=== PATIENT | female | born 1975 | race Caucasian/White ===

== ENCOUNTER 2017-05-13 13:25 | Emergency (ER) | payer OTHER ==
[2017-05-13 13:43] VITALS: BP 163/82; PULSE 83; RESP 18; TEMP 97.8
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
[2017-05-13] MEDS ORDERED: RX INFO: IV CONTRAST WAS GIVEN 1 EACH MISC MISCELLANE PRN (15:09)
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
--- NOTE | 2017-05-13 15:12 | XR ---
EXAMINATION TYPE: XR soft tissue neck DATE OF EXAM: 05/13/2017 COMPARISON: NONE HISTORY: Pain and choking. TECHNIQUE: 2 views of soft tissue neck are obtained. FINDINGS: There is no suspicious prevertebral soft tissue swelling. Nasopharyngeal and hypopharyngeal airway are patent. No suspicious narrowing of subglottic airway is seen. Overlying soft tissue is un remarkable. IMPRESSION: 2 view soft tissue neck felt within normal limits.
[2017-05-13 15:33] LABS: Basophils # (A) 0.1 k/uL (0-0.2); Basophils % (A) 1 %; CH 35.2; CHCM 32.4; Eosinophils # (A) 0.1 k/uL (0-0.7); Eosinophils % (A) 2 %; HCT 39.2 % (34.0-46.0); HDW 2.04; HGB 12.6 gm/dL (11.4-16.0); Luc # (Auto) 0.27; Luc % (Auto) 4; Lymphocytes # (A) 1.7 k/uL (1.0-4.8); Lymphocytes % (A) 27 %; MCHC 32.1 g/dL (31.0-37.0); MCV 108.9 fL (80.0-100.0); Macrocytosis Moderate; Mean Platelet Volume 7.5; Monocytes # (A) 0.4 k/uL (0-1.0); Monocytes % (A) 6 %; Neutrophils # (A) 3.6 k/uL (1.3-7.7); Neutrophils % (A) 60 %; RBC 3.59 m/uL (3.80-5.40); RDW 12.4 % (11.5-15.5); WBC 6.1 k/uL (3.8-10.6); WBC (Perox) 5.93
[2017-05-13 15:42] LABS: Anion Gap 11 mmol/L; Blood Urea Nitrogen 3 mg/dL (7-17); Calcium 8.3 mg/dL (8.4-10.2); Carbon Dioxide 19 mmol/L (22-30); Chloride 106 mmol/L (98-107); Glucose 64 mg/dL (74-99); Non-African American GFR(MDRD) >60 (>60 ml/min/1.73 sqM); Potassium 5.3 mmol/L (3.5-5.1); Sodium 136 mmol/L (137-145)
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
== END 2017-05-13 17:30 | disposition home or self-care (01) ==
LOC: EC 13:25
DX: T74.11XA Adult physical abuse, confirmed, initial encounter (principal); M54.2 Cervicalgia; R07.9 Chest pain, unspecified; F10.129 Alcohol abuse with intoxication, unspecified; Z79.899 Other long term (current) drug therapy; Z88.8 Allergy status to other drugs, medicaments and biological substances; Y04.0XXA Assault by unarmed brawl or fight, initial encounter; Y92.009 Unspecified place in unspecified non-institutional (private) residence as the place of occurrence of the external cause
CPT/HCPCS: 99285 ×2; 36415; 80048; 85025; 70360; 71020; 70498; Q9967

== ENCOUNTER 2017-11-17 14:38 | Observation (INO) | payer OTHER ==
[2017-11-17] MEDS ORDERED: ASPIRIN 81 MG PO STA (15:06)
[2017-11-17] MEDS ORDERED: NITROGLYCERIN OINT 1 INCH/GM PACKET TOPICAL STA (15:06)
[2017-11-17] MEDS ORDERED: LORazepam 1 MG TAB PO STA (15:06)
--- NOTE | 2017-11-17 15:08 | ED ---
General Adult HPI - General Chief complaint: Chest Pain Stated complaint: CP Time Seen by Provider: 11/17/17 14:46 Source: patient, RN notes reviewed Mode of arrival: wheelchair Limitations: no limitations - History of Present Illness Initial comments: Patient is a pleasant 42-year-old female presenting to the emergency Department with chest discomfort. Onset of symptoms was a couple weeks ago. Patient has been under significant stress at home recently. Discomfort feels like pressure or tightness and has been mostly steady. Patient has some associated dyspnea. No nausea or diaphoresis. No history of similar symptoms previously. - Related Data Home Medications Medication Instructions Recorded Confirmed Loratadine [Claritin] 10 mg PO DAILY 05/13/17 05/13/17 busPIRone HCl [Buspar] 2.5 mg PO QAM 05/13/17 05/13/17 busPIRone HCl [Buspar] 5 mg PO HS 05/13/17 05/13/17 Allergies Allergy/AdvReac Type Severity Reaction Status Date / Time duloxetine [From Cymbalta] Allergy Rash/Hives Verified 11/17/17 14:42 Review of Systems ROS Statement: Those systems with pertinent positive or pertinent negative responses have been documented in the HPI. ROS Other: All systems not noted in ROS Statement are negative. Constitutional: Denies: fever Eyes: Denies: eye pain ENT: Denies: ear pain Respiratory: Reports: dyspnea Cardiovascular: Reports: chest pain Endocrine: Denies: fatigue Gastrointestinal: Denies: abdominal pain Genitourinary: Denies: dysuria Musculoskeletal: Denies: back pain Skin: Denies: rash Neurological: Denies: weakness Psychiatric: Reports: anxiety Past Medical History Past Medical History: Hypertension History of Any Multi-Drug Resistant Organisms: None Reported Past Surgical History: No Surgical Hx Reported Past Psychological History: Anxiety, Depression Smoking Status: Current every day smoker Past Alcohol Use History: Daily Past Drug Use History: None Reported General Exam Limitations: no limitations General appearance: alert, in no apparent distress Head exam: Present: atraumatic Eye exam: Present: normal appearance, PERRL ENT exam: Present: normal oropharynx Neck exam: Present: normal inspection Respiratory exam: Present: normal lung sounds bilaterally, chest wall tenderness Cardiovascular Exam: Present: regular rate, normal rhythm Expanded Peripheral pulses: 2+: Radial (R), Radial (L), Dorsalis Pedis (R), Dorsalis Pedis (L) GI/Abdominal exam: Present: soft. Absent: tenderness Extremities exam: Present: normal inspection. Absent: pedal edema, calf tenderness Neurological exam: Present: alert Psychiatric exam: Present: normal affect, normal mood Skin exam: Present: normal color Course Vital Signs 11/17/17 11/17/17 11/17/17 14:40 15:29 16:02 Temperature 96.8 F L Pulse Rate 97 84 Pulse Rate [ 81 [employer] ] Respiratory 20 18 Rate Blood Pressure 191/108 134/85 O2 Sat by Pulse 97 98 Oximetry EKG Findings - EKG Comments: EKG Findings:: Normal sinus rhythm 88. LA 190. QRS 82. QT 370. QTc 447. Normal axis. Normal QRS. No acute ST change. Medical Decision Making - Medical Decision Making Patient reevaluated and resting comfortably in bed. Patient states symptoms have significantly improved however not completely resolved. Patient believes it was probably a combination of Ativan as well as Nitropaste. Patient states she does have a family history of heart disease. Case was discussed with Dr. Bone, who will admit for Dr. Mccarty. - Lab Data Result diagrams: 11/17/17 15:20 11/17/17 15:20 Lab Results 11/17/17 11/17/17 11/17/17 Range/Units 15:20 15:20 15:20 WBC 5.9 (3.8-10.6) k/uL RBC 3.87 (3.80-5.40) m/uL Hgb 12.6 (11.4-16.0) gm/dL Hct 38.8 (34.0-46.0) % MCV 100.3 H (80.0-100.0) fL MCH 32.6 (25.0-35.0) pg MCHC 32.5 (31.0-37.0) g/dL RDW 15.0 (11.5-15.5) % Plt Count 206 (150-450) k/uL Neutrophils % 62 % Lymphocytes % 29 % Monocytes % 6 % Eosinophils % 2 % Basophils % 1 % Neutrophils # 3.7 (1.3-7.7) k/uL Lymphocytes # 1.7 (1.0-4.8) k/uL Monocytes # 0.3 (0-1.0) k/uL Eosinophils # 0.1 (0-0.7) k/uL Basophils # 0.0 (0-0.2) k/uL Macrocytosis Slight PT (9.0-12.0) sec INR (<1.2) APTT (22.0-30.0) sec Sodium 142 (137-145) mmol/L Potassium 3.8 (3.5-5.1) mmol/L Chloride 105 (98-107) mmol/L Carbon Dioxide 19 L (22-30) mmol/L Anion Gap 18 mmol/L BUN 5 L (7-17) mg/dL Creatinine 0.50 L (0.52-1.04) mg/dL Est GFR (CKD-EPI)AfAm >90 (>60 ml/min/1.73 sqM) Est GFR (CKD-EPI)NonAf >90 (>60 ml/min/1.73 sqM) Glucose 131 H (74-99) mg/dL Calcium 8.9 (8.4-10.2) mg/dL Magnesium 2.1 (1.6-2.3) mg/dL Total Bilirubin 0.3 (0.2-1.3) mg/dL AST 50 H (14-36) U/L ALT 20 (9-52) U/L Alkaline Phosphatase 52 (38-126) U/L Total Creatine Kinase 177 H (30-135) U/L CK-MB (CK-2) 1.4 (0.0-2.4) ng/mL CK-MB (CK-2) Rel Index 0.8 Troponin I <0.012 (0.000-0.034) ng/mL Total Protein 6.9 (6.3-8.2) g/dL Albumin 4.4 (3.5-5.0) g/dL 11/17/17 Range/Units 15:20 WBC (3.8-10.6) k/uL RBC (3.80-5.40) m/uL Hgb (11.4-16.0) gm/dL Hct (34.0-46.0) % MCV (80.0-100.0) fL MCH (25.0-35.0) pg MCHC (31.0-37.0) g/dL RDW (11.5-15.5) % Plt Count (150-450) k/uL Neutrophils % % Lymphocytes % % Monocytes % % Eosinophils % % Basophils % % Neutrophils # (1.3-7.7) k/uL Lymphocytes # (1.0-4.8) k/uL Monocytes # (0-1.0) k/uL Eosinophils # (0-0.7) k/uL Basophils # (0-0.2) k/uL Macrocytosis PT 10.6 (9.0-12.0) sec INR 1.1 (<1.2) APTT 26.8 (22.0-30.0) sec Sodium (137-145) mmol/L Potassium (3.5-5.1) mmol/L Chloride (98-107) mmol/L Carbon Dioxide (22-30) mmol/L Anion Gap mmol/L BUN (7-17) mg/dL Creatinine (0.52-1.04) mg/dL Est GFR (CKD-EPI)AfAm (>60 ml/min/1.73 sqM) Est GFR (CKD-EPI)NonAf (>60 ml/min/1.73 sqM) Glucose (74-99) mg/dL Calcium (8.4-10.2) mg/dL Magnesium (1.6-2.3) mg/dL Total Bilirubin (0.2-1.3) mg/dL AST (14-36) U/L ALT (9-52) U/L Alkaline Phosphatase (38-126) U/L Total Creatine Kinase (30-135) U/L CK-MB (CK-2) (0.0-2.4) ng/mL CK-MB (CK-2) Rel Index Troponin I (0.000-0.034) ng/mL Total Protein (6.3-8.2) g/dL Albumin (3.5-5.0) g/dL - Radiology Data Radiology results: image reviewed (Chest x-ray shows no acute process) Disposition Clinical Impression: Chest pain Disposition: ADMITTED IP TO THIS [facility] Is patient prescribed a controlled substance at d/c from ED?: No Referrals: Slime Rodriguez MD [Primary Care Provider] - 1-2 days Decision Time: 16:52
[2017-11-17 15:42] LABS: Basophils % (A) 1 %; Eosinophils # (A) 0.1 k/uL (0-0.7); Eosinophils % (A) 2 %; HCT 38.8 % (34.0-46.0); HGB 12.6 gm/dL (11.4-16.0); Lymphocytes # (A) 1.7 k/uL (1.0-4.8); Lymphocytes % (A) 29 %; MCH 32.6 pg (25.0-35.0); MCHC 32.5 g/dL (31.0-37.0); MCV 100.3 fL (80.0-100.0); Macrocytosis Slight; Mean Platelet Volume 7.6; Monocytes # (A) 0.3 k/uL (0-1.0); Monocytes % (A) 6 %; Neutrophils # (A) 3.7 k/uL (1.3-7.7); Neutrophils % (A) 62 %; Platelet Count 206 k/uL (150-450); RBC 3.87 m/uL (3.80-5.40); WBC 5.9 k/uL (3.8-10.6)
[2017-11-17 15:51] LABS: INR 1.1 (<1.2); Partial Thromboplastin Time 26.8 sec (22.0-30.0); Prothrombin Time 10.6 sec (9.0-12.0)
[2017-11-17 15:57] LABS: Creatine Kinase 177 U/L (30-135)
[2017-11-17 16:01] LABS: ALT 20 U/L (9-52); AST 50 U/L (14-36); Albumin 4.4 g/dL (3.5-5.0); Alkaline Phosphatase 52 U/L (38-126); Anion Gap 18 mmol/L; Blood Urea Nitrogen 5 mg/dL (7-17); Calcium 8.9 mg/dL (8.4-10.2); Carbon Dioxide 19 mmol/L (22-30); Chloride 105 mmol/L (98-107); Glucose 131 mg/dL (74-99); Magnesium 2.1 mg/dL (1.6-2.3); Potassium 3.8 mmol/L (3.5-5.1); Sodium 142 mmol/L (137-145); Total Bilirubin 0.3 mg/dL (0.2-1.3); Total Protein 6.9 g/dL (6.3-8.2)
--- NOTE | 2017-11-17 16:02 | XR ---
EXAMINATION TYPE: XR chest 2V DATE OF EXAM: 11/17/2017 COMPARISON: Chest x-ray May 13, 2017. HISTORY: Chest pain for 2 weeks. TECHNIQUE: Frontal and lateral views of the chest are obtained. FINDINGS: There is no suspicious new focal air space opacity, pleural effusion, or pneumothorax seen . The cardiac silhouette size is within normal limits. The osseous structures are intact. IMPRESSION: No acute cardiopulmonary process. No significant change from prior.
[2017-11-17 16:06] LABS: Creatine Kinase MB 1.4 ng/mL (0.0-2.4)
[2017-11-17 16:10] LABS: Troponin I <0.012 ng/mL (0.000-0.034)
[2017-11-17] MEDS ORDERED: NITROGLYCERIN SL TABS 0.4 MG TAB SUBLINGUAL PRN (16:53)
[2017-11-17] MEDS ORDERED: ALBUTEROL NEBULIZED 2.5 MG/3 ML INHALATION PRN (17:39)
[2017-11-17] MEDS ORDERED: TEMAZEPAM 15 MG CAP PO PRN (17:40)
[2017-11-17] MEDS ORDERED: HYDROcodone/APAP 5-325MG 1 EACH TAB PO PRN (17:40)
--- NOTE | 2017-11-17 19:00 | HP ---
HISTORY AND PHYSICAL DATE OF ADMISSION: 11/17/2017. CHIEF COMPLAINT: Chest pain. HISTORY OF PRESENT ILLNESS: This 42-year-old woman with a past medical history of hypertension, history of anxiety and depression, nicotine dependence, being followed by Dr. Rodriguez in the outpatient setting, was complaining of chest pain, pain was in the anterior part of the chest without much radiation therapy. The pain is almost like a tightness. Some associated shortness of breath was also reported. Patient also reports significant stress at home. The patient has had a breakup with her boyfriend and patient's boyfriend's sister and boyfriend also are living in the house, who are constantly arguing according to her. The patient also reports significant smoking and excessive alcohol, both of which the patient is trying to cut down. The patient is being up to 3 beers a couple days ago and a pack of cigarettes also. There is no history of fevers or rigors, no headache, loss of consciousness, seizures. PAST MEDICAL: Hypertension, anxiety, depression. CURRENT MEDICATIONS PRIOR TO ADMISSION: 1. Buspar 5 mg p.o. t.i.d. 2. Toprol-XL 25 mg daily. 3. Claritin 10 mg daily. 4. Ventolin HFA 1 to 2 puffs q.i.d. p.r.n. ALLERGIES: CYMBALTA. FAMILY HISTORY: Family history of heart disease and coronary artery disease present. No history of stroke. SOCIAL HISTORY: History of smoking and alcohol as mentioned. REVIEW OF SYSTEMS: ENT: No diminished vision or hearing. CARDIOVASCULAR: As mentioned. GI: No nausea or vomiting. : No dysuria or hematuria. POINT OF CARE SPECIALIST: No numbness or weakness. MUSCULOSKELETAL: As mentioned earlier. HEMATOLOGY/ONCOLOGY: No history of anemia. ENDOCRINE: No history of diabetes or hypothyroidism. CONSTITUTIONAL: As mentioned. PSYCHIATRY: As mentioned. PHYSICAL EXAMINATION: Alert oriented x2. Pulse is 84, blood pressure 130/85, respirations 18, temp 98.8, pulse ox 98% on 2 L. HEENT: Oral mucosa moist. NECK: No jugular venous distention. No lymph node enlargement. CARDIOVASCULAR: S1 and S2. LUNGS: Breath sounds decreased in the bases. Few scattered rhonchi. No crackles. ABDOMEN: Soft, nontender. No mass palpable. LEGS: No edema, no swelling. NERVOUS SYSTEM: Higher functions as mentioned earlier. Moves all four limbs. No focal deficits LYMPHATICS: No lymph node palpable in neck, axillae or groin. LABS: WBC 5.9, MCV 100.3. ASSESSMENT: 1. Chest pain, possible unstable angina. 2. History of nicotine dependence. 3. History of ETOH. 4. Increased random blood sugar. 5. Hypertension. 6. History of anxiety and depression. RECOMMENDATIONS: This 42-year-old woman presented with multiple complex medical issues. We will monitor the patient closely, continue the current management and symptomatic treatment. Recommend unstable angina protocol. Cardiology consultation to rule out myocardial infarction. Patient will need further testing. Otherwise I would also recommend smoking and ETOH cessation. CIWA protocol. See orders for further details. Repeat labs. Guarded prognosis because of multiple complex medical issues. Further recommendation to follow. MMODL / IJN: [id number] /
[2017-11-17 22:30] LABS: Creatine Kinase 140 U/L (30-135)
[2017-11-17 22:43] LABS: Troponin I <0.012 ng/mL (0.000-0.034)
[2017-11-17] MEDS: busPIRone HCl 5 MG TAB PO SCH (23:04)
[2017-11-17] MEDS: NITROGLYCERIN OINT 1 INCH/GM PACKET TOPICAL SCH (23:05)
[2017-11-18 04:00] LABS: Anion Gap 15 mmol/L; Blood Urea Nitrogen 8 mg/dL (7-17); Calcium 8.8 mg/dL (8.4-10.2); Carbon Dioxide 18 mmol/L (22-30); Chloride 106 mmol/L (98-107); Cholesterol 188 mg/dL (<200); Glucose 75 mg/dL (74-99); Potassium 4.2 mmol/L (3.5-5.1); Sodium 139 mmol/L (137-145); Triglycerides 249 mg/dL (<150)
[2017-11-18 04:07] LABS: LDL Cholesterol,Calculated 6 mg/dL (0-99)
[2017-11-18 04:14] LABS: HDL Cholesterol 132 mg/dL (40-60)
[2017-11-18 04:18] LABS: Creatine Kinase 120 U/L (30-135)
[2017-11-18 04:28] LABS: Basophils % (A) 1 %; Eosinophils # (A) 0.2 k/uL (0-0.7); Eosinophils % (A) 3 %; HCT 39.9 % (34.0-46.0); HGB 12.2 gm/dL (11.4-16.0); Hypochromasia Slight; Lymphocytes # (A) 1.8 k/uL (1.0-4.8); Lymphocytes % (A) 35 %; MCH 32.3 pg (25.0-35.0); MCHC 30.5 g/dL (31.0-37.0); Macrocytosis Moderate; Mean Platelet Volume 8.4; Monocytes # (A) 0.4 k/uL (0-1.0); Monocytes % (A) 8 %; Neutrophils # (A) 2.7 k/uL (1.3-7.7); Neutrophils % (A) 53 %; Platelet Count 172 k/uL (150-450); RBC 3.77 m/uL (3.80-5.40); RDW 14.8 % (11.5-15.5); WBC 5.2 k/uL (3.8-10.6)
[2017-11-18 04:30] LABS: MCV 105.8 fL (80.0-100.0)
[2017-11-18 04:32] LABS: Creatine Kinase MB 0.9 ng/mL (0.0-2.4); Troponin I <0.012 ng/mL (0.000-0.034)
[2017-11-18] MEDS: NITROGLYCERIN OINT 1 INCH/GM PACKET TOPICAL SCH (04:46)
[2017-11-18 05:38] LABS: Appearance,Urine Clear (Clear); Bilirubin,Urine Negative (Negative); Blood,Urine Small (Negative); Color,Urine Light Yellow; Glucose,Urine (UA) Negative (Negative); Ketones,Urine Negative (Negative); Leukocyte Esterase,Urine Negative (Negative); Mucus,Urine Few /hpf; Nitrite,Urine Negative (Negative); Protein,Urine Negative (Negative); RBC,Urine <1 /hpf (0-5); Squamous Epithelial Cell,Urine <1 /hpf (0-4); Urobilinogen,Urine <2.0 mg/dL (<2.0); WBC,Urine 1 /hpf (0-5)
[2017-11-18 05:47] LABS: Amphetamine Screen,Urine Not Detected (NotDetected); Barbiturate Screen,Urine Not Detected (NotDetected); Benzodiazepines Screen,Urine Detected (NotDetected); Cocaine Screen,Urine Not Detected (NotDetected); Methadone Screen, Urine Not Detected (NotDetected); Opiate Screen,Urine Detected (NotDetected); Oxycodone Screen, Urine Not Detected (NotDetected); Phencyclidine Screen,Urine Not Detected (NotDetected); Tricyclic Antidepressant,Urine Not Detected (NotDetected); Urn Cannabinoid Scrn Not Detected (NotDetected)
[2017-11-18] MEDS ORDERED: ASPIRIN 325 MG TAB PO SCH (09:00)
[2017-11-18] MEDS ORDERED: METOPROLOL SUCCINATE (ER) 25 MG TAB.ER.24H PO SCH (09:00)
[2017-11-18] MEDS ORDERED: THIAMINE 100 MG/ML 2 ML VIAL IM STA (09:11)
[2017-11-18] MEDS ORDERED: LORazepam 2 MG/ML INJ IV PRN ×2 (09:11)
[2017-11-18] MEDS: LORazepam 2 MG/ML INJ IV PRN ×2 (09:19→16:19)
[2017-11-18] MEDS: METOPROLOL SUCCINATE (ER) 25 MG TAB.ER.24H PO SCH (09:20)
[2017-11-18] MEDS: LORATADINE 10 MG TAB PO SCH (09:20)
[2017-11-18] MEDS: busPIRone HCl 5 MG TAB PO SCH ×3 (09:20→19:57)
[2017-11-18] MEDS: PANTOPRAZOLE 40 MG TABLET PO SCH (09:21)
--- NOTE | 2017-11-18 10:31 | CONS ---
CONSULTATION Mrs. Jin is a 42-year-old female with no prior documented history of coronary artery disease, who presented to the emergency room with symptoms of chest discomfort. She has been having discomfort, tightness like for the next last 2 weeks. She has been under a lot of stress and has been drinking an increased amount of alcohol as well as smoking. The patient is reasonably active physically without any significant problem except dyspnea. She is quite anxious. She denies any dizziness or palpitation. She has no syncope. No history of arrhythmia. Her chest discomfort at times is worse with palpation of the chest as well as the nausea and vomiting that she had today. Her coronary risk factors are remarkable for hypertension, chronic tobacco use. She is nondiabetic. MEDICATION: At home included buspirone, metoprolol succinate 25 mg daily, loratadine and albuterol. REVIEW OF SYSTEMS: Respiratory system: She has no history of documented asthma, emphysema or bronchitis, although she has dyspnea on exertion. GI system: No recent GI bleeding. She had nausea and vomiting. system: No dysuria or hematuria. Nervous system: No history of stroke or seizure. SOCIAL HISTORY: She drinks alcohol on a regular basis, smokes and drinks caffeine. PHYSICAL EXAMINATION: 42-year-old female, alert and oriented in no apparent distress. Blood pressure 128/60 with a heart in the 60s. HEAD: Normocephalic. Eyes sclerae anicteric. Neck good upstroke. No bruit. No jugular venous distention. LUNGS: Clear to auscultation. HEART: Regular rate and rhythm, S1, S2. No S3, no S4. No murmur or rub. Chest wall with chest wall tenderness reproducing the pain. ABDOMEN: Soft, nontender. Positive bowel sounds. No organomegaly. EXTREMITIES: No edema. Intact distal pulses. LAB DATA: Lab data revealed troponin less than 0.012 for 3 samples. BUN and creatinine 8 and 0.5, potassium 4.2, hemoglobin of 12.2. EKG revealed a sinus mechanism, normal axis, intervals, normal electrocardiogram. Chest x-ray shows no acute infiltrate. IMPRESSION: 1. Chest discomfort, atypical for ischemic heart disease. Appears to be musculoskeletal in etiology. 2. Chronic tobacco use. 3. Chronic alcohol intake. 4. Anxiety. 5. Chronic smoking. RECOMMENDATION: From the cardiac standpoint, I will stop the nitrate. The patient may benefit from undergoing a stress echocardiogram that can be done as an inpatient or outpatient. I will leave that decision to Dr. Bone. Thank you for this consult. We will follow with you. MMREBAL / IJN: [id number] /
[2017-11-18] MEDS: THIAMINE 100 MG TAB PO SCH (16:19)
--- NOTE | 2017-11-18 16:28 | PN ---
PROGRESS NOTE DATE OF SERVICE: 11/18/2017. INTERVAL HISTORY: This 42-year-old woman who was admitted with chest pain also had history of EtOH. The patient is also going through some withdrawals at this time. The patient was vomiting and the patient is also complaining of shakiness. The patient CIWA protocol has been initiated. No chest pain. No palpitations. No fever at this time. PHYSICAL EXAMINATION: On exam, alert and oriented times three. Pulse 93, blood pressure 140/88, respiration 18, temperature 98.2, pulse ox 98% room air. HEENT: Conjunctivae normal. Neck : No jugular venous distention. Cardiovascular: S1, S2 muffled. Respirations: Breath sounds diminished in the bases. A few rhonchi. No crackles. Abdomen is soft, nontender. Legs are no edema. No swelling. Central nervous system: No focal deficits. LABS: of 249. LDL is ntd, hdl 132. ASSESSMENT: 1. Chest pain possible unstable angina. 2. History of nicotine dependence. 3. History of ETOH. 4. Possible alcohol withdrawal syndrome. 5. Increased random blood sugar. 6. Hypertension. 7. History of anxiety, depression. RECOMMENDATIONS AND DISCUSSION: Continue current medications, management and symptomatic treatment. Otherwise, at this time, I recommend CIWA protocol. Cardiology consultation. Possibly stress test. Guarded prognosis. Further recommendations to follow. MMODL / IJN: [id number] / MTDD
[2017-11-19 04:28] VITALS: RESP 16
[2017-11-19] MEDS ORDERED: ASPIRIN 81 MG PO SCH (09:00)
[2017-11-19] MEDS: LORATADINE 10 MG TAB PO SCH (09:32)
[2017-11-19] MEDS: PANTOPRAZOLE 40 MG TABLET PO SCH (09:32)
[2017-11-19] MEDS: busPIRone HCl 5 MG TAB PO SCH (09:32)
--- NOTE | 2017-11-19 11:41 | P.PN ---
Subjective Progress Note Date: 11/19/17 Mrs. Jin is seen and examined today in follow-up from initial consultation for chest pain. She continues to complain of chest pain intermittently overnight. Her pain has been ongoing for the previous 2-weeks with waxing and waning. She continues to feel symptoms of nausea and generalized body aches. She is being treated for alcohol withdraw with ativan. Blood pressure 156/87 heart rate 64 afebrile and maintain oxygen saturation on room air. Telemetry tracings have been unremarkable. Objective - Vital Signs Vital signs: Vital Signs Temp 98.1 F 11/19/17 08:00 Pulse 64 11/19/17 08:00 Resp 16 11/19/17 08:00 BP 156/87 11/19/17 08:00 Pulse Ox 95 11/19/17 08:00 Intake & Output 11/18/17 11/19/17 11/19/17 18:59 06:59 18:59 Other: Voiding Method Toilet Toilet # Voids 1 - Exam GENERAL: Well-appearing, well-nourished and in no acute distress. NECK: Supple without JVD or thyromegaly. LUNGS: Breath sounds clear to auscultation bilaterally. Respiration equal and unlabored. No wheezes, rales or rhonchi. HEART: Regular rate and rhythm without murmurs, rubs or gallops. S1 and S2 heard. EXTREMITIES: Normal range of motion, no edema. No clubbing or cyanosis. Peripheral pulses intact and strong. - Labs CBC & Chem 7: 11/18/17 03:09 11/18/17 03:09 Assessment and Plan Assessment: ASSESSMENT 1. Chest pain, atypical with musculoskeletal features 2. Chronic tobacco abuse 3. Chronic alcohol abuse with possible withdrawal syndrome 4. Anxiety PLAN Proceed with stress echocardiogram to assess for stress-induced cardiac ischemia. If this is normal she is stable from a cardiac perspective. The above impression and plan of care have been discussed and directed by the signing physician. Kenzie Mitchell, nurse practitioner, acting as scribe for signing physician.
[2017-11-19] MEDS: THIAMINE 100 MG TAB PO SCH (12:05)
[2017-11-19] MEDS: METOPROLOL SUCCINATE (ER) 25 MG TAB.ER.24H PO SCH (12:05)
[2017-11-19 12:51] VITALS: BP 167/84; PULSE 63; TEMP 98.5
--- NOTE | 2017-11-19 13:08 | ECHOS ---
STRESS ECHOCARDIOGRAM INDICATIONS: Chest pain. BASELINE HEART RATE: 73 BASELINE BLOOD PRESSURE: 146/68 MAXIMUM HEART RATE: 170 MAXIMUM BLOOD PRESSURE: 180/96 85% MPHR: 150 100% MPHR: 177 METS: 8.0 MAXIMUM STAGE REACHED: 3 TOTAL EXERCISE TIME: 6:40 CLINICAL INFORMATION: Baseline EKG shows sinus rhythm, normal axis, normal intervals. Patient exercised on Sudarshan protocol for a total of 6 minutes and 40 seconds achieving 8 METS, 96% of predicted maximal heart rate without chest pain or diagnostic ST-segment depression. Baseline echo shows normal left ventricular size, wall motion, systolic function. Postexercise there is normal hyperdynamic response of all segments of myocardium noted. CONCLUSIONS: 1. Average exercise tolerance. 2. Negative stress test by EKG criteria. 3. Negative stress echo. MMODL / IJN: [id number] /
--- NOTE | 2017-11-19 19:59 | DS ---
DISCHARGE SUMMARY DATE OF SERVICE: 11/19/2017. FINAL DIAGNOSES: 1. Chest pain possibly musculoskeletal. 2. History of nicotine dependence. 3. History of ETOH. 4. Possible alcohol withdrawal syndrome. DISCHARGE DISPOSITION: Patient is being discharged in stable condition with guarded prognosis. HISTORY OF PRESENT ILLNESS: This 42-year-old woman with past medical history of multiple medical problems, was admitted with chest pain. Patient also has history of EtOH. The patient had a stress echo by Cardiology. The patient improved significantly and a stress echo was reported as showing negative stress echo. PHYSICAL EXAMINATION: On exam, vitals are stable. Cardiovascular: S1, S2. Abdomen soft. Central nervous system: No focal deficits. DISCHARGE ADVICE AND MEDICATIONS: 1. Diet is cardiac. 2. Activity limited until follow up. 3. Follow up with Dr. Rodriguez in 2-3 days. 4. Follow up with Dr. Regalado. 5. No smoking or alcohol. MEDICATIONS: 1. Ventolin 2 1-2 puffs q.6 p.r.n. 2. BuSpar 5 mg p.o. t.i.d. 3. Folic acid 1 mg daily. 4. Claritin 10 mg daily. 5. Ativan 0.5 mg t.i.d. p.r.n. 6. Toprol-XL 25 mg p.o. daily. 7. Multivitamins 1 p.o. daily. 8. Protonix 40 mg daily. 9. Thiamine 100 mg p.o. daily. Once again, the patient is being discharged in stable condition with guarded prognosis. MMODL / IJN: [id number] /
== END 2017-11-19 15:45 | disposition home or self-care (01) ==
LOC: EC 14:38 → 3OBS 16:53 → 3SUR 20:19 → 3OBS 11-18 19:08
PROVIDERS: ADMIT Hospitalist; ATTEND Hospitalist
DX: R07.89 Other chest pain (principal); R06.02 Shortness of breath; R11.2 Nausea with vomiting, unspecified; R06.00 Dyspnea, unspecified; I10 Essential (primary) hypertension; R73.9 Hyperglycemia, unspecified; F41.9 Anxiety disorder, unspecified; F32.9 Major depressive disorder, single episode, unspecified; F17.210 Nicotine dependence, cigarettes, uncomplicated; F10.10 Alcohol abuse, uncomplicated; Z82.49 Family history of ischemic heart disease and other diseases of the circulatory system; Z79.899 Other long term (current) drug therapy; Z88.8 Allergy status to other drugs, medicaments and biological substances
CPT/HCPCS: 99285; 96374; 96376; 82075; 36415; 94640; 94760; 93005; 93351; 85379; 80061; 80053; 80048; 82550 ×2; 82553 ×2; 83735; 84484 ×2; 85025 ×2; 85610; 85730; 81001; 80306; 71046; G0378 ×3; J2060

== ENCOUNTER 2018-01-10 16:48 | Emergency (ER) | payer OTHER ==
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
[2018-01-10] MEDS ORDERED: LIDOCAINE 1% (PF) 10MG/ML VIAL SQ STA (17:15)
[2018-01-10] MEDS ORDERED: DIPH,PERTUS(ACELL)TETVAC-LF 0.5 ML VIAL IM ONE (17:15)
[2018-01-10] MEDS ORDERED: SODIUM CHLORIDE 0.9% 1,000 ML IV ONE (17:17)
--- NOTE | 2018-01-10 17:54 | CT ---
EXAMINATION TYPE: CT brain pravin barnes DATE OF EXAM: 01/10/2018 COMPARISON: NONE HISTORY: Fall today with Posterior head injury CT DLP: 1697 mGycm Automated exposure control for dose reduction was used. TECHNIQUE: CT scan of the head and cervical spine are performed without contrast. FINDINGS: There is mild cerebral cortical atrophy. There is no mass effect nor midline shift or the re is no sign of intracranial hemorrhage. The calvarium is intact. Cervical vertebra have normal spacing and alignment. Posterior elements are intact. There is no evide nce of a fracture. Skull base appears intact. IMPRESSION: Mild cerebral atrophy. No acute intracranial abnormality. Negative CT scan of the cervical spine.
[2018-01-10 21:35] VITALS: RESP 18
[2018-01-10 22:22] VITALS: BP 145/69; PULSE 64; TEMP 97.1
== END 2018-01-10 22:22 | disposition home or self-care (01) ==
LOC: EC 16:48
DX: S01.01XA Laceration without foreign body of scalp, initial encounter (principal); F10.129 Alcohol abuse with intoxication, unspecified; G31.9 Degenerative disease of nervous system, unspecified; I10 Essential (primary) hypertension; F32.9 Major depressive disorder, single episode, unspecified; F41.9 Anxiety disorder, unspecified; F17.200 Nicotine dependence, unspecified, uncomplicated; Z79.899 Other long term (current) drug therapy; Z88.8 Allergy status to other drugs, medicaments and biological substances; Z23 Encounter for immunization; Y04.0XXA Assault by unarmed brawl or fight, initial encounter; Y92.009 Unspecified place in unspecified non-institutional (private) residence as the place of occurrence of the external cause
CPT/HCPCS: 72125; 70450; 90715; 99284; 12001; 96360; 90471; J2001

== ENCOUNTER 2018-01-25 16:57 | Inpatient (IN) | payer OTHER ==
--- NOTE | 2018-01-25 17:33 | ED ---
General Adult HPI - General Chief complaint: Fall Stated complaint: fall Time Seen by Provider: 01/25/18 16:59 Source: patient, EMS, RN notes reviewed, old records reviewed Mode of arrival: EMS Limitations: no limitations - History of Present Illness Initial comments: Patient's a 42-year-old female who was brought emergency room by EMS with chief complaint of a fall that occurred just prior to arrival. Patient states that she was walking and she tripped over her sandal falling backwards hitting the back of her head. She does admit that she does have ranjan in the back of her head from a injury that occurred approximately a week ago and she came to the emergency room for and had ranjan placed. She does admit that there is some bleeding coming from the same area. Patient does not that she was drinking alcohol earlier but she states she vomited it up. Patient does admit to headache. She denies any other complaints or symptoms. She does state that her tetanus is up-to-date. Patient denies any recent fever, chills, shortness of breath, chest pain, back pain, abdominal omayra, numbness or tingling, dysuria or hematuria, constipation or diarrhea, visual changes, or any other complaints. - Related Data Home Medications Medication Instructions Recorded Confirmed Loratadine [Claritin] 10 mg PO DAILY 05/13/17 01/25/18 busPIRone HCl [Buspar] 5 mg PO TID 05/13/17 01/25/18 Albuterol Inhaler [Ventolin Hfa 1 - 2 puff INHALATION RT-QID PRN 11/17/17 Inhaler] Metoprolol Succinate (ER) [Toprol 25 mg PO DAILY 11/17/17 01/25/18 XL] Pantoprazole Sodium [Protonix] 40 mg PO DAILY 01/25/18 01/25/18 Previous Rx's Medication Instructions Recorded Folic Acid 1 mg PO DAILY #30 tablet 11/19/17 Acetaminophen Tab [Tylenol Tab] 500 mg PO Q6H #20 tablet 01/10/18 Allergies Allergy/AdvReac Type Severity Reaction Status Date / Time duloxetine [From Cymbalta] Allergy Rash/Hives Verified 01/25/18 17:24 Review of Systems ROS Statement: Those systems with pertinent positive or pertinent negative responses have been documented in the HPI. ROS Other: All systems not noted in ROS Statement are negative. Past Medical History Past Medical History: Hypertension History of Any Multi-Drug Resistant Organisms: None Reported Past Surgical History: No Surgical Hx Reported Past Anesthesia/Blood Transfusion Reactions: No Reported Reaction Past Psychological History: Anxiety, Depression Smoking Status: Current every day smoker Past Alcohol Use History: Daily Past Drug Use History: None Reported - Past Family History Mother Family Medical History: Coronary Artery Disease (CAD) Father Family Medical History: Cancer Sister(s) Additional Family Medical History / Comment(s): bipolar Son(s) Additional Family Medical History / Comment(s): pt states "failure to thrive, delayed" General Exam - General Exam Comments Initial Comments: General: The patient is awake and alert, in no distress, and does not appear acutely ill. Eye: Pupils are equal, round and reactive to light, extra-ocular movements are intact. No nystagmus. There is normal conjunctiva bilaterally. No signs of icterus. Ears, nose, mouth and throat: There are moist mucous membranes and no oral lesions. Neck: The neck is supple, there is no tenderness or JVD. Cardiovascular: There is a regular rate and rhythm. No murmur, rub or gallop is appreciated. Respiratory: Lungs are clear to auscultation, respirations are non-labored, breath sounds are equal. No wheezes, stridor, rales, or rhonchi. Musculoskeletal: Normal ROM, no tenderness. No tenderness to the cervical or thoracic or lumbar spine. No step-off or deformity. Strength 5/5. Sensation intact. Pulses equal bilaterally 2+. Neurological: A&O x 3. CN II-XII intact, There are no obvious motor or sensory deficits. Coordination appears grossly intact. Speech is normal. Skin: Laceration to the occipital area Psychiatric: Cooperative, appropriate mood & affect, normal judgment. Limitations: no limitations Course Vital Signs 01/25/18 01/25/18 17:02 19:30 Temperature 98.7 F Pulse Rate 110 H 97 Respiratory 16 18 Rate Blood Pressure 146/78 181/84 O2 Sat by Pulse 96 97 Oximetry Medical Decision Making - Medical Decision Making Patient's CT of the head and neck is negative for any acute abnormality. Her labs been reviewed does show sodium 1.4. Bicarb 13. Patient is a daily drinker. Patient was drinking earlier today. Patient is unsteady on her feet. They have a fall today hitting the back of her head. There was cleaned. There are 3 ranjan from previous injury. No bleeding at this time. Patient will be admitted for further observation. Patient will placed on CIWA scale. Case was discussed with nurse practitioner to Doyle Rodriguez who will accept the admission for Dr. Bone. - Lab Data Result diagrams: 01/25/18 18:03 01/25/18 18:03 Lab Results 01/25/18 01/25/18 01/25/18 Range/Units 18:03 18:03 18:03 WBC 5.4 (3.8-10.6) k/uL RBC 3.36 L (3.80-5.40) m/uL Hgb 11.3 L (11.4-16.0) gm/dL Hct 33.8 L (34.0-46.0) % MCV 100.7 H (80.0-100.0) fL MCH 33.7 (25.0-35.0) pg MCHC 33.5 (31.0-37.0) g/dL RDW 14.2 (11.5-15.5) % Plt Count 128 L (150-450) k/uL Neutrophils % 75 % Lymphocytes % 16 % Monocytes % 6 % Eosinophils % 2 % Basophils % 1 % Neutrophils # 4.1 (1.3-7.7) k/uL Lymphocytes # 0.8 L (1.0-4.8) k/uL Monocytes # 0.3 (0-1.0) k/uL Eosinophils # 0.1 (0-0.7) k/uL Basophils # 0.0 (0-0.2) k/uL Macrocytosis Slight Sodium 124 L (137-145) mmol/L Potassium 4.1 (3.5-5.1) mmol/L Chloride 91 L (98-107) mmol/L Carbon Dioxide 13 L (22-30) mmol/L Anion Gap 20 mmol/L BUN <2 L (7-17) mg/dL Creatinine 0.40 L (0.52-1.04) mg/dL Est GFR (CKD-EPI)AfAm >90 (>60 ml/min/1.73 sqM) Est GFR (CKD-EPI)NonAf >90 (>60 ml/min/1.73 sqM) Glucose 76 (74-99) mg/dL Calcium 7.6 L (8.4-10.2) mg/dL Total Bilirubin 0.6 (0.2-1.3) mg/dL AST 175 H (14-36) U/L ALT 85 H (9-52) U/L Alkaline Phosphatase 74 (38-126) U/L Total Protein 6.6 (6.3-8.2) g/dL Albumin 4.2 (3.5-5.0) g/dL Lipase 634 H (23-300) U/L Salicylates <1.0 mg/dL Disposition Clinical Impression: Fall, Occipital scalp laceration, Alcohol withdrawal, Hyponatremia, Alcoholic ketoacidosis Disposition: ADMITTED IP TO THIS [facility] Condition: Stable Is patient prescribed a controlled substance at d/c from ED?: No Referrals: Slime Rodriguez MD [Primary Care Provider] - 1-2 days Time of Disposition: 20:09
[2018-01-25] MEDS ORDERED: SODIUM CHLORIDE 0.9% 1,000 ML IV STA ×2 (17:37→19:16)
[2018-01-25] MEDS ORDERED: ONDANSETRON 4 MG/2 ML VIAL IVP STA ×2 (17:37→18:02)
--- NOTE | 2018-01-25 17:51 | CT ---
EXAMINATION TYPE: CT brain pravin pond con DATE OF EXAM: 01/25/2018 COMPARISON: 01/10/2018 HISTORY: Patient fell and hit posterior scalp, laceration at site. Pain. CT DLP: 1504 mGycm Automated exposure control for dose reduction was used. TECHNIQUE: CT scan of the head and cervical spine are performed without contrast. FINDINGS: There is some cerebral mild cortical atrophy. There is no mass effect nor midline shift. There is no sign of intracranial hemorrhage. The calvarium is intact. Cervical vertebra have fairly normal spacing and alignment. Posterior elements are intact. There is m ild facet arthropathy. The skull base is intact. IMPRESSION: Cerebral atrophy. No acute intracranial abnormality. Mild facet arthropathy in the cervical spine. No fracture. No significant change compared to old exam.
[2018-01-25 18:13] LABS: Basophils % (A) 1 %; Eosinophils # (A) 0.1 k/uL (0-0.7); Eosinophils % (A) 2 %; HCT 33.8 % (34.0-46.0); HGB 11.3 gm/dL (11.4-16.0); Lymphocytes # (A) 0.8 k/uL (1.0-4.8); Lymphocytes % (A) 16 %; MCH 33.7 pg (25.0-35.0); MCHC 33.5 g/dL (31.0-37.0); MCV 100.7 fL (80.0-100.0); Macrocytosis Slight; Mean Platelet Volume 7.1; Monocytes # (A) 0.3 k/uL (0-1.0); Monocytes % (A) 6 %; Neutrophils # (A) 4.1 k/uL (1.3-7.7); Neutrophils % (A) 75 %; Platelet Count 128 k/uL (150-450); RBC 3.36 m/uL (3.80-5.40); RDW 14.2 % (11.5-15.5); WBC 5.4 k/uL (3.8-10.6)
[2018-01-25 18:23] LABS: ALT 85 U/L (9-52); AST 175 U/L (14-36); Albumin 4.2 g/dL (3.5-5.0); Alkaline Phosphatase 74 U/L (38-126); Anion Gap 20 mmol/L; Blood Urea Nitrogen <2 mg/dL (7-17); Calcium 7.6 mg/dL (8.4-10.2); Carbon Dioxide 13 mmol/L (22-30); Chloride 91 mmol/L (98-107); Glucose 76 mg/dL (74-99); Potassium 4.1 mmol/L (3.5-5.1); Sodium 124 mmol/L (137-145); Total Bilirubin 0.6 mg/dL (0.2-1.3); Total Protein 6.6 g/dL (6.3-8.2)
[2018-01-25] MEDS ORDERED: LORazepam 2 MG/ML INJ IV PRN ×2 (19:29)
[2018-01-25] MEDS ORDERED: LORazepam 2 MG/ML INJ IV STA (19:29)
[2018-01-25] MEDS ORDERED: THIAMINE 100 MG/ML 2 ML VIAL IM STA (19:29)
[2018-01-25 19:31] LABS: Lipase 634 U/L (23-300); Salicylate <1.0 mg/dL
[2018-01-25] MEDS ORDERED: PANTOPRAZOLE 40 MG/10 ML VIAL IVP STA (19:58)
[2018-01-25] MEDS ORDERED: NALOXONE 0.4 MG/ML 1 ML VIAL IV PRN (20:11)
[2018-01-25] MEDS ORDERED: ONDANSETRON 4 MG/2 ML VIAL IVP PRN (20:11)
[2018-01-25] MEDS: LORazepam 2 MG/ML INJ IV PRN ×2 (20:24→23:46)
[2018-01-25] MEDS: THIAMINE 100 MG TAB PO SCH (23:03)
[2018-01-25] MEDS: SODIUM CHLORIDE 0.9% 1,000 ML IV SCH (23:05)
[2018-01-25 23:12] VITALS: BMI 24.5
[2018-01-26 00:44] VITALS: RESP 16
[2018-01-26] MEDS: LORazepam 2 MG/ML INJ IV PRN ×3 (01:53→22:06)
[2018-01-26 07:53] LABS: Basophils % (A) 0 %; Eosinophils # (A) 0.1 k/uL (0-0.7); Eosinophils % (A) 1 %; HCT 33.7 % (34.0-46.0); HGB 11.2 gm/dL (11.4-16.0); Lymphocytes # (A) 0.5 k/uL (1.0-4.8); Lymphocytes % (A) 6 %; MCHC 33.1 g/dL (31.0-37.0); MCV 102.7 fL (80.0-100.0); Macrocytosis Slight; Mean Platelet Volume 7.8; Monocytes # (A) 0.6 k/uL (0-1.0); Monocytes % (A) 7 %; Neutrophils # (A) 6.7 k/uL (1.3-7.7); Neutrophils % (A) 85 %; Platelet Count 127 k/uL (150-450); RBC 3.28 m/uL (3.80-5.40); RDW 14.5 % (11.5-15.5); WBC 7.9 k/uL (3.8-10.6)
[2018-01-26 08:06] LABS: ALT 82 U/L (9-52); AST 180 U/L (14-36); Albumin 4.1 g/dL (3.5-5.0); Alkaline Phosphatase 82 U/L (38-126); Anion Gap 19 mmol/L; Blood Urea Nitrogen 3 mg/dL (7-17); Calcium 7.5 mg/dL (8.4-10.2); Carbon Dioxide 17 mmol/L (22-30); Chloride 101 mmol/L (98-107); Glucose 53 mg/dL (74-99); Potassium 3.4 mmol/L (3.5-5.1); Sodium 137 mmol/L (137-145); Total Bilirubin 0.9 mg/dL (0.2-1.3); Total Protein 6.2 g/dL (6.3-8.2)
--- NOTE | 2018-01-26 11:22 | P.HPIM ---
History of Present Illness 42-year-old came female came in the emergency department after a fall patient was alcohol intoxicated at the time. [place] were put on the scalp, CT of the head did not show any intracranial bleed.patient denied any fever chills. Patient drinks alcohol on regular basis patient is most stressed out now and started drinking more. Patient states she did drink to 24 ounce beers yesterday and she drinks on regular basis did have withdrawals in the past. Patient is willing to quit alcohol patient is admitted with the Protonix patient does have nausea vomiting denied as well as diarrhea. Patient on IV fluids at this time. Patient does smoke 1 pack of serous a day. Patient was living with her friend after she was kicked out by her significant other couple days ago.social work is being consulted. Review of Systems REVIEW OF SYSTEMS: CONSTITUTIONAL: No fever, no malaise, no fatigue. HEENT: No recent visual problems or hearing problems. Denied any sore throat. CARDIOVASCULAR: No chest pain, orthopnea, PND, no palpitations, no syncope. PULMONARY: No shortness of breath, no cough, no hemoptysis. GASTROINTESTINAL: No diarrhea, no nausea, no vomiting, no abdominal pain. Normoactive bowel sounds. NEUROLOGICAL: No headaches, no weakness, no numbness. HEMATOLOGICAL: Denies any bleeding or petechiae. GENITOURINARY: Denies any burning micturition, frequency, or urgency. MUSCULOSKELETAL/RHEUMATOLOGICAL: Denies any joint pain, swelling, or any muscle pain. ENDOCRINE: Denies any polyuria or polydipsia. The rest of the 14-point review of systems is negative. Past Medical History Past Medical History: Hypertension History of Any Multi-Drug Resistant Organisms: None Reported Past Surgical History: No Surgical Hx Reported Past Anesthesia/Blood Transfusion Reactions: No Reported Reaction Past Psychological History: Anxiety, Depression Smoking Status: Current every day smoker Past Alcohol Use History: Daily Past Drug Use History: None Reported Additional Drug Use History / Comment(s): pt states no recent drug use - Past Family History Mother Family Medical History: Coronary Artery Disease (CAD) Father Family Medical History: Cancer Sister(s) Additional Family Medical History / Comment(s): bipolar Son(s) Additional Family Medical History / Comment(s): pt states "failure to thrive, delayed" Medications and Allergies Home Medications Medication Instructions Recorded Confirmed Type Loratadine [Claritin] 10 mg PO DAILY 05/13/17 01/25/18 History busPIRone HCl [Buspar] 5 mg PO TID 05/13/17 01/25/18 History Albuterol Inhaler [Ventolin Hfa 1 - 2 puff INHALATION RT-QID PRN 11/17/17 History Inhaler] Metoprolol Succinate (ER) [Toprol 25 mg PO DAILY 11/17/17 01/25/18 History XL] Folic Acid 1 mg PO DAILY #30 tablet 11/19/17 01/25/18 Rx Acetaminophen Tab [Tylenol Tab] 500 mg PO Q6H #20 tablet 01/10/18 01/25/18 Rx Pantoprazole Sodium [Protonix] 40 mg PO DAILY 01/25/18 01/25/18 History Allergies Allergy/AdvReac Type Severity Reaction Status Date / Time duloxetine [From Cymbalta] Allergy Rash/Hives Verified 01/25/18 17:24 Physical Exam Vitals: Vital Signs Temp Pulse Pulse Resp BP BP Pulse Ox 01/26/18 05:00 98.0 F 93 16 154/68 97 01/25/18 23:00 98.6 F 85 16 112/57 97 01/25/18 22:50 98.5 F 94 18 125/57 96 01/25/18 22:09 98.1 F 100 18 114/59 95 01/25/18 20:17 101 H 20 146/77 98 01/25/18 19:30 97 18 181/84 97 01/25/18 17:02 98.7 F 110 H 16 146/78 96 Intake and Output 01/25/18 01/26/18 01/26/18 22:59 06:59 14:59 Intake Total 590 Balance 590 Intake: Oral 590 Other: Voiding Method Toilet # Voids 2 Weight 55 kg PHYSICAL EXAMINATION: GENERAL: The patient is alert and oriented x3, not in any acute distress. Well developed, well nourished. appears to have mild withdrawals HEENT: Pupils are round and equally reacting to light. EOMI. No scleral icterus. No conjunctival pallor. Normocephalic, atraumatic. No pharyngeal erythema. No thyromegaly. CARDIOVASCULAR: S1 and S2 present. No murmurs, rubs, or gallops. PULMONARY: Chest is clear to auscultation, no wheezing or crackles. ABDOMEN: Soft, nontender, nondistended, normoactive bowel sounds. No palpable organomegaly. MUSCULOSKELETAL: No joint swelling or deformity. EXTREMITIES: No cyanosis, clubbing, or pedal edema. NEUROLOGICAL: Gross neurological examination did not reveal any focal deficits. SKIN: No rashes. Results CBC & Chem 7: 01/26/18 07:19 01/26/18 07:19 Labs: Abnormal Lab Results - Last 24 Hours (Table) 01/25/18 01/25/18 01/25/18 Range/Units 18:03 18:03 18:03 RBC 3.36 L (3.80-5.40) m/uL Hgb 11.3 L (11.4-16.0) gm/dL Hct 33.8 L (34.0-46.0) % MCV 100.7 H (80.0-100.0) fL Plt Count 128 L (150-450) k/uL Lymphocytes # 0.8 L (1.0-4.8) k/uL Sodium 124 L (137-145) mmol/L Potassium (3.5-5.1) mmol/L Chloride 91 L (98-107) mmol/L Carbon Dioxide 13 L (22-30) mmol/L BUN <2 L (7-17) mg/dL Creatinine 0.40 L (0.52-1.04) mg/dL Glucose (74-99) mg/dL Calcium 7.6 L (8.4-10.2) mg/dL AST 175 H (14-36) U/L ALT 85 H (9-52) U/L Total Protein (6.3-8.2) g/dL Lipase 634 H (23-300) U/L 01/26/18 01/26/18 Range/Units 07:19 07:19 RBC 3.28 L (3.80-5.40) m/uL Hgb 11.2 L (11.4-16.0) gm/dL Hct 33.7 L (34.0-46.0) % MCV 102.7 H (80.0-100.0) fL Plt Count 127 L (150-450) k/uL Lymphocytes # 0.5 L (1.0-4.8) k/uL Sodium (137-145) mmol/L Potassium 3.4 L (3.5-5.1) mmol/L Chloride (98-107) mmol/L Carbon Dioxide 17 L (22-30) mmol/L BUN 3 L (7-17) mg/dL Creatinine 0.46 L (0.52-1.04) mg/dL Glucose 53 L (74-99) mg/dL Calcium 7.5 L (8.4-10.2) mg/dL AST 180 H (14-36) U/L ALT 82 H (9-52) U/L Total Protein 6.2 L (6.3-8.2) g/dL Lipase (23-300) U/L Thrombosis Risk Factor Assmnt - Choose All That Apply Any of the Below Risk Factors Present?: Yes Each Factor Represents 1 point: Age 41-60 years Other Risk Factors: No Other congenital or acquired thrombophilia - If yes, enter type in comment: No Thrombosis Risk Factor Assessment Total Risk Factor Score: 1 Thrombosis Risk Factor Assessment Level: Low Risk Assessment and Plan Plan: -fall: Seconded all call intoxication -Alcohol abuse: Counseling was provided -alcohol withdrawal patient is on Ativan CIWA protocolnext l -alcoholic hepatitis: Expected to improve with quitting alcohol -alcoholic gastritis leading to nausea vomiting: Patient is on Protonix which will be continued -nicotine abuse: Counseling was provided -Recent stressors at home: We will consult social work to evaluate for home situation.
[2018-01-26] MEDS: SODIUM CHLORIDE 0.9% 1,000 ML IV SCH ×3 (12:13→20:34)
[2018-01-26] MEDS: THIAMINE 100 MG TAB PO SCH ×2 (12:13→17:31)
[2018-01-26] MEDS: HEPARIN SODIUM,PORCINE 5,000 UNIT/ML 1 ML VIAL SQ SCH ×2 (17:30→23:35)
[2018-01-26] MEDS: ACETAMINOPHEN TAB 500 MG TAB PO PRN (20:31)
[2018-01-27 08:25] LABS: ALT 73 U/L (9-52); AST 104 U/L (14-36); Albumin 3.9 g/dL (3.5-5.0); Alkaline Phosphatase 86 U/L (38-126); Anion Gap 19 mmol/L; Blood Urea Nitrogen 2 mg/dL (7-17); Calcium 7.9 mg/dL (8.4-10.2); Carbon Dioxide 16 mmol/L (22-30); Chloride 101 mmol/L (98-107); Glucose 61 mg/dL (74-99); Potassium 3.2 mmol/L (3.5-5.1); Sodium 136 mmol/L (137-145); Total Bilirubin 0.8 mg/dL (0.2-1.3); Total Protein 6.3 g/dL (6.3-8.2)
[2018-01-27] MEDS: HEPARIN SODIUM,PORCINE 5,000 UNIT/ML 1 ML VIAL SQ SCH ×2 (08:32→16:12)
[2018-01-27] MEDS: LORazepam 2 MG/ML INJ IV PRN (08:33)
[2018-01-27] MEDS ORDERED: POTASSIUM CHLORIDE ER 20 MEQ TAB.ER PO STA (10:13)
--- NOTE | 2018-01-27 11:25 | P.PN ---
Subjective Patient is admitted for alcohol withdrawal patient is on Ativan therapy protocol and requiring Ativan almost every 3 hours. Constitutional: Denied any fatigue denied any fever. Cardio vascular: denied any chest pain, palpitations Gastrointestinal denied any nausea vomiting Pulmonary: Denied any shortness of breath cough Neurologic denied any new focal deficits Objective - Vital Signs Vital signs: Vital Signs Temp 97.9 F 01/27/18 05:55 Pulse 81 01/27/18 05:55 Resp 16 01/27/18 05:55 BP 139/90 01/27/18 05:55 Pulse Ox 98 01/27/18 05:55 Intake & Output 01/26/18 01/27/18 01/27/18 18:59 06:59 18:59 Intake Total 1150 Balance 1150 Intake: Intake, IV Titration 1150 Amount Sodium Chloride 0.9% 1, 1150 000 ml @ 100 mls/hr IV . Q10H [facility] Rx#:[id number] Other: Voiding Method Toilet # Voids 1 1 - Exam PHYSICAL EXAMINATION: GENERAL: The patient is alert and oriented x3, not in any acute distress. Well developed, well nourished. appears to have mild withdrawals HEENT: Pupils are round and equally reacting to light. EOMI. No scleral icterus. No conjunctival pallor. Normocephalic, atraumatic. No pharyngeal erythema. No thyromegaly. CARDIOVASCULAR: S1 and S2 present. No murmurs, rubs, or gallops. PULMONARY: Chest is clear to auscultation, no wheezing or crackles. ABDOMEN: Soft, nontender, nondistended, normoactive bowel sounds. No palpable organomegaly. MUSCULOSKELETAL: No joint swelling or deformity. EXTREMITIES: No cyanosis, clubbing, or pedal edema. NEUROLOGICAL: Gross neurological examination did not reveal any focal deficits. SKIN: No rashes. - Labs CBC & Chem 7: 01/26/18 07:19 01/27/18 07:53 Labs: Abnormal Lab Results - Last 24 Hours (Table) 01/27/18 Range/Units 07:53 Sodium 136 L (137-145) mmol/L Potassium 3.2 L (3.5-5.1) mmol/L Carbon Dioxide 16 L (22-30) mmol/L BUN 2 L (7-17) mg/dL Creatinine 0.40 L (0.52-1.04) mg/dL Glucose 61 L (74-99) mg/dL Calcium 7.9 L (8.4-10.2) mg/dL AST 104 H (14-36) U/L ALT 73 H (9-52) U/L Assessment and Plan Plan: -fall: Seconded all call intoxication -Alcohol abuse: Counseling was provided -alcohol withdrawal patient is on Ativan CIWA protocol -alcoholic hepatitis: Expected to improve with quitting alcohol -alcoholic gastritis leading to nausea vomiting: Patient is on Protonix which will be continued -nicotine abuse: Counseling was provided -Recent stressors at home: We will consult social work to evaluate for home situation.
[2018-01-27] MEDS: THIAMINE 100 MG TAB PO SCH ×2 (12:07→16:13)
[2018-01-27] MEDS: ACETAMINOPHEN TAB 500 MG TAB PO PRN ×2 (14:22→21:48)
[2018-01-27] MEDS: LORazepam 1 MG TAB PO PRN ×2 (14:53→21:48)
[2018-01-27] MEDS: SODIUM CHLORIDE 0.9% 1,000 ML IV SCH (17:49)
[2018-01-28] MEDS: SODIUM CHLORIDE 0.9% 1,000 ML IV SCH ×2 (00:02→07:38)
[2018-01-28] MEDS: HEPARIN SODIUM,PORCINE 5,000 UNIT/ML 1 ML VIAL SQ SCH ×2 (00:06→07:37)
[2018-01-28 05:53] VITALS: BP 139/76; PULSE 71; TEMP 98.1
[2018-01-28] MEDS: LORazepam 1 MG TAB PO PRN (05:54)
[2018-01-28 07:47] LABS: Anion Gap 14 mmol/L; Blood Urea Nitrogen 3 mg/dL (7-17); Calcium 9.1 mg/dL (8.4-10.2); Carbon Dioxide 21 mmol/L (22-30); Chloride 98 mmol/L (98-107); Glucose 99 mg/dL (74-99); Potassium 3.4 mmol/L (3.5-5.1); Sodium 133 mmol/L (137-145)
[2018-01-28] MEDS ORDERED: POTASSIUM CHLORIDE ER 20 MEQ TAB.ER PO STA (10:54)
--- NOTE | 2018-01-28 11:01 | P.DS ---
Providers Date of admission: 01/25/18 21:33 Attending physician: Og Bone Primary care physician: Michael Stack [facility] Course: Patient was admitted for alcohol withdrawal. Patient is clinically doing well after social work evaluation regarding her home situation patient will be discharged today on as needed Ativan and thiamine multivitamin supplements and patient was admitted seconded anion gap metabolic acidosis from excess alcohol which resolved at this point of time. PHYSICAL EXAMINATION: GENERAL: The patient is alert and oriented x3, not in any acute distress. Well developed, well nourished. HEENT: Pupils are round and equally reacting to light. EOMI. No scleral icterus. No conjunctival pallor. Normocephalic, atraumatic. No pharyngeal erythema. No thyromegaly. CARDIOVASCULAR: S1 and S2 present. No murmurs, rubs, or gallops. PULMONARY: Chest is clear to auscultation, no wheezing or crackles. ABDOMEN: Soft, nontender, nondistended, normoactive bowel sounds. No palpable organomegaly. MUSCULOSKELETAL: No joint swelling or deformity. EXTREMITIES: No cyanosis, clubbing, or pedal edema. NEUROLOGICAL: Gross neurological examination did not reveal any focal deficits. SKIN: No rashes. Assessment and Plan Plan: -fall: Secondary to alcohol intoxication, patient will be discharged after PT and OT evaluation -Alcohol abuse: Counseling was provided -alcohol withdrawal, improved withdrawal symptoms -alcoholic hepatitis: Improved -alcoholic gastritis leading to nausea vomiting: Patient will be discharged on Prilosec for 14 days -nicotine abuse: Counseling was provided -Recent stressors at home: Social work evaluation Patient Condition at Discharge: Stable Plan - Discharge Summary Discharge Rx Participant: No New Discharge Prescriptions: New LORazepam [Ativan] 1 mg PO QID PRN #12 tab PRN Reason: Alcohol Withdrawal Thiamine [Vitamin B-1] 100 mg PO BID@1200,1700 #30 tab Continue busPIRone HCl [Buspar] 5 mg PO TID Loratadine [Claritin] 10 mg PO DAILY Albuterol Inhaler [Ventolin Hfa Inhaler] 1 - 2 puff INHALATION RT-QID PRN PRN Reason: Shortness Of Breath Metoprolol Succinate (ER) [Toprol XL] 25 mg PO DAILY Pantoprazole Sodium [Protonix] 40 mg PO DAILY Folic Acid 1 mg PO DAILY #30 tablet Discontinued Acetaminophen Tab [Tylenol Tab] 500 mg PO Q6H #20 tablet Discharge Medication List Loratadine [Claritin] 10 mg PO DAILY 05/13/17 [History] busPIRone HCl [Buspar] 5 mg PO TID 05/13/17 [History] Albuterol Inhaler [Ventolin Hfa Inhaler] 1 - 2 puff INHALATION RT-QID PRN [History] Metoprolol Succinate (ER) [Toprol XL] 25 mg PO DAILY 11/17/17 [History] Pantoprazole Sodium [Protonix] 40 mg PO DAILY 01/25/18 [History] Folic Acid 1 mg PO DAILY #30 tablet 01/28/18 [Rx] LORazepam [Ativan] 1 mg PO QID PRN #12 tab 01/28/18 [Rx] Thiamine [Vitamin B-1] 100 mg PO BID@1200,1700 #30 tab 01/28/18 [Rx] Follow up Appointment(s)/Referral(s): Slime Rodriguez MD [Primary Care Provider] - 3 Days Discharge Disposition: HOME SELF-CARE
[2018-01-28] MEDS: THIAMINE 100 MG TAB PO SCH (11:33)
== END 2018-01-28 13:10 | disposition home or self-care (01) | DRG 897 ==
LOC: EC 16:57 → 5MS5E 21:33
PROVIDERS: ADMIT Hospitalist; ATTEND Hospitalist
DX: F10.239 Alcohol dependence with withdrawal, unspecified (principal); E87.1 Hypo-osmolality and hyponatremia; E87.2 Acidosis; F10.229 Alcohol dependence with intoxication, unspecified; F17.210 Nicotine dependence, cigarettes, uncomplicated; F32.9 Major depressive disorder, single episode, unspecified; F41.9 Anxiety disorder, unspecified; I10 Essential (primary) hypertension; K29.20 Alcoholic gastritis without bleeding; K70.10 Alcoholic hepatitis without ascites; S01.01XA Laceration without foreign body of scalp, initial encounter; S09.90XA Unspecified injury of head, initial encounter; Z71.41 Alcohol abuse counseling and surveillance of alcoholic; Z71.6 Tobacco abuse counseling; Z79.899 Other long term (current) drug therapy; Z88.8 Allergy status to other drugs, medicaments and biological substances; Z82.49 Family history of ischemic heart disease and other diseases of the circulatory system; Z80.9 Family history of malignant neoplasm, unspecified; Z81.8 Family history of other mental and behavioral disorders; W01.0XXA Fall on same level from slipping, tripping and stumbling without subsequent striking against object, initial encounter; Y92.9 Unspecified place or not applicable
CPT/HCPCS: 36415; 70450; 72125; 80048; 80053; 83520; 83690; 83735; 85025; 96360; 96361; 96372; 96374; 96375; 96376; 99285

== ENCOUNTER 2018-02-17 16:54 | Inpatient (IN) | payer OTHER ==
--- NOTE | 2018-02-17 16:56 | ED ---
General Adult HPI - General Stated complaint: ETOH Time Seen by Provider: 02/17/18 16:55 - History of Present Illness Initial comments: Sophie is a 42-year-old female with past medical history of alcohol abuse who presents to the emergency department today via EMS after the police contacted them for alcohol intoxication. Sophie states that she drinks beers every day, however today her friend bought a heavy cream elizabeth rather than the cheap light beers they regularly drink. She states that she just became significantly more intoxicated than usual. Patient denies any falls or injuries. She states that she hasn't eaten anything except beer today. She does state that she's hungry. She also notes that she was seen here earlier in the month and had ranjan placed in her head and she has been unable to follow-up to have them removed. Police report that the patient was noted to be loitering at a [employer], they were contacted to encourage her to take a the premises. Upon being notified the police were contacted apparently the patient did leave the premises and walked to a neighboring parking lot where she was witnessed to be urinating on the ground. Police then approached her and she smelled strongly of alcohol, her breath alcohol revealed an alcohol of 340 on police testing. They contacted EMS for transfer to the ER. Patient was not witnessed to have any falls or injuries today. - Related Data Home Medications Medication Instructions Recorded Confirmed Loratadine [Claritin] 10 mg PO DAILY 05/13/17 02/17/18 busPIRone HCl [Buspar] 5 mg PO TID 05/13/17 02/17/18 Albuterol Inhaler [Ventolin Hfa 1 - 2 puff INHALATION RT-QID PRN 11/17/17 Inhaler] Metoprolol Succinate (ER) [Toprol 25 mg PO DAILY 11/17/17 02/17/18 XL] Pantoprazole Sodium [Protonix] 40 mg PO DAILY 01/25/18 02/17/18 Previous Rx's Medication Instructions Recorded Folic Acid 1 mg PO DAILY #30 tablet 01/28/18 LORazepam [Ativan] 1 mg PO QID PRN #12 tab 01/28/18 Omeprazole [PriLOSEC] 40 mg PO [id number] #14 capsule. 01/28/18 Thiamine [Vitamin B-1] 100 mg PO BID@1200,1700 #30 tab 01/28/18 Allergies Allergy/AdvReac Type Severity Reaction Status Date / Time duloxetine [From Cymbalta] Allergy Rash/Hives Verified 02/17/18 17:06 Review of Systems ROS Statement: Those systems with pertinent positive or pertinent negative responses have been documented in the HPI. ROS Other: All systems not noted in ROS Statement are negative. Past Medical History Past Medical History: Hypertension Additional Past Medical History / Comment(s): Alcohol abuse History of Any Multi-Drug Resistant Organisms: None Reported Past Surgical History: No Surgical Hx Reported Past Anesthesia/Blood Transfusion Reactions: No Reported Reaction Past Psychological History: Anxiety, Depression Smoking Status: Current every day smoker Past Alcohol Use History: Daily Past Drug Use History: None Reported Additional Drug Use History / Comment(s): pt states no recent drug use - Past Family History Mother Family Medical History: Coronary Artery Disease (CAD) Father Family Medical History: Cancer Sister(s) Additional Family Medical History / Comment(s): bipolar Son(s) Additional Family Medical History / Comment(s): pt states "failure to thrive, delayed" General Exam Limitations: altered mental status (Alcohol intoxication) General appearance: alert, in no apparent distress Head exam: Present: atraumatic, normocephalic, other (Well-healed laceration on the right posterior scalp with 2 ranjan remaining in the) Eye exam: Present: PERRL ( wound), EOMI ENT exam: Present: normal exam Neck exam: Present: normal inspection Respiratory exam: Absent: respiratory distress Cardiovascular Exam: Present: regular rate, normal rhythm GI/Abdominal exam: Present: soft. Absent: distended Rectal exam: Present: deferred Back exam: Present: normal inspection Neurological exam: Present: alert, oriented X3, abnormal gait Psychiatric exam: Present: agitated Skin exam: Present: warm, dry Course Vital Signs 02/17/18 02/17/18 16:58 19:19 Temperature 97.1 F L Pulse Rate 77 77 Respiratory 16 16 Rate Blood Pressure 165/90 132/79 O2 Sat by Pulse 96 100 Oximetry Medical Decision Making - Medical Decision Making Patient was seen and evaluated, history was obtained from the patient and police Patient with alcohol intoxication, no traumatic injuries, patient is awake, alert, oriented to person, place and events leading to hospitalization Breath alcohol is greater than 300 Patient states that she is hungry and she would like the ranjan removed from her head Patient is also asking for by mouth Ativan, I advised her that due to her alcohol intoxication we will hold Ativan The patient given a sandwich, juice, 2 ranjan were removed, patient tolerated well Able to ambulate independently to the restroom Labs reveal an alcohol of 390s, alcohol level appears to be increasing from her arrival. Patient does admit that she was drinking immediately prior to arrival At this time I do feel the patient should be observed overnight until clinical sobriety. She is high risk for developing alcohol withdrawal therefore she will be admitted on a [facility] protocol. Patient care was discussed with Dr. ozuna who is agreeable to this. Admission orders were placed. - Lab Data Result diagrams: 02/17/18 17:41 02/17/18 17:41 Lab Results 02/17/18 02/17/18 02/17/18 Range/Units 17:41 17:41 19:10 WBC 7.2 (3.8-10.6) k/uL RBC 3.74 L (3.80-5.40) m/uL Hgb 12.6 (11.4-16.0) gm/dL Hct 39.1 (34.0-46.0) % MCV 104.5 H (80.0-100.0) fL MCH 33.7 (25.0-35.0) pg MCHC 32.3 (31.0-37.0) g/dL RDW 14.7 (11.5-15.5) % Plt Count 158 (150-450) k/uL Neutrophils % 65 % Lymphocytes % 25 % Monocytes % 6 % Eosinophils % 2 % Basophils % 1 % Neutrophils # 4.7 (1.3-7.7) k/uL Lymphocytes # 1.8 (1.0-4.8) k/uL Monocytes # 0.4 (0-1.0) k/uL Eosinophils # 0.1 (0-0.7) k/uL Basophils # 0.0 (0-0.2) k/uL Macrocytosis Moderate Sodium 135 L (137-145) mmol/L Potassium 3.4 L (3.5-5.1) mmol/L Chloride 101 (98-107) mmol/L Carbon Dioxide 21 L (22-30) mmol/L Anion Gap 13 mmol/L BUN 3 L (7-17) mg/dL Creatinine 0.45 L (0.52-1.04) mg/dL Est GFR (CKD-EPI)AfAm >90 (>60 ml/min/1.73 sqM) Est GFR (CKD-EPI)NonAf >90 (>60 ml/min/1.73 sqM) Glucose 107 H (74-99) mg/dL Calcium 8.0 L (8.4-10.2) mg/dL Total Bilirubin 0.5 (0.2-1.3) mg/dL AST 110 H (14-36) U/L ALT 53 H (9-52) U/L Alkaline Phosphatase 78 (38-126) U/L Total Protein 6.6 (6.3-8.2) g/dL Albumin 4.3 (3.5-5.0) g/dL Urine Color Urine Appearance (Clear) Urine pH (5.0-8.0) Ur Specific [place] (1.001-1.035) Urine Protein (Negative) Urine Glucose (UA) (Negative) Urine Ketones (Negative) Urine Blood (Negative) Urine Nitrite (Negative) Urine Bilirubin (Negative) Urine Urobilinogen (<2.0) mg/dL Ur Leukocyte Esterase (Negative) Urine HCG, Qual Not Detected (Not Detectd) Serum Alcohol 396 mg/dL 02/17/18 Range/Units 19:10 WBC (3.8-10.6) k/uL RBC (3.80-5.40) m/uL Hgb (11.4-16.0) gm/dL Hct (34.0-46.0) % MCV (80.0-100.0) fL MCH (25.0-35.0) pg MCHC (31.0-37.0) g/dL RDW (11.5-15.5) % Plt Count (150-450) k/uL Neutrophils % % Lymphocytes % % Monocytes % % Eosinophils % % Basophils % % Neutrophils # (1.3-7.7) k/uL Lymphocytes # (1.0-4.8) k/uL Monocytes # (0-1.0) k/uL Eosinophils # (0-0.7) k/uL Basophils # (0-0.2) k/uL Macrocytosis Sodium (137-145) mmol/L Potassium (3.5-5.1) mmol/L Chloride (98-107) mmol/L Carbon Dioxide (22-30) mmol/L Anion Gap mmol/L BUN (7-17) mg/dL Creatinine (0.52-1.04) mg/dL Est GFR (CKD-EPI)AfAm (>60 ml/min/1.73 sqM) Est GFR (CKD-EPI)NonAf (>60 ml/min/1.73 sqM) Glucose (74-99) mg/dL Calcium (8.4-10.2) mg/dL Total Bilirubin (0.2-1.3) mg/dL AST (14-36) U/L ALT (9-52) U/L Alkaline Phosphatase (38-126) U/L Total Protein (6.3-8.2) g/dL Albumin (3.5-5.0) g/dL Urine Color Colorless Urine Appearance Clear (Clear) Urine pH 5.0 (5.0-8.0) Ur Specific [place] 1.002 (1.001-1.035) Urine Protein Negative (Negative) Urine Glucose (UA) Negative (Negative) Urine Ketones Negative (Negative) Urine Blood Negative (Negative) Urine Nitrite Negative (Negative) Urine Bilirubin Negative (Negative) Urine Urobilinogen <2.0 (<2.0) mg/dL Ur Leukocyte Esterase Negative (Negative) Urine HCG, Qual (Not Detectd) Serum Alcohol mg/dL Disposition Clinical Impression: Alcoholic intoxication Disposition: ADMITTED IP TO THIS HOSP Referrals: Slime Rodriguez MD [Primary Care Provider] - 1-2 days Decision Time: 19:48
[2018-02-17] MEDS ORDERED: SODIUM CHLORIDE 0.9% 1,000 ML IV ONE (17:10)
[2018-02-17 18:00] LABS: ALT 53 U/L (9-52); AST 110 U/L (14-36); Albumin 4.3 g/dL (3.5-5.0); Alkaline Phosphatase 78 U/L (38-126); Anion Gap 13 mmol/L; Basophils % (A) 1 %; Blood Urea Nitrogen 3 mg/dL (7-17); Carbon Dioxide 21 mmol/L (22-30); Chloride 101 mmol/L (98-107); Eosinophils # (A) 0.1 k/uL (0-0.7); Eosinophils % (A) 2 %; Glucose 107 mg/dL (74-99); HCT 39.1 % (34.0-46.0); HGB 12.6 gm/dL (11.4-16.0); Lymphocytes # (A) 1.8 k/uL (1.0-4.8); Lymphocytes % (A) 25 %; MCH 33.7 pg (25.0-35.0); MCHC 32.3 g/dL (31.0-37.0); MCV 104.5 fL (80.0-100.0); Macrocytosis Moderate; Mean Platelet Volume 7.7; Monocytes # (A) 0.4 k/uL (0-1.0); Monocytes % (A) 6 %; Neutrophils # (A) 4.7 k/uL (1.3-7.7); Neutrophils % (A) 65 %; Platelet Count 158 k/uL (150-450); Potassium 3.4 mmol/L (3.5-5.1); RBC 3.74 m/uL (3.80-5.40); RDW 14.7 % (11.5-15.5); Sodium 135 mmol/L (137-145); Total Bilirubin 0.5 mg/dL (0.2-1.3); Total Protein 6.6 g/dL (6.3-8.2); WBC 7.2 k/uL (3.8-10.6)
[2018-02-17 18:10] LABS: Alcohol 396 mg/dL
[2018-02-17] MEDS ORDERED: NALOXONE 0.4 MG/ML 1 ML VIAL IV PRN (19:36)
[2018-02-17] MEDS ORDERED: IBUPROFEN 400 MG TAB PO PRN (19:36)
[2018-02-17] MEDS ORDERED: ALBUTEROL NEBULIZED 2.5 MG/3 ML INHALATION PRN (19:38)
[2018-02-17] MEDS ORDERED: LORazepam 2 MG/ML INJ IV PRN ×2 (19:38)
[2018-02-17 19:40] LABS: Appearance,Urine Clear (Clear); Bilirubin,Urine Negative (Negative); Blood,Urine Negative (Negative); Color,Urine Colorless; Glucose,Urine (UA) Negative (Negative); Ketones,Urine Negative (Negative); Leukocyte Esterase,Urine Negative (Negative); Nitrite,Urine Negative (Negative); Protein,Urine Negative (Negative); Specific Gravity,Urine 1.002 (1.001-1.035); Urobilinogen,Urine <2.0 mg/dL (<2.0)
[2018-02-17 19:54] LABS: Amphetamine Screen,Urine Not Detected (NotDetected); Barbiturate Screen,Urine Not Detected (NotDetected); Benzodiazepines Screen,Urine Not Detected (NotDetected); Cocaine Screen,Urine Not Detected (NotDetected); Methadone Screen, Urine Not Detected (NotDetected); Opiate Screen,Urine Not Detected (NotDetected); Oxycodone Screen, Urine Not Detected (NotDetected); Phencyclidine Screen,Urine Not Detected (NotDetected); Tricyclic Antidepressant,Urine Not Detected (NotDetected); Urn Cannabinoid Scrn Not Detected (NotDetected)
[2018-02-17] MEDS: SODIUM CHLORIDE 0.9% 1,000 ML IV SCH (19:59)
[2018-02-17] MEDS: THIAMINE 100 MG TAB PO SCH (20:02)
[2018-02-17 23:52] VITALS: BMI 23.8
[2018-02-18] MEDS: busPIRone HCl 5 MG TAB PO SCH ×4 (00:06→21:10)
[2018-02-18] MEDS: FAMOTIDINE 20 MG TAB PO SCH ×2 (00:06→09:37)
[2018-02-18] MEDS: NICOTINE 14MG/24HR PATCH TRANSDERM SCH ×2 (00:06→09:37)
[2018-02-18] MEDS: LORazepam 2 MG/ML INJ IV PRN ×2 (00:07→09:03)
[2018-02-18] MEDS: SODIUM CHLORIDE 0.9% 1,000 ML IV SCH ×3 (04:15→21:58)
[2018-02-18] MEDS ORDERED: ONDANSETRON 4 MG/2 ML VIAL IVP PRN (09:10)
[2018-02-18] MEDS ORDERED: ACETAMINOPHEN TAB 325 MG TAB PO PRN (10:30)
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
[2018-02-18] MEDS: METOPROLOL SUCCINATE (ER) 25 MG TAB.ER.24H PO SCH (10:46)
[2018-02-18] MEDS: LORATADINE 10 MG TAB PO SCH (10:46)
[2018-02-18] MEDS ORDERED: Potassium Replacement Protocol 1 EACH MISC MISCELLANE PRN (10:57)
[2018-02-18] MEDS ORDERED: Magnesium Replacement Protocol 1 EACH MISC MISCELLANE PRN (11:23)
[2018-02-18] MEDS: PANTOPRAZOLE 40 MG/10 ML VIAL IVP SCH (11:56)
[2018-02-18] MEDS: POTASSIUM CHLORIDE ER 20 MEQ TAB.ER PO SCH ×2 (11:57→12:55)
[2018-02-18] MEDS: MAGNESIUM SULFATE-D5W PMX 1 GM in DEXTROSE/WATER 1 100ML.BAG IVPB SCH ×2 (11:57→12:55)
[2018-02-18] MEDS: MULTIVITAMINS, THERA 1 EACH TAB PO SCH (12:02)
[2018-02-18] MEDS: THIAMINE 100 MG TAB PO SCH ×2 (12:02→17:17)
[2018-02-18] MEDS: FOLIC ACID 1 MG TAB PO SCH (12:02)
[2018-02-18 22:41] VITALS: RESP 16
[2018-02-19] MEDS: LORazepam 2 MG/ML INJ IV PRN ×4 (01:46→22:10)
[2018-02-19] MEDS: SODIUM CHLORIDE 0.9% 1,000 ML IV SCH ×3 (05:18→21:13)
[2018-02-19 08:46] LABS: Potassium 3.8 mmol/L (3.5-5.1)
[2018-02-19] MEDS: PANTOPRAZOLE 40 MG/10 ML VIAL IVP SCH (11:19)
[2018-02-19] MEDS: NICOTINE 14MG/24HR PATCH TRANSDERM SCH (11:20)
[2018-02-19] MEDS: LORATADINE 10 MG TAB PO SCH (11:21)
[2018-02-19] MEDS: METOPROLOL SUCCINATE (ER) 25 MG TAB.ER.24H PO SCH (11:21)
[2018-02-19] MEDS: busPIRone HCl 5 MG TAB PO SCH ×3 (11:22→21:13)
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
[2018-02-19] MEDS: FOLIC ACID 1 MG TAB PO SCH (13:45)
[2018-02-19] MEDS: THIAMINE 100 MG TAB PO SCH ×2 (13:45→16:31)
[2018-02-19] MEDS: MULTIVITAMINS, THERA 1 EACH TAB PO SCH (13:45)
[2018-02-20] MEDS: SODIUM CHLORIDE 0.9% 1,000 ML IV SCH ×3 (05:41→20:46)
[2018-02-20 08:13] LABS: Basophils % (A) 1 %; Eosinophils # (A) 0.2 k/uL (0-0.7); Eosinophils % (A) 4 %; HCT 39.2 % (34.0-46.0); Lymphocytes # (A) 1.3 k/uL (1.0-4.8); Lymphocytes % (A) 26 %; MCH 32.9 pg (25.0-35.0); MCHC 30.7 g/dL (31.0-37.0); MCV 107.2 fL (80.0-100.0); Macrocytosis Moderate; Monocytes # (A) 0.5 k/uL (0-1.0); Monocytes % (A) 9 %; Neutrophils % (A) 57 %; Platelet Count 127 k/uL (150-450); RBC 3.66 m/uL (3.80-5.40); RDW 14.4 % (11.5-15.5); WBC 5.2 k/uL (3.8-10.6)
[2018-02-20 08:23] LABS: Anion Gap 9 mmol/L; Blood Urea Nitrogen 3 mg/dL (7-17); Calcium 8.6 mg/dL (8.4-10.2); Carbon Dioxide 19 mmol/L (22-30); Chloride 108 mmol/L (98-107); Glucose 88 mg/dL (74-99); Potassium 3.8 mmol/L (3.5-5.1); Sodium 136 mmol/L (137-145)
[2018-02-20] MEDS: busPIRone HCl 5 MG TAB PO SCH ×3 (08:31→20:46)
[2018-02-20] MEDS: LORATADINE 10 MG TAB PO SCH (08:31)
[2018-02-20] MEDS: PANTOPRAZOLE 40 MG/10 ML VIAL IVP SCH (08:31)
[2018-02-20] MEDS: METOPROLOL SUCCINATE (ER) 25 MG TAB.ER.24H PO SCH (08:31)
[2018-02-20] MEDS: NICOTINE 14MG/24HR PATCH TRANSDERM SCH (08:32)
[2018-02-20] MEDS: LORazepam 2 MG/ML INJ IV PRN ×4 (08:32→20:20)
--- NOTE | 2018-02-20 11:18 | P.PN ---
Subjective Patient is admitted for alcohol withdrawal. Patient is having diarrhea will obtain C. diff testing. Constitutional: Denied any fatigue denied any fever. Cardio vascular: denied any chest pain, palpitations Gastrointestinal denied any nausea vomiting Pulmonary: Denied any shortness of breath cough Neurologic denied any new focal deficits Objective - Vital Signs Vital signs: Vital Signs Temp 98 F 02/20/18 05:15 Pulse 64 02/20/18 05:15 Resp 16 02/20/18 05:15 BP 145/78 02/20/18 05:15 Pulse Ox 100 02/20/18 05:15 Intake & Output 02/19/18 02/20/18 02/20/18 18:59 06:59 18:59 Intake Total 1580 Balance 1580 Weight 53.524 kg Intake: Intake, IV Titration 1000 Amount Sodium Chloride 0.9% 1, 1000 000 ml @ 125 mls/hr IV . Q8H [facility] Rx#:[id number] Oral 580 Other: Voiding Method Toilet Toilet # Voids 3 1 - Exam Exam GENERAL: The patient is alert and oriented x3, not in any acute distress, HEENT: Pupils are round and equally reacting to light. EOMI. No scleral icterus. No conjunctival pallor. Normocephalic, atraumatic. No pharyngeal erythema. No thyromegaly. CARDIOVASCULAR: S1 and S2 present. No murmurs, rubs, or gallops. PULMONARY: Chest is clear to auscultation, no wheezing or crackles. ABDOMEN: Soft, nontender, nondistended, normoactive bowel sounds. No palpable organomegaly. MUSCULOSKELETAL: No joint swelling or deformity. EXTREMITIES: No cyanosis, clubbing, or pedal edema. NEUROLOGICAL: Gross neurological examination did not reveal any focal deficits. - Labs CBC & Chem 7: 02/20/18 07:20 02/20/18 07:20 Labs: Abnormal Lab Results - Last 24 Hours (Table) 02/20/18 02/20/18 Range/Units 07: 07:20 RBC 3.66 L (3.80-5.40) m/uL MCV 107.2 H (80.0-100.0) fL MCHC 30.7 L (31.0-37.0) g/dL Plt Count 127 L (150-450) k/uL Sodium 136 L (137-145) mmol/L Chloride 108 H (98-107) mmol/L Carbon Dioxide 19 L (22-30) mmol/L BUN 3 L (7-17) mg/dL Creatinine 0.40 L (0.52-1.04) mg/dL Assessment and Plan Plan: -Alcohol abuse: Extensive counseling was provided patient is willing to quit alcohol, patient is on thiamine multivitamin supplementation IV fluids which will be continued. No significant withdrawals today -Diarrhea rule out C. diff -Acute alcoholic hepatitis expected to improve with getting alcohol -Alcoholic gastritis: Protonix Zofran as needed nausea vomiting seconded alcoholic gastritis -Alcohol withdrawal: Patient is on alcohol withdrawal protocol. -Nicotine abuse: Counseling was provided
[2018-02-20] MEDS: THIAMINE 100 MG TAB PO SCH ×2 (13:29→15:47)
[2018-02-20] MEDS: FOLIC ACID 1 MG TAB PO SCH (13:29)
[2018-02-20] MEDS: MULTIVITAMINS, THERA 1 EACH TAB PO SCH (13:29)
[2018-02-20] MEDS ORDERED: LORazepam 1 MG TAB PO PRN (20:29)
[2018-02-21] MEDS ORDERED: LORazepam 1 MG TAB ONE (00:25)
[2018-02-21 05:51] VITALS: BP 163/105; PULSE 60; TEMP 98
[2018-02-21] MEDS: SODIUM CHLORIDE 0.9% 1,000 ML IV SCH (06:05)
[2018-02-21] MEDS ORDERED: PANTOPRAZOLE 40 MG TABLET PO SCH (07:30)
[2018-02-21] MEDS: busPIRone HCl 5 MG TAB PO SCH (08:36)
[2018-02-21] MEDS: METOPROLOL SUCCINATE (ER) 25 MG TAB.ER.24H PO SCH (08:37)
[2018-02-21] MEDS: LORATADINE 10 MG TAB PO SCH (08:37)
[2018-02-21] MEDS: NICOTINE 14MG/24HR PATCH TRANSDERM SCH (08:37)
== END 2018-02-21 10:05 | disposition home or self-care (01) | DRG 897 ==
LOC: EC 16:54 → 5MS5E 19:38 → OBSVTOIN 02-18 15:15 → 5MS5E 02-18 22:29
PROVIDERS: ADMIT Internal Medicine; ATTEND Internal Medicine
DX: F10.229 Alcohol dependence with intoxication, unspecified (principal); F10.239 Alcohol dependence with withdrawal, unspecified; Y90.8 Blood alcohol level of 240 mg/100 ml or more; F17.200 Nicotine dependence, unspecified, uncomplicated; F32.9 Major depressive disorder, single episode, unspecified; F41.9 Anxiety disorder, unspecified; I10 Essential (primary) hypertension; K70.10 Alcoholic hepatitis without ascites; Z59.0 Homelessness; Z79.899 Other long term (current) drug therapy; Z82.49 Family history of ischemic heart disease and other diseases of the circulatory system; K29.20 Alcoholic gastritis without bleeding; Z71.41 Alcohol abuse counseling and surveillance of alcoholic; Z71.6 Tobacco abuse counseling; Z81.8 Family history of other mental and behavioral disorders; Z80.9 Family history of malignant neoplasm, unspecified
CPT/HCPCS: 36415; 80048; 80053; 80306; 80320; 81003; 81025; 82075; 83735; 84132; 85025; 96360; 99285

== ENCOUNTER 2018-03-26 22:22 | Inpatient (IN) | payer OTHER ==
--- NOTE | 2018-03-26 23:08 | ED ---
General Adult HPI - General Chief complaint: Alcohol Stated complaint: ETOH Time Seen by Provider: 03/26/18 22:24 Source: patient, RN notes reviewed Mode of arrival: EMS Limitations: no limitations - History of Present Illness Initial comments: Patient is a pleasant 42-year-old female presenting to the emergency department after being found asleep at a bench by David. Patient is sleeping in the room and easily arousable to voice. Patient states she sleeps there all the time. Patient states she is not the only one and other people do it as well. Patient does admit to drinking alcohol frequently and states she is trying to cut back. Patient states she did drink some alcohol earlier today. Patient has no complaints. - Related Data Home Medications Medication Instructions Recorded Confirmed Loratadine [Claritin] 10 mg PO DAILY 05/13/17 03/26/18 busPIRone HCl [Buspar] 5 mg PO TID 05/13/17 03/26/18 Albuterol Inhaler [Ventolin Hfa 1 - 2 puff INHALATION RT-QID PRN 11/17/17 Inhaler] Metoprolol Succinate (ER) [Toprol 25 mg PO DAILY 11/17/17 03/26/18 XL] Previous Rx's Medication Instructions Recorded Folic Acid 1 mg PO DAILY #30 tablet 01/28/18 LORazepam [Ativan] 1 mg PO QID PRN #12 tab 01/28/18 Allergies Allergy/AdvReac Type Severity Reaction Status Date / Time duloxetine [From Cymbalta] Allergy Rash/Hives Verified 03/26/18 22:54 Review of Systems ROS Statement: Those systems with pertinent positive or pertinent negative responses have been documented in the HPI. ROS Other: All systems not noted in ROS Statement are negative. Constitutional: Denies: fever Eyes: Denies: eye pain ENT: Denies: ear pain Respiratory: Denies: cough Cardiovascular: Denies: chest pain Endocrine: Denies: fatigue Gastrointestinal: Denies: abdominal pain Genitourinary: Denies: dysuria Musculoskeletal: Denies: back pain Skin: Denies: rash Neurological: Denies: weakness Past Medical History Past Medical History: Hypertension Additional Past Medical History / Comment(s): Alcohol abuse History of Any Multi-Drug Resistant Organisms: None Reported Past Surgical History: No Surgical Hx Reported Past Anesthesia/Blood Transfusion Reactions: No Reported Reaction Past Psychological History: Anxiety, Depression Smoking Status: Current every day smoker Past Alcohol Use History: Daily Past Drug Use History: None Reported - Past Family History Mother Family Medical History: Coronary Artery Disease (CAD) Father Family Medical History: Cancer Sister(s) Additional Family Medical History / Comment(s): bipolar Son(s) Additional Family Medical History / Comment(s): pt states "failure to thrive, delayed" General Exam Limitations: no limitations General appearance: alert, in no apparent distress Head exam: Present: atraumatic Eye exam: Present: normal appearance, PERRL ENT exam: Present: normal oropharynx Neck exam: Present: normal inspection. Absent: tenderness Respiratory exam: Present: normal lung sounds bilaterally Cardiovascular Exam: Present: regular rate, normal rhythm GI/Abdominal exam: Present: soft. Absent: tenderness Extremities exam: Present: normal inspection Neurological exam: Present: alert, oriented X3. Absent: motor sensory deficit Expanded Motor strength exam: RUE: 5, LUE: 5, RLE: 5, LLE: 5 Eye Response: (4) open spontaneously Motor Response: (6) obeys commands Verbal Response: (5) oriented Psychiatric exam: Present: normal affect, normal mood Skin exam: Present: normal color Course Vital Signs 03/26/18 03/27/18 22:29 00:18 Temperature 97.2 F L Pulse Rate 86 96 Respiratory 15 16 Rate Blood Pressure 153/92 95/58 O2 Sat by Pulse 95 99 Oximetry - Reevaluation(s) Reevaluation #1: 03/27/18 00:44 BAT 357 in the emergency department Medical Decision Making - Medical Decision Making Patient reevaluated. Case discussed with practitioner Michael, who will admit for observation for Dr. Mccarty. Disposition Clinical Impression: Alcoholic intoxication Disposition: ADMITTED IP TO THIS HOSP Is patient prescribed a controlled substance at d/c from ED?: No Referrals: Slime Rodriguez MD [Primary Care Provider] - 1-2 days Decision Time: 00:44
[2018-03-27] MEDS ORDERED: NALOXONE 0.4 MG/ML 1 ML VIAL IV PRN (00:44)
[2018-03-27] MEDS ORDERED: THIAMINE 100 MG/ML 2 ML VIAL IM STA (00:46)
[2018-03-27] MEDS ORDERED: SODIUM CHLORIDE 0.9% 1,000 ML IV STA (00:46)
[2018-03-27] MEDS ORDERED: LORazepam 2 MG/ML INJ IV PRN ×2 (00:46)
[2018-03-27 03:04] VITALS: BMI 26.5
[2018-03-27] MEDS: LORazepam 2 MG/ML INJ IV PRN ×4 (09:33→22:32)
[2018-03-27] MEDS ORDERED: ALBUTEROL NEBULIZED 2.5 MG/3 ML INHALATION PRN (12:11)
[2018-03-27 12:48] LABS: Basophils % (A) 0 %; Eosinophils # (A) 0.3 k/uL (0-0.7); Eosinophils % (A) 3 %; HCT 38.4 % (34.0-46.0); HGB 11.9 gm/dL (11.4-16.0); Lymphocytes % (A) 9 %; MCH 34.5 pg (25.0-35.0); MCHC 30.9 g/dL (31.0-37.0); MCV 111.5 fL (80.0-100.0); Macrocytosis Marked; Mean Platelet Volume 7.2; Monocytes # (A) 0.4 k/uL (0-1.0); Monocytes % (A) 4 %; Neutrophils # (A) 9.3 k/uL (1.3-7.7); Neutrophils % (A) 83 %; Platelet Count 185 k/uL (150-450); RBC 3.44 m/uL (3.80-5.40); RDW 14.4 % (11.5-15.5); WBC 11.2 k/uL (3.8-10.6)
--- NOTE | 2018-03-27 12:48 | P.HPIM ---
History of Present Illness -42 year-old female was brought in because of all call low-dose and sleeping on been checked Shahana. Patient does drink alcohol on regular basis anyway ranges from 3-6 beers had mild withdrawals in the past patient denied any fever chills nausea vomiting abdominal pain. Patient has a lot of things going on with depressed because of which she has been quite a bit lately trying to avoid drinking and smoking as much as she can. Review of Systems REVIEW OF SYSTEMS: CONSTITUTIONAL: No fever, no malaise, no fatigue. HEENT: No recent visual problems or hearing problems. Denied any sore throat. CARDIOVASCULAR: No chest pain, orthopnea, PND, no palpitations, no syncope. PULMONARY: No shortness of breath, no cough, no hemoptysis. GASTROINTESTINAL: No diarrhea, no nausea, no vomiting, no abdominal pain. Normoactive bowel sounds. NEUROLOGICAL: No headaches, no weakness, no numbness. HEMATOLOGICAL: Denies any bleeding or petechiae. GENITOURINARY: Denies any burning micturition, frequency, or urgency. MUSCULOSKELETAL/RHEUMATOLOGICAL: Denies any joint pain, swelling, or any muscle pain. ENDOCRINE: Denies any polyuria or polydipsia. The rest of the 14-point review of systems is negative. Past Medical History Past Medical History: Hypertension Additional Past Medical History / Comment(s): Alcohol abuse History of Any Multi-Drug Resistant Organisms: None Reported Past Surgical History: No Surgical Hx Reported Past Anesthesia/Blood Transfusion Reactions: No Reported Reaction Past Psychological History: Anxiety, Depression Smoking Status: Current every day smoker Past Alcohol Use History: Daily Past Drug Use History: None Reported Additional Drug Use History / Comment(s): pt states no recent drug use - Past Family History Mother Family Medical History: Coronary Artery Disease (CAD) Father Family Medical History: Cancer Sister(s) Additional Family Medical History / Comment(s): bipolar Son(s) Additional Family Medical History / Comment(s): pt states "failure to thrive, delayed" Medications and Allergies Home Medications Medication Instructions Recorded Confirmed Type Loratadine [Claritin] 10 mg PO DAILY 05/13/17 03/26/18 History busPIRone HCl [Buspar] 5 mg PO TID 05/13/17 03/26/18 History Albuterol Inhaler [Ventolin Hfa 1 - 2 puff INHALATION RT-QID PRN 11/17/17 History Inhaler] Metoprolol Succinate (ER) [Toprol 25 mg PO DAILY 11/17/17 03/26/18 History XL] Folic Acid 1 mg PO DAILY #30 tablet 01/28/18 03/26/18 Rx LORazepam [Ativan] 1 mg PO QID PRN #12 tab 01/28/18 03/26/18 Rx Allergies Allergy/AdvReac Type Severity Reaction Status Date / Time duloxetine [From Cymbalta] Allergy Rash/Hives Verified 03/26/18 22:54 Physical Exam Vitals: Vital Signs Temp Pulse Pulse Resp BP BP BP 03/27/18 11:50 98.5 F 75 18 127/67 03/27/18 08:00 98.3 F 86 18 107/71 03/27/18 04:00 16 03/27/18 02:50 97.6 F 91 16 118/76 03/27/18 02:13 89 16 115/66 03/27/18 00:18 96 16 95/58 03/26/18 22:29 97.2 F L 86 15 153/92 Pulse Ox 03/27/18 11:50 96 03/27/18 08:00 97 03/27/18 04:00 03/27/18 02:50 98 03/27/18 02:13 95 03/27/18 00:18 99 03/26/18 22:29 95 Intake and Output 03/26/18 03/27/18 03/27/18 22:59 06:59 14:59 Intake Total 200 Balance 200 Intake: Oral 200 Other: Voiding Method Toilet Toilet Weight 65.771 kg 53.7 kg PHYSICAL EXAMINATION: GENERAL: The patient is alert and oriented x3, not in any acute distress. Well developed, well nourished. HEENT: Pupils are round and equally reacting to light. EOMI. No scleral icterus. No conjunctival pallor. Normocephalic, atraumatic. No pharyngeal erythema. No thyromegaly. CARDIOVASCULAR: S1 and S2 present. No murmurs, rubs, or gallops. PULMONARY: Chest is clear to auscultation, no wheezing or crackles. ABDOMEN: Soft, nontender, nondistended, normoactive bowel sounds. No palpable organomegaly. MUSCULOSKELETAL: No joint swelling or deformity. EXTREMITIES: No cyanosis, clubbing, or pedal edema. NEUROLOGICAL: Gross neurological examination did not reveal any focal deficits. SKIN: No rashes. Thrombosis Risk Factor Assmnt - Choose All That Apply Each Factor Represents 1 point: Age 41-60 years Thrombosis Risk Factor Assessment Total Risk Factor Score: 1 Thrombosis Risk Factor Assessment Level: Low Risk Assessment and Plan Plan: -Alcohol overdose: Patient is sober now but the patient is willing to quit alcohol will monitor her for all call withdraws tonight. -Alcohol withdrawal: Patient will be an CW protocol thiamine multivitamin supplementation and IV fluids will order magnesium complains of metabolic profile and a CBC. -Depression: Patient was advised to quit drinking alcohol before she can be started on antidepressants although patient isn't is prone which will be resumed and continued -Hypertension -nicotine abuse: Counseling was provided
[2018-03-27 12:53] LABS: ALT 60 U/L (9-52); AST 133 U/L (14-36); Albumin 3.7 g/dL (3.5-5.0); Alkaline Phosphatase 85 U/L (38-126); Anion Gap 9 mmol/L; Blood Urea Nitrogen 3 mg/dL (7-17); Calcium 8.2 mg/dL (8.4-10.2); Carbon Dioxide 22 mmol/L (22-30); Chloride 109 mmol/L (98-107); Glucose 72 mg/dL (74-99); Magnesium 1.7 mg/dL (1.6-2.3); Potassium 3.9 mmol/L (3.5-5.1); Sodium 140 mmol/L (137-145); Total Bilirubin 0.3 mg/dL (0.2-1.3); Total Protein 6.5 g/dL (6.3-8.2)
[2018-03-27 13:20] LABS: Poikilocytosis (M) Present
[2018-03-27] MEDS ORDERED: ONDANSETRON 4 MG/2 ML VIAL IVP PRN (16:57)
[2018-03-27] MEDS: METOPROLOL SUCCINATE (ER) 25 MG TAB.ER.24H PO SCH (19:00)
[2018-03-27] MEDS: busPIRone HCl 5 MG TAB PO SCH ×2 (19:00→20:17)
[2018-03-27] MEDS: THIAMINE 100 MG TAB PO SCH (19:01)
[2018-03-28] MEDS: LORazepam 2 MG/ML INJ IV PRN ×3 (01:08→13:31)
[2018-03-28] MEDS: METOPROLOL SUCCINATE (ER) 25 MG TAB.ER.24H PO SCH (09:24)
[2018-03-28] MEDS: busPIRone HCl 5 MG TAB PO SCH (09:24)
[2018-03-28 11:37] LABS: Basophils % (A) 1 %; Eosinophils # (A) 0.2 k/uL (0-0.7); Eosinophils % (A) 2 %; HCT 42.6 % (34.0-46.0); HGB 12.6 gm/dL (11.4-16.0); Hypochromasia Slight; Lymphocytes % (A) 14 %; MCH 33.7 pg (25.0-35.0); MCHC 29.7 g/dL (31.0-37.0); MCV 113.5 fL (80.0-100.0); Macrocytosis Marked; Mean Platelet Volume 7.8; Monocytes # (A) 0.5 k/uL (0-1.0); Monocytes % (A) 7 %; Neutrophils # (A) 5.4 k/uL (1.3-7.7); Neutrophils % (A) 75 %; Platelet Count 182 k/uL (150-450); RBC 3.75 m/uL (3.80-5.40); RDW 13.9 % (11.5-15.5); WBC 7.2 k/uL (3.8-10.6)
[2018-03-28 11:50] LABS: Albumin 3.7 g/dL (3.5-5.0); Anion Gap 14 mmol/L; Calcium 8.8 mg/dL (8.4-10.2); Carbon Dioxide 19 mmol/L (22-30); Chloride 103 mmol/L (98-107); Glucose 53 mg/dL (74-99); Sodium 136 mmol/L (137-145); Total Bilirubin 0.7 mg/dL (0.2-1.3); Total Protein 6.5 g/dL (6.3-8.2)
[2018-03-28 11:51] LABS: ALT 51 U/L (9-52); AST 88 U/L (14-36); Alkaline Phosphatase 82 U/L (38-126); Blood Urea Nitrogen 4 mg/dL (7-17); Potassium 4.2 mmol/L (3.5-5.1)
[2018-03-28] MEDS ORDERED: FOLIC ACID 1 MG TAB PO SCH (12:00)
[2018-03-28] MEDS: THIAMINE 100 MG TAB PO SCH (12:39)
--- NOTE | 2018-03-28 14:56 | P.PN ---
Subjective Progress Note Date: 03/28/18 Progress note being dictated for Dr. Sim Interval history:-42 year-old female was brought in because of all call low- dose and sleeping on been checked Shahana. Patient does drink alcohol on regular basis anyway ranges from 3-6 beers had mild withdrawals in the past patient denied any fever chills nausea vomiting abdominal pain. Patient has a lot of things going on with depressed because of which she has been quite a bit lately trying to avoid drinking and smoking as much as she can. 03/28/2018 maintained on CIWA protocol, current CIWA score 10. Active DTs with shakes, diarrhea. Denies chest pain, palpitations or increased shortness of breath. Afebrile, normal WBC. Maintaining O2 sats in the high 90s on room air. Objective - Vital Signs Vital signs: Vital Signs Temp 98.7 F 03/28/18 12:00 Pulse 68 03/28/18 12:00 Resp 16 03/28/18 12:00 BP 132/82 03/28/18 12:00 Pulse Ox 99 03/28/18 12:00 Intake & Output 03/27/18 03/28/18 03/28/18 18:59 06:59 18:59 Intake Total 200 250 Balance 200 250 Intake: Oral 200 250 Other: Voiding Method Toilet Toilet Toilet # Voids 1 1 - Exam GENERAL: The patient is alert and oriented x3, resting, no acute distress HEENT: Pupils are round and equally reacting to light. EOMI. No scleral icterus. No conjunctival pallor. Normocephalic, atraumatic. CARDIOVASCULAR: S1 and S2 present. No murmurs, rubs, or gallops. PULMONARY: Chest is clear to auscultation, no wheezing or crackles. ABDOMEN: Soft, nontender, nondistended, normoactive bowel sounds. No palpable organomegaly. MUSCULOSKELETAL: No joint swelling or deformity. EXTREMITIES: No cyanosis, clubbing, or pedal edema. NEUROLOGICAL: Active DTs, mild shakiness, generalized weakness - Labs CBC & Chem 7: 03/28/18 10:49 03/28/18 10:49 Labs: Abnormal Lab Results - Last 24 Hours (Table) 03/27/18 03/27/18 03/28/18 Range/Units 12:26 12:26 10:49 WBC 11.2 H (3.8-10.6) k/uL RBC 3.44 L (3.80-5.40) m/uL MCV 111.5 H (80.0-100.0) fL MCHC 30.9 L (31.0-37.0) g/dL Neutrophils # 9.3 H (1.3-7.7) k/uL Sodium 136 L (137-145) mmol/L Chloride 109 H (98-107) mmol/L Carbon Dioxide 19 L (22-30) mmol/L BUN 3 L 4 L (7-17) mg/dL Creatinine 0.44 L 0.40 L (0.52-1.04) mg/dL Glucose 72 L 53 L (74-99) mg/dL Calcium 8.2 L (8.4-10.2) mg/dL AST 133 H 88 H (14-36) U/L ALT 60 H (9-52) U/L 03/28/18 Range/Units 10:49 WBC (3.8-10.6) k/uL RBC 3.75 L (3.80-5.40) m/uL MCV 113.5 H (80.0-100.0) fL MCHC 29.7 L (31.0-37.0) g/dL Neutrophils # (1.3-7.7) k/uL Sodium (137-145) mmol/L Chloride (98-107) mmol/L Carbon Dioxide (22-30) mmol/L BUN (7-17) mg/dL Creatinine (0.52-1.04) mg/dL Glucose (74-99) mg/dL Calcium (8.4-10.2) mg/dL AST (14-36) U/L ALT (9-52) U/L Assessment and Plan Assessment: -Alcohol overdose, DTs. -Depression: Patient was advised to quit drinking alcohol before she can be started on antidepressants -Hypertension -nicotine abuse: Counseling was provided Plan: Continue on current medication regime ,monitoring and symptomatic treatment. Active DTs, Maintain CIWA protocol. IV fluid hydration/banana bag. Alcohol and smoking cessation readdressed. Close monitoring of electrolytes, with repeat labs ordered for a.m.. The impression and plan of care has been dictated as directed. : I performed a history and examination of this patient, discussed the same with the dictator. I agree with the dictator's note ,documented as a scribe. Any additional findings or plans will be noted.
[2018-03-28 15:25] VITALS: BP 146/72; PULSE 69; RESP 16; TEMP 98.4
[2018-03-28] MEDS ORDERED: 1: MVI, ADULT NO.4 WITH VIT K 10 ML, THIAMINE 100 MG, FOLIC ACID 1 MG in SODIUM CHLORIDE IV SCH ×4 (16:00)
== END 2018-03-28 16:35 | disposition left against medical advice (07) | DRG 918 ==
LOC: EC 22:22 → 3OBS 03-27 00:44 → OBSVTOIN 03-28 08:44 → 4MS4W 03-28 13:04
PROVIDERS: ADMIT Internal Medicine; ATTEND Internal Medicine
DX: T51.0X1A Toxic effect of ethanol, accidental (unintentional), initial encounter (principal); F10.231 Alcohol dependence with withdrawal delirium; F17.200 Nicotine dependence, unspecified, uncomplicated; F32.9 Major depressive disorder, single episode, unspecified; F41.9 Anxiety disorder, unspecified; I10 Essential (primary) hypertension; Z82.49 Family history of ischemic heart disease and other diseases of the circulatory system; Y90.8 Blood alcohol level of 240 mg/100 ml or more; Z71.6 Tobacco abuse counseling; Z71.41 Alcohol abuse counseling and surveillance of alcoholic; Z79.899 Other long term (current) drug therapy; Z81.8 Family history of other mental and behavioral disorders; Z80.9 Family history of malignant neoplasm, unspecified
CPT/HCPCS: 80053; 82075; 83735; 85025; 96372; 99285

== ENCOUNTER 2018-03-29 22:18 | Emergency (ER) | payer OTHER ==
[2018-03-29] MEDS ORDERED: SODIUM CHLORIDE 0.9% 1,000 ML with MVI, ADULT NO.4 WITH VIT K 10 ML, THIAMINE 100 MG, F... IV ONE ×4 (23:19)
[2018-03-29] MEDS ORDERED: SODIUM CHLORIDE 0.9% 1,000 ML IV ONE (23:19)
[2018-03-29] MEDS ORDERED: ONDANSETRON 4 MG/2 ML VIAL IVP STA ×2 (23:22→23:26)
[2018-03-29 23:41] LABS: Appearance,Urine Clear (Clear); Bilirubin,Urine Negative (Negative); Blood,Urine Negative (Negative); Color,Urine Colorless; Glucose,Urine (UA) Negative (Negative); Ketones,Urine Negative (Negative); Leukocyte Esterase,Urine Negative (Negative); Nitrite,Urine Negative (Negative); Protein,Urine Negative (Negative); Specific Gravity,Urine 1.001 (1.001-1.035); Urobilinogen,Urine <2.0 mg/dL (<2.0)
[2018-03-29 23:55] LABS: Amphetamine Screen,Urine Not Detected (NotDetected); Barbiturate Screen,Urine Not Detected (NotDetected); Benzodiazepines Screen,Urine Not Detected (NotDetected); Cocaine Screen,Urine Not Detected (NotDetected); Methadone Screen, Urine Not Detected (NotDetected); Opiate Screen,Urine Not Detected (NotDetected); Oxycodone Screen, Urine Not Detected (NotDetected); Phencyclidine Screen,Urine Not Detected (NotDetected); Tricyclic Antidepressant,Urine Not Detected (NotDetected); Urn Cannabinoid Scrn Not Detected (NotDetected)
[2018-03-29 23:59] LABS: Basophils # (A) 0.1 k/uL (0-0.2); Basophils % (A) 1 %; Eosinophils # (A) 0.2 k/uL (0-0.7); Eosinophils % (A) 2 %; HCT 40.2 % (34.0-46.0); Lymphocytes # (A) 2.5 k/uL (1.0-4.8); Lymphocytes % (A) 29 %; MCH 34.9 pg (25.0-35.0); MCHC 32.3 g/dL (31.0-37.0); Macrocytosis Moderate; Mean Platelet Volume 7.6; Monocytes # (A) 0.6 k/uL (0-1.0); Monocytes % (A) 7 %; Neutrophils # (A) 5.1 k/uL (1.3-7.7); Neutrophils % (A) 58 %; Platelet Count 174 k/uL (150-450); RBC 3.72 m/uL (3.80-5.40); RDW 13.5 % (11.5-15.5); WBC 8.8 k/uL (3.8-10.6)
[2018-03-30 00:05] LABS: MCV 108.1 fL (80.0-100.0)
[2018-03-30 00:06] LABS: Albumin 4.2 g/dL (3.5-5.0); Anion Gap 16 mmol/L; Calcium 9.1 mg/dL (8.4-10.2); Carbon Dioxide 19 mmol/L (22-30); Chloride 98 mmol/L (98-107); Glucose 82 mg/dL (74-99); Sodium 133 mmol/L (137-145); Total Bilirubin 0.5 mg/dL (0.2-1.3); Total Protein 7.2 g/dL (6.3-8.2)
[2018-03-30 00:17] LABS: ALT 72 U/L (9-52); AST 146 U/L (14-36); Alkaline Phosphatase 80 U/L (38-126); Blood Urea Nitrogen <2 mg/dL (7-17); Potassium 3.3 mmol/L (3.5-5.1)
[2018-03-30 00:19] LABS: Alcohol 318 mg/dL
[2018-03-30] MEDS ORDERED: POTASSIUM CHLORIDE ER 20 MEQ TAB.ER PO STA (01:34)
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
[2018-03-30 08:04] VITALS: BP 117/68; PULSE 83; RESP 18; TEMP 97.6
== END 2018-03-30 08:02 | disposition home or self-care (01) ==
LOC: EC 22:18
DX: F10.10 Alcohol abuse, uncomplicated (principal); I10 Essential (primary) hypertension; F17.200 Nicotine dependence, unspecified, uncomplicated; Z76.0 Encounter for issue of repeat prescription; Z59.0 Homelessness; Z88.8 Allergy status to other drugs, medicaments and biological substances; Z79.899 Other long term (current) drug therapy; Y90.8 Blood alcohol level of 240 mg/100 ml or more
CPT/HCPCS: 82075; 36415; 80053; 85025; 81003; 80306; 99284; 96365; 96366 ×7; 96375; G0480; J3411; J2405; 80320

== ENCOUNTER 2018-06-12 19:14 | Emergency (ER) | payer OTHER ==
[2018-06-12 19:27] VITALS: RESP 18; TEMP 98.3
[2018-06-12] MEDS ORDERED: LORazepam 2 MG/ML INJ IV STA ×2 (19:28→21:31)
[2018-06-12] MEDS ORDERED: ONDANSETRON 4 MG/2 ML VIAL IVP STA (19:29)
--- NOTE | 2018-06-12 19:33 | ED ---
General Adult HPI - General Chief complaint: Seizure Stated complaint: Seizure Time Seen by Provider: 06/12/18 19:23 Source: patient, EMS, RN notes reviewed, old records reviewed Mode of arrival: EMS Limitations: altered mental status - History of Present Illness Initial comments: Patient is a pleasant 43-year-old female presenting to the emergency Department with reported seizure. Patient does not recall the episode. Episode was reported as 45 seconds of generalized tonic-clonic activity. Patient does admit to feeling slightly confused. Patient does admit to feeling nauseated. Patient has mild discomfort right side of her face. Patient denies significant alcohol use. Chart review reveals several previous visits with alcohol problems. Patient denies any history of seizures or passing out previously. Patient denies drug use. - Related Data Home Medications Medication Instructions Recorded Confirmed Loratadine [Claritin] 10 mg PO DAILY 05/13/17 06/12/18 busPIRone HCl [Buspar] 5 mg PO TID 05/13/17 06/12/18 Albuterol Inhaler [Ventolin Hfa 1 - 2 puff INHALATION RT-QID PRN 11/17/17 Inhaler] Metoprolol Succinate (ER) [Toprol 25 mg PO DAILY 11/17/17 06/12/18 XL] Folic Acid 1 mg PO DAILY 06/12/18 06/12/18 Previous Rx's Medication Instructions Recorded LORazepam [Ativan] 1 mg PO TID PRN #8 tab 06/12/18 Allergies Allergy/AdvReac Type Severity Reaction Status Date / Time duloxetine [From Cymbalta] Allergy Rash/Hives Verified 06/12/18 20:31 Review of Systems ROS Statement: Those systems with pertinent positive or pertinent negative responses have been documented in the HPI. ROS Other: All systems not noted in ROS Statement are negative. Constitutional: Denies: fever Eyes: Denies: eye pain ENT: Denies: ear pain, throat pain Respiratory: Denies: cough Cardiovascular: Denies: chest pain Endocrine: Denies: fatigue Gastrointestinal: Denies: abdominal pain, vomiting Genitourinary: Denies: dysuria Musculoskeletal: Denies: back pain Skin: Denies: rash Neurological: Reports: confusion. Denies: headache, weakness Past Medical History Past Medical History: Hypertension Additional Past Medical History / Comment(s): Alcohol abuse, History of Any Multi-Drug Resistant Organisms: None Reported Past Surgical History: No Surgical Hx Reported Past Anesthesia/Blood Transfusion Reactions: No Reported Reaction Past Psychological History: Anxiety, Depression Smoking Status: Current every day smoker Past Alcohol Use History: Abuse, Daily Past Drug Use History: None Reported - Past Family History Mother Family Medical History: Coronary Artery Disease (CAD) Father Family Medical History: Cancer Sister(s) Additional Family Medical History / Comment(s): bipolar Son(s) Additional Family Medical History / Comment(s): pt states "failure to thrive, delayed" General Exam Limitations: altered mental status General appearance: alert, in no apparent distress Head exam: Present: other (Soft tissue swelling right temporal region) Eye exam: Present: PERRL, EOMI, other (Right lateral subconjunctival hemorrhage) ENT exam: Present: normal oropharynx Neck exam: Present: normal inspection. Absent: tenderness Respiratory exam: Present: normal lung sounds bilaterally Cardiovascular Exam: Present: tachycardia GI/Abdominal exam: Present: soft. Absent: tenderness Extremities exam: Present: normal inspection, full ROM. Absent: tenderness Back exam: Present: normal inspection. Absent: tenderness Neurological exam: Present: alert, CN II-XII intact. Absent: motor sensory deficit Expanded Neurological exam: Present: protecting the airway Patient oriented to: Present: person, place. Absent: time Motor strength exam: RUE: 5, LUE: 5, RLE: 5, LLE: 5 Eye Response: (4) open spontaneously Motor Response: (6) obeys commands Verbal Response: (4) confused conversation Psychiatric exam: Present: normal affect, normal mood Skin exam: Present: normal color Course Vital Signs 06/12/18 06/12/18 19:17 20:56 Temperature 98.3 F Pulse Rate 127 H 111 H Respiratory 18 18 Rate Blood Pressure 192/130 152/87 O2 Sat by Pulse 98 95 Oximetry EKG Findings - EKG Comments: EKG Findings:: Sinus tachycardia 116. UT 172. QRS 82. QT 334. QTC 464. Normal axis. Normal QRS. No acute ST change. Medical Decision Making - Medical Decision Making Patient reevaluated and resting comfortably in bed. Patient is alert and appropriate. Patient does admit to being a heavy drinker and states she tried to discontinue drinking today. Last drink was last night. Patient states she wants to continue backing off of alcohol and is receptive to Ativan which she has previously had to help her with this. Patient states she has no Ativan or Librium at home at this time. - Lab Data Result diagrams: 06/12/18 19:30 06/12/18 19:30 Lab Results 06/12/18 06/12/18 06/12/18 Range/Units 19:30 19:30 20:00 WBC 12.9 H (3.8-10.6) k/uL RBC 3.82 (3.80-5.40) m/uL Hgb 12.9 (11.4-16.0) gm/dL Hct 41.6 (34.0-46.0) % MCV 108.9 H (80.0-100.0) fL MCH 33.9 (25.0-35.0) pg MCHC 31.2 (31.0-37.0) g/dL RDW 14.0 (11.5-15.5) % Plt Count 139 L (150-450) k/uL Neutrophils % 80 % Lymphocytes % 11 % Monocytes % 7 % Eosinophils % 0 % Basophils % 1 % Neutrophils # 10.3 H (1.3-7.7) k/uL Lymphocytes # 1.4 (1.0-4.8) k/uL Monocytes # 0.9 (0-1.0) k/uL Eosinophils # 0.0 (0-0.7) k/uL Basophils # 0.1 (0-0.2) k/uL Macrocytosis Marked Sodium 136 L (137-145) mmol/L Potassium 3.4 L (3.5-5.1) mmol/L Chloride 100 (98-107) mmol/L Carbon Dioxide 9 L* (22-30) mmol/L Anion Gap 27 mmol/L BUN 4 L (7-17) mg/dL Creatinine 0.47 L (0.52-1.04) mg/dL Est GFR (CKD-EPI)AfAm >90 (>60 ml/min/1.73 sqM) Est GFR (CKD-EPI)NonAf >90 (>60 ml/min/1.73 sqM) Glucose 110 H (74-99) mg/dL POC Glucose (mg/dL) 100 H (75-99) mg/dL POC Glu [employer] Teacher ID Marta, Iesha Calcium 9.1 (8.4-10.2) mg/dL Total Bilirubin 0.7 (0.2-1.3) mg/dL AST 119 H (14-36) U/L ALT 31 (9-52) U/L Alkaline Phosphatase 90 (38-126) U/L Total Protein 8.1 (6.3-8.2) g/dL Albumin 5.0 (3.5-5.0) g/dL Serum Alcohol <10 mg/dL - Radiology Data Radiology results: report reviewed (Computed tomography scan of the brain reveals atrophy) Disposition Clinical Impression: Alcohol withdrawal seizure Disposition: HOME SELF-CARE Condition: Stable Instructions: New-Onset Seizure in Adults (ED), Abuse of Alcohol (ED), Alcohol Withdrawal (ED) Additional Instructions: Discontinue alcohol use. Ativan as needed to help with withdrawal. Please follow-up with primary care physician in the next day or 2 for recheck. Please also follow-up with Alcoholics Anonymous and consider counselor evaluation, list provided. Prescriptions: LORazepam [Ativan] 1 mg PO TID PRN #8 tab PRN Reason: Anxiety Is patient prescribed a controlled substance at d/c from ED?: Yes When asked, does pt state using other controlled substances?: No If prescribed controlled substance>3 days was MAPS reviewed?: Prescribed <3 Days Referrals: Mart Lowe MD [STAFF PHYSICIAN] - 1-2 days Time of Disposition: 21:32
[2018-06-12 20:06] LABS: Glucose,Whole Blood 100 mg/dL (75-99)
--- NOTE | 2018-06-12 20:18 | CT ---
EXAMINATION TYPE: CT brain wo con DATE OF EXAM: 06/12/2018 COMPARISON: 01/25/2018 HISTORY: Seizure. Altered mental status. CT DLP: 1170.4 mGycm. Automated Exposure Control for Dose Reduction was Utilized. TECHNIQUE: CT scan of the head is performed without contrast. FINDINGS: There is no acute intracranial hemorrhage, mass effect, or midline shift identified. The ventricles and sulci are symmetrically prominent, out of proportion for the patient's age. Patchy ar eas of hypoattenuation seen within the periventricular and subcortical white matter are unchanged fro m the prior exam. Normal variant cavum septum lucidum et verge is seen. The globes are intact and the visualized sinuses are clear. Few basal ganglia calcifications are incidentally noted on the right. No suspicious extra-axial fluid collection. IMPRESSION: Cerebral atrophy is advanced for the patient's age although unchanged in comparison to th e prior. No acute intracranial hemorrhage, mass effect, or midline shift is seen.
[2018-06-12 20:50] LABS: ALT 31 U/L (9-52); AST 119 U/L (14-36); Alcohol <10 mg/dL; Alkaline Phosphatase 90 U/L (38-126); Anion Gap 27 mmol/L; Blood Urea Nitrogen 4 mg/dL (7-17); Calcium 9.1 mg/dL (8.4-10.2); Chloride 100 mmol/L (98-107); Glucose 110 mg/dL (74-99); Potassium 3.4 mmol/L (3.5-5.1); Sodium 136 mmol/L (137-145); Total Bilirubin 0.7 mg/dL (0.2-1.3); Total Protein 8.1 g/dL (6.3-8.2)
[2018-06-12 21:04] LABS: Carbon Dioxide 9 mmol/L (22-30)
[2018-06-12] MEDS ORDERED: SODIUM CHLORIDE 0.9% 1,000 ML IV STA (21:06)
[2018-06-12 21:08] LABS: Basophils # (A) 0.1 k/uL (0-0.2); Basophils % (A) 1 %; Eosinophils % (A) 0 %; HCT 41.6 % (34.0-46.0); HGB 12.9 gm/dL (11.4-16.0); Lymphocytes # (A) 1.4 k/uL (1.0-4.8); Lymphocytes % (A) 11 %; MCH 33.9 pg (25.0-35.0); MCHC 31.2 g/dL (31.0-37.0); MCV 108.9 fL (80.0-100.0); Macrocytosis Marked; Mean Platelet Volume 8.8; Monocytes # (A) 0.9 k/uL (0-1.0); Monocytes % (A) 7 %; Neutrophils # (A) 10.3 k/uL (1.3-7.7); Neutrophils % (A) 80 %; Platelet Count 139 k/uL (150-450); RBC 3.82 m/uL (3.80-5.40); WBC 12.9 k/uL (3.8-10.6)
[2018-06-12 22:43] VITALS: BP 156/78; PULSE 113
== END 2018-06-12 22:42 | disposition home or self-care (01) ==
LOC: SUPCPDRO 19:14 → EC 19:14
DX: F10.239 Alcohol dependence with withdrawal, unspecified (principal); R56.9 Unspecified convulsions; I10 Essential (primary) hypertension; F41.9 Anxiety disorder, unspecified; F32.9 Major depressive disorder, single episode, unspecified; F17.200 Nicotine dependence, unspecified, uncomplicated; Z79.899 Other long term (current) drug therapy; Z88.8 Allergy status to other drugs, medicaments and biological substances
CPT/HCPCS: 99285; 96374; 96375; 96376; 96361; 36415; 93005; 80053; 85025; 70450; G0480; J2060; J2405; 80320

== ENCOUNTER 2019-03-17 20:25 | Inpatient (IN) | payer OTHER ==
--- NOTE | 2019-03-17 20:44 | ED ---
Seizure HPI - General Chief Complaint: Seizure Stated Complaint: Seizure Time Seen by Provider: 03/17/19 20:33 Source: EMS, RN notes reviewed, old records reviewed Mode of arrival: EMS Limitations: no limitations - History of Present Illness Initial Comments: This is a 43-year-old female the ER for evaluation. She presents today for evaluation regarding seizure. Patient serve accurate history. Patient coming in for seizure evaluation. Patient has history of alcohol abuse history of alcohol withdrawal seizure, not currently on any seizure medications. Patient does not report last drink was at this time MD Complaint: seizure -: minutes(s) Description of Episode: loss of consciousness, tonic-clonic movement -: second(s) Witnessed: yes - by bystander Trauma: No Seizure History: known seizure disorder (From alcohol withdrawal), history of withdrawal seizures Place: street/outdoors Possible Precipitating Event: alcohol withdrawal Associated Symptoms: denies other symptoms Treatments Prior to Arrival: none - Related Data Home Medications Medication Instructions Recorded Confirmed No Known Home Medications 03/17/19 03/17/19 Allergies Allergy/AdvReac Type Severity Reaction Status Date / Time duloxetine [From Cymbalta] Allergy Rash/Hives Verified 03/17/19 21:16 Review of Systems ROS Statement: Those systems with pertinent positive or pertinent negative responses have been documented in the HPI. ROS Other: All systems not noted in ROS Statement are negative. Past Medical History Past Medical History: Hypertension Additional Past Medical History / Comment(s): Alcohol abuse, History of Any Multi-Drug Resistant Organisms: None Reported Past Surgical History: No Surgical Hx Reported Past Anesthesia/Blood Transfusion Reactions: No Reported Reaction Past Psychological History: Anxiety, Depression Smoking Status: Current every day smoker Past Alcohol Use History: Abuse, Daily Past Drug Use History: None Reported - Past Family History Mother Family Medical History: Coronary Artery Disease (CAD) Father Family Medical History: Cancer Sister(s) Additional Family Medical History / Comment(s): bipolar Son(s) Additional Family Medical History / Comment(s): pt states "failure to thrive, delayed" General Exam Limitations: no limitations General appearance: alert, in no apparent distress Head exam: Present: atraumatic, normocephalic, normal inspection Eye exam: Present: normal appearance, PERRL, EOMI. Absent: scleral icterus, conjunctival injection, periorbital swelling ENT exam: Present: normal exam, mucous membranes moist Neck exam: Present: normal inspection. Absent: tenderness, meningismus, lymphadenopathy Respiratory exam: Present: normal lung sounds bilaterally. Absent: respiratory distress, wheezes, rales, rhonchi, stridor Cardiovascular Exam: Present: regular rate, normal rhythm, normal heart sounds. Absent: systolic murmur, diastolic murmur, rubs, gallop, clicks GI/Abdominal exam: Present: soft, normal bowel sounds. Absent: distended, tenderness, guarding, rebound, rigid Extremities exam: Present: normal inspection, full ROM, normal capillary refill. Absent: tenderness, pedal edema, joint swelling, calf tenderness Back exam: Present: normal inspection Neurological exam: Present: alert, oriented X3, CN II-XII intact Psychiatric exam: Present: normal affect, normal mood Skin exam: Present: warm, dry, intact, normal color. Absent: rash Course Vital Signs 03/17/19 03/17/19 20:27 22:03 Temperature 99.8 F H Pulse Rate 103 H 84 Respiratory 20 18 Rate Blood Pressure 171/104 154/87 O2 Sat by Pulse 99 98 Oximetry - Reevaluation(s) Reevaluation #1: 03/17/19 22:42 Records reviewed Reevaluation #2: 03/17/19 22:42 Patient is no recurrent seizure here in the ER Medical Decision Making - Medical Decision Making 43 female the ER for evaluation. Patient resents today for evaluation regards to seizures. Alcohol withdrawal seizures and DTs. Patient will be admitted for seizure control, watching for alcohol withdrawal symptoms - Lab Data Result diagrams: 03/17/19 21:17 03/17/19 21:17 Lab Results 03/17/19 03/17/19 Range/Units 21:17 21:17 WBC 5.9 (3.8-10.6) k/uL RBC 3.96 (3.80-5.40) m/uL Hgb 14.0 (11.4-16.0) gm/dL Hct 41.2 (34.0-46.0) % MCV 104.2 H (80.0-100.0) fL MCH 35.3 H (25.0-35.0) pg MCHC 33.8 (31.0-37.0) g/dL RDW 15.5 (11.5-15.5) % Plt Count 117 L (150-450) k/uL Neutrophils % 77 % Lymphocytes % 11 % Monocytes % 7 % Eosinophils % 3 % Basophils % 1 % Neutrophils # 4.5 (1.3-7.7) k/uL Lymphocytes # 0.7 L (1.0-4.8) k/uL Monocytes # 0.4 (0-1.0) k/uL Eosinophils # 0.2 (0-0.7) k/uL Basophils # 0.1 (0-0.2) k/uL Macrocytosis Slight Sodium 134 L (137-145) mmol/L Potassium 4.0 (3.5-5.1) mmol/L Chloride 100 (98-107) mmol/L Carbon Dioxide 21 L (22-30) mmol/L Anion Gap 13 mmol/L BUN 3 L (7-17) mg/dL Creatinine 0.36 L (0.52-1.04) mg/dL Est GFR (CKD-EPI)AfAm >90 (>60 ml/min/1.73 sqM) Est GFR (CKD-EPI)NonAf >90 (>60 ml/min/1.73 sqM) Glucose 117 H (74-99) mg/dL Calcium 9.3 (8.4-10.2) mg/dL Phosphorus 3.7 (2.5-4.5) mg/dL Magnesium 1.5 L (1.6-2.3) mg/dL Total Bilirubin 1.3 (0.2-1.3) mg/dL AST 196 H (14-36) U/L ALT 108 H (9-52) U/L Alkaline Phosphatase 117 (38-126) U/L Total Protein 7.5 (6.3-8.2) g/dL Albumin 4.6 (3.5-5.0) g/dL Lipase 223 (23-300) U/L Salicylates <1.0 mg/dL Acetaminophen <10.0 ug/mL Serum Alcohol <10 mg/dL - EKG Data -: EKG Interpreted by Me (EKG shows sinus tachycardia rate of 101, [place] 170, QRS 82, QTc 495) - Radiology Data Radiology results: report reviewed (CT brain negative for acute disease), image reviewed Disposition Clinical Impression: Alcohol dependence with intoxication, Alcohol withdrawal, New onset seizure Disposition: ADMITTED IP TO THIS [facility] Condition: Fair Is patient prescribed a controlled substance at d/c from ED?: No Referrals: None,Stated [Primary Care Provider] - 1-2 days
[2019-03-17] MEDS ORDERED: SODIUM CHLORIDE 0.9% 500 ML 500 ML IV STA (20:46)
[2019-03-17] MEDS ORDERED: LORazepam 2 MG/ML INJ IV STA (20:46)
[2019-03-17] MEDS ORDERED: SODIUM CHLORIDE 0.9% 1,000 ML IV STA ×2 (20:46)
[2019-03-17] MEDS ORDERED: LORazepam 2 MG/ML INJ IV PRN ×3 (20:46)
[2019-03-17] MEDS ORDERED: levETIRAcetam IV 1,000 MG in SALINE 1 100ML.BAG IVPB STA (20:46)
[2019-03-17] MEDS ORDERED: THIAMINE 100 MG/ML 2 ML VIAL IM STA (20:46)
--- NOTE | 2019-03-17 21:10 | CT ---
EXAMINATION TYPE: CT brain wo con DATE OF EXAM: 03/17/2019 COMPARISON: 06/12/2018 HISTORY: Seizure. CT DLP: 1082.4 mGycm. Automated Exposure Control for Dose Reduction was Utilized. TECHNIQUE: CT scan of the head is performed without contrast. FINDINGS: There is cerebral mild cortical atrophy. There is white matter hypodensity in both cerebell ar hemispheres. There is no mass effect nor midline shift. There is no sign of intracranial hemorrhag e. Calvarium is intact. IMPRESSION: Moderate cerebral atrophy for the patient's age.. Cerebellar mild white matter hypodensity could rela te to ischemia. This appears increased compared to old exam. No hemorrhage.
[2019-03-17 21:37] LABS: Basophils # (A) 0.1 k/uL (0-0.2); Basophils % (A) 1 %; Eosinophils # (A) 0.2 k/uL (0-0.7); Eosinophils % (A) 3 %; HCT 41.2 % (34.0-46.0); Lymphocytes # (A) 0.7 k/uL (1.0-4.8); Lymphocytes % (A) 11 %; MCH 35.3 pg (25.0-35.0); MCHC 33.8 g/dL (31.0-37.0); MCV 104.2 fL (80.0-100.0); Macrocytosis Slight; Mean Platelet Volume 8.2; Monocytes # (A) 0.4 k/uL (0-1.0); Monocytes % (A) 7 %; Neutrophils # (A) 4.5 k/uL (1.3-7.7); Neutrophils % (A) 77 %; Platelet Count 117 k/uL (150-450); RBC 3.96 m/uL (3.80-5.40); RDW 15.5 % (11.5-15.5); WBC 5.9 k/uL (3.8-10.6)
[2019-03-17 21:57] LABS: ALT 108 U/L (9-52); AST 196 U/L (14-36); Acetaminophen <10.0 ug/mL; African American GFR (CKD) >90 (>60 ml/min/1.73 sqM); Albumin 4.6 g/dL (3.5-5.0); Alcohol <10 mg/dL; Alkaline Phosphatase 117 U/L (38-126); Anion Gap 13 mmol/L; Blood Urea Nitrogen 3 mg/dL (7-17); Calcium 9.3 mg/dL (8.4-10.2); Carbon Dioxide 21 mmol/L (22-30); Chloride 100 mmol/L (98-107); Glucose 117 mg/dL (74-99); Magnesium 1.5 mg/dL (1.6-2.3); Non-African American GFR(CKD) >90 (>60 ml/min/1.73 sqM); Phosphorus 3.7 mg/dL (2.5-4.5); Salicylate <1.0 mg/dL; Sodium 134 mmol/L (137-145); Total Bilirubin 1.3 mg/dL (0.2-1.3); Total Protein 7.5 g/dL (6.3-8.2)
[2019-03-17] MEDS ORDERED: SODIUM CHLORIDE 0.9% 1,000 ML IV ONE (22:36)
[2019-03-17] MEDS ORDERED: DIAZEPAM 5 MG/ML 2 ML INJ IVP STA (22:36)
[2019-03-17] MEDS ORDERED: DIAZEPAM 5 MG/ML 2 ML INJ IVP PRN (22:36)
[2019-03-17 23:12] LABS: Amphetamine Screen,Urine Not Detected (NotDetected); Barbiturate Screen,Urine Not Detected (NotDetected); Benzodiazepines Screen,Urine Not Detected (NotDetected); Cocaine Screen,Urine Not Detected (NotDetected); Methadone Screen, Urine Not Detected (NotDetected); Opiate Screen,Urine Not Detected (NotDetected); Oxycodone Screen, Urine Not Detected (NotDetected); Phencyclidine Screen,Urine Not Detected (NotDetected); Tricyclic Antidepressant,Urine Not Detected (NotDetected); Urn Cannabinoid Scrn Not Detected (NotDetected)
[2019-03-17 23:20] LABS: Appearance,Urine Clear (Clear); Bacteria,Urine Many /hpf; Bilirubin,Urine Negative (Negative); Blood,Urine Negative (Negative); Color,Urine Colorless; Glucose,Urine (UA) Negative (Negative); Ketones,Urine Trace (Negative); Leukocyte Esterase,Urine Negative (Negative); Mucus,Urine Rare /hpf; Nitrite,Urine Positive (Negative); Protein,Urine Negative (Negative); RBC,Urine 2 /hpf (0-5); Specific Gravity,Urine 1.004 (1.001-1.035); Squamous Epithelial Cell,Urine 3 /hpf (0-4); Urobilinogen,Urine <2.0 mg/dL (<2.0); WBC,Urine 2 /hpf (0-5)
[2019-03-18 00:34] VITALS: BMI 25.0
[2019-03-18] MEDS: THIAMINE 100 MG TAB PO SCH ×2 (01:09→09:29)
[2019-03-18 07:24] VITALS: BP 152/92; PULSE 71; RESP 14; TEMP 98.5
[2019-03-18] MEDS ORDERED: levETIRAcetam IV 1,000 MG in SALINE 1 100ML.BAG IVPB SCH (09:00)
[2019-03-18] MEDS ORDERED: ENOXAPARIN 40 MG/0.4 ML SYRINGE SQ SCH (09:00)
[2019-03-18] MEDS ORDERED: SODIUM CHLORIDE 0.9% 1,000 ML IV SCH (10:30)
[2019-03-18] MEDS ORDERED: PANTOPRAZOLE 40 MG TABLET PO SCH (10:45)
--- NOTE | 2019-03-18 11:37 | P.CNNES ---
History of Present Illness Consult date: 03/18/19 Requesting physician: Sascha Woodward Reason for Consult: Seizure Chief complaint: Seizure History of Present Illness: This is a 43 RH female who drinks 4-5 24oz cans of beer daily and has been doing so for many years. Sometimes she also mixes in vodka. 3-4 months ago, she had 2 seizures. Her memory is a little hazy regarding the exact circumstances surrounding which the 2 seizures. She did have a 3rd seizure yesterday for which she was admitted to the hospital. The 3rd seizure occurred in the setting of decreased EtOH consumption and having "the shakes." Seizure was described as tonic-clonic as witnessed by bystander. Denies tongue biting or bowel/bladder incontinence. Exact duration unknown, but there was post-ictal confusion. Patient denies h/o significant head trauma or BAG LOADER infection. Denies other focal neuro c/o such as diplopia, amaurosis, facial numbness/droop, vertigo, d ysarthria, dysphagia, aphasia, other focal numbness/weakness not mentioned above, tremors, bowel/bladder incontinence or ataxia. Review of Systems I have performed a 14-point organ ROS with patient; pertinents are as per HPI. Past Medical History Past Medical History: Hypertension Additional Past Medical History / Comment(s): Alcohol abuse, History of Any Multi-Drug Resistant Organisms: None Reported Past Surgical History: No Surgical Hx Reported Past Anesthesia/Blood Transfusion Reactions: No Reported Reaction Past Psychological History: Anxiety, Depression Smoking Status: Current every day smoker Past Alcohol Use History: Abuse, Daily Past Drug Use History: None Reported Additional Drug Use History / Comment(s): pt states no recent drug use - Past Family History Mother Family Medical History: Coronary Artery Disease (CAD) Father Family Medical History: Cancer Sister(s) Additional Family Medical History / Comment(s): bipolar Son(s) Additional Family Medical History / Comment(s): pt states "failure to thrive, delayed" Medications and Allergies Home Medications Medication Instructions Recorded Confirmed Type No Known Home Medications 03/17/19 03/17/19 History Allergies Allergy/AdvReac Type Severity Reaction Status Date / Time duloxetine [From Cymbalta] Allergy Rash/Hives Verified 03/17/19 21:16 Physical Examination - Vital Signs Vital Signs: Vital Signs Temp Pulse Pulse Resp BP BP Pulse Ox 03/18/19 07:00 98.5 F 71 14 152/92 97 03/18/19 01:20 99.7 F H 80 17 138/87 99 03/18/19 00:22 99.1 F 85 16 144/77 97 03/17/19 22:03 84 18 154/87 98 03/17/19 20:27 99.8 F H 103 H 20 171/104 99 Intake and Output 03/17/19 03/18/19 03/18/19 22:59 06:59 14:59 Other: # Voids 1 Weight 56.245 kg Gen NAD Pleasant and cooperative HEENT NCAT Sclera without icterus O/P clear Neck Supple No carotid bruit Cor RRR no m/r/g Lungs CTAB Abd Soft NTND +BS Ext Warm to touch No edema Neuro MS A+Ox4 Normal fluency Able to follow all commands CN PERRL VFF no APD EOMI no nystagmus or ALONSO No facial asymmetry Masseter's symmetric Hearing intact to normal voice bilaterally Speech not dysarthric Equal elevation of palate Tongue midline Sym shrug and SCM bilaterally Motor Normal bulk/tone No pronator or tremors Strength 5/5 sym throughout Sens Intact to LT x4 No neglect Coord No dysmetria on FTN bilaterally DTRs 2+/4 sym throughout Toes downgoing bilaterally No clonus at achilles Gait Deferred Results - Laboratory Findings CBC and BMP: 03/17/19 21:17 03/17/19 21:17 Abnormal Lab Findings: Abnormal Labs 03/17/19 03/17/19 03/17/19 21:17 21:17 22:45 MCV 104.2 H MCH 35.3 H Plt Count 117 L Lymphocytes # 0.7 L Sodium 134 L Carbon Dioxide 21 L BUN 3 L Creatinine 0.36 L Glucose 117 H Magnesium 1.5 L AST 196 H ALT 108 H Urine Ketones Trace H Urine Nitrite Positive H Urine Bacteria Many H Urine Mucus Rare H - Diagnostic Findings Additional findings: CT Head wo cont 03/17/19. Moderate cerebral atrophy. There are white matter changes in both cerebellar hemispheres, which were previously present but do appear increased on current exam. No ICH. Nil acute. I have reviewed neuroimages myself. Assessment and Plan Assessment: Recurrent seizures, suspect alcohol withdrawal related from history Plan: -EEG -CIWA -Thiamine -Seizure precautions -Stop LEV -If she has recurrent seizures, she should not drive for 6 months in accordance with the state law of [place]. Same common sense applies to engaging in any activity that may endanger patient and/or others should she have recurrent seizure activity -d/w patient the need to stop EtOH if she wishes to stop having further seizures or W/D. Thank you for this consultation. Please call with ?. Time with Patient: Greater than 30 (Time spent in direct patient care, greater than 50% of which was spent in [id number] counseling and coordination of care: 70 minutes)
--- NOTE | 2019-03-18 12:50 | EEG ---
ELECTROENCEPHALOGRAM REPORT DATE OF TESTING: March 18, 2019. CLINICAL PROBLEM: Alcohol withdrawal with seizure activity. EEG was requested to rule out epileptic activity. TYPE OF RECORDING: Bedside tracing using the 10-20 international electrode placement system. No sedation was given prior to the beginning of this recording. FINDINGS: At the beginning of this recording, there is a symmetric alpha rhythm that attenuates on eye opening and returns upon eye closure. There are scattered eye-blink artifacts as well as EMG artifacts that correspond to patient's facial and body movements. Photic stimulation elicits a symmetric driving response. Hyperventilation is not performed in this recording. There is no definitive sleep architecture seen. There is no background asymmetry, ictal or interictal patterns appreciated. IMPRESSION: This is a normal awake electroencephalogram without background asymmetry or epileptiform discharges. Clinical correlation is advised. NEFTALI / MONAN: [id number] / MTDD
--- NOTE | 2019-03-18 13:30 | P.HPIM ---
History of Present Illness 42-year-old female with chronic alcoholism admits to drinking only 4 beers a day came in after a seizure episode and patient is a poor historian didn't give me any clear history although does not appear to have any loss of bowel or bladder incontinence patient the is not very clear about losing consciousness, patient may be bit postictal .patient evidently had a tonic clonic activity as per the witness her bystander. Patient denied any pain or headache at this time. Patient the last alcoholic drink was day before and she had the seizure yesterday evening probably alcoholwithdrawal related seizure. Patient is undergoing EEG patient denied any abdominal pain. when I asked her to quit alcohol she said she will quit whenever she is ready. Patient does smoke. Review of Systems REVIEW OF SYSTEMS: CONSTITUTIONAL: No fever, no malaise, no fatigue. HEENT: No recent visual problems or hearing problems. Denied any sore throat. CARDIOVASCULAR: No chest pain, orthopnea, PND, no palpitations, no syncope. PULMONARY: No shortness of breath, no cough, no hemoptysis. GASTROINTESTINAL: No diarrhea, no nausea, no vomiting, no abdominal pain. NEUROLOGICAL: No headaches, no weakness, no numbness. HEMATOLOGICAL: Denies any bleeding or petechiae. GENITOURINARY: Denies any burning micturition, frequency, or urgency. MUSCULOSKELETAL/RHEUMATOLOGICAL: Denies any joint pain, swelling, or any muscle pain. ENDOCRINE: Denies any polyuria or polydipsia. The rest of the 14-point review of systems is negative. Past Medical History Past Medical History: Hypertension Additional Past Medical History / Comment(s): Alcohol abuse, History of Any Multi-Drug Resistant Organisms: None Reported Past Surgical History: No Surgical Hx Reported Past Anesthesia/Blood Transfusion Reactions: No Reported Reaction Past Psychological History: Anxiety, Depression Smoking Status: Current every day smoker Past Alcohol Use History: Abuse, Daily Past Drug Use History: None Reported Additional Drug Use History / Comment(s): pt states no recent drug use - Past Family History Mother Family Medical History: Coronary Artery Disease (CAD) Father Family Medical History: Cancer Sister(s) Additional Family Medical History / Comment(s): bipolar Son(s) Additional Family Medical History / Comment(s): pt states "failure to thrive, delayed" Medications and Allergies Home Medications Medication Instructions Recorded Confirmed Type No Known Home Medications 03/17/19 03/17/19 History Allergies Allergy/AdvReac Type Severity Reaction Status Date / Time duloxetine [From Cymbalta] Allergy Rash/Hives Verified 03/17/19 21:16 Physical Exam Vitals: Vital Signs Temp Pulse Pulse Resp BP BP Pulse Ox 03/18/19 07:00 98.5 F 71 14 152/92 97 03/18/19 01:20 99.7 F H 80 17 138/87 99 03/18/19 00:22 99.1 F 85 16 144/77 97 03/17/19 22:03 84 18 154/87 98 03/17/19 20:27 99.8 F H 103 H 20 171/104 99 Intake and Output 03/17/19 03/18/19 03/18/19 22:59 06:59 14:59 Other: # Voids 1 Weight 56.245 kg PHYSICAL EXAMINATION: GENERAL: The patient is alert and oriented x3, not in any acute distress. Well developed, well nourished. HEENT: Pupils are round and equally reacting to light. EOMI. No scleral icterus. No conjunctival pallor. Normocephalic, atraumatic. No pharyngeal erythema. No thyromegaly. CARDIOVASCULAR: S1 and S2 present. No murmurs, rubs, or gallops. PULMONARY: Chest is clear to auscultation, no wheezing or crackles. ABDOMEN: Soft, nontender, nondistended, normoactive bowel sounds. No palpable organomegaly. MUSCULOSKELETAL: No joint swelling or deformity. EXTREMITIES: No cyanosis, clubbing, or pedal edema. NEUROLOGICAL: Gross neurological examination did not reveal any focal deficits. SKIN: No rashes. Results CBC & Chem 7: 03/17/19 21:17 03/17/19 21:17 Labs: Abnormal Lab Results - Last 24 Hours (Table) 03/17/19 03/17/19 03/17/19 Range/Units 21:17 21:17 22:45 MCV 104.2 H (80.0-100.0) fL MCH 35.3 H (25.0-35.0) pg Plt Count 117 L (150-450) k/uL Lymphocytes # 0.7 L (1.0-4.8) k/uL Sodium 134 L (137-145) mmol/L Carbon Dioxide 21 L (22-30) mmol/L BUN 3 L (7-17) mg/dL Creatinine 0.36 L (0.52-1.04) mg/dL Glucose 117 H (74-99) mg/dL Magnesium 1.5 L (1.6-2.3) mg/dL AST 196 H (14-36) U/L ALT 108 H (9-52) U/L Urine Ketones Trace H (Negative) Urine Nitrite Positive H (Negative) Urine Bacteria Many H (None) /hpf Urine Mucus Rare H (None) /hpf Thrombosis Risk Factor Assmnt - Choose All That Apply Each Factor Represents 1 point: Age 41-60 years Thrombosis Risk Factor Assessment Total Risk Factor Score: 1 Thrombosis Risk Factor Assessment Level: Low Risk Assessment and Plan Plan: - possible alcohol withdrawal seizure: Continue with the alcohol withdrawal precautions CIWA protocol patient was given Which will not be continued here neurology evaluated the patient. for all call withdrawal -alcoholl abuse: Counseling was provided -Nicotine abuse -depression: Denied any suicidal ideation but the patient has to quit alcohol before she can benefit from antidepressants. patient will need a DVT prophylaxis which will be with subcutaneous heparin and GI prophylaxis with Protonix
--- NOTE | 2019-03-18 13:50 | P.DS ---
Providers Date of admission: 03/17/19 22:40 Attending physician: Og Bone Consults: 03/17/19 22:36 Consult Physician Routine Consulting Provider: Reece Gardner Consult Reason/Comments: sz Do you want consulting provider notified?: Yes Primary care physician: Stated None Hospital Course: patient's EEG was read by the neurologist the which did not show any seizure activity. Patient wanted to go home and started drinking again and is not willing to quit alcohol in spite of extensive counseling. Because of that reason nothing much else can be offered here as an inpatient patient CIWA score is 1 or 2. There is no benefiting and continued hospitalization if she is not willing to quit alcohol. Patient will be discharged today with thiamine supplementation neurology is not recommending any antiseizure medications at this time. Patient Condition at Discharge: Fair Plan - Discharge Summary New Discharge Prescriptions: New Thiamine [Vitamin B-1] 100 mg PO DAILY #30 tablet Discharge Medication List Thiamine [Vitamin B-1] 100 mg PO DAILY #30 tablet 03/18/19 [Rx] Follow up Appointment(s)/Referral(s): None,Stated [Primary Care Provider] - 1-2 days Slime Rodriguez MD [REFERRING] - 1 Week Discharge Disposition: HOME SELF-CARE
[2019-03-18] MEDS ORDERED: HEPARIN SODIUM,PORCINE 5,000 UNIT/ML 1 ML VIAL SQ SCH (16:00)
== END 2019-03-18 14:38 | disposition home or self-care (01) | DRG 897 ==
LOC: EC 20:25 → 4SSUR 22:40
PROVIDERS: ADMIT Hospitalist; ATTEND Hospitalist
DX: F10.231 Alcohol dependence with withdrawal delirium (principal); G40.509 Epileptic seizures related to external causes, not intractable, without status epilepticus; Z71.41 Alcohol abuse counseling and surveillance of alcoholic; F17.210 Nicotine dependence, cigarettes, uncomplicated; F32.9 Major depressive disorder, single episode, unspecified; F41.9 Anxiety disorder, unspecified; I10 Essential (primary) hypertension; Z82.49 Family history of ischemic heart disease and other diseases of the circulatory system; Z81.8 Family history of other mental and behavioral disorders; Z80.9 Family history of malignant neoplasm, unspecified
CPT/HCPCS: 36415; 70450; 80053; 80306; 80320; 80329; 81001; 83520; 83690; 83735; 84100; 85025; 93005; 95816; 96361; 96365; 96372; 96375; 99285

== ENCOUNTER 2019-04-11 20:09 | Inpatient (IN) | payer OTHER ==
[2019-04-11] MEDS ORDERED: SODIUM CHLORIDE 0.9% 1,000 ML IV STA (21:10)
--- NOTE | 2019-04-11 21:10 | ED ---
Seizure HPI - General Chief Complaint: Seizure Stated Complaint: etoh Time Seen by Provider: 04/11/19 21:06 Source: patient, EMS Mode of arrival: EMS Limitations: no limitations - History of Present Illness Initial Comments: Sophie is a 43yo alcoholic female who is brought to the ER today by EMS after being found on the floor of her house. Patient reports she been drinking heavily all day. Patient states she has a history of alcohol withdrawal seizures but doesn't believe she has a seizure disorder. Remains who found her stated that she was hard to wake up and were concerned she may have had a seizure so they contacted 911. She denies any complaints. - Related Data Previous Rx's Medication Instructions Recorded Thiamine [Vitamin B-1] 100 mg PO DAILY #30 tablet 03/18/19 Allergies Allergy/AdvReac Type Severity Reaction Status Date / Time duloxetine [From Cymbalta] Allergy Rash/Hives Verified 04/11/19 20:21 Review of Systems ROS Statement: Those systems with pertinent positive or pertinent negative responses have been documented in the HPI. ROS Other: All systems not noted in ROS Statement are negative. Past Medical History Past Medical History: Hypertension Additional Past Medical History / Comment(s): Alcohol abuse, History of Any Multi-Drug Resistant Organisms: None Reported Past Surgical History: No Surgical Hx Reported Past Anesthesia/Blood Transfusion Reactions: No Reported Reaction Past Psychological History: Anxiety, Depression Smoking Status: Current every day smoker Past Alcohol Use History: Abuse, Daily Past Drug Use History: None Reported - Past Family History Mother Family Medical History: Coronary Artery Disease (CAD) Father Family Medical History: Cancer Sister(s) Additional Family Medical History / Comment(s): bipolar Son(s) Additional Family Medical History / Comment(s): pt states "failure to thrive, delayed" General Exam - General Exam Comments Initial Comments: Physical Exam GENERAL: Chronically ill-appearing underweight female appears much older than stated age Smell strongly of alcohol HENT: Normocephalic, Atraumatic. EYES: PERRL, EOMI PULMONARY: Unlabored respirations. No audible rales rhonchi or wheezing was noted. CARDIOVASCULAR: There is a regular rate and rhythm without any murmurs gallops or rubs. ABDOMEN: Soft and nontender with normal bowel sounds. SKIN: Skin is clear with no lesions or rashes and otherwise unremarkable. No obvious injury : Deferred NEUROLOGIC: Oriented to person, able to identify that she is in the hospital, able to explain evidence of the day, able to state the year and month Slurred speech MUSCULOSKELETAL: Normal extremities with adequate strength and full range of motion. No lower extremity swelling or edema. No calf tenderness. PSYCHIATRIC: Agitated Limitations: no limitations Course Vital Signs 04/11/19 04/12/19 04/12/19 20:15 00:21 01:29 Temperature 97.9 F 97.9 F 97.9 F Pulse Rate 86 88 80 Respiratory 20 20 18 Rate Blood Pressure 138/88 156/76 137/87 O2 Sat by Pulse 98 97 97 Oximetry Medical Decision Making - Medical Decision Making Patient was seen and evaluated history is obtained from the patient and EMS Patient was placed in seizure precautions Labs and imaging were ordered Labs resulted with multiple abnormalities mostly consistent with chronic alcohol abuse Lactic was mildly elevated this could be due to possible seizure activity more likely due to patient laying on the ground Patient's alcohol significantly elevated Given the patient's significantly elevated alcohol level we will plan on admission to the hospital for observation of withdrawal care was discussed with Dr. Pederson who accepts the admission - Lab Data Result diagrams: 04/11/19 22:43 04/11/19 22:43 Lab Results 04/11/19 04/11/19 04/11/19 Range/Units 21:51 22:43 22:43 WBC 7.1 (3.8-10.6) k/uL RBC 3.72 L (3.80-5.40) m/uL Hgb 12.7 (11.4-16.0) gm/dL Hct 39.8 (34.0-46.0) % MCV 107.1 H (80.0-100.0) fL MCH 34.1 (25.0-35.0) pg MCHC 31.9 (31.0-37.0) g/dL RDW 13.8 (11.5-15.5) % Plt Count 78 L (150-450) k/uL Neutrophils % 75 % Lymphocytes % 17 % Monocytes % 4 % Eosinophils % 2 % Basophils % 2 % Neutrophils # 5.3 (1.3-7.7) k/uL Lymphocytes # 1.2 (1.0-4.8) k/uL Monocytes # 0.3 (0-1.0) k/uL Eosinophils # 0.2 (0-0.7) k/uL Basophils # 0.1 (0-0.2) k/uL Macrocytosis Moderate Sodium 145 (137-145) mmol/L Potassium 3.8 (3.5-5.1) mmol/L Chloride 110 H (98-107) mmol/L Carbon Dioxide 21 L (22-30) mmol/L Anion Gap 14 mmol/L BUN 8 (7-17) mg/dL Creatinine 0.37 L (0.52-1.04) mg/dL Est GFR (CKD-EPI)AfAm >90 (>60 ml/min/1.73 sqM) Est GFR (CKD-EPI)NonAf >90 (>60 ml/min/1.73 sqM) Glucose 95 (74-99) mg/dL POC Glucose (mg/dL) 69 L (75-99) mg/dL POC Glu Boom Stick Worker ID Jun Veloz Lactic Ac Sepsis Rflx Plasma Lactic Acid João (0.7-2.0) mmol/L Calcium 7.4 L (8.4-10.2) mg/dL Total Bilirubin 0.5 (0.2-1.3) mg/dL AST 359 H (14-36) U/L ALT 133 H (9-52) U/L Alkaline Phosphatase 108 (38-126) U/L Total Protein 6.4 (6.3-8.2) g/dL Albumin 3.9 (3.5-5.0) g/dL Urine Color Urine Appearance (Clear) Urine pH (5.0-8.0) Ur Specific [place] (1.001-1.035) Urine Protein (Negative) Urine Glucose (UA) (Negative) Urine Ketones (Negative) Urine Blood (Negative) Urine Nitrite (Negative) Urine Bilirubin (Negative) Urine Urobilinogen (<2.0) mg/dL Ur Leukocyte Esterase (Negative) Urine RBC (0-5) /hpf Urine WBC (0-5) /hpf Ur Squamous Epith Cells (0-4) /hpf Urine Bacteria (None) /hpf Urine Mucus (None) /hpf Urine HCG, Qual (Not Detectd) Serum Alcohol 455 H* mg/dL 04/11/19 04/11/19 04/11/19 Range/Units 22:43 23:28 23:30 WBC (3.8-10.6) k/uL RBC (3.80-5.40) m/uL Hgb (11.4-16.0) gm/dL Hct (34.0-46.0) % MCV (80.0-100.0) fL MCH (25.0-35.0) pg MCHC (31.0-37.0) g/dL RDW (11.5-15.5) % Plt Count (150-450) k/uL Neutrophils % % Lymphocytes % % Monocytes % % Eosinophils % % Basophils % % Neutrophils # (1.3-7.7) k/uL Lymphocytes # (1.0-4.8) k/uL Monocytes # (0-1.0) k/uL Eosinophils # (0-0.7) k/uL Basophils # (0-0.2) k/uL Macrocytosis Sodium (137-145) mmol/L Potassium (3.5-5.1) mmol/L Chloride (98-107) mmol/L Carbon Dioxide (22-30) mmol/L Anion Gap mmol/L BUN (7-17) mg/dL Creatinine (0.52-1.04) mg/dL Est GFR (CKD-EPI)AfAm (>60 ml/min/1.73 sqM) Est GFR (CKD-EPI)NonAf (>60 ml/min/1.73 sqM) Glucose (74-99) mg/dL POC Glucose (mg/dL) (75-99) mg/dL POC Glu Boom Stick Worker ID Lactic Ac Sepsis Rflx Y Plasma Lactic Acid João 3.3 H* (0.7-2.0) mmol/L Calcium (8.4-10.2) mg/dL Total Bilirubin (0.2-1.3) mg/dL AST (14-36) U/L ALT (9-52) U/L Alkaline Phosphatase (38-126) U/L Total Protein (6.3-8.2) g/dL Albumin (3.5-5.0) g/dL Urine Color Urine Appearance (Clear) Urine pH (5.0-8.0) Ur Specific [place] (1.001-1.035) Urine Protein (Negative) Urine Glucose (UA) (Negative) Urine Ketones (Negative) Urine Blood (Negative) Urine Nitrite (Negative) Urine Bilirubin (Negative) Urine Urobilinogen (<2.0) mg/dL Ur Leukocyte Esterase (Negative) Urine RBC (0-5) /hpf Urine WBC (0-5) /hpf Ur Squamous Epith Cells (0-4) /hpf Urine Bacteria (None) /hpf Urine Mucus (None) /hpf Urine HCG, Qual Not Detected (Not Detectd) Serum Alcohol mg/dL 04/11/19 Range/Units 23:30 WBC (3.8-10.6) k/uL RBC (3.80-5.40) m/uL Hgb (11.4-16.0) gm/dL Hct (34.0-46.0) % MCV (80.0-100.0) fL MCH (25.0-35.0) pg MCHC (31.0-37.0) g/dL RDW (11.5-15.5) % Plt Count (150-450) k/uL Neutrophils % % Lymphocytes % % Monocytes % % Eosinophils % % Basophils % % Neutrophils # (1.3-7.7) k/uL Lymphocytes # (1.0-4.8) k/uL Monocytes # (0-1.0) k/uL Eosinophils # (0-0.7) k/uL Basophils # (0-0.2) k/uL Macrocytosis Sodium (137-145) mmol/L Potassium (3.5-5.1) mmol/L Chloride (98-107) mmol/L Carbon Dioxide (22-30) mmol/L Anion Gap mmol/L BUN (7-17) mg/dL Creatinine (0.52-1.04) mg/dL Est GFR (CKD-EPI)AfAm (>60 ml/min/1.73 sqM) Est GFR (CKD-EPI)NonAf (>60 ml/min/1.73 sqM) Glucose (74-99) mg/dL POC Glucose (mg/dL) (75-99) mg/dL POC Glu Boom Stick Worker ID Lactic Ac Sepsis Rflx Plasma Lactic Acid João (0.7-2.0) mmol/L Calcium (8.4-10.2) mg/dL Total Bilirubin (0.2-1.3) mg/dL AST (14-36) U/L ALT (9-52) U/L Alkaline Phosphatase (38-126) U/L Total Protein (6.3-8.2) g/dL Albumin (3.5-5.0) g/dL Urine Color Yellow Urine Appearance Cloudy H (Clear) Urine pH 5.5 (5.0-8.0) Ur Specific [place] 1.013 (1.001-1.035) Urine Protein 1+ H (Negative) Urine Glucose (UA) Negative (Negative) Urine Ketones 1+ H (Negative) Urine Blood Trace H (Negative) Urine Nitrite Positive H (Negative) Urine Bilirubin Negative (Negative) Urine Urobilinogen <2.0 (<2.0) mg/dL Ur Leukocyte Esterase Trace H (Negative) Urine RBC 3 (0-5) /hpf Urine WBC 11 H (0-5) /hpf Ur Squamous Epith Cells 20 H (0-4) /hpf Urine Bacteria Rare H (None) /hpf Urine Mucus Rare H (None) /hpf Urine HCG, Qual (Not Detectd) Serum Alcohol mg/dL - EKG Data -: EKG Interpreted by Ga EKG shows normal: sinus rhythm EKG Comments: EKG was obtained due to complaint of seizure, EKG obtained at 2107, rate is 83 rhythm sinus there is normal axis and normal intervals, AK 174, QRS 80, QTC 455. There is no acute ST elevations or depressions no evidence of acute ischemia infarction or arrhythmia. Disposition Clinical Impression: Alcoholic ketoacidosis, Alcoholic intoxication Disposition: ADMITTED IP TO THIS HOSP Condition: Serious
[2019-04-11 21:53] LABS: Glucose,Whole Blood 69 mg/dL (75-99)
[2019-04-11 22:55] LABS: Basophils # (A) 0.1 k/uL (0-0.2); Basophils % (A) 2 %; Eosinophils # (A) 0.2 k/uL (0-0.7); Eosinophils % (A) 2 %; HCT 39.8 % (34.0-46.0); HGB 12.7 gm/dL (11.4-16.0); Lymphocytes # (A) 1.2 k/uL (1.0-4.8); Lymphocytes % (A) 17 %; MCH 34.1 pg (25.0-35.0); MCHC 31.9 g/dL (31.0-37.0); MCV 107.1 fL (80.0-100.0); Macrocytosis Moderate; Mean Platelet Volume 7.2; Monocytes # (A) 0.3 k/uL (0-1.0); Monocytes % (A) 4 %; Neutrophils # (A) 5.3 k/uL (1.3-7.7); Neutrophils % (A) 75 %; RBC 3.72 m/uL (3.80-5.40); RDW 13.8 % (11.5-15.5); WBC 7.1 k/uL (3.8-10.6)
[2019-04-11 23:12] LABS: ALT 133 U/L (9-52); AST 359 U/L (14-36); African American GFR (CKD) >90 (>60 ml/min/1.73 sqM); Albumin 3.9 g/dL (3.5-5.0); Alkaline Phosphatase 108 U/L (38-126); Anion Gap 14 mmol/L; Blood Urea Nitrogen 8 mg/dL (7-17); Calcium 7.4 mg/dL (8.4-10.2); Carbon Dioxide 21 mmol/L (22-30); Chloride 110 mmol/L (98-107); Glucose 95 mg/dL (74-99); Potassium 3.8 mmol/L (3.5-5.1); Sodium 145 mmol/L (137-145); Total Bilirubin 0.5 mg/dL (0.2-1.3); Total Protein 6.4 g/dL (6.3-8.2)
[2019-04-11 23:28] LABS: Alcohol 455 mg/dL
[2019-04-11] MEDS ORDERED: NALOXONE 0.4 MG/ML 1 ML VIAL IV PRN (23:37)
[2019-04-11 23:44] LABS: Appearance,Urine Cloudy (Clear); Bacteria,Urine Rare /hpf; Bilirubin,Urine Negative (Negative); Blood,Urine Trace (Negative); Color,Urine Yellow; Glucose,Urine (UA) Negative (Negative); Ketones,Urine 1+ (Negative); Leukocyte Esterase,Urine Trace (Negative); Mucus,Urine Rare /hpf; Nitrite,Urine Positive (Negative); PH, Urine 5.5 (5.0-8.0); Protein,Urine 1+ (Negative); RBC,Urine 3 /hpf (0-5); Specific Gravity,Urine 1.013 (1.001-1.035); Squamous Epithelial Cell,Urine 20 /hpf (0-4); Urobilinogen,Urine <2.0 mg/dL (<2.0); WBC,Urine 11 /hpf (0-5)
[2019-04-11 23:48] LABS: Platelet Count 78 k/uL (150-450)
[2019-04-12] MEDS ORDERED: SODIUM CHLORIDE 0.9% 1,000 ML with MVI, ADULT NO.4 WITH VIT K 10 ML, THIAMINE 100 MG, F... IV ONE ×4 (01:35)
[2019-04-12] MEDS ORDERED: LORazepam 2 MG/ML INJ IV PRN ×2 (01:36)
[2019-04-12] MEDS ORDERED: THIAMINE 100 MG/ML 2 ML VIAL IM STA (01:36)
--- NOTE | 2019-04-12 01:39 | P.HPIM ---
History of Present Illness H&P Date: 04/12/19 Patient is a 43-year-old female with a PMH of EtOH abuse and alcohol withdrawal seizures who presented to the ED for unresponsiveness. History obtained from the chart and discussion with the ED physician. The patient was reportedly found on the floor by her roommates who subsequently brought her to the ED with concerns of possible seizure versus alcohol intoxication. The patient was seen at the bedside, was tremulous and confused and a poor historian. She noted that she has been in the hospital for the past several days. She states that she has been drinking beer and whiskey heavily over the past few days. She however does not recall any episode of loss of consciousness earlier today and has no recollection of events of the day. She further denied taking any antiseizure medications. She denied any active complaints including chest pain, fever, chills, nausea, vomiting, diarrhea, or abdominal pain. She underwent an extensive evaluation in the emergency room with EKG showing normal sinus rhythm at 83 bpm. Laboratory evaluation revealed a lactic acid level of 3.3, WBC 7.1, hemoglobin 12.7, albumin 8, creatinine 0.37, AST 359, ALT 133, and alcohol level of 455. She is thereby being admitted to medicine service for further evaluation of impending alcohol withdrawal. Review of Systems Pertinent positives and negatives as discussed in HPI, a complete review of systems was performed and all other systems are negative. Past Medical History Past Medical History: Hypertension Additional Past Medical History / Comment(s): Alcohol abuse, History of Any Multi-Drug Resistant Organisms: None Reported Past Surgical History: No Surgical Hx Reported Past Anesthesia/Blood Transfusion Reactions: No Reported Reaction Past Psychological History: Anxiety, Depression Smoking Status: Current every day smoker Past Alcohol Use History: Abuse, Daily Past Drug Use History: None Reported - Past Family History Mother Family Medical History: Coronary Artery Disease (CAD) Father Family Medical History: Cancer Sister(s) Additional Family Medical History / Comment(s): bipolar Son(s) Additional Family Medical History / Comment(s): pt states "failure to thrive, delayed" Medications and Allergies Home Medications Medication Instructions Recorded Confirmed Type Thiamine [Vitamin B-1] 100 mg PO DAILY #30 tablet 03/18/19 Rx Allergies Allergy/AdvReac Type Severity Reaction Status Date / Time duloxetine [From Cymbalta] Allergy Rash/Hives Verified 04/11/19 20:21 Physical Exam Vitals: Vital Signs Temp Pulse Resp BP Pulse Ox 04/12/19 00:21 97.9 F 88 20 156/76 97 04/11/19 20:15 97.9 F 86 20 138/88 98 Intake and Output 04/11/19 04/11/19 04/12/19 14:59 22:59 06:59 Other: Weight 49.895 kg General: Disheveled female, appears older than stated age, normal weight Derm: no unusual rashes/lesions no unusual ecchymoses, warm, dry Head: atraumatic, normocephalic, symmetric Eyes: EOMI, no lid lag, anicteric sclera, pupils equal round reactive to light ENT: Nose and ears atraumatic, no thrush, no pharyngeal erythema, no tongue bite londono, tongue fasciculations present Neck: No thyromegaly, no cervical lymphadenopathy, trachea midline, supple Mouth: no lip lesion, mucus membranes moist Cardiovascular: S1S2 reg, no murmur, positive posterior tibial pulse bilateral, no edema, capillary refill less than 2 seconds Lungs: CTA bilateral, no rhonchi, no rales , no accessory muscle use Abdominal: soft, nontender to palpation, no guarding, no appreciable organomegaly, normal bowel sounds Ext: no gross muscle atrophy, muscle strength 5 out of 5 in all 4 extremities grossly, no contractures Neuro: CN II-XI grossly intact, light touch intact all 4 extremities, finger to nose within normal limits, outstretched hand tremor Psych: Alert, tremulous, oriented to person and place only Results CBC & Chem 7: 04/11/19 22:43 04/11/19 22:43 Labs: Abnormal Lab Results - Last 24 Hours (Table) 04/11/19 04/11/19 04/11/19 Range/Units 21:51 22:43 22:43 RBC 3.72 L (3.80-5.40) m/uL MCV 107.1 H (80.0-100.0) fL Plt Count 78 L (150-450) k/uL Chloride 110 H (98-107) mmol/L Carbon Dioxide 21 L (22-30) mmol/L Creatinine 0.37 L (0.52-1.04) mg/dL POC Glucose (mg/dL) 69 L (75-99) mg/dL Plasma Lactic Acid João (0.7-2.0) mmol/L Calcium 7.4 L (8.4-10.2) mg/dL AST 359 H (14-36) U/L ALT 133 H (9-52) U/L Urine Appearance (Clear) Urine Protein (Negative) Urine Ketones (Negative) Urine Blood (Negative) Urine Nitrite (Negative) Ur Leukocyte Esterase (Negative) Urine WBC (0-5) /hpf Ur Squamous Epith Cells (0-4) /hpf Urine Bacteria (None) /hpf Urine Mucus (None) /hpf Serum Alcohol 455 H* mg/dL 04/11/19 04/11/19 Range/Units 22:43 23:30 RBC (3.80-5.40) m/uL MCV (80.0-100.0) fL Plt Count (150-450) k/uL Chloride (98-107) mmol/L Carbon Dioxide (22-30) mmol/L Creatinine (0.52-1.04) mg/dL POC Glucose (mg/dL) (75-99) mg/dL Plasma Lactic Acid João 3.3 H* (0.7-2.0) mmol/L Calcium (8.4-10.2) mg/dL AST (14-36) U/L ALT (9-52) U/L Urine Appearance Cloudy H (Clear) Urine Protein 1+ H (Negative) Urine Ketones 1+ H (Negative) Urine Blood Trace H (Negative) Urine Nitrite Positive H (Negative) Ur Leukocyte Esterase Trace H (Negative) Urine WBC 11 H (0-5) /hpf Ur Squamous Epith Cells 20 H (0-4) /hpf Urine Bacteria Rare H (None) /hpf Urine Mucus Rare H (None) /hpf Serum Alcohol mg/dL Assessment and Plan Plan: Alcohol withdrawal with possible withdrawal seizures -CIWA protocol -Fall, aspiration, seizure precautions -Folate, thiamine, multivitamin -Cardiac monitoring -IVFs Lactic acidosis -Secondary to EtOH abuse -Monitor to resolution -C/w IVFs HTN -Currently normotensive -Monitor for now -Update medication list from pharmacy DVT prophylaxis -Lovenox The patient is admitted with an anticipated less than 2 midnight stay for evaluation of EtOH withdrawal CODE STATUS: Full Code Discussed with: Patient Anticipated discharge date: 04/13/[address]: Home A total of 35 minutes was spent on the care of this complex patient more than 50% of the time was spent in counseling and care coordination.
[2019-04-12 02:04] VITALS: BMI 21.4
[2019-04-12] MEDS: LORazepam 2 MG/ML INJ IV PRN ×2 (07:18→20:03)
[2019-04-12] MEDS: FOLIC ACID 1 MG TAB PO SCH (07:20)
[2019-04-12] MEDS: MULTIVITAMINS, THERA 1 EACH TAB PO SCH (07:20)
[2019-04-12] MEDS ORDERED: SODIUM CHLORIDE 0.9% 2,000 ML IV ONE (07:43)
[2019-04-12] MEDS ORDERED: THIAMINE 100 MG TAB PO SCH ×2 (09:00→17:00)
[2019-04-12] MEDS ORDERED: IBUPROFEN 400 MG TAB PO STA (20:12)
[2019-04-13] MEDS: MULTIVITAMINS, THERA 1 EACH TAB PO SCH (08:40)
[2019-04-13] MEDS: FOLIC ACID 1 MG TAB PO SCH (08:40)
[2019-04-13] MEDS: LORazepam 2 MG/ML INJ IV PRN ×2 (10:00→21:54)
[2019-04-13] MEDS ORDERED: ONDANSETRON 4 MG/2 ML VIAL IVP PRN (11:35)
--- NOTE | 2019-04-13 11:40 | P.PN ---
Subjective Progress Note Date: 04/13/19 Patient seen and examined and follow-up, has been up and ambulatory with physical therapy, not requiring any assistance. Patient not ready for discharge and complained of nausea and feeling sick to her stomach and mild abdominal pain with poor appetite, did not eat dinner and minimal breakfast reports a history of GERD. Having mild withdrawals, no acute events overnight Objective - Vital Signs Vital signs: Vital Signs Temp 98.9 F 04/13/19 07:00 Pulse 74 04/13/19 08:00 Resp 18 04/13/19 08:00 BP 149/86 04/13/19 07:00 Pulse Ox 99 04/13/19 07:00 Intake & Output 04/12/19 04/13/19 04/13/19 18:59 06:59 18:59 Intake Total 200 240 Output Total 6 Balance -6 200 240 Intake: Oral 200 240 Output: Urine 6 Other: Voiding Method Bedside Commode Bedside Commode - Exam Constitutional: No acute distress, conversant, pleasant Eyes: Anicteric sclerae, moist conjunctiva, no lid-lag, PERRLA ENMT: NC/AT,Oropharynx clear, no erythema, exudates Neck:Supple, FROM, no masses, or JVD, No carotid bruits; No thyromegaly Lungs: Clear to auscultation, Clear to percussion, Normal respiratory effort, no accessory muscle use Cardiovascular: Heart regular in rate and rhythm, No murmurs, gallops, or rubs no peripheral edema Abdominal: Soft Nontender, nom distended, no guarding, no rebound or rigidity, Normoactive bowel sounds No hepatomegaly, No splenomegaly, No palpable mass No abdominal wall hernia noted Skin: Normal temperature, tone, texture, turgor, No induration No subcutaneous nodules, No rash, lesions, No ulcers Extremities:No digital cyanosis No clubbing, Pedal pulses intact and symmetrical Radial pulses intact and symmetrical Normal gait and station, No calf tenderness Psychiatric: Alert and oriented to person, place and time, Appropriate affect Intact judgement Neuro: Muscles Strength 5/5 in all 4 extremities, Sensation to light touch grossly present throughout, Cranial nerves II-XII grossly intact. No focal sensory deficits - Labs CBC & Chem 7: 04/11/19 22:43 04/11/19 22:43 Assessment and Plan (1) Alcohol withdrawal Narrative/Plan: * Continuous symptom triggered CIWA withdrawal protocol with Ativan when necessary * Continue supplementation with folate thiamine and multivitamins Current Visit: No Status: Acute Code(s): F10.239 - ALCOHOL DEPENDENCE WITH WITHDRAWAL, UNSPECIFIED SNOMED Code(s): 487845037 (2) Alcoholic intoxication Narrative/Plan: * Patient no longer intoxicated Current Visit: Yes Status: Resolved Code(s): F10.929 - ALCOHOL USE, UNSPECIFIED WITH INTOXICATION, UNSPECIFIED SNOMED Code(s): 39114189 (3) GERD (gastroesophageal reflux disease) Narrative/Plan: * We'll initiate PPI therapy Current Visit: Yes Status: Acute Code(s): K21.9 - GASTRO-ESOPHAGEAL REFLUX DISEASE WITHOUT ESOPHAGITIS SNOMED Code(s): 017923753 (4) Nausea Narrative/Plan: * Start antiemetics with Zofran check KUB Current Visit: Yes Status: Acute Code(s): R11.0 - NAUSEA SNOMED Code(s): 522760412 (5) Chronic alcohol dependence, continuous Current Visit: Yes Status: Acute Code(s): F10.20 - ALCOHOL DEPENDENCE, UNCOMPLICATED SNOMED Code(s): 524224050 (6) Essential hypertension Narrative/Plan: * Blood pressure not at goal * Continue to monitor for now Current Visit: Yes Status: Acute Code(s): I10 - ESSENTIAL (PRIMARY) HYPERTENSION SNOMED Code(s): 41054249 Plan: Disposition anticipated discharge tomorrow * Patient no longer intoxicated continue to monitor for signs of withdrawals * Initiated on therapy for GERD with PPI will follow up KUB * Patient encouraged to increase oral intake
--- NOTE | 2019-04-13 11:53 | XR ---
EXAMINATION TYPE: XR KUB , ONE VIEW DATE OF EXAM ORDERED: 04/13/2019 HISTORY: nausea/vomiting. COMPARISON: None. FINDINGS: The lung bases are clear. Within the abdomen, the abdominal gas pattern is within normal limits. There is no evidence of obstru ction or free air. No unusual calcifications are seen. IMPRESSION: NO ACUTE INTRA-ABDOMINAL ABNORMALITY.
[2019-04-13] MEDS: THIAMINE 100 MG TAB PO SCH (15:25)
[2019-04-13] MEDS ORDERED: amLODIPine 10 MG TAB PO STA (19:48)
[2019-04-13] MEDS ORDERED: IBUPROFEN 600 MG TAB PO STA (19:49)
[2019-04-14] MEDS ORDERED: PANTOPRAZOLE 40 MG TABLET PO SCH (07:30)
[2019-04-14] MEDS: THIAMINE 100 MG TAB PO SCH (08:15)
[2019-04-14] MEDS: FOLIC ACID 1 MG TAB PO SCH (08:15)
[2019-04-14] MEDS: MULTIVITAMINS, THERA 1 EACH TAB PO SCH (08:15)
[2019-04-14] MEDS ORDERED: amLODIPine 10 MG TAB PO SCH (09:00)
[2019-04-14] MEDS ORDERED: LORATADINE 10 MG TAB PO SCH (09:00)
[2019-04-14 10:23] VITALS: BP 121/82; PULSE 86; RESP 16; TEMP 98.5
--- NOTE | 2019-04-14 21:09 | P.DS ---
Providers Date of admission: 04/13/19 13:31 Expected date of discharge: 04/14/19 Attending physician: Zuri Pederson MD Primary care physician: Stated None Hospital Course: Discharge Diagnosis: Acute alcohol intoxication Unresponsive episode secondary to above Transaminitis, probable alcoholic hepatitis Lactic acidosis Tobacco abuse Hospital Course: Patient is a 43-year-old female with a past medical history of alcohol abuse and alcohol withdrawal seizures who presented to the emergency department with concern for unresponsive episode. Patient's roommate found her unresponsive concern for alcohol intoxication versus seizure. In the emergency department she was tremulous and confused and was noted to be a poor historian. She had been drinking beer and whiskey heavily over the few days prior to admission. She underwent an EKG which showed normal sinus rhythm, laboratory analysis showed an alcohol level CDLV as well as elevated AST and ALT. She was admitted for further evaluation of alcohol intoxication with impending withdrawals. She was monitored for 24 hours and became lucid and was back to baseline. She did not demonstrate any signs of alcohol withdrawal and she was subsequently determined stable for discharge. I discussed extensively with the patient her elevated liver enzymes needing to establish PCP and having follow-up in 2 weeks. I also discussed with her the importance of alcohol cessation. We discussed treatment options including SHIV and an acute detox program such as [facility]. Patient does not show openness to quitting. She does state that she will follow up with PCP. She was given information for [facility] and she has Medicaid. Patient seen and examined at bedside. Mika chest pain, shortness of breath, anxiety, tremulousness, nausea, vomiting, or hallucinations Vital signs reviewed and stable. General: non toxic, no distress, appears at stated age Derm: warm, dry Head: atraumatic, normocephalic, symmetric Eyes: EOMI, no lid lag, anicteric sclera Mouth: no lip lesion, mucus membranes moist Cardiovascular: S1S2 reg, no murmur, positive posterior tibial pulse bilateral, Lungs: CTA bilateral, no rhonchi, no rales , no accessory muscle use Abdominal: soft, nontender to palpation, no guarding, no appreciable organomegaly Ext: no gross muscle atrophy, no edema, no contractures Neuro: CN II-XI grossly intact, no focal neuro deficits Psych: Alert, oriented, appropriate affect A total of 25 minutes of time were spent preparing this complex discharge summary . Patient Condition at Discharge: Stable Plan - Discharge Summary Discharge Rx Participant: Yes New Discharge Prescriptions: New Folic Acid 1 mg PO DAILY tab Continue Thiamine [Vitamin B-1] 100 mg PO DAILY #30 tablet Loratadine 10 mg PO DAILY Discharge Medication List Thiamine [Vitamin B-1] 100 mg PO DAILY #30 tablet 03/18/19 [Rx] Loratadine 10 mg PO DAILY 04/13/19 [History] Folic Acid 1 mg PO DAILY tab 04/14/19 [Rx] Follow up Appointment(s)/Referral(s): None,Stated [Primary Care Provider] - 1-2 days [facility] [NON-STAFF] - 2 Weeks Patient Instructions/Handouts: Abuse of Alcohol (DC), Alcohol Withdrawal (DC) Activity/Diet/Wound Care/Special Instructions: Diet: regular Activity: As tolerated You need to stop drinking consider AA or detox program like [facility] Your liver enzymes are elevated these should be rechecked in 1-2 weeks. Discharge Disposition: HOME SELF-CARE
== END 2019-04-14 12:45 | disposition home or self-care (01) | DRG 897 ==
LOC: EC 20:09 → 4SSUR 23:40 → OBSVTOIN 04-13 13:31
PROVIDERS: ADMIT Internal Medicine; ATTEND Internal Medicine
DX: F10.229 Alcohol dependence with intoxication, unspecified (principal); E87.2 Acidosis; F17.200 Nicotine dependence, unspecified, uncomplicated; F32.9 Major depressive disorder, single episode, unspecified; F41.9 Anxiety disorder, unspecified; I10 Essential (primary) hypertension; K21.9 Gastro-esophageal reflux disease without esophagitis; K70.10 Alcoholic hepatitis without ascites; Y90.8 Blood alcohol level of 240 mg/100 ml or more; Z82.49 Family history of ischemic heart disease and other diseases of the circulatory system
CPT/HCPCS: 36415; 74018; 80053; 80320; 81001; 81025; 83605; 85025; 93005; 96360; 96361; 99285

== ENCOUNTER 2019-07-24 13:55 | Inpatient (IN) | payer OTHER ==
[2019-07-24] MEDS ORDERED: SODIUM CHLORIDE 0.9% 1,000 ML IV STA (15:14)
[2019-07-24] MEDS ORDERED: ONDANSETRON 4 MG/2 ML VIAL IVP STA (15:14)
[2019-07-24] MEDS ORDERED: LORazepam 2 MG/ML INJ IV STA (15:33)
[2019-07-24 15:52] LABS: Basophils # (A) 0.1 k/uL (0-0.2); Basophils % (A) 1 %; Eosinophils # (A) 0.1 k/uL (0-0.7); Eosinophils % (A) 1 %; HCT 41.6 % (34.0-46.0); HGB 13.9 gm/dL (11.4-16.0); Lymphocytes # (A) 1.4 k/uL (1.0-4.8); Lymphocytes % (A) 14 %; MCH 35.7 pg (25.0-35.0); MCHC 33.4 g/dL (31.0-37.0); MCV 106.8 fL (80.0-100.0); Macrocytosis Moderate; Monocytes # (A) 0.6 k/uL (0-1.0); Monocytes % (A) 6 %; Neutrophils # (A) 7.5 k/uL (1.3-7.7); Neutrophils % (A) 77 %; Platelet Count 130 k/uL (150-450); RDW 12.8 % (11.5-15.5); WBC 9.8 k/uL (3.8-10.6)
--- NOTE | 2019-07-24 15:59 | ED ---
Seizure HPI - General Chief Complaint: Seizure Stated Complaint: Seizure Time Seen by Provider: 07/24/19 14:28 Source: patient Mode of arrival: EMS Limitations: no limitations - History of Present Illness Initial Comments: Patient is a 44-year-old female presenting to the emergency department via EMS with complaints of a seizure. EMS stated the seizure lasted approximately 8 minutes. Patient did urinate on herself. Patient has history of EtOH seizures. Patient is not on seizure medication. Patient denies hitting her head or having any pain anywhere. She does admit to nausea. Patient states she was drinking today and had approximately 2-3 beers. Patient states she is anywhere from 3-8 beers daily Patient is also see on hypertension medication however she's been on for months now. Patient denies recent fever, vomiting, abdominal pain, diarrhea, chest pain, shortness of breath. Patient has no other complaints at this time. Upon arrival to the ER, BP is elevated at 178/107, rest of vitals are normal. - Related Data Home Medications Medication Instructions Recorded Confirmed No Known Home Medications 07/24/19 07/24/19 Allergies Allergy/AdvReac Type Severity Reaction Status Date / Time duloxetine [From Cymbalta] Allergy Rash/Hives Verified 07/24/19 19:19 Review of Systems ROS Statement: Those systems with pertinent positive or pertinent negative responses have been documented in the HPI. ROS Other: All systems not noted in ROS Statement are negative. Past Medical History Past Medical History: Hypertension Additional Past Medical History / Comment(s): Alcohol abuse, History of Any Multi-Drug Resistant Organisms: None Reported Past Surgical History: No Surgical Hx Reported Past Anesthesia/Blood Transfusion Reactions: No Reported Reaction Past Psychological History: Anxiety, Depression Smoking Status: Current every day smoker Past Alcohol Use History: Abuse, Daily Past Drug Use History: None Reported - Past Family History Mother Family Medical History: Coronary Artery Disease (CAD) Father Family Medical History: Cancer Sister(s) Additional Family Medical History / Comment(s): bipolar Son(s) Additional Family Medical History / Comment(s): pt states "failure to thrive, delayed" General Exam - General Exam Comments Initial Comments: GENERAL: Patient appears disheveled, no acute distress. HEAD: Atraumatic, normocephalic. EYES: Pupils equal round and reactive to light, extraocular movements intact, sclera anicteric, conjunctiva are normal. ENT: TMs normal, nares patent, oropharynx clear without exudates. Moist mucous membranes. NECK: Normal range of motion, supple without lymphadenopathy or JVD. LUNGS: Breath sounds clear to auscultation bilaterally and equal. No wheezes rales or rhonchi. HEART: Regular rate and rhythm without murmurs, rubs or gallops. ABDOMEN: Soft, nontender, normoactive bowel sounds. No guarding, no rebound. No masses appreciated. : Deferred EXTREMITIES: Normal range of motion, no pitting or edema. No clubbing or cyanosis. NEUROLOGICAL: Cranial nerves II through XII grossly intact. Normal speech, normal gait. PSYCH: Normal mood, normal affect. SKIN: Warm, Dry, normal turgor, no rashes or lesions noted. Limitations: no limitations Course Vital Signs 07/24/19 07/24/19 07/24/19 14:04 15:42 16:52 Temperature 97.9 F Pulse Rate 96 94 Respiratory 18 22 18 Rate Blood Pressure 178/107 184/102 145/105 O2 Sat by Pulse 98 97 Oximetry 07/24/19 17:37 Temperature Pulse Rate 82 Respiratory 18 Rate Blood Pressure 141/95 O2 Sat by Pulse 95 Oximetry Medical Decision Making - Medical Decision Making Patient is a 44-year-old female presenting with a seizure today. Patient has history of EtOH seizures. She is not currently on medications and has not taken any of her other medications and a few months. Patient's BP is elevated upon arrival, rest of vitals are normal. Lab work shows hyponatremia at 131, elevation of liver enzymes which are chronic in nature. Troponin is normal. Serum alcohol is less than 10. CT of the brain shows no acute intercranial abnormalities. Similar to previous CT. EKG shows no acute findings. Patient was given fluids, Zofran. Patient did have another seizure in the ER. 2 of Ativan was given and patient has been resting comfortably since. Urine is still pending at this time. Patient will be admitted to hospital for possible EtOH withdrawal seizure. Patient was accepted by Dr. Sim. Case discussed with Dr. Yu whose agreement with this plan of care. - Lab Data Result diagrams: 07/24/19 15:38 07/24/19 15:38 Lab Results 07/24/19 07/24/19 07/24/19 Range/Units 15:38 15:38 15:38 WBC 9.8 (3.8-10.6) k/uL RBC 3.90 (3.80-5.40) m/uL Hgb 13.9 (11.4-16.0) gm/dL Hct 41.6 (34.0-46.0) % MCV 106.8 H (80.0-100.0) fL MCH 35.7 H (25.0-35.0) pg MCHC 33.4 (31.0-37.0) g/dL RDW 12.8 (11.5-15.5) % Plt Count 130 L (150-450) k/uL Neutrophils % 77 % Lymphocytes % 14 % Monocytes % 6 % Eosinophils % 1 % Basophils % 1 % Neutrophils # 7.5 (1.3-7.7) k/uL Lymphocytes # 1.4 (1.0-4.8) k/uL Monocytes # 0.6 (0-1.0) k/uL Eosinophils # 0.1 (0-0.7) k/uL Basophils # 0.1 (0-0.2) k/uL Macrocytosis Moderate PT 9.7 (9.0-12.0) sec INR 0.9 (<1.2) APTT 24.2 (22.0-30.0) sec Sodium 131 L (137-145) mmol/L Potassium 4.0 (3.5-5.1) mmol/L Chloride 97 L (98-107) mmol/L Carbon Dioxide 19 L (22-30) mmol/L Anion Gap 15 mmol/L BUN 2 L (7-17) mg/dL Creatinine 0.33 L (0.52-1.04) mg/dL Est GFR (CKD-EPI)AfAm >90 (>60 ml/min/1.73 sqM) Est GFR (CKD-EPI)NonAf >90 (>60 ml/min/1.73 sqM) Glucose 101 H (74-99) mg/dL Calcium 9.3 (8.4-10.2) mg/dL Magnesium 1.7 (1.6-2.3) mg/dL Total Bilirubin 0.9 (0.2-1.3) mg/dL AST 286 H (14-36) U/L ALT 78 H (4-34) U/L Alkaline Phosphatase 192 H (38-126) U/L Troponin I (0.000-0.034) ng/mL Total Protein 7.9 (6.3-8.2) g/dL Albumin 4.8 (3.5-5.0) g/dL Serum Alcohol <10 mg/dL 07/24/19 Range/Units 15:38 WBC (3.8-10.6) k/uL RBC (3.80-5.40) m/uL Hgb (11.4-16.0) gm/dL Hct (34.0-46.0) % MCV (80.0-100.0) fL MCH (25.0-35.0) pg MCHC (31.0-37.0) g/dL RDW (11.5-15.5) % Plt Count (150-450) k/uL Neutrophils % % Lymphocytes % % Monocytes % % Eosinophils % % Basophils % % Neutrophils # (1.3-7.7) k/uL Lymphocytes # (1.0-4.8) k/uL Monocytes # (0-1.0) k/uL Eosinophils # (0-0.7) k/uL Basophils # (0-0.2) k/uL Macrocytosis PT (9.0-12.0) sec INR (<1.2) APTT (22.0-30.0) sec Sodium (137-145) mmol/L Potassium (3.5-5.1) mmol/L Chloride (98-107) mmol/L Carbon Dioxide (22-30) mmol/L Anion Gap mmol/L BUN (7-17) mg/dL Creatinine (0.52-1.04) mg/dL Est GFR (CKD-EPI)AfAm (>60 ml/min/1.73 sqM) Est GFR (CKD-EPI)NonAf (>60 ml/min/1.73 sqM) Glucose (74-99) mg/dL Calcium (8.4-10.2) mg/dL Magnesium (1.6-2.3) mg/dL Total Bilirubin (0.2-1.3) mg/dL AST (14-36) U/L ALT (4-34) U/L Alkaline Phosphatase (38-126) U/L Troponin I <0.012 (0.000-0.034) ng/mL Total Protein (6.3-8.2) g/dL Albumin (3.5-5.0) g/dL Serum Alcohol mg/dL - EKG Data EKG Comments: Ventricular rate 100, SC interval 180, QTC 518. Normal sinus rhythm. Prolonged QT. No acute ST segment changes. Compared to previous on 04/11/2019. Disposition Clinical Impression: Generalized seizure, Chronic alcohol dependence, continuous Disposition: ADMITTED IP TO THIS HOSP Condition: Stable Decision Date: 07/24/19 Decision Time: 17:03
[2019-07-24 16:00] LABS: ALT 78 U/L (4-34); AST 286 U/L (14-36); African American GFR (CKD) >90 (>60 ml/min/1.73 sqM); Albumin 4.8 g/dL (3.5-5.0); Alcohol <10 mg/dL; Alkaline Phosphatase 192 U/L (38-126); Anion Gap 15 mmol/L; Blood Urea Nitrogen 2 mg/dL (7-17); Calcium 9.3 mg/dL (8.4-10.2); Carbon Dioxide 19 mmol/L (22-30); Chloride 97 mmol/L (98-107); Glucose 101 mg/dL (74-99); Magnesium 1.7 mg/dL (1.6-2.3); Non-African American GFR(CKD) >90 (>60 ml/min/1.73 sqM); Sodium 131 mmol/L (137-145); Total Bilirubin 0.9 mg/dL (0.2-1.3); Total Protein 7.9 g/dL (6.3-8.2)
[2019-07-24 16:02] LABS: INR 0.9 (<1.2); Partial Thromboplastin Time 24.2 sec (22.0-30.0); Prothrombin Time 9.7 sec (9.0-12.0)
--- NOTE | 2019-07-24 16:27 | CT ---
EXAMINATION TYPE: CT brain wo con DATE OF EXAM: 07/24/2019 COMPARISON: 03/17/2019 HISTORY: 44-year-old female with Seizure, fall. TECHNIQUE: Examination was done in axial plane without intravenous contrast. Coronal and sagittal r econstructions performed. CT DLP: 1115.4 mGycm Automated exposure control for dose reduction was used. FINDINGS: There is no evidence of acute intracranial hemorrhage, acute ischemic changes, mass, mass-effect, or extra-axial fluid collection. There is no effacement of cerebral sulci or basal subarachnoid cister ns. There is no hydrocephalus. There is no midline shift. Soria-white matter distinction is preserv ed. Multiple moderate generalized supratentorial volume loss. Moderate patchy white matter hypodensities in both cerebral hemispheres. Mild mucosal thickening ethmoid air cells. Mastoid air cells well pneumatized. Leftward nasal septal deviation. Orbits and globes appear intact. IMPRESSION: Similar mild to moderate generalized atrophy. Moderate patchy white matter hypodensities are nonspeci fic, possibly relating to changes of chronic small vessel ischemic disease. Consider follow-up MRI br ain. No acute intracranial abnormality seen.
[2019-07-24] MEDS ORDERED: ONDANSETRON 4 MG/2 ML VIAL IVP PRN (16:59)
[2019-07-24] MEDS ORDERED: NALOXONE 0.4 MG/ML 1 ML VIAL IV PRN (16:59)
[2019-07-24] MEDS ORDERED: ACETAMINOPHEN TAB 325 MG TAB PO PRN (16:59)
[2019-07-24] MEDS ORDERED: THIAMINE 100 MG/ML 2 ML VIAL IM STA (17:01)
--- NOTE | 2019-07-24 19:07 | P.HPIM ---
History of Present Illness 44-year-old female was brought in by because of the seizure seizure lasted for about 8 november minutes did have bladder incontinence. Patient had history of alcohol withdrawal seizures patient states she did drink alcohol today although her blood alcohol level is low I believe patient last alcohol drink was yesterday afternoon. Patient says she only drinks 3-8 beers daily believe she drinks more than that patient is actively having withdrawals at this time because of that reason I believe patient has alcohol withdrawal seizures. She is willing to quit alcohol. A she did admit to some nausea Review of Systems REVIEW OF SYSTEMS: CONSTITUTIONAL: No fever, no malaise, no fatigue. HEENT: No recent visual problems or hearing problems. Denied any sore throat. CARDIOVASCULAR: No chest pain, orthopnea, PND, no palpitations, no syncope. PULMONARY: No shortness of breath, no cough, no hemoptysis. GASTROINTESTINAL: No diarrhea, no vomiting, no abdominal pain. NEUROLOGICAL: No headaches, no weakness, no numbness. HEMATOLOGICAL: Denies any bleeding or petechiae. GENITOURINARY: Denies any burning micturition, frequency, or urgency. MUSCULOSKELETAL/RHEUMATOLOGICAL: Denies any joint pain, swelling, or any muscle pain. ENDOCRINE: Denies any polyuria or polydipsia. The rest of the 14-point review of systems is negative. Past Medical History Past Medical History: Hypertension Additional Past Medical History / Comment(s): Alcohol abuse, History of Any Multi-Drug Resistant Organisms: None Reported Past Surgical History: No Surgical Hx Reported Past Anesthesia/Blood Transfusion Reactions: No Reported Reaction Past Psychological History: Anxiety, Depression Smoking Status: Current every day smoker Past Alcohol Use History: Abuse, Daily Past Drug Use History: None Reported - Past Family History Mother Family Medical History: Coronary Artery Disease (CAD) Father Family Medical History: Cancer Sister(s) Additional Family Medical History / Comment(s): bipolar Son(s) Additional Family Medical History / Comment(s): pt states "failure to thrive, delayed" Medications and Allergies Home Medications Medication Instructions Recorded Confirmed Type Thiamine [Vitamin B-1] 100 mg PO DAILY #30 tablet 03/18/19 04/12/19 Rx Loratadine 10 mg PO DAILY 04/13/19 04/13/19 History Folic Acid 1 mg PO DAILY tab 04/14/19 Rx Allergies Allergy/AdvReac Type Severity Reaction Status Date / Time duloxetine [From Cymbalta] Allergy Rash/Hives Verified 04/12/19 07:58 Physical Exam Vitals: Vital Signs Temp Pulse Pulse Resp BP BP Pulse Ox 07/24/19 18:13 99 F 97 18 180/88 95 07/24/19 17:49 97.9 F 82 18 141/95 95 07/24/19 17:37 82 18 141/95 95 07/24/19 16:52 18 145/105 07/24/19 15:42 94 22 184/102 97 07/24/19 14:04 97.9 F 96 18 178/107 98 Intake and Output 07/24/19 07/24/19 07/24/19 06:59 14:59 22:59 Other: Weight 54.431 kg PHYSICAL EXAMINATION: GENERAL: The patient is alert and oriented x3, not in any acute distress. Well developed, well nourished. She does have tremors and is having withdrawals. HEENT: Pupils are round and equally reacting to light. EOMI. No scleral icterus. No conjunctival pallor. Normocephalic, atraumatic. No pharyngeal erythema. No thyromegaly. CARDIOVASCULAR: S1 and S2 present. No murmurs, rubs, or gallops. PULMONARY: Chest is clear to auscultation, no wheezing or crackles. ABDOMEN: Soft, nontender, nondistended, normoactive bowel sounds. No palpable organomegaly. MUSCULOSKELETAL: No joint swelling or deformity. EXTREMITIES: No cyanosis, clubbing, or pedal edema. NEUROLOGICAL: Gross neurological examination did not reveal any focal deficits. SKIN: No rashes. Results CBC & Chem 7: 07/24/19 15:38 07/24/19 15:38 Labs: Abnormal Lab Results - Last 24 Hours (Table) 07/24/19 07/24/19 Range/Units 15:38 15:38 MCV 106.8 H (80.0-100.0) fL MCH 35.7 H (25.0-35.0) pg Plt Count 130 L (150-450) k/uL Sodium 131 L (137-145) mmol/L Chloride 97 L (98-107) mmol/L Carbon Dioxide 19 L (22-30) mmol/L BUN 2 L (7-17) mg/dL Creatinine 0.33 L (0.52-1.04) mg/dL Glucose 101 H (74-99) mg/dL AST 286 H (14-36) U/L ALT 78 H (4-34) U/L Alkaline Phosphatase 192 H (38-126) U/L Assessment and Plan Plan: -Seizure: Probably secondary to alcohol withdrawal, patient will be on seizure precautions and will be on Ativan CIWA protocol. -Alcohol withdrawal patient is on protocol as mentioned above -Alcohol abuse: Counseling was provided patient is willing to quit alcohol Alcohol he gastritis: Protonix -Alcoholic hepatitis expected to improve with cessation of alcohol repeat liver enzymes will be obtained tomorrow -Hyponatremia: From beer and hypokalemia patient was started on IV fluids -Anion gap metabolic acidosis is secondary to lactic acidosis from she is as patient was started on IV fluids, lactic acid will levels will be obtained. -DVT prophylaxis with subcutaneous heparin
[2019-07-24] MEDS: PANTOPRAZOLE 40 MG/10 ML VIAL IVP SCH (19:33)
[2019-07-24] MEDS: THIAMINE 100 MG TAB PO SCH (19:33)
[2019-07-24] MEDS: SODIUM CHLORIDE 0.9% 1,000 ML IV SCH (19:33)
[2019-07-25] MEDS: HEPARIN SODIUM,PORCINE 5,000 UNIT/ML 1 ML VIAL SQ SCH ×3 (00:09→15:11)
[2019-07-25 00:20] LABS: Appearance,Urine Cloudy (Clear); Bacteria,Urine Rare /hpf; Bilirubin,Urine Negative (Negative); Blood,Urine Trace (Negative); Color,Urine Light Yellow; Glucose,Urine (UA) Negative (Negative); Ketones,Urine Negative (Negative); Leukocyte Esterase,Urine Large (Negative); Mucus,Urine Rare /hpf; Nitrite,Urine Negative (Negative); PH, Urine 7.5 (5.0-8.0); Protein,Urine Negative (Negative); RBC,Urine 2 /hpf (0-5); Specific Gravity,Urine 1.005 (1.001-1.035); Squamous Epithelial Cell,Urine <1 /hpf (0-4); Urobilinogen,Urine <2.0 mg/dL (<2.0); WBC,Urine 83 /hpf (0-5)
[2019-07-25 00:27] LABS: Amphetamine Screen,Urine Not Detected (NotDetected); Barbiturate Screen,Urine Not Detected (NotDetected); Benzodiazepines Screen,Urine Detected (NotDetected); Cocaine Screen,Urine Not Detected (NotDetected); Methadone Screen, Urine Not Detected (NotDetected); Opiate Screen,Urine Not Detected (NotDetected); Oxycodone Screen, Urine Not Detected (NotDetected); Phencyclidine Screen,Urine Not Detected (NotDetected); Tricyclic Antidepressant,Urine Not Detected (NotDetected); Urn Cannabinoid Scrn Not Detected (NotDetected)
[2019-07-25] MEDS: PANTOPRAZOLE 40 MG/10 ML VIAL IVP SCH (08:10)
[2019-07-25] MEDS: THIAMINE 100 MG TAB PO SCH ×2 (08:10→17:08)
[2019-07-25] MEDS: SODIUM CHLORIDE 0.9% 1,000 ML IV SCH (08:10)
[2019-07-25 09:23] LABS: HGB 12.7 gm/dL (11.4-16.0); MCH 35.4 pg (25.0-35.0); MCHC 33.5 g/dL (31.0-37.0); MCV 105.8 fL (80.0-100.0); Macrocytosis Slight; Mean Platelet Volume 9.7; Platelet Count 117 k/uL (150-450); RBC 3.59 m/uL (3.80-5.40); RDW 13.2 % (11.5-15.5); WBC 7.9 k/uL (3.8-10.6)
[2019-07-25 09:33] VITALS: BMI 24.2
[2019-07-25 09:40] LABS: ALT 63 U/L (4-34); AST 133 U/L (14-36); African American GFR (CKD) >90 (>60 ml/min/1.73 sqM); Albumin 4.4 g/dL (3.5-5.0); Alkaline Phosphatase 163 U/L (38-126); Anion Gap 12 mmol/L; Blood Urea Nitrogen 3 mg/dL (7-17); Calcium 9.2 mg/dL (8.4-10.2); Carbon Dioxide 20 mmol/L (22-30); Chloride 104 mmol/L (98-107); Glucose 104 mg/dL (74-99); Non-African American GFR(CKD) >90 (>60 ml/min/1.73 sqM); Potassium 3.1 mmol/L (3.5-5.1); Sodium 136 mmol/L (137-145); Total Bilirubin 1.1 mg/dL (0.2-1.3); Total Protein 7.1 g/dL (6.3-8.2)
[2019-07-25] MEDS: CARVEDILOL 6.25 MG TAB PO SCH ×2 (10:19→17:08)
--- NOTE | 2019-07-25 16:00 | P.PN ---
Subjective Progress Note Date: 07/25/19 Principal diagnosis: 44-year-old female was brought in by because of the seizure seizure lasted for about 8 november minutes did have bladder incontinence. Patient had history of alcohol withdrawal seizures patient states she did drink alcohol today although her blood alcohol level is low I believe patient last alcohol drink was yesterday afternoon. Patient says she only drinks 3-8 beers daily believe she drinks more than that patient is actively having withdrawals at this time b ecause of that reason I believe patient has alcohol withdrawal seizures. She is willing to quit alcohol. A she did admit to some nausea 07/25/2019 Patient is lying in bed sleeping but easily arousable. No new seizure activity noted. Patient is on the [facility] protocol for acute alcohol withdrawal continue at this time. Patient continues to have tremors and some nausea today. Patient gait is quite unsteady and will be monitored overnight with possible discharge in the morning. Review of Systems: Cardiovascular: No reports of chest pain or palpitations Respiratory: No reports of shortness of breath or cough GI: No reports of vomiting. Patient reports nausea and loose stools : No reports of dysuria or retention Objective - Vital Signs Vital signs: Vital Signs Temp 98.6 F 07/25/19 11:31 Pulse 77 07/25/19 11:31 Resp 16 07/25/19 11:31 BP 171/74 07/25/19 11:31 Pulse Ox 99 07/25/19 11:31 Intake & Output 07/24/19 07/25/19 07/25/19 18:59 06:59 18:59 Intake Total 480 Balance 480 Weight 54.431 kg 54.431 kg Intake: Intake, IV Titration 240 Amount Sodium Chloride 0.9% 1, 240 000 ml @ 60 mls/hr IV . [id number] [facility] Rx#:[id number] Oral 240 Other: # Voids 4 2 # Bowel Movements 7 - Exam GENERAL: The patient is alert and oriented x3, not in any acute distress. Well developed, well nourished. She does have tremors and is having withdrawals. HEENT: Pupils are round and equally reacting to light. EOMI. No scleral icterus. No conjunctival pallor. Normocephalic, atraumatic. No pharyngeal erythema. No thyromegaly. CARDIOVASCULAR: S1 and S2 present. No murmurs, rubs, or gallops. PULMONARY: Chest is clear to auscultation, no wheezing or crackles. ABDOMEN: Soft, nontender, nondistended, normoactive bowel sounds. No palpable organomegaly. MUSCULOSKELETAL: No joint swelling or deformity. EXTREMITIES: No cyanosis, clubbing, or pedal edema. NEUROLOGICAL: Gross neurological examination did not reveal any focal deficits. Tremors noted on exam. SKIN: No rashes. - Labs CBC & Chem 7: 07/25/19 09:00 07/25/19 09:00 Labs: Abnormal Lab Results - Last 24 Hours (Table) 07/24/19 07/24/19 07/24/19 Range/Units 15:38 15:38 23:30 RBC (3.80-5.40) m/uL MCV 106.8 H (80.0-100.0) fL MCH 35.7 H (25.0-35.0) pg Plt Count 130 L (150-450) k/uL Sodium 131 L (137-145) mmol/L Potassium (3.5-5.1) mmol/L Chloride 97 L (98-107) mmol/L Carbon Dioxide 19 L (22-30) mmol/L BUN 2 L (7-17) mg/dL Creatinine 0.33 L (0.52-1.04) mg/dL Glucose 101 H (74-99) mg/dL AST 286 H (14-36) U/L ALT 78 H (4-34) U/L Alkaline Phosphatase 192 H (38-126) U/L Urine Appearance Cloudy H (Clear) Urine Blood Trace H (Negative) Ur Leukocyte Esterase Large H (Negative) Urine WBC 83 H (0-5) /hpf Urine Bacteria Rare H (None) /hpf Urine Mucus Rare H (None) /hpf U Benzodiazepines Scrn Detected H (NotDetected) 07/25/19 07/25/19 Range/Units 09:00 09:00 RBC 3.59 L (3.80-5.40) m/uL MCV 105.8 H (80.0-100.0) fL MCH 35.4 H (25.0-35.0) pg Plt Count 117 L (150-450) k/uL Sodium 136 L (137-145) mmol/L Potassium 3.1 L (3.5-5.1) mmol/L Chloride (98-107) mmol/L Carbon Dioxide 20 L (22-30) mmol/L BUN 3 L (7-17) mg/dL Creatinine 0.41 L (0.52-1.04) mg/dL Glucose 104 H (74-99) mg/dL AST 133 H (14-36) U/L ALT 63 H (4-34) U/L Alkaline Phosphatase 163 H (38-126) U/L Urine Appearance (Clear) Urine Blood (Negative) Ur Leukocyte Esterase (Negative) Urine WBC (0-5) /hpf Urine Bacteria (None) /hpf Urine Mucus (None) /hpf U Benzodiazepines Scrn (NotDetected) Microbiology - Last 24 Hours (Table) 07/24/19 23:30 Urine Culture - Preliminary Urine,Voided Assessment and Plan Assessment: -Seizure: Probably secondary to alcohol withdrawal, patient will be on seizure precautions and will be on Ativan CIWA protocol. -Alcohol withdrawal patient is on protocol as mentioned above -Alcohol abuse: Counseling was provided patient is willing to quit alcohol -Alcoholic gastritis: Protonix -Alcoholic hepatitis expected to improve with cessation of alcohol repeat liver enzymes will be obtained tomorrow. AST is 133, ALT is 63 -Hyponatremia: From beer and hypokalemia patient was started on IV fluids. Potassium is 3.1 today and being replaced, sodium is 136 -Anion gap metabolic acidosis is secondary to lactic acidosis from she is as patient was started on IV fluids, lactic acid will levels will be obtained. -DVT prophylaxis with subcutaneous heparin
[2019-07-25] MEDS: LORazepam 2 MG/ML INJ IV PRN (20:51)
[2019-07-25] MEDS: hydrALAZINE HCL 20 MG/ML 1 ML VIAL IVP PRN (22:56)
[2019-07-26] MEDS: HEPARIN SODIUM,PORCINE 5,000 UNIT/ML 1 ML VIAL SQ SCH ×3 (00:09→15:38)
[2019-07-26] MEDS: LORazepam 2 MG/ML INJ IV PRN ×15 (01:34→19:20)
[2019-07-26] MEDS: SODIUM CHLORIDE 0.9% 1,000 ML IV SCH ×2 (05:13→15:38)
[2019-07-26] MEDS: THIAMINE 100 MG TAB PO SCH (07:25)
[2019-07-26] MEDS: CARVEDILOL 6.25 MG TAB PO SCH ×2 (07:42→17:23)
[2019-07-26] MEDS ORDERED: PANTOPRAZOLE 40 MG TABLET PO SCH (09:00)
[2019-07-26] MEDS: NICOTINE 21MG/24HR PATCH TRANSDERM SCH (11:25)
--- NOTE | 2019-07-26 11:46 | P.PN ---
Subjective This is a pleasant 44 years old female with past medical history of hypertension and alcohol use, depression and anxiety, cigarette smoker, drinks about 8-12 beers per day. Patient presents on 07/24/2019 for seizure, with urine incontinence. Patient has history of local withdrawal seizure and she was drinking to one day before coming to the hospital. CT of the brain showing no acute process, mild atrophy with nonspecific white matter hypodensity suspected to be of a chronic small vessel ischemic disease and recommended follow-up MRI. EKG showed normal sinus rhythm with prolonged QTc at 518. Patient was admitted for alcohol withdrawal as placed on CIWA protocol, Today patient is delirious, she is to continue the blood pressure machine, she talks to penicillin with an understandable words. She could not tell where she is at about she remembers is 2018 and she remembers name of the president. However she could not provide history because she keep distracted and talking to the ceiling. She has severe tremors in her upper and lower extremity area she opened her arms and the air when she talks to the ceiling. She could not answer clearly if she sees other people or hears forces. Her CIWA score was 16-17 as per staff. She is tachycardic at 120, rest of vital signs stable and she is afebrile. She has no labs from today however she was hypokalemic yesterday and her liver enzymes were trending down. Urine analysis is suspicious for infection after discussed cloudy with large leukocyte esterase and WBC of 83. C. diff is negative Review of systems: None applicable Active Medications Generic Name Dose Route Start Last Admin Trade Name Freq PRN Reason Stop Dose Admin Acetaminophen 650 mg 07/24/19 16:59 Tylenol Tab PO Q6HR PRN Mild Pain or Fever > 100.5 Carvedilol 6.25 mg 07/25/19 08:45 07/26/19 07:42 Coreg PO 6.25 mg BID-W/MEALS GARTH Administration Chlordiazepoxide HCl 10 mg 07/26/19 09:00 07/26/19 07:25 Librium PO 10 mg QID GARTH Administration Heparin Sodium (Porcine) 5,000 unit 07/25/19 00:00 07/26/19 07:43 Heparin SQ Not Given Q8HR GARTH Hydralazine HCl 10 mg 07/25/19 23:00 07/25/19 22:56 Apresoline IVP 10 mg Q6HR PRN Administration Blood Pressure - High Sodium Chloride 1,000 mls @ 60 mls/hr 07/24/19 17:00 07/26/19 05:13 Saline 0.9% IV Not Given .[id number] GARTH Lorazepam 1 mg 07/24/19 17:01 07/26/19 05:18 Ativan IV 1 mg Q2HR PRN Administration CIWA 8 or 9 Lorazepam 1 mg 07/24/19 17:01 07/26/19 11:31 Ativan IV 1 mg Q1HR PRN Administration CIWA 10 to 15 Lorazepam 2 mg 07/24/19 17:01 Ativan IV 07/26/19 17:01 Q10M PRN CIWA 16 or higher Naloxone HCl 0.2 mg 07/24/19 16:59 Narcan IV Q2M PRN Opioid Reversal Nicotine 1 patch 07/26/19 09:00 07/26/19 11:25 Habitrol 21mg/24hr Patch TRANSDERM 1 patch DAILY GARTH Administration Ondansetron HCl 4 mg 07/24/19 16:59 Zofran IVP Q8HR PRN Nausea And Vomiting Pantoprazole Sodium 40 mg 07/26/19 09:00 07/26/19 07:42 Protonix PO 40 mg DAILY GARTH Administration Thiamine HCl 100 mg 07/24/19 17:30 07/26/19 07:25 Vitamin B-1 PO 100 mg BID-W/MEALS GARTH Administration Objective - Vital Signs Vital signs: Vital Signs Temp 97.4 F L 07/26/19 05:00 Pulse 120 H 07/26/19 08:25 Resp 20 07/26/19 08:25 BP 159/90 07/26/19 05:00 Pulse Ox 98 07/26/19 05:00 Intake & Output 07/25/19 07/26/19 07/26/19 18:59 06:59 18:59 Weight 54.431 kg Other: Voiding Method Bedside Commode Bedside Commode # Voids 2 3 # Bowel Movements 1 - Exam -GENERAL: The patient is confused and delirious and talking to the ceiling and blood pressure machine HEENT: Pupils are round and equally reacting to light. EOMI. No scleral icterus. No conjunctival pallor. Normocephalic, atraumatic. No pharyngeal erythema. No thyromegaly. CARDIOVASCULAR: S1 and S2 present. No murmurs, rubs, or gallops. PULMONARY: Chest is clear to auscultation, no wheezing or crackles. ABDOMEN: Soft, nontender, nondistended, normoactive bowel sounds. No palpable organomegaly. MUSCULOSKELETAL: No joint swelling or deformity. -EXTREMITIES: No cyanosis, clubbing, or pedal edema. Course tremors in the upper and lower extremities NEUROLOGICAL: Gross neurological examination did not reveal any focal deficits. SKIN: No rashes. no petechiae. - Labs CBC & Chem 7: 07/25/19 09:00 07/25/19 09:00 Labs: Microbiology - Last 24 Hours (Table) 07/24/19 23:30 Urine Culture - Preliminary Urine,Voided Assessment and Plan Assessment: Delirium tremens Alcohol withdrawal Seizure, suspected for alcohol withdrawal seizure versus others Alcohol abuse Acute urinary tract infection Electrolytes abnormalities with hypokalemia nonspecific white matter hypodensity suspected to be of a chronic small vessel ischemic disease and recommended follow-up MRI, prolonged QTc interval Plan: This is a pleasant 44 years old female who presents with alcohol withdrawal, suspected for withdrawal. continue with CIWA protocol. Patient might need neurology evaluation. Continue with thiamine. Continue with Protonix. Maura nue with nicotine patch. Transfer the patient to the ICU with critical care consult Labs and medication were reviewed.. Continue same treatment. Continue with symptomatic treatment. Resume home medication. Monitor lytes and vitals. DVT and GI prophylaxis. Further recommendations of the clinical course of the patient DVT prophylaxis: Subcutaneous heparin GI Prophylaxis: Ppi Prognosis is guarded
[2019-07-26] MEDS: MULTIVITAMINS, THERA 1 EACH TAB PO SCH (12:13)
[2019-07-26] MEDS: FOLIC ACID 1 MG TAB PO SCH (12:13)
[2019-07-26 12:20] LABS: Basophils % (A) 0 %; Eosinophils # (A) 0.1 k/uL (0-0.7); Eosinophils % (A) 1 %; HCT 42.4 % (34.0-46.0); HGB 14.1 gm/dL (11.4-16.0); Lymphocytes # (A) 1.3 k/uL (1.0-4.8); Lymphocytes % (A) 12 %; MCH 35.3 pg (25.0-35.0); MCHC 33.2 g/dL (31.0-37.0); MCV 106.4 fL (80.0-100.0); Macrocytosis Moderate; Mean Platelet Volume 9.9; Monocytes # (A) 0.8 k/uL (0-1.0); Monocytes % (A) 8 %; Neutrophils # (A) 8.4 k/uL (1.3-7.7); Neutrophils % (A) 77 %; Platelet Count 108 k/uL (150-450); RBC 3.99 m/uL (3.80-5.40); WBC 10.9 k/uL (3.8-10.6)
[2019-07-26 12:35] LABS: ALT 61 U/L (4-34); African American GFR (CKD) >90 (>60 ml/min/1.73 sqM); Albumin 4.9 g/dL (3.5-5.0); Anion Gap 16 mmol/L; Blood Urea Nitrogen 7 mg/dL (7-17); Calcium 10.1 mg/dL (8.4-10.2); Carbon Dioxide 17 mmol/L (22-30); Chloride 101 mmol/L (98-107); Glucose 91 mg/dL (74-99); Non-African American GFR(CKD) >90 (>60 ml/min/1.73 sqM); Sodium 134 mmol/L (137-145); Total Bilirubin 1.5 mg/dL (0.2-1.3); Total Protein 7.9 g/dL (6.3-8.2)
[2019-07-26 12:37] LABS: HCG,Qualitative Serum Not Detected
[2019-07-26 12:37] LABS: Glucose,Whole Blood 96 mg/dL (75-99)
[2019-07-26 12:52] LABS: Potassium 3.7 mmol/L (3.5-5.1)
[2019-07-26 12:53] LABS: AST 180 U/L (14-36); Alkaline Phosphatase 138 U/L (38-126)
--- NOTE | 2019-07-26 15:12 | P.CNPUL ---
History of Present Illness Consult date: 07/26/19 Requesting physician: Madi Gomez Reason for consult: other Chief complaint: Seizures History of present illness: This is a 44-year-old female patient with a known history of daily alcohol abus e, chronic and ongoing tobacco dependence, hypertension and alcoholic seizure activity. She was brought in by EMS on 07/24/2019 with an 8 minute seizure history. She did have urinary incontinence. No trauma noted. She had been drinking beer that same day. She is drinks 3-8 beers daily. She had been admitted to the regular medical floor. Today however she was having increasing muscle tremors anxiety restlessness diaphoresis disorientation hallucinations and a CIWA score of 33, based on these findings she was transferred to the intensive care unit. We're consulted for critical care management. Presently she is resting in bed. She has covers pulled over her head. She does arouse to verbal stimuli. She is quite tremorous. Denies any significant discomfort. She's afebrile. Tachycardic. Maintaining O2 saturations in the upper 90s on room air. Computed tomography scan of the brain had revealed similar mild to moderate generalized atrophy. There is moderate patchy white matter hypodensities which are nonspecific most likely related to chronic small vessel ischemic disease. Urine cultures positive for gram-negative bacilli. White count 10.9. Hemoglobin 14.1. MCV 106.4. Sodium 134. Potassium 3.7. Bicarb 17. Creatinine 0.40. AST 180, ALT 61, alk phos 138. Urine drug screen positive for benzodiazepines. Review of Systems ROS unobtainable: due to mental status Past Medical History Past Medical History: Hypertension Additional Past Medical History / Comment(s): Alcohol abuse, History of Any Multi-Drug Resistant Organisms: None Reported Past Surgical History: No Surgical Hx Reported Past Anesthesia/Blood Transfusion Reactions: No Reported Reaction Past Psychological History: Anxiety, Depression Smoking Status: Current every day smoker Past Alcohol Use History: Abuse, Daily Past Drug Use History: None Reported - Past Family History Mother Family Medical History: Coronary Artery Disease (CAD) Father Family Medical History: Cancer Sister(s) Additional Family Medical History / Comment(s): bipolar Son(s) Additional Family Medical History / Comment(s): pt states "failure to thrive, delayed" Medications and Allergies Home Medications Medication Instructions Recorded Confirmed Type No Known Home Medications 07/24/19 07/24/19 History Allergies Allergy/AdvReac Type Severity Reaction Status Date / Time duloxetine [From Cymbalta] Allergy Rash/Hives Verified 07/24/19 19:19 Physical Exam Vitals: Vital Signs Temp Pulse Resp BP BP Pulse Ox 07/26/19 12:30 116 H 24 07/26/19 12:03 116 H 24 143/71 98 07/26/19 08:25 120 H 20 07/26/19 05:00 97.4 F L 120 H 20 159/90 98 07/25/19 23:35 144/74 07/25/19 21:00 97.6 F 83 20 194/103 99 Intake and Output 07/25/19 07/26/19 07/26/19 22:59 06:59 14:59 Other: Voiding Method Bedside Commode Indwelling Catheter # Voids 1 3 # Bowel Movements 1 GENERAL EXAM: Arousable, moving all fours, on room air, comfortable in no apparent distress. HEAD: Normocephalic. EYES: Normal reaction of pupils, equal size. NOSE: Clear with pink turbinates. THROAT: No erythema or exudates. NECK: No masses, no JVD. CHEST: No chest wall deformity. LUNGS: Equal air entry with no crackles, wheeze, rhonchi or dullness. CVS: S1 and S2 normal with no audible murmur, regular rhythm. ABDOMEN: No hepatosplenomegaly, normal bowel sounds, no guarding or rigidity. SPINE: No scoliosis or deformity SKIN: No rashes CENTRAL NERVOUS SYSTEM: No focal deficits, tone is normal in all 4 extremities. EXTREMITIES: There is no peripheral edema. No clubbing, no cyanosis. Periphera l pulses are intact. Results - Laboratory Findings CBC and BMP: 07/26/19 12:00 07/26/19 12:00 PT/INR, D-dimer PT 9.7 sec (9.0-12.0) 07/24/19 15:38 INR 0.9 (<1.2) 07/24/19 15:38 Abnormal lab findings: Abnormal Labs 07/24/19 07/24/19 07/24/19 15:38 15:38 23:30 WBC RBC MCV 106.8 H MCH 35.7 H Plt Count 130 L Neutrophils # Sodium 131 L Potassium Chloride 97 L Carbon Dioxide 19 L BUN 2 L Creatinine 0.33 L Glucose 101 H Total Bilirubin AST 286 H ALT 78 H Alkaline Phosphatase 192 H Urine Appearance Cloudy H Urine Blood Trace H Ur Leukocyte Esterase Large H Urine WBC 83 H Urine Bacteria Rare H Urine Mucus Rare H U Benzodiazepines Scrn Detected H 07/25/19 07/25/19 07/26/19 09:00 09:00 12:00 WBC 10.9 H RBC 3.59 L MCV 105.8 H 106.4 H MCH 35.4 H 35.3 H Plt Count 117 L 108 L Neutrophils # 8.4 H Sodium 136 L Potassium 3.1 L Chloride Carbon Dioxide 20 L BUN 3 L Creatinine 0.41 L Glucose 104 H Total Bilirubin AST 133 H ALT 63 H Alkaline Phosphatase 163 H Urine Appearance Urine Blood Ur Leukocyte Esterase Urine WBC Urine Bacteria Urine Mucus U Benzodiazepines Scrn 07/26/19 12:00 WBC RBC MCV MCH Plt Count Neutrophils # Sodium 134 L Potassium Chloride Carbon Dioxide 17 L BUN Creatinine 0.40 L Glucose Total Bilirubin 1.5 H AST 180 H ALT 61 H Alkaline Phosphatase 138 H Urine Appearance Urine Blood Ur Leukocyte Esterase Urine WBC Urine Bacteria Urine Mucus U Benzodiazepines Scrn Assessment and Plan Assessment: 1 Alcoholic seizure 2 Alcoholism with daily intake of 3-8 beers 3 Chronic and ongoing tobacco dependence 4 Hypertension 5 Delirium tremens secondary to alcohol withdrawal 6 Urinary tract infection secondary to gram-negative bacilli Plan The patient was seen and evaluated by Dr. Suazo We'll continue [facility] protocol Monitor her here closely in the ICU We'll intubate if she becomes obtunded and is unable to protect her airway Continue IV fluids Continue NicoDerm Antibiotics for UTI Chest x-ray We'll continue to follow I, the cosigning physician, performed a history & physical examination of the patient. Lungs sounds are clear. Maintaining good O2 saturations in the 90s on room air. I discussed the assessment and plan of care with my nurse practitioner, Tamanna Clark. I attest to the above note as dictated by her. Time with Patient: Greater than 30
--- NOTE | 2019-07-26 15:45 | XR ---
EXAMINATION TYPE: XR chest 1V portable DATE OF EXAM: 07/26/2019 COMPARISON: 11/17/2017 HISTORY: Chest pain TECHNIQUE: Single view FINDINGS: Heart and mediastinum are normal. Lungs are clear. Diaphragm is normal. Bony thorax appears normal. IMPRESSION: Normal chest. No change.
[2019-07-26] MEDS: PROPOFOL 1,000 MG in EMPTY BAG 1 BAG IV SCH ×8 (19:46→22:35)
--- NOTE | 2019-07-26 19:58 | XR ---
EXAMINATION TYPE: XR chest 1V portable DATE OF EXAM: 07/26/2019 COMPARISON: Today HISTORY: Respiratory failure TECHNIQUE: Single view FINDINGS: Endotracheal tube is 2.8 cm from the eleanor. Lungs are clear of consolidation. There is no pleural effusion. There are chest leads. There is nasogastric tube in the stomach. IMPRESSION: No active cardiopulmonary disease. No change.
[2019-07-26 20:25] LABS: ABG Base Excess -6.6 mmol/L; ABG HCO3 19 mmol/L (21-25); ABG PCO2 36 mmHg (35-45); ABG PH 7.34 (7.35-7.45); ABG PO2 >400 mmHg (83-108); ABG TCO2 20 mmol/L (19-24); Allen Test Performed? Yes
[2019-07-26] MEDS ORDERED: SODIUM CHLORIDE 0.9% 1,000 ML IV ONE ×2 (20:38→22:26)
[2019-07-26] MEDS: CHLORHEXIDINE GLUCONATE 15 ML CUP MUCOUS MEM SCH (20:58)
[2019-07-26] MEDS: HYDROmorphone 0.5 MG/0.5 ML SYRINGE IVP PRN (21:31)
[2019-07-26] MEDS: THIAMINE 100 MG/ML 2 ML VIAL IVP SCH (22:16)
[2019-07-27] MEDS: HEPARIN SODIUM,PORCINE 5,000 UNIT/ML 1 ML VIAL SQ SCH ×4 (00:02→23:30)
[2019-07-27] MEDS: SODIUM CHLORIDE 0.9% 1,000 ML IV SCH ×2 (00:02→14:38)
[2019-07-27] MEDS: HYDROmorphone 0.5 MG/0.5 ML SYRINGE IVP PRN ×7 (00:47→23:30)
[2019-07-27] MEDS: PROPOFOL 1,000 MG in EMPTY BAG 1 BAG IV SCH ×6 (02:29→23:36)
[2019-07-27 04:51] LABS: Basophils % (A) 0 %; Eosinophils # (A) 0.2 k/uL (0-0.7); Eosinophils % (A) 2 %; HCT 33.9 % (34.0-46.0); HGB 11.2 gm/dL (11.4-16.0); Lymphocytes # (A) 1.3 k/uL (1.0-4.8); Lymphocytes % (A) 19 %; MCH 35.6 pg (25.0-35.0); MCHC 33.1 g/dL (31.0-37.0); MCV 107.7 fL (80.0-100.0); Macrocytosis Moderate; Mean Platelet Volume 9.4; Monocytes # (A) 0.4 k/uL (0-1.0); Monocytes % (A) 6 %; Neutrophils % (A) 71 %; Platelet Count 108 k/uL (150-450); RBC 3.15 m/uL (3.80-5.40); RDW 13.1 % (11.5-15.5)
[2019-07-27 05:09] LABS: ALT 52 U/L (4-34); AST 141 U/L (14-36); African American GFR (CKD) >90 (>60 ml/min/1.73 sqM); Alkaline Phosphatase 84 U/L (38-126); Anion Gap 7 mmol/L; Bilirubin, Delta 0.4 mg/dL (0.0-0.2); Blood Urea Nitrogen 6 mg/dL (7-17); Calcium 7.7 mg/dL (8.4-10.2); Carbon Dioxide 17 mmol/L (22-30); Chloride 116 mmol/L (98-107); Glucose 72 mg/dL (74-99); Magnesium 1.7 mg/dL (1.6-2.3); Non-African American GFR(CKD) >90 (>60 ml/min/1.73 sqM); Sodium 140 mmol/L (137-145); Total Bilirubin 0.4 mg/dL (0.2-1.3); Total Protein 5.4 g/dL (6.3-8.2)
[2019-07-27 06:06] LABS: Potassium 2.4 mmol/L (3.5-5.1)
[2019-07-27] MEDS: MAGNESIUM SULFATE-D5W PMX 1 GM in DEXTROSE/WATER 1 100ML.BAG IVPB SCH ×2 (06:30→08:42)
[2019-07-27] MEDS: POTASSIUM CHLORIDE 20 MEQ in WATER FOR INJECTION 1 100ML.BAG IVPB SCH ×4 (06:30→12:12)
[2019-07-27] MEDS ORDERED: SODIUM CHLORIDE 0.9% 1,000 ML IV ONE (06:31)
[2019-07-27] MEDS ORDERED: Potassium Replacement Protocol 1 EACH MISC MISCELLANE PRN ×2 (07:15→15:57)
[2019-07-27] MEDS ORDERED: Magnesium Replacement Protocol 1 EACH MISC MISCELLANE PRN (07:16)
[2019-07-27 07:26] LABS: ABG Base Excess -12.2 mmol/L; ABG HCO3 15 mmol/L (21-25); ABG Oxygen Saturation 99.1 % (94-97); ABG PCO2 35 mmHg (35-45); ABG PH 7.25 (7.35-7.45); ABG PO2 196 mmHg (83-108); ABG TCO2 16 mmol/L (19-24); Allen Test Performed? Yes
--- NOTE | 2019-07-27 07:30 | XR ---
EXAMINATION TYPE: XR chest 1V portable DATE OF EXAM: 07/27/2019 COMPARISON: 07/26/2019 HISTORY: Tube placement TECHNIQUE: Single frontal view of the chest is obtained. FINDINGS: Endotracheal tube is 2.8 cm from the eleanor. Subsegmental changes at the left lung base.. There is no pleural effusion. There are chest leads. There is nasogastric tube in the stomach. IMPRESSION: 1. Subsegmental changes left lung base could be related to atelectasis correlate clinically to exclud e pneumonia.
[2019-07-27] MEDS: LORazepam 2 MG/ML INJ IV PRN ×4 (07:35→16:55)
[2019-07-27] MEDS: DEXTROSE 5% IN WATER 1,000 ML with SODIUM BICARB (1 MEQ/ML) 150 ML IV SCH ×2 (08:42→23:30)
[2019-07-27] MEDS: CARVEDILOL 6.25 MG TAB PO SCH ×2 (09:16→17:09)
[2019-07-27] MEDS: NICOTINE 21MG/24HR PATCH TRANSDERM SCH (09:16)
[2019-07-27] MEDS: PANTOPRAZOLE 40 MG/10 ML VIAL IVP SCH (09:16)
[2019-07-27] MEDS: FOLIC ACID 1 MG TAB PO SCH (09:16)
[2019-07-27] MEDS: THIAMINE 100 MG/ML 2 ML VIAL IVP SCH ×2 (09:17→22:00)
[2019-07-27] MEDS: CHLORHEXIDINE GLUCONATE 15 ML CUP MUCOUS MEM SCH ×2 (09:17→22:00)
[2019-07-27] MEDS: MULTIVITAMINS, THERA 1 EACH TAB PO SCH (09:18)
--- NOTE | 2019-07-27 10:57 | P.PN ---
Subjective Progress Note Date: 07/27/19 Principal diagnosis: Acute alcohol withdrawal This is a 44-year-old female patient with a known history of daily alcohol abuse, chronic and ongoing tobacco dependence, hypertension and alcoholic seizure activity. She was brought in by EMS on 07/24/2019 with an 8 minute seizure history. She did have urinary incontinence. No trauma noted. She had been drinking beer that same day. She is drinks 3-8 beers daily. She had been admitted to the regular medical floor. Today however she was having increasing muscle tremors anxiety restlessness diaphoresis disorientation hallucinations and a CIWA score of 33, based on these findings she was transferred to the intensive care unit. We're consulted for critical care management. Presently she is resting in bed. She has covers pulled over her head. She does arouse to verbal stimuli. She is quite tremorous. Denies any significant discomfort. She's afebrile. Tachycardic. Maintaining O2 saturations in the upper 90s on room air. Computed tomography scan of the brain had revealed similar mild to moderate generalized atrophy. There is moderate patchy white matter hypodensities which are nonspecific most likely related to chronic small vessel ischemic disease. Urine cultures positive for gram-negative bacilli. White count 10.9. Hemoglobin 14.1. MCV 106.4. Sodium 134. Potassium 3.7. Bicarb 17. Creatinine 0.40. AST 180, ALT 61, alk phos 138. Urine drug screen positive for benzodiazepines. Patient was reevaluated today on 07/27/2019, her condition deteriorated last night, patient went into further delirium tremens, and could not be sedated enough to control her ribbon inker withdrawal without having to intubate the patient. Patient was intubated and she is now on mechanical ventilation. Her ventilator settings this morning are assist control rate of 16 and I cut it down to 14 tidal volume of 350 FiO2 is 30% and PEEP of 5. Patient is on propofol at 75 mcg/kg/m, and she was noted to have metabolic acidosis this morning, went ahead and recommended a sodium bicarb drip. ABG showed a pO2 of 196 pCO2 of 35 pH of 7.25 WBC count is 7 hemoglobin is 11.2 potassium is low at 2.4 being corrected as per protocol. Bicarb is 17, renal profile is normal. Liver enzymes are improving compared to yesterday. Calcium is 7.7 however her albumin is 3.0. Chest x-ray showed some subsegmental changes of the left lung base, mostly related to atelectasis. Patient required significant amount of fluid boluses for low blood pressure yesterday, however did not require to be placed on norepinephrine. Urine culture is positive for E. coli, patient has been on Rocephin alone. Objective - Vital Signs Vital signs: Vital Signs Temp 35.3 F L 07/27/19 08:00 Pulse 70 07/27/19 10:00 Resp 14 07/27/19 10:00 BP 94/64 07/27/19 10:00 Pulse Ox 100 07/27/19 10:00 Intake & Output 07/26/19 07/27/19 07/27/19 18:59 06:59 18:59 Intake Total 425 3859.565 1985 Output Total 355 1268 140 Balance 70 2591.565 1845 Intake: IV 3600 1925 Dextrose 5% in Water 1, 225 000 ml @ 75 mls/hr IV . [id number] [facility] with Sodium Bicarb (1 Meq/ml) 150 ml Rx#:[id number] Magnesium Sulfate-D5w Pmx 200 1 gm In Dextrose/Water 1 100ml.bag @ 100 mls/hr IVPB Q1H [facility] Rx#: [id number] Potassium Chloride 20 meq 250 In Water For Injection 1 100ml.bag @ 50 mls/hr IVPB Q2HR [facility] Rx#: [id number] Sodium Chloride 0.9% 1, 1100 250 000 ml @ 50 mls/hr IV . Q20H [facility] Rx#:[id number] Sodium Chloride 0.9% 1, 2500 1000 000 ml @ 999 mls/hr IV . Q1H1M [facility] Rx#:[id number] Intake, IV Titration 425 259.565 Amount Propofol 1,000 mg In 64.038 Empty Bag 1 bag @ Titrate IV .Q0M [facility] Rx#: [id number] Propofol 1,000 mg In 195.527 Empty Bag 1 bag @ Titrate IV .Q0M [facility] Rx#: [id number] Sodium Chloride 0.9% 1, 375 000 ml @ 50 mls/hr IV . Q20H [facility] Rx#:[id number] cefTRIAXone 1 gm In 50 Sodium Chloride 0.9% 50 ml @ 100 mls/hr IVPB Q24H [facility] Rx#:[id number] Oral 60 Output: Urine 355 1268 140 Uretheral (Kunz) 100 Other: Voiding Method Indwelling Catheter Indwelling Catheter ABP, PAP, CO, CI - Last Documented Arterial Blood Pressure 91/41 - Exam GENERAL EXAM: Revealed a 44-year-old female, intubated, on propofol drip, sedat ed, however easily arousable and gets agitated. HEAD: Normocephalic. Atraumatic. EENT: PERRLA, EOMI, no active, no neck masses no JVD, endotracheal tube and orogastric tube are intact. CHEST: No chest wall deformity. LUNGS: Clear throughout no crackles or rhonchi or wheezes. CVS: S1 and S2 normal with no audible murmur, regular rhythm. ABDOMEN: Flat, soft, nontender, no megaly, no rebound, positive bowel sounds. SPINE: No scoliosis or deformity SKIN: No rashes, poor skin turgor. CENTRAL NERVOUS SYSTEM: Sedated, on propofol, however gets extremely agitated when aroused from sedation. Otherwise no gross focal deficits. EXTREMITIES: There is no peripheral edema. No clubbing, no cyanosis. Pe ripheral pulses are intact. Psychiatric: Could not be assessed. Lymphatics: No lymphadenopathy. - Labs CBC & Chem 7: 07/27/19 04:24 07/27/19 04:24 Labs: Abnormal Lab Results - Last 24 Hours (Table) 07/26/19 07/26/19 07/26/19 Range/Units 12:00 12:00 20:18 WBC 10.9 H (3.8-10.6) k/uL RBC (3.80-5.40) m/uL Hgb (11.4-16.0) gm/dL Hct (34.0-46.0) % MCV 106.4 H (80.0-100.0) fL MCH 35.3 H (25.0-35.0) pg Plt Count 108 L (150-450) k/uL Neutrophils # 8.4 H (1.3-7.7) k/uL ABG pH 7.34 L (7.35-7.45) ABG pO2 >400 H (83-108) mmHg ABG HCO3 19 L (21-25) mmol/L ABG Total CO2 (19-24) mmol/L ABG O2 Saturation 100.0 H (94-97) % Sodium 134 L (137-145) mmol/L Potassium (3.5-5.1) mmol/L Chloride (98-107) mmol/L Carbon Dioxide 17 L (22-30) mmol/L BUN (7-17) mg/dL Creatinine 0.40 L (0.52-1.04) mg/dL Glucose (74-99) mg/dL Calcium (8.4-10.2) mg/dL Total Bilirubin 1.5 H (0.2-1.3) mg/dL Delta Bilirubin (0.0-0.2) mg/dL AST 180 H (14-36) U/L ALT 61 H (4-34) U/L Alkaline Phosphatase 138 H (38-126) U/L Total Protein (6.3-8.2) g/dL Albumin (3.5-5.0) g/dL 07/27/19 07/27/19 07/27/19 Range/Units 04:24 04:24 07:21 WBC (3.8-10.6) k/uL RBC 3.15 L (3.80-5.40) m/uL Hgb 11.2 L (11.4-16.0) gm/dL Hct 33.9 L (34.0-46.0) % MCV 107.7 H (80.0-100.0) fL MCH 35.6 H (25.0-35.0) pg Plt Count 108 L (150-450) k/uL Neutrophils # (1.3-7.7) k/uL ABG pH 7.25 L (7.35-7.45) ABG pO2 196 H (83-108) mmHg ABG HCO3 15 L (21-25) mmol/L ABG Total CO2 16 L (19-24) mmol/L ABG O2 Saturation 99.1 H (94-97) % Sodium (137-145) mmol/L Potassium 2.4 L* (3.5-5.1) mmol/L Chloride 116 H (98-107) mmol/L Carbon Dioxide 17 L (22-30) mmol/L BUN 6 L (7-17) mg/dL Creatinine 0.31 L (0.52-1.04) mg/dL Glucose 72 L (74-99) mg/dL Calcium 7.7 L (8.4-10.2) mg/dL Total Bilirubin (0.2-1.3) mg/dL Delta Bilirubin 0.4 H (0.0-0.2) mg/dL AST 141 H (14-36) U/L ALT 52 H (4-34) U/L Alkaline Phosphatase (38-126) U/L Total Protein 5.4 L (6.3-8.2) g/dL Albumin 3.0 L (3.5-5.0) g/dL Microbiology - Last 24 Hours (Table) 07/24/19 23:30 Urine Culture - Final Urine,Voided Escherichia coli Assessment and Plan Assessment: Impression: Acute respiratory failure secondary to alcohol withdrawal and difficulty prot ecting her airways. History of alcoholism History of alcohol withdrawal with seizures Chronic and ongoing tobacco dependence Urinary tract infection secondary to E. coli. Acute metabolic acidosis, secondary to hypovolemia and hypoperfusion. Strongly doubt sepsis. Acute hypokalemia and hypomagnesemia, being corrected as per protocol. Recommendation: Continue ventilatory support. Initiated nutritional support via enteral feeding. Continue IV fluids, no need for pressors at this point. Continue propofol, assess mental status on a daily basis. Continue Rocephin for her urinary tract infection Continue GI and DVT prophylaxis Continue bronchodilators. Sodium bicarb drip was placed for her metabolic acidosis and this would be discontinued likely in the next 24 hours. Corrected electrolytes accordingly. Continue seizure precautions. Continue nicotine patches Follow-up daily chest x-rays while intubated and on mechanical ventilation. We'll continue to follow. Critical care time is 35 minutes. Time with Patient: Greater than 30
--- NOTE | 2019-07-27 14:58 | P.PN ---
Subjective This is a pleasant 44 years old female with past medical history of hypertension and alcohol use, depression and anxiety, cigarette smoker, drinks about 8-12 beers per day. Patient presents on 07/24/2019 for seizure, with urine incontinence. Patient has history of local withdrawal seizure and she was drinking to one day before coming to the hospital. CT of the brain showing no acute process, mild atrophy with nonspecific white matter hypodensity suspected to be of a chronic small vessel ischemic disease and recommended follow-up MRI. EKG showed normal sinus rhythm with prolonged QTc at 518. Patient was admitted for alcohol withdrawal as placed on CIWA protocol, Today patient is delirious, she is to continue the blood pressure machine, she talks to penicillin with an understandable words. She could not tell where she is at about she remembers is 2018 and she remembers name of the president. However she could not provide history because she keep distracted and talking to the ceiling. She has severe tremors in her upper and lower extremity area she opened her arms and the air when she talks to the ceiling. She could not answer clearly if she sees other people or hears forces. Her CIWA score was 16-17 as per staff. She is tachycardic at 120, rest of vital signs stable and she is afebrile. She has no labs from today however she was hypokalemic yesterday and her liver enzymes were trending down. Urine analysis is suspicious for infection after discussed cloudy with large leukocyte esterase and WBC of 83. C. diff is negative 07/27/2019 Patient got into respiratory distress last night with severe tachypnia up to 30 and more, patient eventually needed to be intubated. Currently patient is on mechanical ventilation in the ICU. With pulmonary critical care team: A closely. Blood pressure 103/56 mL came back to normal, hemoglobin is 11.2, platelets 108. Potassium was low at 2.4 which is been replaced. Magnesium 1.7 Review of systems: None applicable Active Medications Generic Name Dose Route Start Last Admin Trade Name Freq PRN Reason Stop Dose Admin Acetaminophen 650 mg 07/24/19 16:59 Tylenol Tab PO Q6HR PRN Mild Pain or Fever > 100.5 Carvedilol 6.25 mg 07/25/19 08:45 07/27/19 09:16 Coreg PO 6.25 mg BID-W/MEALS GARTH Administration Chlordiazepoxide HCl 10 mg 07/26/19 09:00 07/27/19 13:18 Librium PO 10 mg QID GARTH Administration Chlorhexidine Gluconate 15 ml 07/26/19 21:00 07/27/19 09:17 Peridex MUCOUS MEM 15 ml BID GARTH Administration Folic Acid 1 mg 07/26/19 12:00 07/27/19 09:16 Folic Acid PO 1 mg DAILY GARTH Administration Heparin Sodium (Porcine) 5,000 unit 07/25/19 00:00 07/27/19 09:16 Heparin SQ 5,000 unit Q8HR GARTH Administration Hydralazine HCl 10 mg 07/25/19 23:00 07/25/19 22:56 Apresoline IVP 10 mg Q6HR PRN Administration Blood Pressure - High Hydromorphone HCl 0.5 mg 07/26/19 20:38 07/27/19 09:50 Dilaudid IVP 0.5 mg Q2HR PRN Administration Pain Sodium Chloride 1,000 mls @ 50 mls/hr 07/24/19 17:00 07/27/19 14:38 Saline 0.9% IV 50 mls/hr .Q20H GARTH Administration Ceftriaxone Sodium 1 gm/ 50 mls @ 100 mls/hr 07/26/19 15:00 07/27/19 14:36 Sodium Chloride IVPB 100 mls/hr Q24H GARTH Administration Propofol 1,000 mg/ IV Solution 100 mls @ 0 mls/hr 07/26/19 21:00 07/27/19 12:02 IV 75 mcg/kg/min .Q0M GARTH 24.494 mls/hr Administration Protocol Titrate Potassium Chloride 20 meq/ IV 100 mls @ 50 mls/hr 07/27/19 08:00 07/27/19 12:12 Solution IVPB 07/27/19 15:59 50 mls/hr Q2HR GARTH Administration Protocol Sodium Bicarbonate 150 ml/ 1,150 mls @ 75 mls/hr 07/27/19 08:30 07/27/19 08:42 Dextrose/Water IV 75 mls/hr .[id number] GARTH Administration Lorazepam 1 mg 07/24/19 17:01 07/26/19 05:18 Ativan IV 1 mg Q2HR PRN Administration CIWA 8 or 9 Lorazepam 1 mg 07/24/19 17:01 07/26/19 11:31 Ativan IV 1 mg Q1HR PRN Administration CIWA 10 to 15 Miscellaneous Information 1 each 07/27/19 07:15 Potassium Per Protocol MISCELLANE DAILY PRN Per Protocol Protocol Miscellaneous Information 1 each 07/27/19 07:16 Magnesium Per Protocol MISCELLANE DAILY PRN Per Protocol Protocol Multivitamins 1 each 07/26/19 12:00 07/27/19 09:18 Theragran PO 1 each DAILY GARTH Administration Naloxone HCl 0.2 mg 07/24/19 16:59 Narcan IV Q2M PRN Opioid Reversal Nicotine 1 patch 07/26/19 09:00 07/27/19 09:16 Habitrol 21mg/24hr Patch TRANSDERM 1 patch DAILY GARTH Administration Ondansetron HCl 4 mg 07/24/19 16:59 Zofran IVP Q8HR PRN Nausea And Vomiting Pantoprazole Sodium 40 mg 07/27/19 09:00 07/27/19 09:16 Protonix IVP 40 mg DAILY GARTH Administration Thiamine HCl 100 mg 07/26/19 21:00 07/27/19 09:17 Vitamin B-1 IVP 100 mg BID GARTH Administration Objective - Vital Signs Vital signs: Vital Signs Temp 95.7 F L 07/27/19 12:00 Pulse 68 07/27/19 14:00 Resp 14 07/27/19 14:00 BP 94/67 07/27/19 12:00 Pulse Ox 100 07/27/19 14:00 Intake & Output 07/26/19 07/27/19 07/27/19 18:59 06:59 18:59 Intake Total 425 3859.565 2715 Output Total 355 1268 255 Balance 70 2591.565 2460 Weight 54.431 kg Intake: IV 3600 2525 Dextrose 5% in Water 1, 525 000 ml @ 75 mls/hr IV . [id number] GARTH with Sodium Bicarb (1 Meq/ml) 150 ml Rx#:[id number] Magnesium Sulfate-D5w Pmx 200 1 gm In Dextrose/Water 1 100ml.bag @ 100 mls/hr IVPB Q1H GARTH Rx#: [id number] Potassium Chloride 20 meq 350 In Water For Injection 1 100ml.bag @ 50 mls/hr IVPB Q2HR GARTH Rx#: [id number] Sodium Chloride 0.9% 1, 1100 450 000 ml @ 50 mls/hr IV . Q20H [facility] Rx#:[id number] Sodium Chloride 0.9% 1, 2500 1000 000 ml @ 999 mls/hr IV . Q1H1M ONE Rx#:[id number] Intake, IV Titration 425 259.565 100 Amount Propofol 1,000 mg In 64.038 Empty Bag 1 bag @ Titrate IV .Q0M GARTH Rx#: [id number] Propofol 1,000 mg In 195.527 100 Empty Bag 1 bag @ Titrate IV .Q0M GARTH Rx#: [id number] Sodium Chloride 0.9% 1, 375 000 ml @ 50 mls/hr IV . Q20H [facility] Rx#:[id number] cefTRIAXone 1 gm In 50 Sodium Chloride 0.9% 50 ml @ 100 mls/hr IVPB Q24H [facility] Rx#:[id number] Oral 90 Output: Urine 355 1268 255 Uretheral (Kunz) 100 Other: Voiding Method Indwelling Catheter Indwelling Catheter Indwelling Catheter ABP, PAP, CO, CI - Last Documented Arterial Blood Pressure 103/56 - Exam -GENERAL: The patient is confused and delirious and talking to the ceiling and blood pressure machine HEENT: Pupils are round and equally reacting to light. EOMI. No scleral icterus. No conjunctival pallor. Normocephalic, atraumatic. No pharyngeal erythema. No thyromegaly. CARDIOVASCULAR: S1 and S2 present. No murmurs, rubs, or gallops. PULMONARY: Chest is clear to auscultation, no wheezing or crackles. ABDOMEN: Soft, nontender, nondistended, normoactive bowel sounds. No palpable organomegaly. MUSCULOSKELETAL: No joint swelling or deformity. -EXTREMITIES: No cyanosis, clubbing, or pedal edema. Course tremors in the upper and lower extremities NEUROLOGICAL: Gross neurological examination did not reveal any focal deficits. SKIN: No rashes. no petechiae. - Labs CBC & Chem 7: 07/27/19 04:24 07/27/19 04:24 Labs: Abnormal Lab Results - Last 24 Hours (Table) 07/26/19 07/27/19 07/27/19 Range/Units 20:18 04:24 04:24 RBC 3.15 L (3.80-5.40) m/uL Hgb 11.2 L (11.4-16.0) gm/dL Hct 33.9 L (34.0-46.0) % MCV 107.7 H (80.0-100.0) fL MCH 35.6 H (25.0-35.0) pg Plt Count 108 L (150-450) k/uL ABG pH 7.34 L (7.35-7.45) ABG pO2 >400 H (83-108) mmHg ABG HCO3 19 L (21-25) mmol/L ABG Total CO2 (19-24) mmol/L ABG O2 Saturation 100.0 H (94-97) % Potassium 2.4 L* (3.5-5.1) mmol/L Chloride 116 H (98-107) mmol/L Carbon Dioxide 17 L (22-30) mmol/L BUN 6 L (7-17) mg/dL Creatinine 0.31 L (0.52-1.04) mg/dL Glucose 72 L (74-99) mg/dL Calcium 7.7 L (8.4-10.2) mg/dL Delta Bilirubin 0.4 H (0.0-0.2) mg/dL AST 141 H (14-36) U/L ALT 52 H (4-34) U/L Total Protein 5.4 L (6.3-8.2) g/dL Albumin 3.0 L (3.5-5.0) g/dL 07/27/19 Range/Units 07:21 RBC (3.80-5.40) m/uL Hgb (11.4-16.0) gm/dL Hct (34.0-46.0) % MCV (80.0-100.0) fL MCH (25.0-35.0) pg Plt Count (150-450) k/uL ABG pH 7.25 L (7.35-7.45) ABG pO2 196 H (83-108) mmHg ABG HCO3 15 L (21-25) mmol/L ABG Total CO2 16 L (19-24) mmol/L ABG O2 Saturation 99.1 H (94-97) % Potassium (3.5-5.1) mmol/L Chloride (98-107) mmol/L Carbon Dioxide (22-30) mmol/L BUN (7-17) mg/dL Creatinine (0.52-1.04) mg/dL Glucose (74-99) mg/dL Calcium (8.4-10.2) mg/dL Delta Bilirubin (0.0-0.2) mg/dL AST (14-36) U/L ALT (4-34) U/L Total Protein (6.3-8.2) g/dL Albumin (3.5-5.0) g/dL Microbiology - Last 24 Hours (Table) 07/26/19 22:16 Sputum Culture - Preliminary Sputum 07/24/19 23:30 Urine Culture - Final Urine,Voided Escherichia coli Assessment and Plan Assessment: Severe Delirium tremens Patient needing intubation to protect airway well need in her doses of benzodiazepines for her worsening delirium tremens Alcohol withdrawal Seizure, suspected for alcohol withdrawal seizure versus others Alcohol abuse Acute urinary tract infection Electrolytes abnormalities with hypokalemia nonspecific white matter hypodensity suspected to be of a chronic small vessel ischemic disease and recommended follow-up MRI, prolonged QTc interval Plan: This is a pleasant 44 years old female who presents with alcohol withdrawal, suspected for withdrawal. continue with CIWA protocol. Patient might need neurology evaluation. Continue with thiamine. Continue with Protonix. Continue with nicotine patch. Continue with mechanical ventilation. Continue with Rocephin Labs and medication were reviewed.. Continue same treatment. Continue with symptomatic treatment. Resume home medication. Monitor lytes and vitals. DVT and GI prophylaxis. Further recommendations of the clinical course of the patient DVT prophylaxis: Subcutaneous heparin GI Prophylaxis: Ppi Prognosis is guarded
[2019-07-27] MEDS: POTASSIUM BICARBONATE/CIT AC 20 MEQ TABLET.EFF NG-TUBE SCH ×4 (16:20→21:00)
[2019-07-28 00:13] LABS: Glucose,Whole Blood 114 mg/dL (75-99)
[2019-07-28] MEDS: LORazepam 2 MG/ML INJ IV PRN ×3 (02:29→20:13)
[2019-07-28] MEDS: HYDROmorphone 0.5 MG/0.5 ML SYRINGE IVP PRN ×8 (04:03→22:19)
[2019-07-28 04:15] LABS: ABG Base Excess -0.7 mmol/L; ABG HCO3 24 mmol/L (21-25); ABG Oxygen Saturation 98.7 % (94-97); ABG PCO2 38 mmHg (35-45); ABG PH 7.41 (7.35-7.45); ABG PO2 110 mmHg (83-108); ABG TCO2 25 mmol/L (19-24)
[2019-07-28 04:17] LABS: Allen Test Performed? no
[2019-07-28 04:44] LABS: Basophils % (A) 0 %; Eosinophils # (A) 0.2 k/uL (0-0.7); Eosinophils % (A) 3 %; HCT 32.7 % (34.0-46.0); HGB 11.2 gm/dL (11.4-16.0); Lymphocytes # (A) 1.3 k/uL (1.0-4.8); Lymphocytes % (A) 20 %; MCHC 34.3 g/dL (31.0-37.0); MCV 107.9 fL (80.0-100.0); Macrocytosis Moderate; Mean Platelet Volume 9.3; Monocytes # (A) 0.5 k/uL (0-1.0); Monocytes % (A) 8 %; Neutrophils # (A) 4.2 k/uL (1.3-7.7); Neutrophils % (A) 67 %; Platelet Count 124 k/uL (150-450); RBC 3.03 m/uL (3.80-5.40); RDW 13.7 % (11.5-15.5); WBC 6.2 k/uL (3.8-10.6)
[2019-07-28 05:00] LABS: ALT 81 U/L (4-34); AST 212 U/L (14-36); African American GFR (CKD) >90 (>60 ml/min/1.73 sqM); Albumin 2.7 g/dL (3.5-5.0); Alkaline Phosphatase 127 U/L (38-126); Anion Gap 5 mmol/L; Bilirubin, Delta 0.4 mg/dL (0.0-0.2); Bilirubin,Unconjugated 0.2 mg/dL (0.0-1.1); Blood Urea Nitrogen 3 mg/dL (7-17); Calcium 6.8 mg/dL (8.4-10.2); Carbon Dioxide 24 mmol/L (22-30); Chloride 110 mmol/L (98-107); Glucose 110 mg/dL (74-99); Non-African American GFR(CKD) >90 (>60 ml/min/1.73 sqM); Potassium 3.3 mmol/L (3.5-5.1); Sodium 139 mmol/L (137-145); Total Bilirubin 0.6 mg/dL (0.2-1.3)
[2019-07-28] MEDS: POTASSIUM BICARBONATE/CIT AC 20 MEQ TABLET.EFF NG-TUBE SCH ×2 (05:14→06:24)
[2019-07-28 06:17] LABS: Glucose,Whole Blood 112 mg/dL (75-99)
[2019-07-28] MEDS: CARVEDILOL 6.25 MG TAB PO SCH ×2 (06:30→17:09)
--- NOTE | 2019-07-28 07:15 | XR ---
EXAMINATION TYPE: XR chest 1V portable DATE OF EXAM: 07/28/2019 COMPARISON: 07/27/2019 HISTORY: Ventilatory dependent respiratory failure. TECHNIQUE: Single frontal view of the chest is obtained. FINDINGS: Overall improved aeration of the lungs. Endotracheal and enteric tubes are similar in posit ion to the prior. There is no focal air space opacity, pleural effusion, or pneumothorax seen. The c ardiac silhouette size is within normal limits. The osseous structures are intact. IMPRESSION: Improved aeration the lungs. Very minimal bibasilar subsegmental atelectasis.
[2019-07-28] MEDS: MULTIVITAMINS, THERA 1 EACH TAB PO SCH (08:30)
[2019-07-28] MEDS: PANTOPRAZOLE 40 MG/10 ML VIAL IVP SCH (08:30)
[2019-07-28] MEDS: FOLIC ACID 1 MG TAB PO SCH (08:30)
[2019-07-28] MEDS: CHLORHEXIDINE GLUCONATE 15 ML CUP MUCOUS MEM SCH ×2 (08:30→21:42)
[2019-07-28] MEDS: HEPARIN SODIUM,PORCINE 5,000 UNIT/ML 1 ML VIAL SQ SCH ×3 (08:31→23:52)
[2019-07-28] MEDS: NICOTINE 21MG/24HR PATCH TRANSDERM SCH (08:31)
[2019-07-28] MEDS ORDERED: LORazepam 2 MG/ML INJ IV STA (08:58)
[2019-07-28] MEDS: PROPOFOL 1,000 MG in EMPTY BAG 1 BAG IV SCH ×3 (09:40→19:47)
[2019-07-28] MEDS: THIAMINE 100 MG/ML 2 ML VIAL IVP SCH ×2 (09:54→21:42)
--- NOTE | 2019-07-28 11:22 | CT ---
EXAMINATION TYPE: CT brain wo con DATE OF EXAM: 07/28/2019 COMPARISON: 07/28/2019 HISTORY: Seizures, ETOH Withdraw CT DLP: 1090.4 mGycm. Automated Exposure Control for Dose Reduction was Utilized. TECHNIQUE: CT scan of the head is performed without contrast. FINDINGS: There is no acute intracranial hemorrhage or midline shift identified. Dystrophic calcifi cations are seen within the right basal ganglia. There is diffuse ventricular and sulcal prominence c onsistent with diffuse age-related cerebral atrophy. There is low-attenuation in the periventricular white matter consistent with chronic small vessel ischemic change. The globes are intact and the vi sualized sinuses are clear. IMPRESSION: No acute intracranial hemorrhage or midline shift. There is diffuse age-related cerebra l atrophy and chronic small vessel ischemic change noted.
[2019-07-28] MEDS: IPRATROPIUM-ALBUTEROL 3 ML NEB INHALATION SCH ×4 (11:32→23:24)
[2019-07-28 11:35] LABS: Glucose,Whole Blood 97 mg/dL (75-99)
[2019-07-28] MEDS: SODIUM CHLORIDE 0.9% 1,000 ML IV SCH (11:52)
[2019-07-28] MEDS: POTASSIUM CHLORIDE 10 MEQ in WATER FOR INJECTION 1 100ML.BAG IVPB SCH ×2 (12:42→14:13)
--- NOTE | 2019-07-28 13:09 | PN ---
PROGRESS NOTE PULMONARY/CRITICAL CARE PROGRESS NOTE: DATE OF SERVICE: July 28, 2019 CRITICAL CARE TIME: 34 minutes This is a 44-year-old female that was admitted on July 24 for alcohol withdrawal and seizures. She was intubated on the 26 of July because of respiratory failure. The patient is currently on the volume assist-control mode rate of 14, tidal volume 350, FiO2 30%, PEEP of 5. Blood gases show a pO2 of 110, pCO2 of 38, pH 7.41. The patient is currently on 0.9 at 50 mL an hour, propofol at 75 mcg/kg per minute, D5W with 3 amps of bicarb at 75 mL an hour and Vital high-protein at 15 with a goal of 15 mL an hour. We are planning to do a daily interruption of sedation on this patient with potential spontaneous breathing trial. We will place her on PSV 5, CPAP of 5 when she is fully awake. Unfortunately, we did do that and when we did do that, and the patient was off a sedation, we started noticing some tremors of the upper extremities. She also had deviation of the head up to the left and the eyes deviated upward to the left. Hence, the patient's spontaneous breathing trial was aborted. We did give her some Ativan about 5 mg to see if any of this would stop. In addition, we asked for stat neurology consultation, stat CT scan of the brain and also a stat EEG. We will hold off on any additional weaning until this is resolved. The sodium bicarbonate drip was also discontinued. PHYSICAL EXAMINATION: VITAL SIGNS: Current vital signs are reviewed. Temperature is 97.7, heart rate 71, respiratory rate is 14, blood pressure 140/95, mean 110 and saturations are 96%. GENERAL: Appears in no acute distress currently. Currently re-sedated. HEENT: Examination is grossly unremarkable. There is an orally placed endotracheal tube and NG tube. NECK: Supple. CARDIOVASCULAR: Examination reveals regular rhythm and rate. Heart rate 70 beats per minute. S1, S2 normal. Heart sounds are distant. LUNGS: Reveal diffuse rhonchi. No wheezes or crackles. Breath sounds equal. ABDOMEN: Soft. Bowel sounds are heard. EXTREMITIES: Are intact. No cyanosis, clubbing, or edema. SKIN: Without rash. NEUROLOGIC: Examination is difficult to assess. When she was off her propofol, she was poorly responsive. She was still intubated obviously. Her head was deviated upward to the left as were her eyes. In addition, she had a fine tremulous movement and possible seizure activity of the upper extremities. LABORATORY DATA: Current laboratory data includes a white count 6.2, hemoglobin 11.2, hematocrit 32.7, platelet count a 124,000. Blood gases have been noted. Sodium 139, potassium 3.3, chloride 110, CO2 of 24. Anion gap is 5. BUN and creatinine were 3 and 0.29. AST was 212, ALT was 81. Albumin 2.7. Microbiology includes evidence of Escherichia coli in the urine from July 24. She is apparently on Rocephin or ceftriaxone for that. The chest x-ray from this morning looks to be clear. I do not see any acute infiltrates. Endotracheal tube is in good position. A repeat stat CT scan of the brain without contrast shows no acute intracranial hemorrhage or midline shift. There is cerebral atrophy and chronic small-vessel ischemic changes noted. MEDICATIONS: Medications are reviewed. ASSESSMENT: 1. Acute hypoxemic respiratory failure secondary to alcohol withdrawal syndrome and inability to protect her airway. 2. Possible new onset seizure activity. 3. History of chronic alcohol abuse with alcohol withdrawal syndrome and seizure. 4. Chronic and ongoing tobacco dependence. 5. Escherichia coli urinary tract infection, currently treated with Rocephin. 6. Acute metabolic acidosis, resolved. 7. Hypokalemia. 8. Hypomagnesemia. 9. Moderate elevation of liver enzymes. PLAN: The patient will be seen by Neurology and have a stat EEG. She did receive Ativan 5 mg. Bicarb drip is discontinued. We aborted the spontaneous breathing trial. Additional recommendations and suggestions are forthcoming. Prognosis is guarded. CRITICAL CARE TIME: 34 minutes. MMODL / IJN: [id number] /
--- NOTE | 2019-07-28 14:30 | EEG ---
ELECTROENCEPHALOGRAM REPORT PROCEDURE DATE: 07/28/2019 ELECTROENCEPHALOGRAM (EEG) REPORT: TECHNIQUE: A routine 18 channel EEG was performed with video using the 10/20 international electrode placement system. HISTORY: Alcohol withdrawal induced seizures. The patient was intubated in the emergency room. The patient was on propofol 75 mcg, decreased to 50 mcg for the test. Ativan 5 mg was given at 9:10 a.m. CURRENT MEDICATIONS: Unknown. STUDY DURATION: 24 minutes. FINDINGS: BACKGROUND: The background activity consisted of unsustained 5 to 6 Hz rhythmic waveforms with some intermixed delta range slowing. ACTIVATION: Hyperventilation: Not performed. Photic stimulation: No driving seen. Sleep: Drowsy. ABNORMALITIES: 1. Diffuse synchronous and asynchronous 3 to 6 Hz slow wave activity was seen. 2. Occasional poorly formed triphasic waves were seen. IMPRESSION: Abnormal EEG. The poorly formed triphasic waves mentioned above are not epileptiform in nature. Triphasic waves can be seen in the setting of a metabolic encephalopathy. The diffuse synchronous and asynchronous theta delta range slowing mentioned above is not epileptiform in nature. In combination with the slow background, these findings indicate moderate diffuse cerebral dysfunction as may be seen in a toxometabolic encephalopathy. No seizures were recorded. No epileptiform activity was present. These findings were called to the patient's nurse at 2 p.m. on 07/28/2019. MMODL / IJN: [id number] /
--- NOTE | 2019-07-28 17:21 | P.PN ---
Subjective This is a pleasant 44 years old female with past medical history of hypertension and alcohol use, depression and anxiety, cigarette smoker, drinks about 8-12 beers per day. Patient presents on 07/24/2019 for seizure, with urine incontinence. Patient has history of local withdrawal seizure and she was drinking to one day before coming to the hospital. CT of the brain showing no acute process, mild atrophy with nonspecific white matter hypodensity suspected to be of a chronic small vessel ischemic disease and recommended follow-up MRI. EKG showed normal sinus rhythm with prolonged QTc at 518. Patient was admitted for alcohol withdrawal as placed on CIWA protocol, Today patient is delirious, she is to continue the blood pressure machine, she talks to penicillin with an understandable words. She could not tell where she is at about she remembers is 2018 and she remembers name of the president. However she could not provide history because she keep distracted and talking to the ceiling. She has severe tremors in her upper and lower extremity area she opened her arms and the air when she talks to the ceiling. She could not answer clearly if she sees other people or hears forces. Her CIWA score was 16-17 as per staff. She is tachycardic at 120, rest of vital signs stable and she is afebrile. She has no labs from today however she was hypokalemic yesterday and her liver enzymes were trending down. Urine analysis is suspicious for infection after discussed cloudy with large leukocyte esterase and WBC of 83. C. diff is negative 07/27/2019 Patient got into respiratory distress last night with severe tachypnia up to 30 and more, patient eventually needed to be intubated. Currently patient is on mechanical ventilation in the ICU. With pulmonary critical care team: A closely. Blood pressure 103/56 mL came back to normal, hemoglobin is 11.2, platelets 108. Potassium was low at 2.4 which is been replaced. Magnesium 1.7 07/28/2019 Patient remains in the ICU, she still intubated and was closely by pulmonary c ritical team. Blood pressure is 113/60. WBC 6.2K, hemoglobin 11.2. Potassium 3.7, creatinine 0.2, magnesium 2.0. Liver enzymes are trending up slightly. Urine culture is growing E. coli which is sensitive to antibiotics. EEG showing toxic metabolic encephalopathy with no epileptiform discharges. Brain CT no acute changes. Chest x-ray improved irrigation Review of systems: None applicable Active Medications Generic Name Dose Route Start Last Admin Trade Name Freq PRN Reason Stop Dose Admin Acetaminophen 650 mg 07/24/19 16:59 Tylenol Tab PO Q6HR PRN Mild Pain or Fever > 100.5 Albuterol/Ipratropium 3 ml 07/28/19 12:00 07/28/19 14:54 Duoneb 0.5 Mg-3 Mg/3 Ml Soln INHALATION 3 ml RT-Q4H GARTH Administration Carvedilol 6.25 mg 07/25/19 08:45 07/28/19 17:09 Coreg PO 6.25 mg BID-W/MEALS GARTH Administration Chlordiazepoxide HCl 10 mg 07/26/19 09:00 07/28/19 17:09 Librium PO 10 mg QID GARTH Administration Chlorhexidine Gluconate 15 ml 07/26/19 21:00 07/28/19 08:30 Peridex MUCOUS MEM 15 ml BID GARTH Administration Folic Acid 1 mg 07/26/19 12:00 07/28/19 08:30 Folic Acid PO 1 mg DAILY GARTH Administration Heparin Sodium (Porcine) 5,000 unit 07/25/19 00:00 07/28/19 17:09 Heparin SQ 5,000 unit Q8HR GARTH Administration Hydralazine HCl 10 mg 07/25/19 23:00 07/25/19 22:56 Apresoline IVP 10 mg Q6HR PRN Administration Blood Pressure - High Hydromorphone HCl 0.5 mg 07/26/19 20:38 07/28/19 17:08 Dilaudid IVP 0.5 mg Q2HR PRN Administration Pain Sodium Chloride 1,000 mls @ 50 mls/hr 07/24/19 17:00 07/28/19 11:52 Saline 0.9% IV 50 mls/hr .Q20H GARTH Administration Ceftriaxone Sodium 1 gm/ 50 mls @ 100 mls/hr 07/26/19 15:00 07/28/19 14:13 Sodium Chloride IVPB 100 mls/hr Q24H GARTH Administration Propofol 1,000 mg/ IV Solution 100 mls @ 0 mls/hr 07/26/19 21:00 07/28/19 1 4:53 IV 50 mcg/kg/min .Q0M GARTH 16.329 mls/hr Administration Protocol Titrate Lorazepam 1 mg 07/24/19 17:01 07/28/19 09:00 Ativan IV 1 mg Q2HR PRN Administration CIWA 8 or 9 Lorazepam 1 mg 07/24/19 17:01 07/27/19 16:55 Ativan IV 1 mg Q1HR PRN Administration CIWA 10 to 15 Miscellaneous Information 1 each 07/27/19 07:15 Potassium Per Protocol MISCELLANE DAILY PRN Per Protocol Protocol Miscellaneous Information 1 each 07/27/19 07:16 Magnesium Per Protocol MISCELLANE DAILY PRN Per Protocol Protocol Miscellaneous Information 1 each 07/27/19 15:57 Potassium Per Protocol MISCELLANE DAILY PRN Per Protocol Protocol Multivitamins 1 each 07/26/19 12:00 07/28/19 08:30 Theragran PO 1 each DAILY GARTH Administration Naloxone HCl 0.2 mg 07/24/19 16:59 Narcan IV Q2M PRN Opioid Reversal Nicotine 1 patch 07/26/19 09:00 07/28/19 08:31 Habitrol 21mg/24hr Patch TRANSDERM 1 patch DAILY GARTH Administration Ondansetron HCl 4 mg 07/24/19 16:59 Zofran IVP Q8HR PRN Nausea And Vomiting Pantoprazole Sodium 40 mg 07/27/19 09:00 07/28/19 08:30 Protonix IVP 40 mg DAILY GARTH Administration Thiamine HCl 100 mg 07/26/19 21:00 07/28/19 09:54 Vitamin B-1 IVP 100 mg BID GARTH Administration Objective - Vital Signs Vital signs: Vital Signs Temp 98.2 F 07/28/19 16:00 Pulse 61 07/28/19 16:00 Resp 21 07/28/19 16:00 BP 101/64 07/28/19 16:00 Pulse Ox 99 07/28/19 16:00 Intake & Output 07/27/19 07/28/19 07/28/19 18:59 06:59 18:59 Intake Total 3644.825 1890 1096.394 Output Total 360 500 580 Balance 3284.825 1390 516.394 Weight 54.431 kg Intake: IV 3075 1500 600 Dextrose 5% in Water 1, 825 900 150 000 ml @ 75 mls/hr IV . [id number] GARTH with Sodium Bicarb (1 Meq/ml) 150 ml Rx#:[id number] Magnesium Sulfate-D5w Pmx 200 1 gm In Dextrose/Water 1 100ml.bag @ 100 mls/hr IVPB Q1H [facility] Rx#: [id number] Potassium Chloride 20 meq 350 In Water For Injection 1 100ml.bag @ 50 mls/hr IVPB Q2HR [facility] Rx#: [id number] Sodium Chloride 0.9% 1, 650 600 450 000 ml @ 50 mls/hr IV . Q20H [facility] Rx#:[id number] Sodium Chloride 0.9% 1, 1000 000 ml @ 999 mls/hr IV . Q1H1M [facility] Rx#:[id number] cefTRIAXone 1 gm In 50 Sodium Chloride 0.9% 50 ml @ 100 mls/hr IVPB Q24H [facility] Rx#:[id number] Intake, IV Titration 269.825 100 376.394 Amount Potassium Chloride 10 meq 200 In Water For Injection 1 100ml.bag @ 100 mls/hr IVPB Q1H [facility] Rx#: [id number] Propofol 1,000 mg In 269.825 100 176.394 Empty Bag 1 bag @ Titrate IV .Q0M [facility] Rx#: [id number] Oral 90 Tube Feeding 60 150 120 Other 150 140 Output: Urine 360 500 580 Other: Voiding Method Indwelling Catheter Indwelling Catheter Indwelling Catheter ABP, PAP, CO, CI - Last Documented Arterial Blood Pressure 113/60 - Exam -GENERAL: The patient is confused and delirious and talking to the ceiling and blood pressure machine HEENT: Pupils are round and equally reacting to light. EOMI. No scleral icterus. No conjunctival pallor. Normocephalic, atraumatic. No pharyngeal erythema. No thyromegaly. CARDIOVASCULAR: S1 and S2 present. No murmurs, rubs, or gallops. PULMONARY: Chest is clear to auscultation, no wheezing or crackles. ABDOMEN: Soft, nontender, nondistended, normoactive bowel sounds. No palpable organomegaly. MUSCULOSKELETAL: No joint swelling or deformity. -EXTREMITIES: No cyanosis, clubbing, or pedal edema. Course tremors in the upper and lower extremities NEUROLOGICAL: Gross neurological examination did not reveal any focal deficits. SKIN: No rashes. no petechiae. - Labs CBC & Chem 7: 07/28/19 04:05 07/28/19 11:35 Labs: Abnormal Lab Results - Last 24 Hours (Table) 07/28/19 07/28/19 07/28/19 Range/Units 00:10 04:05 04:05 RBC 3.03 L (3.80-5.40) m/uL Hgb 11.2 L (11.4-16.0) gm/dL Hct 32.7 L (34.0-46.0) % MCV 107.9 H (80.0-100.0) fL MCH 37.0 H (25.0-35.0) pg Plt Count 124 L (150-450) k/uL ABG pO2 (83-108) mmHg ABG Total CO2 (19-24) mmol/L ABG O2 Saturation (94-97) % Potassium 3.3 L (3.5-5.1) mmol/L Chloride 110 H (98-107) mmol/L BUN 3 L (7-17) mg/dL Creatinine 0.29 L (0.52-1.04) mg/dL Glucose 110 H (74-99) mg/dL POC Glucose (mg/dL) 114 H (75-99) mg/dL Calcium 6.8 L (8.4-10.2) mg/dL Delta Bilirubin 0.4 H (0.0-0.2) mg/dL AST 212 H (14-36) U/L ALT 81 H (4-34) U/L Alkaline Phosphatase 127 H (38-126) U/L Total Protein 5.0 L (6.3-8.2) g/dL Albumin 2.7 L (3.5-5.0) g/dL 07/28/19 07/28/19 Range/Units 04:13 06:06 RBC (3.80-5.40) m/uL Hgb (11.4-16.0) gm/dL Hct (34.0-46.0) % MCV (80.0-100.0) fL MCH (25.0-35.0) pg Plt Count (150-450) k/uL ABG pO2 110 H (83-108) mmHg ABG Total CO2 25 H (19-24) mmol/L ABG O2 Saturation 98.7 H (94-97) % Potassium (3.5-5.1) mmol/L Chloride (98-107) mmol/L BUN (7-17) mg/dL Creatinine (0.52-1.04) mg/dL Glucose (74-99) mg/dL POC Glucose (mg/dL) 112 H (75-99) mg/dL Calcium (8.4-10.2) mg/dL Delta Bilirubin (0.0-0.2) mg/dL AST (14-36) U/L ALT (4-34) U/L Alkaline Phosphatase (38-126) U/L Total Protein (6.3-8.2) g/dL Albumin (3.5-5.0) g/dL Microbiology - Last 24 Hours (Table) 07/26/19 22:16 Gram Stain - Preliminary Sputum Sputum Culture - Preliminary Assessment and Plan Assessment: Severe Delirium tremens Patient needing intubation to protect airway well need in her doses of benzodiazepines for her worsening delirium tremens Alcohol withdrawal Seizure, suspected for alcohol withdrawal seizure versus others. EEG: No epileptiform activity Severe toxic metabolic encephalopathy Alcohol abuse Acute urinary tract infection Electrolytes abnormalities with hypokalemia nonspecific white matter hypodensity suspected to be of a chronic small vessel ischemic disease and recommended follow-up MRI, prolonged QTc interval Plan: This is a pleasant 44 years old female who presents with alcohol withdrawal, suspected for seizure alcohol withdrawal. continue with CIWA protocol. Patient might need neurology evaluation. Continue with thiamine. Continue with Protonix. Continue with nicotine patch. Continue with mechanical ventilation. Continue with Rocephin. Follow up recommendation by Labs and medication were reviewed.. Continue same treatment. Continue with symptomatic treatment. Resume home medication. Monitor lytes and vitals. DVT and GI prophylaxis. Further recommendations of the clinical course of the patient DVT prophylaxis: Subcutaneous heparin GI Prophylaxis: Ppi Prognosis is guarded
[2019-07-28 23:26] LABS: Glucose,Whole Blood 103 mg/dL (75-99)
[2019-07-28 23:34] LABS: INR 0.9 (<1.2); Partial Thromboplastin Time 25.3 sec (22.0-30.0); Prothrombin Time 9.8 sec (9.0-12.0)
[2019-07-29] MEDS: HYDROmorphone 0.5 MG/0.5 ML SYRINGE IVP PRN ×10 (00:27→23:39)
[2019-07-29] MEDS: LORazepam 2 MG/ML INJ IV PRN ×4 (01:23→23:04)
[2019-07-29] MEDS: IPRATROPIUM-ALBUTEROL 3 ML NEB INHALATION SCH ×6 (03:03→23:02)
[2019-07-29 04:20] LABS: ABG Base Excess 1.3 mmol/L; ABG HCO3 26 mmol/L (21-25); ABG Oxygen Saturation 98.2 % (94-97); ABG PCO2 42 mmHg (35-45); ABG PO2 98 mmHg (83-108); ABG TCO2 27 mmol/L (19-24)
[2019-07-29 04:22] LABS: Allen Test Performed? no
[2019-07-29 04:37] LABS: Basophils % (A) 1 %; Eosinophils # (A) 0.2 k/uL (0-0.7); Eosinophils % (A) 3 %; HCT 33.3 % (34.0-46.0); HGB 10.9 gm/dL (11.4-16.0); Lymphocytes # (A) 1.4 k/uL (1.0-4.8); Lymphocytes % (A) 25 %; MCH 35.7 pg (25.0-35.0); MCHC 32.7 g/dL (31.0-37.0); Macrocytosis Marked; Mean Platelet Volume 9.2; Monocytes # (A) 0.6 k/uL (0-1.0); Monocytes % (A) 11 %; Neutrophils # (A) 3.2 k/uL (1.3-7.7); Neutrophils % (A) 58 %; Platelet Count 166 k/uL (150-450); RBC 3.05 m/uL (3.80-5.40); RDW 13.9 % (11.5-15.5); WBC 5.5 k/uL (3.8-10.6)
[2019-07-29 04:49] LABS: INR 0.9 (<1.2); Prothrombin Time 10.2 sec (9.0-12.0)
[2019-07-29 04:53] LABS: ALT 77 U/L (4-34); AST 119 U/L (14-36); African American GFR (CKD) >90 (>60 ml/min/1.73 sqM); Albumin 2.4 g/dL (3.5-5.0); Alkaline Phosphatase 109 U/L (38-126); Anion Gap 2 mmol/L; Bilirubin, Delta 0.6 mg/dL (0.0-0.2); Blood Urea Nitrogen <2 mg/dL (7-17); Calcium 7.4 mg/dL (8.4-10.2); Carbon Dioxide 25 mmol/L (22-30); Chloride 110 mmol/L (98-107); Glucose 91 mg/dL (74-99); Magnesium 1.9 mg/dL (1.6-2.3); Non-African American GFR(CKD) >90 (>60 ml/min/1.73 sqM); Sodium 137 mmol/L (137-145); Total Bilirubin 0.6 mg/dL (0.2-1.3); Total Protein 4.7 g/dL (6.3-8.2)
[2019-07-29] MEDS: PROPOFOL 1,000 MG in EMPTY BAG 1 BAG IV SCH ×4 (05:05→23:44)
[2019-07-29 05:11] LABS: Potassium 3.5 mmol/L (3.5-5.1)
[2019-07-29] MEDS: POTASSIUM BICARBONATE/CIT AC 20 MEQ TABLET.EFF NG-TUBE SCH ×2 (05:23→06:29)
[2019-07-29 05:58] LABS: Polychromasia Present
[2019-07-29 05:59] LABS: Anisocytosis (M) Present
[2019-07-29] MEDS: CARVEDILOL 6.25 MG TAB PO SCH ×3 (06:29→18:41)
[2019-07-29] MEDS: SODIUM CHLORIDE 0.9% 1,000 ML IV SCH (06:30)
[2019-07-29 06:41] LABS: Glucose,Whole Blood 82 mg/dL (75-99)
--- NOTE | 2019-07-29 07:23 | XR ---
EXAMINATION TYPE: XR chest 1V portable DATE OF EXAM: 07/29/2019 CLINICAL HISTORY: Difficulty breathing progress study. TECHNIQUE: Single AP portable semiupright view of the chest is obtained. COMPARISON: Chest x-ray from one day earlier and older studies. FINDINGS: An endotracheal tube and orogastric tube are stable in appearance. Worsening left basilar opacity silhouetting left hemidiaphragm. Right lung remains clear. Cardiac silhouette size stable and upper limits of normal. Osseous structures are intact. IMPRESSION: Worsening left basilar acute infiltrate and/or atelectasis with probable small to tiny le ft pleural effusion.
[2019-07-29] MEDS: CHLORHEXIDINE GLUCONATE 15 ML CUP MUCOUS MEM SCH ×2 (07:46→21:36)
[2019-07-29] MEDS: MULTIVITAMINS, THERA 1 EACH TAB PO SCH (07:46)
[2019-07-29] MEDS: FOLIC ACID 1 MG TAB PO SCH (07:46)
[2019-07-29] MEDS: HEPARIN SODIUM,PORCINE 5,000 UNIT/ML 1 ML VIAL SQ SCH ×3 (07:46→23:39)
[2019-07-29] MEDS: PANTOPRAZOLE 40 MG/10 ML VIAL IVP SCH (07:46)
[2019-07-29] MEDS: NICOTINE 21MG/24HR PATCH TRANSDERM SCH (07:47)
[2019-07-29] MEDS: THIAMINE 100 MG/ML 2 ML VIAL IVP SCH ×2 (07:48→21:36)
--- NOTE | 2019-07-29 10:20 | PN ---
PROGRESS NOTE PULMONARY/CRITICAL CARE PROGRESS NOTE: DATE OF SERVICE: July 29, 2019 CRITICAL CARE TIME: 34 minutes This is a 44-year-old female that was admitted on July 24 for alcohol withdrawal syndrome and seizures. She was intubated on the because of respiratory failure and inability to protect her airway. The patient remains on the ventilator. She was dyssynchronous this morning when the nurse called me. We switched her from the volume assist-control mode to the VC plus mode. She is currently on VC plus, her respiratory rate 22, inspiratory time or TI is 0.8 seconds. Her targeted tidal volume is 350, FiO2 25%, PEEP of 5. Arterial blood gases on the volume assist-control mode pO2 of 98, pCO2 of 42, and pH is 7.4. She is getting saline at 50 mL an hour, Diprivan at 50 mcg/kg per minute and Vital high-protein at 15 mL an hour with a goal of 15 mL an hour. The patient was to see Neurology yesterday. Apparently Dr. Boyce called in sick. She did have an EEG which showed slowing and findings consistent with metabolic/toxic encephalopathy. CT of the brain was negative. Yesterday, when we did the daily interruption of sedation, I was not sure whether not she was having a seizure. Her head was deviated upward and to the left. Her eyes were deviated in the same direction and she had upper extremity tremors. I did give her some Ativan which did seem to settle her down a bit. She was placed back on propofol. The EEG apparently did not reveal any seizure activity. We attempted to get a daily interruption of sedation and apparently she was not particularly alert and was placed back on the mechanical ventilator. PHYSICAL EXAMINATION: VITAL SIGNS: Current vital signs are reviewed. Temperature is 98.2, heart rate 90, respiratory rate 26, blood pressure 136/99, mean 111, saturations are 98%. GENERAL: Appears in no acute distress. HEENT: Examination is grossly unremarkable. There is an orally placed endotracheal tube and NG tube. NECK: Supple. Full range of motion. No adenopathy. Neck veins are flat. CARDIOVASCULAR: Examination reveals regular rhythm and rate. Heart rate 84 beats per minute. S1, S2 normal. Heart sounds are distant. LUNGS: Reveal coarse rhonchi. Breath sounds are diminished. Breath sounds are equal bilaterally. ABDOMEN: Soft. Bowel sounds are heard. EXTREMITIES: Are intact. Slight edema. SKIN: Without rash. NEUROLOGIC: Examination is difficult to assess given her current level of sedation. LABS: Labs are reviewed. White count 5.5, hemoglobin 10.9, hematocrit 33.3, platelet count 166,000. PT 10.2, INR 0.9. Blood gases have been noted; pO2 of 98, pCO2 of 42, pH is 7.40. Sodium 137, potassium 3.5, chloride 110, CO2 of 25. Anion gap is 2. BUN and creatinine were less than 2 and 0.27. The rest of the labs look pretty good. Albumin 2.4. Microbiology shows urine culture positive for E coli. The patient is on ceftriaxone for that. Chest x-ray shows no acute abnormalities other than for some atelectasis or infiltrate at the left lung base, which is relatively small. MEDICATIONS: Medications are reviewed. ASSESSMENT: 1. Acute hypoxemic respiratory failure secondary to alcohol withdrawal syndrome and inability to protect her airway, with intubation on July 26. 2. Possible new onset seizure activity. 3. History of chronic alcohol abuse with alcohol withdrawal syndrome and alcoholic seizure. 4. Chronic and ongoing tobacco dependence. 5. Escherichia coli urinary tract infection, currently on Rocephin. 6. Acute metabolic acidosis, resolved. 7. Hypokalemia. 8. Hypomagnesemia. 9. Moderate elevation of liver enzymes. 10.Rule out toxic/metabolic encephalopathy. PLAN: Neurology will hopefully come and see the patient today. CT scan repeated yesterday was negative. EEG just showed slowing consistent with toxic/metabolic encephalopathy without additional epileptiform activity. We will continue feeding with Vital high- protein at goal. We added back the propofol. She did poorly on her daily interruption of sedation. She may end up getting a tracheostomy if she does not show improvement. We will continue to follow. The patient was switched to the volume control plus modality with a targeted tidal volume at 350 and inspiratory time of 0.8 seconds. Will continue to follow. CRITICAL CARE TIME: 34 minutes. MMREBAL / IJN: [id number] /
[2019-07-29 11:24] LABS: Glucose,Whole Blood 104 mg/dL (75-99)
--- NOTE | 2019-07-29 14:48 | P.PN ---
Subjective This is a pleasant 44 years old female with past medical history of hypertension and alcohol use, depression and anxiety, cigarette smoker, drinks about 8-12 beers per day. Patient presents on 07/24/2019 for seizure, with urine incontinence. Patient has history of local withdrawal seizure and she was drinking to one day before coming to the hospital. CT of the brain showing no acute process, mild atrophy with nonspecific white matter hypodensity suspected to be of a chronic small vessel ischemic disease and recommended follow-up MRI. EKG showed normal sinus rhythm with prolonged QTc at 518. Patient was admitted for alcohol withdrawal as placed on CIWA protocol, Today patient is delirious, she is to continue the blood pressure machine, she talks to penicillin with an understandable words. She could not tell where she is at about she remembers is 2018 and she remembers name of the president. However she could not provide history because she keep distracted and talking to the ceiling. She has severe tremors in her upper and lower extremity area she opened her arms and the air when she talks to the ceiling. She could not answer clearly if she sees other people or hears forces. Her CIWA score was 16-17 as per staff. She is tachycardic at 120, rest of vital signs stable and she is afebrile. She has no labs from today however she was hypokalemic yesterday and her liver enzymes were trending down. Urine analysis is suspicious for infection after discussed cloudy with large leukocyte esterase and WBC of 83. C. diff is negative 07/27/2019 Patient got into respiratory distress last night with severe tachypnia up to 30 and more, patient eventually needed to be intubated. Currently patient is on mechanical ventilation in the ICU. With pulmonary critical care team: A closely. Blood pressure 103/56 mL came back to normal, hemoglobin is 11.2, platelets 108. Potassium was low at 2.4 which is been replaced. Magnesium 1.7 07/28/2019 Patient remains in the ICU, she still intubated and was closely by pulmonary c ritical team. Blood pressure is 113/60. WBC 6.2K, hemoglobin 11.2. Potassium 3.7, creatinine 0.2, magnesium 2.0. Liver enzymes are trending up slightly. Urine culture is growing E. coli which is sensitive to antibiotics. EEG showing toxic metabolic encephalopathy with no epileptiform discharges. Brain CT no acute changes. Chest x-ray improved irrigation 07/29/2019 Patient says ICU intubated and sedated. She's undergoing sedation holiday and weaning a trial. However when she was off sedation she was following some commands to the bedside nurse as per report. Currently she is unresponsive. She has a fever of 100, rest of Vitas looks stable. WBCs 5.5K. Rest of labs are stable and liver enzymes are trending down, ammonia is negative, B12 is not the low. CT/INR and PTT are within normal limits Review of systems: None applicable Active Medications Generic Name Dose Route Start Last Admin Trade Name Freq PRN Reason Stop Dose Admin Acetaminophen 650 mg 07/24/19 16:59 Tylenol Tab PO Q6HR PRN Mild Pain or Fever > 100.5 Albuterol/Ipratropium 3 ml 07/28/19 12:00 07/29/19 11:08 Duoneb 0.5 Mg-3 Mg/3 Ml Soln INHALATION 3 ml RT-Q4H GARTH Administration Carvedilol 6.25 mg 07/25/19 08:45 07/29/19 06:29 Coreg PO 6.25 mg BID-W/MEALS GARTH Administration Chlordiazepoxide HCl 10 mg 07/26/19 09:00 07/29/19 07:46 Librium PO 10 mg QID GARTH Administration Chlorhexidine Gluconate 15 ml 07/26/19 21:00 07/29/19 07:46 Peridex MUCOUS MEM 15 ml BID GARTH Administration Folic Acid 1 mg 07/26/19 12:00 07/29/19 07:46 Folic Acid PO 1 mg DAILY GARTH Administration Heparin Sodium (Porcine) 5,000 unit 07/25/19 00:00 07/29/19 07:46 Heparin SQ 5,000 unit Q8HR GARTH Administration Hydralazine HCl 10 mg 07/25/19 23:00 07/25/19 22:56 Apresoline IVP 10 mg Q6HR PRN Administration Blood Pressure - High Hydromorphone HCl 0.5 mg 07/26/19 20:38 07/29/19 11:30 Dilaudid IVP 0.5 mg Q2HR PRN Administration Pain Sodium Chloride 1,000 mls @ 50 mls/hr 07/24/19 17:00 07/29/19 06:30 Saline 0.9% IV 50 mls/hr .Q20H GARTH Administration Ceftriaxone Sodium 1 gm/ 50 mls @ 100 mls/hr 07/26/19 15:00 07/28/19 14:13 Sodium Chloride IVPB 100 mls/hr Q24H GARTH Administration Propofol 1,000 mg/ IV Solution 100 mls @ 0 mls/hr 07/26/19 21:00 07/29/19 08:30 IV 0 mcg/kg/min .Q0M GARTH 0 mls/hr Titration Protocol Titrate Lorazepam 1 mg 07/24/19 17:01 07/29/19 04:48 Ativan IV 1 mg Q2HR PRN Administration CIWA 8 or 9 Lorazepam 1 mg 07/24/19 17:01 07/28/19 20:13 Ativan IV 1 mg Q1HR PRN Administration CIWA 10 to 15 Miscellaneous Information 1 each 07/27/19 07:15 Potassium Per Protocol MISCELLANE DAILY PRN Per Protocol Protocol Miscellaneous Information 1 each 07/27/19 07:16 Magnesium Per Protocol MISCELLANE DAILY PRN Per Protocol Protocol Miscellaneous Information 1 each 07/27/19 15:57 Potassium Per Protocol MISCELLANE DAILY PRN Per Protocol Protocol Multivitamins 1 each 07/26/19 12:00 07/29/19 07:46 Theragran PO 1 each DAILY GARTH Administration Naloxone HCl 0.2 mg 07/24/19 16:59 Narcan IV Q2M PRN Opioid Reversal Nicotine 1 patch 07/26/19 09:00 07/29/19 07:47 Habitrol 21mg/24hr Patch TRANSDERM 1 patch DAILY GARTH Administration Ondansetron HCl 4 mg 07/24/19 16:59 Zofran IVP Q8HR PRN Nausea And Vomiting Pantoprazole Sodium 40 mg 07/27/19 09:00 07/29/19 07:46 Protonix IVP 40 mg DAILY GARTH Administration Thiamine HCl 100 mg 07/26/19 21:00 07/29/19 07:48 Vitamin B-1 IVP 100 mg BID GARTH Administration Objective - Vital Signs Vital signs: Vital Signs Temp 100.0 F H 07/29/19 12:00 Pulse 66 07/29/19 13:00 Resp 18 07/29/19 13:00 BP 128/69 07/29/19 13:00 Pulse Ox 97 07/29/19 13:00 Intake & Output 07/28/19 07/29/19 07/29/19 18:59 06:59 18:59 Intake Total 1291.394 935.012 665.791 Output Total 516 017 0158 Balance 591.394 130.012 -814.209 Weight 68.4 kg Intake: IV 750 500 400 Dextrose 5% in Water 1, 150 000 ml @ 75 mls/hr IV . [id number] GARTH with Sodium Bicarb (1 Meq/ml) 150 ml Rx#:[id number] Sodium Chloride 0.9% 1, 600 500 400 000 ml @ 50 mls/hr IV . Q20H GARTH Rx#:[id number] Intake, IV Titration 376.394 180.012 55.791 Amount Potassium Chloride 10 meq 200 In Water For Injection 1 100ml.bag @ 100 mls/hr IVPB Q1H GARTH Rx#: [id number] Propofol 1,000 mg In 176.394 180.012 55.791 Empty Bag 1 bag @ Titrate IV .Q0M GARTH Rx#: [id number] Tube Feeding 165 165 150 Other 90 60 Output: Urine 037 303 0149 Other: Voiding Method Indwelling Catheter Indwelling Catheter Indwelling Catheter ABP, PAP, CO, CI - Last Documented Arterial Blood Pressure 140/71 - Exam -GENERAL: The patient is confused and delirious and talking to the ceiling and blood pressure machine HEENT: Pupils are round and equally reacting to light. EOMI. No scleral icterus. No conjunctival pallor. Normocephalic, atraumatic. No pharyngeal erythema. No thyromegaly. CARDIOVASCULAR: S1 and S2 present. No murmurs, rubs, or gallops. PULMONARY: Chest is clear to auscultation, no wheezing or crackles. ABDOMEN: Soft, nontender, nondistended, normoactive bowel sounds. No palpable organomegaly. MUSCULOSKELETAL: No joint swelling or deformity. -EXTREMITIES: No cyanosis, clubbing, or pedal edema. Course tremors in the upper and lower extremities NEUROLOGICAL: Gross neurological examination did not reveal any focal deficits. SKIN: No rashes. no petechiae. - Labs CBC & Chem 7: 07/29/19 04:03 07/29/19 04:03 Labs: Abnormal Lab Results - Last 24 Hours (Table) 07/28/19 07/29/1919 Range/Units 23:15 04:03 04:03 RBC 3.05 L (3.80-5.40) m/uL Hgb 10.9 L (11.4-16.0) gm/dL Hct 33.3 L (34.0-46.0) % MCV 109.0 H (80.0-100.0) fL MCH 35.7 H (25.0-35.0) pg Macrocytosis Marked A ABG HCO3 (21-25) mmol/L ABG Total CO2 (19-24) mmol/L ABG O2 Saturation (94-97) % Chloride 110 H (98-107) mmol/L BUN <2 L (7-17) mg/dL Creatinine 0.27 L (0.52-1.04) mg/dL POC Glucose (mg/dL) 103 H (75-99) mg/dL Calcium 7.4 L (8.4-10.2) mg/dL Delta Bilirubin 0.6 H (0.0-0.2) mg/dL AST 119 H (14-36) U/L ALT 77 H (4-34) U/L Total Protein 4.7 L (6.3-8.2) g/dL Albumin 2.4 L (3.5-5.0) g/dL Vitamin B12 1068.0 H (200.0-944.0) pg/mL 07/29/19 07/29/19 Range/Units 04:18 11:22 RBC (3.80-5.40) m/uL Hgb (11.4-16.0) gm/dL Hct (34.0-46.0) % MCV (80.0-100.0) fL MCH (25.0-35.0) pg Macrocytosis ABG HCO3 26 H (21-25) mmol/L ABG Total CO2 27 H (19-24) mmol/L ABG O2 Saturation 98.2 H (94-97) % Chloride (98-107) mmol/L BUN (7-17) mg/dL Creatinine (0.52-1.04) mg/dL POC Glucose (mg/dL) 104 H (75-99) mg/dL Calcium (8.4-10.2) mg/dL Delta Bilirubin (0.0-0.2) mg/dL AST (14-36) U/L ALT (4-34) U/L Total Protein (6.3-8.2) g/dL Albumin (3.5-5.0) g/dL Vitamin B12 (200.0-944.0) pg/mL Assessment and Plan Assessment: Severe Delirium tremens Patient needing intubation to protect airway well need in her doses of benzodiazepines for her worsening delirium tremens Alcohol withdrawal Seizure, suspected for alcohol withdrawal seizure versus others. EEG: No epileptiform activity Severe toxic metabolic encephalopathy Alcohol abuse Acute urinary tract infection Electrolytes abnormalities with hypokalemia nonspecific white matter hypodensity suspected to be of a chronic small vessel ischemic disease and recommended follow-up MRI, prolonged QTc interval Plan: This is a pleasant 44 years old female who presents with alcohol withdrawal, suspected for seizure alcohol withdrawal. continue with CIWA protocol. Patient still might benefit from neurology evaluation. Continue with thiamine. Continue with Protonix. Continue with nicotine patch. Continue with mechanical ventilation. Continue with Rocephin. Follow up recommendation by Labs and medication were reviewed.. Continue same treatment. Continue with symptomatic treatment. Resume home medication. Monitor lytes and vitals. DVT and GI prophylaxis. Further recommendations of the clinical course of the patient DVT prophylaxis: Subcutaneous heparin GI Prophylaxis: Ppi Prognosis is guarded
[2019-07-29 17:58] LABS: Glucose,Whole Blood 94 mg/dL (75-99)
[2019-07-29] MEDS: hydrALAZINE HCL 20 MG/ML 1 ML VIAL IVP PRN (19:23)
[2019-07-30 00:24] LABS: Glucose,Whole Blood 98 mg/dL (75-99)
[2019-07-30] MEDS: SODIUM CHLORIDE 0.9% 1,000 ML IV SCH (02:00)
[2019-07-30] MEDS: IPRATROPIUM-ALBUTEROL 3 ML NEB INHALATION SCH ×6 (03:14→23:53)
[2019-07-30 04:13] LABS: Basophils % (A) 0 %; Eosinophils # (A) 0.2 k/uL (0-0.7); Eosinophils % (A) 3 %; HCT 34.4 % (34.0-46.0); HGB 11.2 gm/dL (11.4-16.0); Lymphocytes # (A) 1.3 k/uL (1.0-4.8); Lymphocytes % (A) 21 %; MCH 35.1 pg (25.0-35.0); MCHC 32.6 g/dL (31.0-37.0); MCV 107.9 fL (80.0-100.0); Macrocytosis Moderate; Mean Platelet Volume 8.2; Monocytes # (A) 0.6 k/uL (0-1.0); Monocytes % (A) 9 %; Neutrophils # (A) 3.8 k/uL (1.3-7.7); Neutrophils % (A) 64 %; Platelet Count 243 k/uL (150-450); RBC 3.19 m/uL (3.80-5.40); RDW 13.9 % (11.5-15.5)
[2019-07-30 04:48] LABS: African American GFR (CKD) >90 (>60 ml/min/1.73 sqM); Anion Gap 4 mmol/L; Blood Urea Nitrogen 2 mg/dL (7-17); Calcium 8.2 mg/dL (8.4-10.2); Carbon Dioxide 23 mmol/L (22-30); Chloride 110 mmol/L (98-107); Glucose 113 mg/dL (74-99); Non-African American GFR(CKD) >90 (>60 ml/min/1.73 sqM); Potassium 3.2 mmol/L (3.5-5.1); Sodium 137 mmol/L (137-145)
[2019-07-30 04:59] LABS: ABG Base Excess 2.5 mmol/L; ABG HCO3 26 mmol/L (21-25); ABG Oxygen Saturation 98.8 % (94-97); ABG PCO2 34 mmHg (35-45); ABG PH 7.49 (7.35-7.45); ABG PO2 108 mmHg (83-108); ABG TCO2 27 mmol/L (19-24); Allen Test Performed? Yes
[2019-07-30] MEDS: POTASSIUM BICARBONATE/CIT AC 20 MEQ TABLET.EFF NG-TUBE SCH ×2 (05:00→06:29)
[2019-07-30] MEDS: PROPOFOL 1,000 MG in EMPTY BAG 1 BAG IV SCH ×2 (05:02→08:14)
[2019-07-30] MEDS: HYDROmorphone 0.5 MG/0.5 ML SYRINGE IVP PRN ×2 (05:12→08:13)
[2019-07-30 06:00] LABS: Glucose,Whole Blood 107 mg/dL (75-99)
[2019-07-30] MEDS: CARVEDILOL 6.25 MG TAB PO SCH ×2 (06:29→18:10)
--- NOTE | 2019-07-30 08:08 | XR ---
EXAMINATION TYPE: XR chest 1V portable DATE OF EXAM: 07/30/2019 COMPARISON: 07/29/2019 INDICATION: Tube placement difficulty breathing TECHNIQUE: Single frontal view of the chest is obtained. FINDINGS: The heart size is normal. The pulmonary vasculature is normal. The lungs are clear. Endotracheal tube tip is present above the eleanor. Nasogastric tube transverses the thorax the tip cu rled within the stomach. IMPRESSION: 1. No acute pulmonary process. 2. Lines and catheters discussed above.
[2019-07-30] MEDS: PANTOPRAZOLE 40 MG/10 ML VIAL IVP SCH (08:12)
[2019-07-30] MEDS: HEPARIN SODIUM,PORCINE 5,000 UNIT/ML 1 ML VIAL SQ SCH ×2 (08:12→16:07)
[2019-07-30] MEDS: CHLORHEXIDINE GLUCONATE 15 ML CUP MUCOUS MEM SCH (08:12)
[2019-07-30] MEDS: THIAMINE 100 MG/ML 2 ML VIAL IVP SCH (08:12)
[2019-07-30] MEDS: NICOTINE 21MG/24HR PATCH TRANSDERM SCH (08:13)
[2019-07-30] MEDS: FOLIC ACID 1 MG TAB PO SCH (08:13)
[2019-07-30] MEDS: MULTIVITAMINS, THERA 1 EACH TAB PO SCH (08:13)
[2019-07-30 11:58] LABS: Glucose,Whole Blood 104 mg/dL (75-99)
[2019-07-30] MEDS: hydrALAZINE HCL 20 MG/ML 1 ML VIAL IVP PRN ×2 (12:50→20:24)
--- NOTE | 2019-07-30 13:04 | PN ---
PROGRESS NOTE PULMONARY/CRITICAL CARE PROGRESS NOTE: DATE OF SERVICE: July 30, 2019 Critical care time 35 minutes. HISTORY: This is a 44-year-old female that was admitted back on July 24 for alcohol withdrawal syndrome and seizures. She was intubated on July 26 because of respiratory failure and inability to protect her airway. The patient remains on the ventilator. Two days prior, we have done daily interruptions of sedation. The patient does not appear to be ready to be able to tolerate a spontaneous breathing trial. The patient is currently on the VC plus mode also known as pressure regulated volume control. Rate 22, a targeted tidal volume 350, inspiratory time or TI 0.8 seconds, FiO2 25%, PEEP of 5. Blood gases show pO2 of 108, pCO2 of 34, and a pH 7.49. This is consistent with hyperoxia mild respiratory alkalosis. Her saline IV is running at 50 mL an hour. She is on propofol at 25 mcg/kg per minute and Vital high-protein at 35 with a goal of 35 an hour. Today, will do another daily interruption of sedation. Hopefully, she will do better today. In addition, hopefully Neurology will be by to see her. She did have an EEG which showed diffuse slowing consistent with toxic/metabolic encephalopathy. Dr. Boyce was sick the last 2 days. I hope somebody is covering for her today. In addition, a repeat CT scan of the brain was negative. PHYSICAL EXAMINATION: VITAL SIGNS: Current vital signs are reviewed. Her temperature is 98.2. Heart rate 96. Respiratory rate 22, blood pressure 118/72. Mean 87. Saturations are 98%. GENERAL: Appears in no acute distress. Currently sedated. There is an orally placed endotracheal tube and NG tube. HEENT examination is grossly unremarkable. NECK: Supple. Full range of motion. No adenopathy. CARDIOVASCULAR examination reveals regular rhythm and rate. Heart rate mid to high 80s. S1, S2 normal. LUNGS: Reveal diffuse coarse rhonchi. Breath sounds equal bilaterally. No wheezes. ABDOMEN: Soft. Bowel sounds are heard. EXTREMITIES are intact. Minimal edema. SKIN: Without rash. NEUROLOGIC: Examination could not be assessed given her current level of sedation. LABORATORY DATA: Reviewed. White count 6, hemoglobin 11.2, hematocrit 34.4, platelet count normal. Blood gases have been noted. Sodium 137, potassium 3.2, chloride 110. CO2 23. Anion gap is 4. BUN and creatinine were 2 and 0.28. Microbiologic studies show E coli in the urine. She is getting medications for that I believe ceftriaxone. The recent chest x-ray done on July 30 shows no acute abnormality. Medications are reviewed. ASSESSMENT: 1. Acute hypoxemic respiratory failure secondary to alcohol withdrawal syndrome and alcoholic seizures with inability to protect her airway. Intubation occurred on July 26. The patient remains on mechanical ventilation. 2. Possible new onset seizure activity. 3. History of chronic alcohol abuse with alcohol withdrawal syndrome and alcoholic seizures. 4. Chronic and ongoing tobacco dependence. 5. Escherichia coli urinary tract infection, currently on Rocephin. 6. Acute metabolic acidosis, resolved. 7. Hypokalemia. 8. Hypomagnesemia. 9. Moderate elevation of liver enzymes. 10.Rule out toxic/metabolic encephalopathy. PLAN: Hopefully, patient will be seen by Neurology today. I did mention the results of the EEG and followup CT scan. The patient will have a daily interruption, and if stable, spontaneous breathing trial. No additional recommendations are made. The patient continues to receive nourishment in the form of vital high-protein at 35 mL an hour which is goal. Sedation with propofol at 75 mcg/kg per minute. Again, she will have a sedation holiday. She seems to be tolerating the pressure regulated volume control mode of ventilation well. Critical care time 35 minutes. NEFTALI / BA: [id number] /
[2019-07-30] MEDS: LORazepam 2 MG/ML INJ IV PRN ×4 (13:19→20:22)
[2019-07-30] MEDS: POTASSIUM CHLORIDE 10 MEQ in WATER FOR INJECTION 1 100ML.BAG IVPB SCH ×2 (16:07→17:39)
[2019-07-30 16:10] LABS: ALT 72 U/L (4-34); AST 76 U/L (14-36); African American GFR (CKD) >90 (>60 ml/min/1.73 sqM); Alkaline Phosphatase 144 U/L (38-126); Anion Gap 5 mmol/L; Blood Urea Nitrogen 2 mg/dL (7-17); Carbon Dioxide 24 mmol/L (22-30); Chloride 109 mmol/L (98-107); Glucose 106 mg/dL (74-99); Non-African American GFR(CKD) >90 (>60 ml/min/1.73 sqM); Potassium 3.7 mmol/L (3.5-5.1); Sodium 138 mmol/L (137-145); Total Bilirubin 0.6 mg/dL (0.2-1.3); Total Protein 5.5 g/dL (6.3-8.2)
[2019-07-30 17:55] LABS: Glucose,Whole Blood 103 mg/dL (75-99)
[2019-07-30] MEDS ORDERED: HALOPERIDOL LACTATE 5 MG/ML 1 ML VIAL IM PRN (18:23)
--- NOTE | 2019-07-30 19:57 | PN ---
PROGRESS NOTE DATE OF SERVICE: 07/30/2019 This is a 44-year-old woman who was admitted with alcohol withdrawal syndrome also acute hypoxic respiratory failure. Patient was mechanically ventilated and the patient is extubated today. The patient continues to be confused. Portable chest x-ray done this morning which was personally reviewed by me showed some minimal basilar shadowing. Otherwise, Dr. Wells is following the patient closely. PAST MEDICAL HISTORY: Reviewed: REVIEW OF SYSTEMS: Could not be taken, the patient is confused. CURRENT MEDICATIONS: 1. Tylenol p.r.n. 2. DuoNeb q.i.d. and p.r.n. 3. Coreg 6.25 mg b.i.d. 4. Rocephin 1 g IV daily. 5. Librium 10 mg p.o. q.i.d. 6. Peridex 15 mL b.i.d. 7. Folic acid 1 mg p.o. 8. Heparin 5 subcu q.8h. 9. Apresoline 10 mg q.6h p.r.n. 10.Dilaudid 0.5 mg q.2 p.r.n. 11.Ativan 1 mg q.2 p.r.n. 12.Replacement protocol. 13.Narcan. 14.Habitrol 14. 15.Zofran. 16.Protonix. PHYSICAL EXAM: Patient is conscious but confused, slightly restless. Pulse is 110, blood pressure 130/80, respirations 16, temperature 99 degrees, pulse ox 100% on 2 L. HEENT: Conjunctivae normal. Oral mucosa moist. Facial redness present. NECK: No jugular venous distention. No lymph node enlargement. CARDIOVASCULAR: S1, S2. RESPIRATORY: Diminished breath sounds at the bases. A few scattered rhonchi and crackles. ABDOMEN: Soft, nontender. LEGS: No edema, no swelling. NERVOUS SYSTEM: Higher functions mentioned earlier. Moves all four limbs. No focal deficits. LYMPHATICS: No lymph node in neck or axilla. SKIN: No rash. JOINTS: No active deforming arthropathy. LABS: WBC 6, hemoglobin 11.2. ABGs pH of 7.49. Sodium 137, potassium 3.2. Accu-Cheks noted. Calcium is 8.2. ASSESSMENT: 1. Acute delirium tremens and alcohol withdrawal seizures with acute hypoxic respiratory failure status post mechanical ventilation. 2. Change in mental status, acute metabolic encephalopathy, multifactorial. 3. History of ETOH. 4. Acute urinary tract infection present on admission. 5. Nonspecific white matter hypodensity in the CT scan. 6. Hypokalemia. 7. Anemia, microcytic secondary to alcohol. 8. Hypertension. 9. History of anxiety, depression. 10.History of nicotine dependence. 11.Possible alcoholic hepatitis. 12.FULL CODE. RECOMMENDATIONS AND DISCUSSION: In this 44-year-old woman who presented with multiple complex medical issues, we will monitor the patient closely, continue the current medication, continue the symptomatic treatment. Otherwise, at this time continue with CIWA protocol cautiously. Empiric antibiotics initiated. We will continue to monitor. Monitor blood pressure closely. Haldol in extreme agitation to ensure patient's safety. Otherwise, the prognosis guarded. Further recommendations to follow. The ABGs are noted. The patient also has alcoholic hepatitis. I would recommend repeat CMP also. MMODL / IJN: [id number] /
[2019-07-30 23:45] LABS: Glucose,Whole Blood 97 mg/dL (75-99)
[2019-07-31] MEDS: THIAMINE 100 MG/ML 2 ML VIAL IVP SCH ×3 (01:21→21:06)
[2019-07-31] MEDS: HEPARIN SODIUM,PORCINE 5,000 UNIT/ML 1 ML VIAL SQ SCH ×3 (01:22→15:10)
[2019-07-31] MEDS: CHLORHEXIDINE GLUCONATE 15 ML CUP MUCOUS MEM SCH (01:22)
[2019-07-31] MEDS: SODIUM CHLORIDE 0.9% 1,000 ML IV SCH ×2 (01:22→15:10)
[2019-07-31] MEDS: hydrALAZINE HCL 20 MG/ML 1 ML VIAL IVP PRN (02:43)
[2019-07-31] MEDS: IPRATROPIUM-ALBUTEROL 3 ML NEB INHALATION SCH ×2 (03:43→07:21)
[2019-07-31 05:54] LABS: Basophils # (A) 0.1 k/uL (0-0.2); Basophils % (A) 1 %; Eosinophils # (A) 0.1 k/uL (0-0.7); Eosinophils % (A) 1 %; HCT 34.7 % (34.0-46.0); HGB 11.4 gm/dL (11.4-16.0); Lymphocytes # (A) 1.3 k/uL (1.0-4.8); Lymphocytes % (A) 13 %; MCH 35.4 pg (25.0-35.0); MCHC 32.9 g/dL (31.0-37.0); MCV 107.7 fL (80.0-100.0); Macrocytosis Moderate; Mean Platelet Volume 8.3; Monocytes # (A) 1.3 k/uL (0-1.0); Monocytes % (A) 13 %; Neutrophils # (A) 7.1 k/uL (1.3-7.7); Neutrophils % (A) 71 %; Platelet Count 366 k/uL (150-450); RBC 3.22 m/uL (3.80-5.40); RDW 13.7 % (11.5-15.5); WBC 10.1 k/uL (3.8-10.6)
[2019-07-31 06:04] LABS: Glucose,Whole Blood 95 mg/dL (75-99)
[2019-07-31 06:06] LABS: African American GFR (CKD) >90 (>60 ml/min/1.73 sqM); Anion Gap 10 mmol/L; Blood Urea Nitrogen <2 mg/dL (7-17); Calcium 9.4 mg/dL (8.4-10.2); Carbon Dioxide 21 mmol/L (22-30); Chloride 104 mmol/L (98-107); Glucose 97 mg/dL (74-99); Non-African American GFR(CKD) >90 (>60 ml/min/1.73 sqM); Potassium 3.7 mmol/L (3.5-5.1); Sodium 135 mmol/L (137-145)
--- NOTE | 2019-07-31 07:17 | XR ---
EXAMINATION TYPE: XR chest 1V portable DATE OF EXAM: 07/31/2019 COMPARISON: 07/30/2019 HISTORY: Extubation. TECHNIQUE: Single frontal view of the chest is obtained. FINDINGS: There has been interval removal of the enteric and endotracheal tubes. There is no focal ai r space opacity, pleural effusion, or pneumothorax seen. The cardiac silhouette size is enlarged. The osseous structures are intact. IMPRESSION: No acute process.
[2019-07-31] MEDS: CARVEDILOL 6.25 MG TAB PO SCH ×3 (08:49→17:56)
[2019-07-31] MEDS: PANTOPRAZOLE 40 MG/10 ML VIAL IVP SCH (08:57)
[2019-07-31] MEDS: NICOTINE 21MG/24HR PATCH TRANSDERM SCH (08:57)
[2019-07-31] MEDS: FOLIC ACID 1 MG TAB PO SCH (08:58)
--- NOTE | 2019-07-31 09:46 | P.PN ---
Subjective Progress Note Date: 07/31/19 Principal diagnosis: Alcohol withdrawal with seizure activity and respiratory failure requiring intubation mechanical ventilatory support The patient is seen today 07/31/2019 in follow-up in the intensive care unit. She was successfully extubated yesterday and is currently on 2 L high flow nasal cannula. She still has some altered mental status. She remains nothing by mouth regarding possible aspiration. She is currently on 2 L nasal cannula and maintaining O2 saturation in the 90s. She has a 0.9 normal saline at 50 MLS per hour. She is requiring Cleviprex for hypertension. She is receiving bronchodilators, antibiotics in the form of ceftriaxone. No further seizure activity. Urine culture is positive for E. coli. Sputum culture reveals no growth. White count 10.1. Hemoglobin 11.4. Creatinine 0.30. Objective - Vital Signs Vital signs: Vital Signs Temp 98.9 F 07/31/19 08:00 Pulse 111 H 07/31/19 09:00 Resp 22 07/31/19 08:00 BP 129/87 07/31/19 07:00 Pulse Ox 98 07/31/19 09:00 Intake & Output 07/30/19 07/31/19 07/31/19 18:59 06:59 18:59 Intake Total 1223.296 550 150 Output Total 3905 2200 425 Balance -2631.704 -4780 -257 Weight 57.2 kg Intake: IV 550 550 150 Sodium Chloride 0.9% 1, 550 550 150 000 ml @ 50 mls/hr IV . Q20H GARTH Rx#:[id number] Intake, IV Titration 403.296 Amount Potassium Chloride 10 meq 200 In Water For Injection 1 100ml.bag @ 100 mls/hr IVPB Q1H GARTH Rx#: [id number] Propofol 1,000 mg In 153.296 Empty Bag 1 bag @ Titrate IV .Q0M GARTH Rx#: [id number] cefTRIAXone 1 gm In 50 Sodium Chloride 0.9% 50 ml @ 100 mls/hr IVPB Q24H GARTH Rx#:[id number] Tube Feeding 210 Other 60 Output: Urine 3905 2200 425 Other: Voiding Method Indwelling Catheter Indwelling Catheter Indwelling Catheter ABP, PAP, CO, CI - Last Documented Arterial Blood Pressure 195/97 - Exam GENERAL EXAM: Alert, still with some altered mental status, 44-year-old female, on 2 L nasal cannula, comfortable in no apparent distress. HEAD: Normocephalic. EYES: Normal reaction of pupils, equal size. NOSE: Clear with pink turbinates. THROAT: No erythema or exudates. NECK: No masses, no JVD. CHEST: No chest wall deformity. LUNGS: Equal air entry with no crackles, wheeze, rhonchi or dullness. CVS: S1 and S2 normal with no audible murmur, regular rhythm. ABDOMEN: No hepatosplenomegaly, normal bowel sounds, no guarding or rigidity. SPINE: No scoliosis or deformity SKIN: No rashes CENTRAL NERVOUS SYSTEM: No focal deficits, tone is normal in all 4 extremities. EXTREMITIES: There is no peripheral edema. No clubbing, no cyanosis. Peripheral pulses are intact. - Labs CBC & Chem 7: 07/31/19 05:40 07/31/19 05:40 Labs: Abnormal Lab Results - Last 24 Hours (Table) 07/30/19 07/30/19 07/30/19 Range/Units 11:56 15:45 17:53 RBC (3.80-5.40) m/uL MCV (80.0-100.0) fL MCH (25.0-35.0) pg Monocytes # (0-1.0) k/uL Sodium (137-145) mmol/L Chloride 109 H (98-107) mmol/L Carbon Dioxide (22-30) mmol/L BUN 2 L (7-17) mg/dL Creatinine 0.33 L (0.52-1.04) mg/dL Glucose 106 H (74-99) mg/dL POC Glucose (mg/dL) 104 H 103 H (75-99) mg/dL AST 76 H (14-36) U/L ALT 72 H (4-34) U/L Alkaline Phosphatase 144 H (38-126) U/L Total Protein 5.5 L (6.3-8.2) g/dL Albumin 3.0 L (3.5-5.0) g/dL 07/31/19 07/31/19 Range/Units 05:40 05:40 RBC 3.22 L (3.80-5.40) m/uL MCV 107.7 H (80.0-100.0) fL MCH 35.4 H (25.0-35.0) pg Monocytes # 1.3 H (0-1.0) k/uL Sodium 135 L (137-145) mmol/L Chloride (98-107) mmol/L Carbon Dioxide 21 L (22-30) mmol/L BUN <2 L (7-17) mg/dL Creatinine 0.30 L (0.52-1.04) mg/dL Glucose (74-99) mg/dL POC Glucose (mg/dL) (75-99) mg/dL AST (14-36) U/L ALT (4-34) U/L Alkaline Phosphatase (38-126) U/L Total Protein (6.3-8.2) g/dL Albumin (3.5-5.0) g/dL Assessment and Plan Assessment: 1 Alcoholic seizures with subsequent inability to protect her airway requiring intubation mechanical ventilatory support on 07/26/2019. Extubated on 07/30/2019. Currently on 2 L nasal cannula 2 Altered mental status suspect toxic/metabolic encephalopathy 3 Alcoholism with daily intake of 3-8 beers 4 Chronic and ongoing tobacco dependence 5 Hypertension 6 Delirium tremens secondary to alcohol withdrawal 7 Urinary tract infection secondary to gram-negative bacilli Plan The patient was seen and evaluated by Dr. Wells. She remains with ongoing alt ered mental status. She'll need transfer to [facility] for neurologic evaluation. We'll continue CIWA protocol, continue folic acid, multivitamins, B1 Monitor her here closely in the ICU Continue IV fluids Continue NicoDerm Antibiotics for UTI We'll continue to follow I, the cosigning physician, performed a history & physical examination of the patient. Lungs sounds are clear. Maintaining good O2 saturations in the 90s on 2 L/m per nasal cannula. I discussed the assessment and plan of care with my nurse practitioner, Tamanna Clark. I attest to the above note as dictated by her.
[2019-07-31] MEDS: CLEVIDIPINE BUTYRATE 25 MG in EMPTY BAG 1 BAG IV SCH ×2 (10:30→17:30)
[2019-07-31] MEDS ORDERED: IPRATROPIUM-ALBUTEROL 3 ML NEB INHALATION PRN (11:16)
[2019-07-31] MEDS: MULTIVITAMINS, THERA 1 EACH TAB PO SCH (11:43)
[2019-07-31 11:46] LABS: Glucose,Whole Blood 96 mg/dL (75-99)
[2019-07-31 18:13] LABS: Glucose,Whole Blood 105 mg/dL (75-99)
[2019-07-31 20:40] VITALS: TEMP 99.1
[2019-07-31] MEDS: LORazepam 2 MG/ML INJ IV PRN (21:06)
[2019-08-01 00:22] VITALS: BP 150/96; PULSE 100; RESP 16
--- NOTE | 2019-08-01 09:05 | DS ---
DISCHARGE SUMMARY DATE OF SERVICE: 07/31/2019 FINAL DIAGNOSES: 1. Acute delirium tremens with alcohol withdrawal with seizures with acute hypoxic respiratory failure, status post mechanical ventilation. 2. Change in mental status, acute metabolic encephalopathy, multifactorial. 3. Accelerated hypertension and hypertensive urgency on clevidipine drip. 4. History of EtOH. 5. Acute urinary tract infection, present on admission. 6. Nonspecific white matter hypodensity on the CAT scan. 7. Hypokalemia. 8. Anemia, secondary to alcohol. 9. Hypertension. 10.History of anxiety, depression. 11.History of nicotine dependence. 12.Possible alcoholic hepatitis. 13.FULL CODE. DISCHARGE DISPOSITION: The patient will be discharged in stable condition with guarded prognosis. Total time taken 35 minutes. Patient will be transferred to [facility] MICU. HISTORY OF PRESENT ILLNESS: This 44-year-old woman who was admitted with multiple medical problems including alcohol withdrawal and acute DTs, also acute hypoxic respiratory failure. Patient mechanically intubated and patient monitored closely in ICU. Neurology saw the patient initially and EEG was noted but however because of lack of Neurology coverage, Dr. Wells saw the patient and recommended the patient to be transferred to tertiary care center for further evaluation and treatment. On exam, vitals are stable. CARDIOVASCULAR: S1, S2 muffed. Patient is continued to be confused. Moves all 4 limbs. The labs are reviewed. Please review the list of current medications for the medications. Otherwise, patient will be discharged in stable condition with guarded prognosis. I have discussed the case at length with [facility] MICU fellow. MMREBAL / IJN: [id number] / AMARI
--- NOTE | 2019-08-02 10:39 | P.CNNES ---
History of Present Illness Consult date: 07/30/19 Reason for Consult: EtOH withdrawal seizures Chief complaint: Delirium History of Present Illness: HISTORY OF PRESENT ILLNESS: Thank you for allowing me to evaluate Ms. Sophie Jin. Ms. Jin is a 44 year-old woman with PMHx of EtOH withdrawal seizures, HTN, EtOH abuse, who presented to [facility] for seizures while abusing EtOH, consulting Neurology for seizures. No family at bedside. Patient was extubated this morning, unable to participate in evaluation at this time. Previous notes have stated that patient would be "talking to penicillins." PAST MEDICAL HISTORY: Hx of EtOH withdrawal seizures, HTN, EtOH abuse PAST SURGICAL HISTORY: None reported HOME MEDICATIONS: No known meds ALLERGIES: Duloxetine SOCIAL HISTORY: Current everyday smoker, daily EtOH abuse REVIEW OF SYSTEMS: The 14 systems are reviewed and no additional points are identified compared to the review of systems documented history and physical PHYSICAL EXAMINATION: VITAL SIGNS: T 98.2 HR 79 RR 22 BP 158/90 O2 sat 100% GEN.: NAD HEENT: NCAT, sclera without icterus NECK: Supple SKIN AND EXTREMITIES: Warm to touch NEURO: MENTAL STATUS: Eyes are opens, tracks appropriately CRANIAL NERVES II THROUGH XII: II: Pupils are equal and reactive to light symmetrically. III, IV, : No ptosis. Extraocular movements full. VII. No clear facial asymmetry. MOTOR/SENSORY: Normal bulk, decreased tone. Moves b/l UE against gravity, withdraws to pain in all 4 extremities REFLEXES: 2+ throughout. Toes are downgoing. COORDINATION/GAIT: deferred DIAGNOSTIC TESTING: LABORATORY: WBC 6.0 Hgb 11.2 Platelet 243 Na 137 K 3.2 Cl 110 CO2 23 BUN 2 Cr 0.28 glucose 113 IMAGING: CT Head w/o contrast 07/24/19 Similar mild to mod generalized atrophy. Moderate patchy white matter hypodensities are nonspecific, possibly relating to changes of chronic small vessel ischemic disease. No acute abnormality seen EEG 07/28/19: Abnormal EEG. Poorly formed triphasic waves are not epileptiform in nature, can be seen in setting of metabolic encephalopathy. No seizures or epileptiform activity recorded. ASSESSMENT: 44 year-old woman with PMHx of EtOH withdrawal seizures, HTN, EtOH abuse, who presented to [facility] for seizures while abusing EtOH, consulting Neurology for seizures. EEG showing toxometabolic encephalopathy picture. Patient with history of EtOH withdrawal seizures. RECOMMENDATIONS: 1. No AEDs at this time 2. Neurology will sign off Past Medical History Past Medical History: Hypertension Additional Past Medical History / Comment(s): Alcohol abuse, History of Any Multi-Drug Resistant Organisms: None Reported Past Surgical History: No Surgical Hx Reported Past Anesthesia/Blood Transfusion Reactions: No Reported Reaction Past Psychological History: Anxiety, Depression Smoking Status: Current every day smoker Past Alcohol Use History: Abuse, Daily Past Drug Use History: None Reported - Past Family History Mother Family Medical History: Coronary Artery Disease (CAD) Father Family Medical History: Cancer Sister(s) Additional Family Medical History / Comment(s): bipolar Son(s) Additional Family Medical History / Comment(s): pt states "failure to thrive, delayed" Medications and Allergies Home Medications Medication Instructions Recorded Confirmed Type No Known Home Medications 07/24/19 07/24/19 History Allergies Allergy/AdvReac Type Severity Reaction Status Date / Time duloxetine [From Cymbalta] Allergy Rash/Hives Verified 07/24/19 19:19 Physical Examination - Vital Signs Vital Signs: Vital Signs Temp Pulse Resp BP Pulse Ox 07/30/19 10:00 64 22 118/72 98 07/30/19 09:00 70 22 104/65 98 07/30/19 08:06 78 07/30/19 08:00 98.2 F 79 22 158/90 100 07/30/19 07:47 74 07/30/19 07:00 67 22 112/74 98 07/30/19 06:00 68 22 98 07/30/19 05:00 68 22 126/74 99 07/30/19 04:00 98.8 F 64 22 105/66 99 07/30/19 03:14 70 07/30/19 03:00 69 22 105/66 99 07/30/19 02:00 85 22 114/67 98 07/30/19 01:00 76 22 111/68 98 07/30/19 00:00 98.8 F 73 22 104/65 99 07/29/19 23:22 74 07/29/19 23:06 78 07/29/19 23:00 82 22 109/67 100 07/29/19 22:00 79 22 99/60 100 07/29/19 21:00 87 22 114/59 99 07/29/19 20:00 97.7 F 74 22 104/60 99 07/29/19 19:44 58 L 22 07/29/19 19:31 70 22 07/29/19 19:00 55 L 17 140/79 97 07/29/19 18:00 58 L 22 121/75 98 07/29/19 17:01 75 22 125/74 97 07/29/19 16:53 55 L 22 07/29/19 16:30 58 L 22 07/29/19 16:00 97.9 F 64 22 98 07/29/19 15:00 59 L 22 119/77 98 07/29/19 14:00 73 21 131/79 98 07/29/19 13:00 66 18 128/69 97 07/29/19 12:00 100.0 F H 61 22 139/72 98 07/29/19 11:30 61 07/29/19 11:09 71 07/29/19 11:00 62 14 117/69 98 Intake and Output 07/29/19 07/30/19 07/30/19 22:59 06:59 14:59 Intake Total 937.812 840.000 578.688 Output Total 1615 1210 965 Balance -677.188 -370.000 -386.312 Intake: IV 400 400 200 Sodium Chloride 0.9% 1, 400 400 200 000 ml @ 50 mls/hr IV . Q20H [facility] Rx#:[id number] Intake, IV Titration 197.812 100.000 143.688 Amount Propofol 1,000 mg In 197.812 100.000 143.688 Empty Bag 1 bag @ Titrate IV .Q0M [facility] Rx#: [id number] Tube Feeding 280 280 175 Other 60 60 60 Output: Urine 1615 1210 965 Other: Voiding Method Indwelling Catheter Indwelling Catheter Indwelling Catheter Weight 62.8 kg ABP, PAP, CO, CI - Last 8 Hours Arterial Blood Pressure 115/59 Arterial Blood Pressure 105/57 Arterial Blood Pressure 174/95 Arterial Blood Pressure 111/59 Arterial Blood Pressure 114/59 Arterial Blood Pressure 136/70 Arterial Blood Pressure 132/66 Arterial Blood Pressure 105/55 Results - Laboratory Findings CBC and BMP: 07/31/19 05:40 07/31/19 05:40 Abnormal Lab Findings: Abnormal Labs 07/24/19 07/24/19 07/24/19 15:38 15:38 23:30 WBC RBC Hgb Hct MCV 106.8 H MCH 35.7 H Plt Count 130 L Neutrophils # Macrocytosis ABG pH ABG pCO2 ABG pO2 ABG HCO3 ABG Total CO2 ABG O2 Saturation Sodium 131 L Potassium Chloride 97 L Carbon Dioxide 19 L BUN 2 L Creatinine 0.33 L Glucose 101 H POC Glucose (mg/dL) Calcium Total Bilirubin Delta Bilirubin AST 286 H ALT 78 H Alkaline Phosphatase 192 H Total Protein Albumin Vitamin B12 Urine Appearance Cloudy H Urine Blood Trace H Ur Leukocyte Esterase Large H Urine WBC 83 H Urine Bacteria Rare H Urine Mucus Rare H U Benzodiazepines Scrn Detected H 07/25/19 07/25/19 07/26/19 09:00 09:00 12:00 WBC 10.9 H RBC 3.59 L Hgb Hct MCV 105.8 H 106.4 H MCH 35.4 H 35.3 H Plt Count 117 L 108 L Neutrophils # 8.4 H Macrocytosis ABG pH ABG pCO2 ABG pO2 ABG HCO3 ABG Total CO2 ABG O2 Saturation Sodium 136 L Potassium 3.1 L Chloride Carbon Dioxide 20 L BUN 3 L Creatinine 0.41 L Glucose 104 H POC Glucose (mg/dL) Calcium Total Bilirubin Delta Bilirubin AST 133 H ALT 63 H Alkaline Phosphatase 163 H Total Protein Albumin Vitamin B12 Urine Appearance Urine Blood Ur Leukocyte Esterase Urine WBC Urine Bacteria Urine Mucus U Benzodiazepines Scrn 07/26/19 07/26/19 07/27/19 12:00 20:18 04:24 WBC RBC 3.15 L Hgb 11.2 L Hct 33.9 L MCV 107.7 H MCH 35.6 H Plt Count 108 L Neutrophils # Macrocytosis ABG pH 7.34 L ABG pCO2 ABG pO2 >400 H ABG HCO3 19 L ABG Total CO2 ABG O2 Saturation 100.0 H Sodium 134 L Potassium Chloride Carbon Dioxide 17 L BUN Creatinine 0.40 L Glucose POC Glucose (mg/dL) Calcium Total Bilirubin 1.5 H Delta Bilirubin AST 180 H ALT 61 H Alkaline Phosphatase 138 H Total Protein Albumin Vitamin B12 Urine Appearance Urine Blood Ur Leukocyte Esterase Urine WBC Urine Bacteria Urine Mucus U Benzodiazepines Scrn 07/27/19 07/27/19 07/27/19 04:24 07:21 15:00 WBC RBC Hgb Hct MCV MCH Plt Count Neutrophils # Macrocytosis ABG pH 7.25 L ABG pCO2 ABG pO2 196 H ABG HCO3 15 L ABG Total CO2 16 L ABG O2 Saturation 99.1 H Sodium Potassium 2.4 L* 3.1 L Chloride 116 H Carbon Dioxide 17 L BUN 6 L Creatinine 0.31 L Glucose 72 L POC Glucose (mg/dL) Calcium 7.7 L Total Bilirubin Delta Bilirubin 0.4 H AST 141 H ALT 52 H Alkaline Phosphatase Total Protein 5.4 L Albumin 3.0 L Vitamin B12 Urine Appearance Urine Blood Ur Leukocyte Esterase Urine WBC Urine Bacteria Urine Mucus U Benzodiazepines Scrn 07/28/19 07/28/19 07/28/19 00:10 04:05 04:05 WBC RBC 3.03 L Hgb 11.2 L Hct 32.7 L MCV 107.9 H MCH 37.0 H Plt Count 124 L Neutrophils # Macrocytosis ABG pH ABG pCO2 ABG pO2 ABG HCO3 ABG Total CO2 ABG O2 Saturation Sodium Potassium 3.3 L Chloride 110 H Carbon Dioxide BUN 3 L Creatinine 0.29 L Glucose 110 H POC Glucose (mg/dL) 114 H Calcium 6.8 L Total Bilirubin Delta Bilirubin 0.4 H AST 212 H ALT 81 H Alkaline Phosphatase 127 H Total Protein 5.0 L Albumin 2.7 L Vitamin B12 Urine Appearance Urine Blood Ur Leukocyte Esterase Urine WBC Urine Bacteria Urine Mucus U Benzodiazepines Scrn 07/28/19 07/28/19 07/28/19 04:13 06:06 23:15 WBC RBC Hgb Hct MCV MCH Plt Count Neutrophils # Macrocytosis ABG pH ABG pCO2 ABG pO2 110 H ABG HCO3 ABG Total CO2 25 H ABG O2 Saturation 98.7 H Sodium Potassium Chloride Carbon Dioxide BUN Creatinine Glucose POC Glucose (mg/dL) 112 H 103 H Calcium Total Bilirubin Delta Bilirubin AST ALT Alkaline Phosphatase Total Protein Albumin Vitamin B12 Urine Appearance Urine Blood Ur Leukocyte Esterase Urine WBC Urine Bacteria Urine Mucus U Benzodiazepines Scrn 07/29/19 07/29/19 07/29/19 04:03 04:03 04:18 WBC RBC 3.05 L Hgb 10.9 L Hct 33.3 L MCV 109.0 H MCH 35.7 H Plt Count Neutrophils # Macrocytosis Marked A ABG pH ABG pCO2 ABG pO2 ABG HCO3 26 H ABG Total CO2 27 H ABG O2 Saturation 98.2 H Sodium Potassium Chloride 110 H Carbon Dioxide BUN <2 L Creatinine 0.27 L Glucose POC Glucose (mg/dL) Calcium 7.4 L Total Bilirubin Delta Bilirubin 0.6 H AST 119 H ALT 77 H Alkaline Phosphatase Total Protein 4.7 L Albumin 2.4 L Vitamin B12 1068.0 H Urine Appearance Urine Blood Ur Leukocyte Esterase Urine WBC Urine Bacteria Urine Mucus U Benzodiazepines Scrn 07/29/19 07/30/19 07/30/19 11:22 04:05 04:05 WBC RBC 3.19 L Hgb 11.2 L Hct MCV 107.9 H MCH 35.1 H Plt Count Neutrophils # Macrocytosis ABG pH ABG pCO2 ABG pO2 ABG HCO3 ABG Total CO2 ABG O2 Saturation Sodium Potassium 3.2 L Chloride 110 H Carbon Dioxide BUN 2 L Creatinine 0.28 L Glucose 113 H POC Glucose (mg/dL) 104 H Calcium 8.2 L Total Bilirubin Delta Bilirubin AST ALT Alkaline Phosphatase Total Protein Albumin Vitamin B12 Urine Appearance Urine Blood Ur Leukocyte Esterase Urine WBC Urine Bacteria Urine Mucus U Benzodiazepines Scrn 07/30/19 07/30/19 04:54 05:59 WBC RBC Hgb Hct MCV MCH Plt Count Neutrophils # Macrocytosis ABG pH 7.49 H ABG pCO2 34 L ABG pO2 ABG HCO3 26 H ABG Total CO2 27 H ABG O2 Saturation 98.8 H Sodium Potassium Chloride Carbon Dioxide BUN Creatinine Glucose POC Glucose (mg/dL) 107 H Calcium Total Bilirubin Delta Bilirubin AST ALT Alkaline Phosphatase Total Protein Albumin Vitamin B12 Urine Appearance Urine Blood Ur Leukocyte Esterase Urine WBC Urine Bacteria Urine Mucus U Benzodiazepines Scrn
== END 2019-07-31 00:15 | disposition short-term general hospital (02) | DRG 896 ==
LOC: EC 13:55 → 5NMEDONC 16:47 → 2SICU 07-26 12:00
PROVIDERS: ADMIT Internal Medicine; ATTEND Internal Medicine
PROC: 05HF33Z Insertion of Infusion Device into Left Cephalic Vein, Percutaneous Approach (ICD-10-PCS; principal; 2019-07-31 07:30)
DX: F10.231 Alcohol dependence with withdrawal delirium (principal); G92 Toxic encephalopathy; J96.01 Acute respiratory failure with hypoxia; G40.89 Other seizures; E87.1 Hypo-osmolality and hyponatremia; E87.4 Mixed disorder of acid-base balance; J98.11 Atelectasis; N39.0 Urinary tract infection, site not specified; K70.10 Alcoholic hepatitis without ascites; B96.20 Unspecified Escherichia coli [E. coli] as the cause of diseases classified elsewhere; D50.9 Iron deficiency anemia, unspecified; E83.42 Hypomagnesemia; E86.1 Hypovolemia; E87.6 Hypokalemia; F17.200 Nicotine dependence, unspecified, uncomplicated; F32.9 Major depressive disorder, single episode, unspecified; F41.9 Anxiety disorder, unspecified; I10 Essential (primary) hypertension; I16.0 Hypertensive urgency; K29.20 Alcoholic gastritis without bleeding; R32 Unspecified urinary incontinence; R94.31 Abnormal electrocardiogram [ECG] [EKG]; Z88.8 Allergy status to other drugs, medicaments and biological substances; Z81.8 Family history of other mental and behavioral disorders; Z80.9 Family history of malignant neoplasm, unspecified; Z82.49 Family history of ischemic heart disease and other diseases of the circulatory system
CPT/HCPCS: 36410; 36415; 70450; 71045; 76937; 80048; 80053; 80076; 80306; 80320; 81001; 82140; 82607; 82805; 83605; 83735; 84132; 84484; 84703; 85025; 85027; 85610; 85730; 87070; 87077; 87086; 87186; 87205; 87324; 93005; 94002; 94003; 94640; 95816

== ENCOUNTER 2019-10-13 13:48 | Inpatient (IN) | payer OTHER ==
[2019-10-13] MEDS ORDERED: SODIUM CHLORIDE 0.9% 1,000 ML with MVI, ADULT NO.4 WITH VIT K 10 ML, THIAMINE 100 MG, F... IV ONE ×4 (14:20)
--- NOTE | 2019-10-13 14:24 | ED ---
Alcohol HPI - General Chief Complaint: Alcohol Stated Complaint: ETOH Time Seen by Provider: 10/13/19 13:52 Source: patient, EMS, RN notes reviewed Mode of arrival: EMS Limitations: no limitations - History of Present Illness Initial Comments: This is a 44-year-old female with a history of alcoholism who was presenting to the emergency Department with complaints of multiple issues including she feels drunk she has chronic low back and mid back pain she is having some issues with apparently her roommate today. She denies any suicidal thoughts or ideation but does feel depressed she also feels somewhat shaky. She does states she fell last week and still has some right midsternal chest pain for this also. She denies any shortness of breath any fevers chills nausea vomiting despite shakiness. She does admit to drinking alcohol today. MD Complaint: alcohol intoxication - Related Data Home Medications Medication Instructions Recorded Confirmed Divalproex Sodium [Depakote] 500 mg PO BID 10/13/19 10/13/19 HYDROcodone/APAP 5-325MG [[place] 1 tab PO Q6H PRN 10/13/19 10/13/19 5-325] Naloxone HCl [Narcan] 4 mg NASAL DIRECTED PRN 10/13/19 10/13/19 Thiamine [Vitamin B-1] 100 mg PO BID 10/13/19 10/13/19 amLODIPine [Norvasc] 5 mg PO DAILY 10/13/19 10/13/19 Allergies Allergy/AdvReac Type Severity Reaction Status Date / Time duloxetine [From Cymbalta] Allergy Rash/Hives Verified 10/13/19 15:48 Review of Systems ROS Statement: Those systems with pertinent positive or pertinent negative responses have been documented in the HPI. ROS Other: All systems not noted in ROS Statement are negative. Past Medical History Past Medical History: Hypertension Additional Past Medical History / Comment(s): Alcohol abuse, History of Any Multi-Drug Resistant Organisms: None Reported Past Surgical History: No Surgical Hx Reported Past Anesthesia/Blood Transfusion Reactions: No Reported Reaction Past Psychological History: Anxiety, Depression Smoking Status: Current every day smoker Past Alcohol Use History: Abuse, Daily Past Drug Use History: None Reported - Past Family History Mother Family Medical History: Coronary Artery Disease (CAD) Father Family Medical History: Cancer Sister(s) Additional Family Medical History / Comment(s): bipolar Son(s) Additional Family Medical History / Comment(s): pt states "failure to thrive, delayed" General Exam - General Exam Comments Initial Comments: This is a well-developed well-nourished awake alert oriented x 3 female Limitations: no limitations General appearance: alert, in no apparent distress Head exam: Present: normocephalic, other (Well-healing ecchymotic area of the right for head) Eye exam: Present: normal appearance, PERRL, EOMI. Absent: scleral icterus, co njunctival injection, periorbital swelling ENT exam: Present: normal exam, mucous membranes moist Neck exam: Present: normal inspection. Absent: tenderness, meningismus, lymphadenopathy Respiratory exam: Present: normal lung sounds bilaterally, chest wall tenderness (Tennis palpation of the midsternal costochondral margin no step-off or crepitation). Absent: respiratory distress, wheezes, rales, rhonchi, stridor Cardiovascular Exam: Present: regular rate, normal rhythm, normal heart sounds. Absent: systolic murmur, diastolic murmur, rubs, gallop, clicks GI/Abdominal exam: Present: soft, normal bowel sounds. Absent: distended, tenderness, guarding, rebound, rigid Extremities exam: Present: normal inspection, full ROM, normal capillary refill. Absent: tenderness, pedal edema, joint swelling, calf tenderness Back exam: Present: normal inspection Neurological exam: Present: alert, oriented X3, CN II-XII intact Psychiatric exam: Present: normal affect, normal mood Skin exam: Present: warm, dry, intact, normal color. Absent: rash Course Vital Signs 10/13/19 13:53 Temperature 98.1 F Pulse Rate 79 Respiratory 19 Rate Blood Pressure 124/78 O2 Sat by Pulse 97 Oximetry Medical Decision Making - Medical Decision Making The patient A. fib pain EKG unremarkable lab work shows evidence of alcohol intoxication and pancreatitis the patient her registration is a patient Dr. Ninoska Sims did discuss the case with him patient be admitted - Lab Data Result diagrams: 10/13/19 15:27 10/13/19 15:27 Lab Results 10/13/19 10/13/19 10/13/19 Range/Units 15:17 15:27 15:27 WBC 8.0 (3.8-10.6) k/uL RBC 4.08 (3.80-5.40) m/uL Hgb 14.1 (11.4-16.0) gm/dL Hct 44.2 (34.0-46.0) % MCV 108.3 H (80.0-100.0) fL MCH 34.4 (25.0-35.0) pg MCHC 31.8 (31.0-37.0) g/dL RDW 13.0 (11.5-15.5) % Plt Count 324 (150-450) k/uL Neutrophils % 34 % Lymphocytes % 54 % Monocytes % 6 % Eosinophils % 1 % Basophils % 1 % Neutrophils # 2.7 (1.3-7.7) k/uL Lymphocytes # 4.3 (1.0-4.8) k/uL Monocytes # 0.5 (0-1.0) k/uL Eosinophils # 0.1 (0-0.7) k/uL Basophils # 0.1 (0-0.2) k/uL Macrocytosis Moderate Sodium 146 H (137-145) mmol/L Potassium 4.5 (3.5-5.1) mmol/L Chloride 113 H (98-107) mmol/L Carbon Dioxide 18 L (22-30) mmol/L Anion Gap 15 mmol/L BUN 7 (7-17) mg/dL Creatinine 0.50 L (0.52-1.04) mg/dL Est GFR (CKD-EPI)AfAm >90 (>60 ml/min/1.73 sqM) Est GFR (CKD-EPI)NonAf >90 (>60 ml/min/1.73 sqM) Glucose 91 (74-99) mg/dL Calcium 8.9 (8.4-10.2) mg/dL Magnesium 2.3 (1.6-2.3) mg/dL Total Bilirubin 0.3 (0.2-1.3) mg/dL AST 57 H (14-36) U/L ALT 16 (4-34) U/L Alkaline Phosphatase 81 (38-126) U/L Troponin I (0.000-0.034) ng/mL Total Protein 7.1 (6.3-8.2) g/dL Albumin 4.3 (3.5-5.0) g/dL Lipase 1196 H (23-300) U/L Urine Opiates Screen Detected H (Luciustected) Ur Oxycodone Screen Not Detected (NotDetected) Urine Methadone Screen Not Detected (NotDetected) Ur Propoxyphene Screen Not Detected (NotDetected) Ur Barbiturates Screen Not Detected (NotDetected) U Tricyclic Antidepress Not Detected (NotDetected) Ur Phencyclidine Scrn Not Detected (NotDetected) Ur Amphetamines Screen Not Detected (NotDetected) U Methamphetamines Scrn Not Detected (NotDetected) U Benzodiazepines Scrn Not Detected (NotDetected) Urine Cocaine Screen Not Detected (NotDetected) U Marijuana (THC) Screen Not Detected (NotDetected) Serum Alcohol 374 H* mg/dL 10/13/19 Range/Units 15:27 WBC (3.8-10.6) k/uL RBC (3.80-5.40) m/uL Hgb (11.4-16.0) gm/dL Hct (34.0-46.0) % MCV (80.0-100.0) fL MCH (25.0-35.0) pg MCHC (31.0-37.0) g/dL RDW (11.5-15.5) % Plt Count (150-450) k/uL Neutrophils % % Lymphocytes % % Monocytes % % Eosinophils % % Basophils % % Neutrophils # (1.3-7.7) k/uL Lymphocytes # (1.0-4.8) k/uL Monocytes # (0-1.0) k/uL Eosinophils # (0-0.7) k/uL Basophils # (0-0.2) k/uL Macrocytosis Sodium (137-145) mmol/L Potassium (3.5-5.1) mmol/L Chloride (98-107) mmol/L Carbon Dioxide (22-30) mmol/L Anion Gap mmol/L BUN (7-17) mg/dL Creatinine (0.52-1.04) mg/dL Est GFR (CKD-EPI)AfAm (>60 ml/min/1.73 sqM) Est GFR (CKD-EPI)NonAf (>60 ml/min/1.73 sqM) Glucose (74-99) mg/dL Calcium (8.4-10.2) mg/dL Magnesium (1.6-2.3) mg/dL Total Bilirubin (0.2-1.3) mg/dL AST (14-36) U/L ALT (4-34) U/L Alkaline Phosphatase (38-126) U/L Troponin I <0.012 (0.000-0.034) ng/mL Total Protein (6.3-8.2) g/dL Albumin (3.5-5.0) g/dL Lipase (23-300) U/L Urine Opiates Screen (NotDetected) Ur Oxycodone Screen (NotDetected) Urine Methadone Screen (NotDetected) Ur Propoxyphene Screen (NotDetected) Ur Barbiturates Screen (NotDetected) U Tricyclic Antidepress (NotDetected) Ur Phencyclidine Scrn (NotDetected) Ur Amphetamines Screen (NotDetected) U Methamphetamines Scrn (NotDetected) U Benzodiazepines Scrn (NotDetected) Urine Cocaine Screen (NotDetected) U Marijuana (THC) Screen (NotDetected) Serum Alcohol mg/dL - EKG Data -: EKG Interpreted by Ak EKG shows normal: sinus rhythm (Normal sinus rhythm a 78 appear interval 166 QRS duration 86 QT since QTC 420/41 prolonged QT and no acute ST-T wave changes) Disposition Clinical Impression: Alcoholic intoxication, Acute pancreatitis Disposition: ADMITTED IP TO THIS HOSP Condition: Fair Referrals: Britton Castillo MD [Primary Care Provider] - 1-2 days
[2019-10-13] MEDS ORDERED: ONDANSETRON ODT 4 MG TAB PO STA (15:14)
[2019-10-13 15:32] LABS: Cocaine Screen,Urine Not Detected (NotDetected); Phencyclidine Screen,Urine Not Detected (NotDetected); Urn Cannabinoid Scrn Not Detected (NotDetected)
[2019-10-13 15:33] LABS: Amphetamine Screen,Urine Not Detected (NotDetected); Barbiturate Screen,Urine Not Detected (NotDetected); Benzodiazepines Screen,Urine Not Detected (NotDetected); Methadone Screen, Urine Not Detected (NotDetected); Opiate Screen,Urine Detected (NotDetected); Oxycodone Screen, Urine Not Detected (NotDetected); Tricyclic Antidepressant,Urine Not Detected (NotDetected)
[2019-10-13 15:38] LABS: Basophils # (A) 0.1 k/uL (0-0.2); Basophils % (A) 1 %; Eosinophils # (A) 0.1 k/uL (0-0.7); Eosinophils % (A) 1 %; HCT 44.2 % (34.0-46.0); HGB 14.1 gm/dL (11.4-16.0); Lymphocytes # (A) 4.3 k/uL (1.0-4.8); Lymphocytes % (A) 54 %; MCH 34.4 pg (25.0-35.0); MCHC 31.8 g/dL (31.0-37.0); MCV 108.3 fL (80.0-100.0); Macrocytosis Moderate; Mean Platelet Volume 7.6; Monocytes # (A) 0.5 k/uL (0-1.0); Monocytes % (A) 6 %; Neutrophils # (A) 2.7 k/uL (1.3-7.7); Neutrophils % (A) 34 %; Platelet Count 324 k/uL (150-450); RBC 4.08 m/uL (3.80-5.40)
[2019-10-13 15:51] LABS: ALT 16 U/L (4-34); AST 57 U/L (14-36); African American GFR (CKD) >90 (>60 ml/min/1.73 sqM); Albumin 4.3 g/dL (3.5-5.0); Alkaline Phosphatase 81 U/L (38-126); Anion Gap 15 mmol/L; Blood Urea Nitrogen 7 mg/dL (7-17); Calcium 8.9 mg/dL (8.4-10.2); Carbon Dioxide 18 mmol/L (22-30); Chloride 113 mmol/L (98-107); Glucose 91 mg/dL (74-99); Magnesium 2.3 mg/dL (1.6-2.3); Non-African American GFR(CKD) >90 (>60 ml/min/1.73 sqM); Potassium 4.5 mmol/L (3.5-5.1); Sodium 146 mmol/L (137-145); Total Bilirubin 0.3 mg/dL (0.2-1.3); Total Protein 7.1 g/dL (6.3-8.2)
[2019-10-13] MEDS ORDERED: ONDANSETRON 4 MG/2 ML VIAL IVP STA (15:59)
[2019-10-13 16:04] LABS: Alcohol 374 mg/dL
[2019-10-13] MEDS ORDERED: HYDROmorphone 1 MG/ML 1 ML SYRINGE IVP STA (16:09)
[2019-10-13] MEDS ORDERED: NALOXONE 0.4 MG/ML 1 ML VIAL IV PRN (17:33)
[2019-10-13] MEDS: SODIUM CHLORIDE 0.9% 1,000 ML IV SCH (20:21)
[2019-10-13] MEDS: ONDANSETRON 4 MG/2 ML VIAL IVP PRN (22:02)
[2019-10-13] MEDS: HYDROmorphone 0.5 MG/0.5 ML SYRINGE IVP PRN (23:15)
[2019-10-14] MEDS: HYDROmorphone 0.5 MG/0.5 ML SYRINGE IVP PRN (04:51)
[2019-10-14] MEDS: SODIUM CHLORIDE 0.9% 1,000 ML IV SCH ×2 (04:52→16:13)
[2019-10-14] MEDS: ONDANSETRON 4 MG/2 ML VIAL IVP PRN ×2 (05:29→16:14)
[2019-10-14] MEDS ORDERED: PROCHLORPERAZINE 10 MG TAB PO PRN (09:04)
[2019-10-14] MEDS: PANTOPRAZOLE 40 MG/10 ML VIAL IV SCH (09:29)
[2019-10-14] MEDS: amLODIPine 5 MG TAB PO SCH (13:09)
[2019-10-14] MEDS: DIVALPROEX 500 MG TABLET.DR PO SCH ×2 (13:10→20:45)
--- NOTE | 2019-10-14 17:31 | HP ---
HISTORY AND PHYSICAL CHIEF COMPLAINT: Generalized weakness with nausea and vomiting. HISTORY OF PRESENT ILLNESS: This is another admission for this 44-year-old white female alcoholic. She presented to the emergency room with a chief complaint of "leg weakness," but she was intoxicated. She has a history of depression, COPD and hypertension. At the present time she is awake and alert and not in DTs. She has not had a seizure or blackout. REVIEW OF SYSTEMS: She has had no neurologic problems, diplopia, chest pain, shortness of breath, tachycardia, palpitations, orthopnea, PND, abdominal pain, nausea, vomiting, hematemesis, melena, hematochezia, jaundice, renal failure, dysuria, frequency, urgency, etc. Past medical history, family history, and personal and social histories find that she is NOT ALLERGIC TO ANY MEDICATION. She has been on thiamin 100 mg twice a day, Depakote 500 mg twice a day, amlodipine 5 mg once a day. She does smoke. PHYSICAL EXAMINATION: Blood pressure was 145/90 with a pulse of 93, respirations of 35, and she was afebrile. In general she appeared to be somewhat disheveled and dehydrated. She was not jaundiced. Head, ears, eyes, nose, mouth and throat were normal. There was no strabismus. Chest was clear to auscultation. Cardiac exam demonstrated sinus tachycardia with no murmurs or extra sounds. Abdomen was soft and nontender without any visceromegaly or masses. Extremities were normal. Neurological she was intact. She is admitted to the hospital with the diagnoses: 1. Acute alcohol intoxication. 2. Alcoholic pancreatitis. 3. Dehydration. PLAN: 1. Bed rest. 2. IV fluids. 3. Monitor for DTs. MMREBAL / MONAN: [id number] /
--- NOTE | 2019-10-14 20:22 | PN ---
PROGRESS NOTE CHIEF COMPLAINT: Acute alcohol intoxication, alcoholism and pancreatitis. HISTORY OF PRESENT ILLNESS: This lady is doing well. She has had no further vomiting. She has not had any diplopia. She has not had any increase in her abdominal pain. PHYSICAL EXAMINATION: CHEST: Her chest is clear. CARDIAC: The cardiac exam demonstrates sinus tachycardia. ABDOMEN: Soft and slightly tender in the epigastric area with no masses. Bowel sounds are present. IMPRESSION: 1. Acute alcohol intoxication. 2. Alcoholism. 3. Alcoholic pancreatitis. PLAN: Continue with IV fluids and follow laboratory studies while watching for DTs. In the meantime she will be placed on CIWA protocol. MMODL / IJN: [id number] /
[2019-10-14] MEDS: THIAMINE 100 MG TAB PO SCH (20:45)
[2019-10-15] MEDS: SODIUM CHLORIDE 0.9% 1,000 ML IV SCH ×3 (01:23→20:58)
[2019-10-15] MEDS: DIVALPROEX 500 MG TABLET.DR PO SCH ×2 (09:53→19:55)
[2019-10-15] MEDS: THIAMINE 100 MG TAB PO SCH ×2 (09:53→19:55)
[2019-10-15] MEDS: amLODIPine 5 MG TAB PO SCH (09:53)
[2019-10-15] MEDS: PANTOPRAZOLE 40 MG/10 ML VIAL IV SCH (09:54)
[2019-10-15] MEDS ORDERED: MECLIZINE 25 MG TAB PO PRN (10:23)
[2019-10-15 11:49] LABS: Basophils % (A) 0 %; Eosinophils # (A) 0.2 k/uL (0-0.7); Eosinophils % (A) 1 %; HCT 40.4 % (34.0-46.0); HGB 13.3 gm/dL (11.4-16.0); Lymphocytes # (A) 2.2 k/uL (1.0-4.8); Lymphocytes % (A) 14 %; MCV 106.3 fL (80.0-100.0); Macrocytosis Slight; Mean Platelet Volume 8.4; Monocytes # (A) 0.8 k/uL (0-1.0); Monocytes % (A) 5 %; Neutrophils # (A) 12.5 k/uL (1.3-7.7); Neutrophils % (A) 78 %; Platelet Count 254 k/uL (150-450); RDW 12.7 % (11.5-15.5); WBC 15.9 k/uL (3.8-10.6)
--- NOTE | 2019-10-15 12:03 | PN ---
PROGRESS NOTE CHIEF COMPLAINT: DTs and chronic alcoholism. HISTORY OF PRESENT ILLNESS: This lady is still feeling weak. She has had no fever and chills, chest pain, abdominal pain, etc. She is not vomiting. She has had no tremors, diplopia, blackouts, etc. PHYSICAL EXAM: HEENT is normal. Chest is clear. Cardiac exam is normal and the abdomen is soft without masses. IMPRESSION: 1. Acute alcohol intoxication. 2. Delirium tremens. 3. Pancreatitis. 4. Generalized weakness. PLAN: 1. Repeat laboratory studies. 2. Continue current treatment. 3. Advance activity and diet as tolerated. MMODL / IJN: [id number] /
[2019-10-15 12:12] LABS: ALT 12 U/L (4-34); AST 29 U/L (14-36); African American GFR (CKD) >90 (>60 ml/min/1.73 sqM); Alkaline Phosphatase 91 U/L (38-126); Anion Gap 10 mmol/L; Blood Urea Nitrogen 9 mg/dL (7-17); Calcium 9.4 mg/dL (8.4-10.2); Carbon Dioxide 25 mmol/L (22-30); Chloride 99 mmol/L (98-107); Glucose 93 mg/dL (74-99); Non-African American GFR(CKD) >90 (>60 ml/min/1.73 sqM); Potassium 3.2 mmol/L (3.5-5.1); Sodium 134 mmol/L (137-145); Total Bilirubin 0.5 mg/dL (0.2-1.3); Total Protein 6.9 g/dL (6.3-8.2)
[2019-10-15] MEDS: POTASSIUM CHLORIDE ER 20 MEQ TAB.ER PO SCH (19:55)
[2019-10-15] MEDS: ONDANSETRON 4 MG/2 ML VIAL IVP PRN (20:48)
[2019-10-16] MEDS: POTASSIUM CHLORIDE ER 20 MEQ TAB.ER PO SCH ×2 (09:14→20:25)
[2019-10-16] MEDS: amLODIPine 5 MG TAB PO SCH (09:14)
[2019-10-16] MEDS: PANTOPRAZOLE 40 MG/10 ML VIAL IV SCH (09:14)
[2019-10-16] MEDS: THIAMINE 100 MG TAB PO SCH ×2 (09:14→20:25)
[2019-10-16] MEDS: SODIUM CHLORIDE 0.9% 1,000 ML IV SCH ×2 (09:14→20:23)
[2019-10-16] MEDS: DIVALPROEX 500 MG TABLET.DR PO SCH ×2 (09:14→20:25)
--- NOTE | 2019-10-16 11:43 | PN ---
PROGRESS NOTE CHIEF COMPLAINT: DTs, alcoholism. HISTORY OF PRESENT ILLNESS: This lady is doing fairly well. Her potassium is low and she was started on potassium and laboratory studies will be repeated. She is still complaining of weakness and anorexia. PHYSICAL EXAMINATION: Her color is good. Chest is clear. Cardiac exam is normal. Abdomen is soft, nontender. IMPRESSION: 1. Acute alcohol intoxication. 2. Delirium tremens. 3. Dehydration. 4. Electrolyte imbalance. PLAN: Repeat laboratory studies and increase activity and probably discharge soon. MMODL / IJN: [id number] /
[2019-10-16 12:19] LABS: Basophils # (A) 0.1 k/uL (0-0.2); Basophils % (A) 0 %; Eosinophils # (A) 0.2 k/uL (0-0.7); Eosinophils % (A) 2 %; HCT 40.1 % (34.0-46.0); HGB 13.3 gm/dL (11.4-16.0); Lymphocytes # (A) 2.4 k/uL (1.0-4.8); Lymphocytes % (A) 16 %; MCH 34.8 pg (25.0-35.0); MCHC 33.2 g/dL (31.0-37.0); MCV 104.6 fL (80.0-100.0); Macrocytosis Slight; Mean Platelet Volume 8.7; Monocytes # (A) 0.9 k/uL (0-1.0); Monocytes % (A) 6 %; Neutrophils # (A) 11.2 k/uL (1.3-7.7); Neutrophils % (A) 75 %; Platelet Count 232 k/uL (150-450); RBC 3.83 m/uL (3.80-5.40); RDW 12.5 % (11.5-15.5)
[2019-10-16 12:38] LABS: ALT 10 U/L (4-34); AST 21 U/L (14-36); African American GFR (CKD) >90 (>60 ml/min/1.73 sqM); Albumin 3.8 g/dL (3.5-5.0); Alkaline Phosphatase 77 U/L (38-126); Anion Gap 10 mmol/L; Blood Urea Nitrogen 13 mg/dL (7-17); Calcium 9.3 mg/dL (8.4-10.2); Carbon Dioxide 24 mmol/L (22-30); Chloride 98 mmol/L (98-107); Glucose 106 mg/dL (74-99); Non-African American GFR(CKD) >90 (>60 ml/min/1.73 sqM); Potassium 3.4 mmol/L (3.5-5.1); Sodium 132 mmol/L (137-145); Total Bilirubin 0.4 mg/dL (0.2-1.3); Total Protein 6.7 g/dL (6.3-8.2)
[2019-10-17] MEDS: SODIUM CHLORIDE 0.9% 1,000 ML IV SCH (03:00)
[2019-10-17 06:08] VITALS: BP 125/74; PULSE 78; RESP 16; TEMP 98.9
[2019-10-17] MEDS: POTASSIUM CHLORIDE ER 20 MEQ TAB.ER PO SCH (09:04)
[2019-10-17] MEDS: THIAMINE 100 MG TAB PO SCH (09:04)
[2019-10-17] MEDS: amLODIPine 5 MG TAB PO SCH (09:04)
[2019-10-17] MEDS: DIVALPROEX 500 MG TABLET.DR PO SCH (09:05)
[2019-10-17] MEDS: PANTOPRAZOLE 40 MG/10 ML VIAL IV SCH (09:05)
--- NOTE | 2019-10-17 17:38 | DS ---
DISCHARGE SUMMARY CHIEF COMPLAINT: Acute alcohol intoxication and DTs. HISTORY OF PRESENT ILLNESS AND PHYSICAL EXAM: Details of this lady's history and physical can be found in the initial workup. LABORATORY STUDIES: While she was in the hospital, she had laboratory studies, details of which can be found in the laboratory section of her chart. COURSE IN HOSPITAL: After admission, she was placed on bedrest, started on intravenous fluids and CIWA protocol. Initially, she had difficulty with tremors, nausea and abdominal pain which all slowly subsided. She was doing well and was to have been discharged on the , but before this was inactive, she signed out AMA. She will be contacted to follow up in the office in a day or 2. FINAL DIAGNOSES: 1. Acute alcohol intoxication. 2. Delirium tremens. 3. Chronic alcoholism. OPERATIONS: None. CONSULTATION: None. She is improved. NEFTALI / BA: [id number] /
== END 2019-10-17 12:47 | disposition left against medical advice (07) | DRG 439 ==
LOC: EC 13:48 → 5NMEDONC 17:33
PROVIDERS: ADMIT Family Medicine; ATTEND Family Medicine
DX: K85.90 Acute pancreatitis without necrosis or infection, unspecified (principal); F10.231 Alcohol dependence with withdrawal delirium; E86.0 Dehydration; F17.200 Nicotine dependence, unspecified, uncomplicated; I10 Essential (primary) hypertension; J44.9 Chronic obstructive pulmonary disease, unspecified; Z82.49 Family history of ischemic heart disease and other diseases of the circulatory system; Z80.9 Family history of malignant neoplasm, unspecified; Z81.8 Family history of other mental and behavioral disorders
CPT/HCPCS: 36415; 80053; 80306; 80320; 82140; 83690; 83735; 84484; 85025; 93005; 96365; 96366; 96375; 99285

== ENCOUNTER 2020-01-10 18:58 | Inpatient (IN) | payer OTHER ==
[2020-01-10] MEDS ORDERED: SODIUM CHLORIDE 0.9% 500 ML 500 ML IV STA (19:16)
--- NOTE | 2020-01-10 19:17 | ED ---
Overdose HPI - General Source: EMS Mode of arrival: EMS Limitations: altered mental status <Pankaj Grimm - Last Filed: 01/10/20 22:48> <Yolis Tena - Last Filed: 01/19/20 00:41> - General Chief Complaint: Overdose Stated Complaint: overdose Time Seen by Provider: 01/10/20 19:10 - History of Present Illness Initial Comments: Patient is a 44-year-old female with history of alcohol abuse presenting to emergency Department with chief complaint of overdose. Patient brought to the ED via EMS. Per EMS, and he was contacted by one of her friends who found the patient unresponsive on the floor. Patient was found unresponsive but drowsy. Patient had a recent prescription of Garrard filled but the EMS was unable to find it. Patient was drinking today. Patient states she only took one tablet of Garrard. States she did drink. (Pankaj Grimm) - Related Data Home Medications Medication Instructions Recorded Confirmed Divalproex Sodium [Depakote] 500 mg PO BID 10/13/19 01/10/20 Thiamine [Vitamin B-1] 100 mg PO BID 10/13/19 01/10/20 amLODIPine [Norvasc] 5 mg PO DAILY 10/13/19 01/10/20 Diphenoxylate HCl/Atropine 1 - 2 tab PO QID PRN 01/10/20 01/10/20 [Lomotil 2.5-0.025 mg Tablet] Omeprazole 20 mg PO DAILY 01/10/20 01/10/20 Ondansetron [Zofran] 4 mg PO Q6H PRN 01/10/20 01/10/20 Allergies Allergy/AdvReac Type Severity Reaction Status Date / Time duloxetine [From Cymbalta] Allergy Rash/Hives Verified 01/10/20 21:26 Review of Systems ROS Other: All systems not noted in ROS Statement are negative. <Pankaj Grimm - Last Filed: 01/10/20 22:48> ROS Other: All systems not noted in ROS Statement are negative. <Yolis Tena - Last Filed: 01/19/20 00:41> ROS Statement: Those systems with pertinent positive or pertinent negative responses have been documented in the HPI. Past Medical History Past Medical History: GERD/Reflux, Hypertension, Seizure Disorder Additional Past Medical History / Comment(s): Alcohol abuse; last major seizure was 07/24/19 and was transferred to [facility] History of Any Multi-Drug Resistant Organisms: None Reported Past Surgical History: No Surgical Hx Reported Past Anesthesia/Blood Transfusion Reactions: No Reported Reaction Past Psychological History: Anxiety, Depression Smoking Status: Current every day smoker Past Alcohol Use History: Abuse, Daily Past Drug Use History: Opiates - Past Family History Mother Family Medical History: Coronary Artery Disease (CAD) Father Family Medical History: Cancer Sister(s) Additional Family Medical History / Comment(s): bipolar Son(s) Additional Family Medical History / Comment(s): pt states "failure to thrive, delayed" <Pankaj Grimm - Last Filed: 01/10/20 22:48> General Exam Limitations: altered mental status General appearance: alert, appears intoxicated Head exam: Present: atraumatic, normocephalic, normal inspection Eye exam: Present: normal appearance, PERRL, EOMI Pupils: Present: normal accommodation ENT exam: Present: normal exam, normal oropharynx, mucous membranes moist Neck exam: Present: normal inspection, full ROM Respiratory exam: Present: normal lung sounds bilaterally. Absent: respiratory distress, wheezes Cardiovascular Exam: Present: regular rate, normal rhythm, normal heart sounds Extremities exam: Present: normal inspection, full ROM, normal capillary refill, calf tenderness (+2 ulnar and radial pulses bilaterally.) Back exam: Present: normal inspection Neurological exam: Present: alert Skin exam: Present: warm, dry, intact, normal color <Pankaj Grimm - Last Filed: 01/10/20 22:48> Course Vital Signs 01/10/20 01/10/20 01/10/20 18:59 19:04 19:10 Temperature 98.3 F Pulse Rate 84 Respiratory 16 Rate Blood Pressure 123/89 123/89 123/89 O2 Sat by Pulse 99 98 Oximetry 01/10/20 01/10/20 01/10/20 19:20 19:30 19:40 Temperature Pulse Rate 100 75 Respiratory Rate Blood Pressure 123/89 123/89 123/89 O2 Sat by Pulse Oximetry 01/10/20 01/10/20 01/10/20 19:50 20:00 20:10 Temperature Pulse Rate 78 85 Respiratory Rate Blood Pressure 123/89 123/89 109/83 O2 Sat by Pulse 96 Oximetry 01/10/20 01/10/20 01/10/20 20:20 20:30 20:40 Temperature Pulse Rate 89 83 80 Respiratory Rate Blood Pressure 109/83 109/83 109/83 O2 Sat by Pulse Oximetry 01/10/20 01/10/20 01/10/20 20:50 21:00 21:10 Temperature Pulse Rate 101 H 85 87 Respiratory Rate Blood Pressure 109/83 115/77 115/77 O2 Sat by Pulse Oximetry 01/10/20 01/10/20 01/10/20 21:20 21:30 21:40 Temperature Pulse Rate 84 91 86 Respiratory Rate Blood Pressure 115/77 115/77 115/77 O2 Sat by Pulse Oximetry 01/10/20 01/10/20 01/10/20 21:50 22:00 22:10 Temperature Pulse Rate 85 90 95 Respiratory Rate Blood Pressure 115/77 115/77 115/77 O2 Sat by Pulse Oximetry 01/10/20 01/10/20 01/11/20 22:20 22:28 00:27 Temperature 97.5 F L Pulse Rate 87 86 Respiratory 17 Rate Blood Pressure 115/77 112/74 104/62 O2 Sat by Pulse 97 Oximetry Medical Decision Making - Lab Data Result diagrams: 01/10/20 20:35 <Pankaj Grimm - Last Filed: 01/10/20 22:48> - Lab Data Result diagrams: 01/12/20 15:16 01/12/20 15:16 <Yolis Tena - Last Filed: 01/19/20 00:41> - Medical Decision Making Patient is a 44-year-old female with history of alcohol intoxication presenting to the emergency department with a chief complaint of overdose. Patient was found unresponsive by a friend. When EMS arrived, patient was alert. Patient is arousable to ED. Patient appears to be intoxicated. Unable to elicit a th orough physical exam secondary to alcohol intoxication. Salicylates and acetaminophen negative. Urine drug screen is positive for benzos and opiates. Blood alcohol level of 0.402. Transaminitis noted. Low BUN and creatinine. CBC pending secondary to poor IV access. CT brain and C-spine pending. She will assessed. [facility] [place] protocol. Patient will be admitted for further medical management. Case discussed with Admitting phyician is Dr. Castillo (Pankaj Grimm) I was available for consultation in the emergency department. The history and physical exam were done by the midlevel provider. I was consulted for this patients care. I reviewed the case with the midlevel provider and based on their presentation of the patient, I agree with the assessment, medical decision making and plan of care as documented. Chart was dictated using [employer] dictation software. Attempts were made to correct any dictation errors however some typographical errors may persist. Patient was seen during a national state of emergency due to the Covid-19 pandemic. (Yolis Tena) - Lab Data Lab Results 01/10/20 01/10/20 01/10/20 Range/Units 19:19 19:51 19:51 WBC (3.8-10.6) k/uL RBC (3.80-5.40) m/uL Hgb (11.4-16.0) gm/dL Hct (34.0-46.0) % MCV (80.0-100.0) fL MCH (25.0-35.0) pg MCHC (31.0-37.0) g/dL RDW (11.5-15.5) % Plt Count (150-450) k/uL Neutrophils % (Manual) % Band Neutrophils % % Lymphocytes % (Manual) % Monocytes % (Manual) % Eosinophils % (Manual) % Neutrophils # (Manual) (1.3-7.7) k/uL Lymphocytes # (Manual) (1.0-4.8) k/uL Monocytes # (Manual) (0-1.0) k/uL Eosinophils # (Manual) (0-0.7) k/uL Nucleated RBCs (0-0) /100 WBC Manual Slide Review Large Platelets Anisocytosis (manual) Macrocytosis Sodium (137-145) mmol/L Potassium (3.5-5.1) mmol/L Chloride (98-107) mmol/L Carbon Dioxide (22-30) mmol/L Anion Gap mmol/L BUN (7-17) mg/dL Creatinine (0.52-1.04) mg/dL Est GFR (CKD-EPI)AfAm (>60 ml/min/1.73 sqM) Est GFR (CKD-EPI)NonAf (>60 ml/min/1.73 sqM) Glucose (74-99) mg/dL POC Glucose (mg/dL) 96 (75-99) mg/dL POC Glu [employer] ID Juhi Giang Calcium (8.4-10.2) mg/dL Total Bilirubin (0.2-1.3) mg/dL AST (14-36) U/L ALT (4-34) U/L Alkaline Phosphatase (38-126) U/L Total Protein (6.3-8.2) g/dL Albumin (3.5-5.0) g/dL Urine HCG, Qual Not Detected (Not Detectd) Salicylates mg/dL Urine Opiates Screen Detected H (NotDetected) Ur Oxycodone Screen Not Detected (NotDetected) Urine Methadone Screen Not Detected (NotDetected) Ur Propoxyphene Screen Not Detected (NotDetected) Acetaminophen ug/mL Ur Barbiturates Screen Not Detected (NotDetected) U Tricyclic Antidepress Not Detected (NotDetected) Ur Phencyclidine Scrn Not Detected (NotDetected) Ur Amphetamines Screen Not Detected (NotDetected) U Methamphetamines Scrn Not Detected (NotDetected) U Benzodiazepines Scrn Detected H (NotDetected) Urine Cocaine Screen Not Detected (NotDetected) U Marijuana (THC) Screen Not Detected (NotDetected) Serum Alcohol mg/dL Coronavirus (PCR) (Not Detected) 01/10/20 01/10/20 01/10/20 Range/Units 20:35 21:58 23:11 WBC 7.2 (3.8-10.6) k/uL RBC 3.71 L (3.80-5.40) m/uL Hgb 12.9 (11.4-16.0) gm/dL Hct 40.5 (34.0-46.0) % MCV 109.0 H (80.0-100.0) fL MCH 34.6 (25.0-35.0) pg MCHC 31.8 (31.0-37.0) g/dL RDW 14.2 (11.5-15.5) % Plt Count 182 (150-450) k/uL Neutrophils % (Manual) 63 % Band Neutrophils % 3 % Lymphocytes % (Manual) 27 % Monocytes % (Manual) 5 % Eosinophils % (Manual) 2 % Neutrophils # (Manual) 4.70 (1.3-7.7) k/uL Lymphocytes # (Manual) 1.94 (1.0-4.8) k/uL Monocytes # (Manual) 0.36 (0-1.0) k/uL Eosinophils # (Manual) 0.14 (0-0.7) k/uL Nucleated RBCs 0 (0-0) /100 WBC Manual Slide Review Performed Large Platelets Present Anisocytosis (manual) Present Macrocytosis Marked A Sodium 146 H (137-145) mmol/L Potassium 3.9 (3.5-5.1) mmol/L Chloride 111 H (98-107) mmol/L Carbon Dioxide 24 (22-30) mmol/L Anion Gap 11 mmol/L BUN 2 L (7-17) mg/dL Creatinine 0.35 L (0.52-1.04) mg/dL Est GFR (CKD-EPI)AfAm >90 (>60 ml/min/1.73 sqM) Est GFR (CKD-EPI)NonAf >90 (>60 ml/min/1.73 sqM) Glucose 91 (74-99) mg/dL POC Glucose (mg/dL) (75-99) mg/dL POC Glu [employer] ID Calcium 9.1 (8.4-10.2) mg/dL Total Bilirubin 0.4 (0.2-1.3) mg/dL AST 349 H (14-36) U/L ALT 111 H (4-34) U/L Alkaline Phosphatase 185 H (38-126) U/L Total Protein 7.4 (6.3-8.2) g/dL Albumin 4.4 (3.5-5.0) g/dL Urine HCG, Qual (Not Detectd) Salicylates <1.0 mg/dL Urine Opiates Screen (NotDetected) Ur Oxycodone Screen (NotDetected) Urine Methadone Screen (NotDetected) Ur Propoxyphene Screen (NotDetected) Acetaminophen <10.0 ug/mL Ur Barbiturates Screen (NotDetected) U Tricyclic Antidepress (NotDetected) Ur Phencyclidine Scrn (NotDetected) Ur Amphetamines Screen (NotDetected) U Methamphetamines Scrn (NotDetected) U Benzodiazepines Scrn (NotDetected) Urine Cocaine Screen (NotDetected) U Marijuana (THC) Screen (NotDetected) Serum Alcohol 405 H* mg/dL Coronavirus (PCR) Not Detected (Not Detected) Disposition Is patient prescribed a controlled substance at d/c from ED?: No Time of Disposition: 22:53 <Pankaj Grimm - Last Filed: 01/10/20 22:48> <Yolis Tena - Last Filed: 01/19/20 00:41> Clinical Impression: Transaminitis, Alcohol intoxication Disposition: ADMITTED IP TO THIS HOSP Condition: Stable
[2020-01-10 19:21] LABS: Glucose,Whole Blood 96 mg/dL (75-99)
[2020-01-10 20:15] LABS: Amphetamine Screen,Urine Not Detected (NotDetected); Barbiturate Screen,Urine Not Detected (NotDetected); Benzodiazepines Screen,Urine Detected (NotDetected); Cocaine Screen,Urine Not Detected (NotDetected); Methadone Screen, Urine Not Detected (NotDetected); Opiate Screen,Urine Detected (NotDetected); Oxycodone Screen, Urine Not Detected (NotDetected); Phencyclidine Screen,Urine Not Detected (NotDetected); Tricyclic Antidepressant,Urine Not Detected (NotDetected); Urn Cannabinoid Scrn Not Detected (NotDetected)
[2020-01-10 20:55] LABS: ALT 111 U/L (4-34); AST 349 U/L (14-36); Acetaminophen <10.0 ug/mL; African American GFR (CKD) >90 (>60 ml/min/1.73 sqM); Albumin 4.4 g/dL (3.5-5.0); Alkaline Phosphatase 185 U/L (38-126); Anion Gap 11 mmol/L; Blood Urea Nitrogen 2 mg/dL (7-17); Calcium 9.1 mg/dL (8.4-10.2); Carbon Dioxide 24 mmol/L (22-30); Chloride 111 mmol/L (98-107); Glucose 91 mg/dL (74-99); Non-African American GFR(CKD) >90 (>60 ml/min/1.73 sqM); Potassium 3.9 mmol/L (3.5-5.1); Salicylate <1.0 mg/dL; Sodium 146 mmol/L (137-145); Total Bilirubin 0.4 mg/dL (0.2-1.3); Total Protein 7.4 g/dL (6.3-8.2)
[2020-01-10 21:05] LABS: Alcohol 405 mg/dL
[2020-01-10] MEDS ORDERED: LORazepam 2 MG/ML INJ IV PRN ×3 (21:19)
[2020-01-10] MEDS: 1: MVI, ADULT NO.4 WITH VIT K 10 ML, THIAMINE 100 MG, FOLIC ACID 1 MG in SODIUM CHLORIDE IV SCH ×4 (21:56)
[2020-01-10] MEDS ORDERED: NALOXONE 0.4 MG/ML 1 ML VIAL IV PRN (22:46)
[2020-01-10 23:00] LABS: HCT 40.5 % (34.0-46.0); HGB 12.9 gm/dL (11.4-16.0); MCH 34.6 pg (25.0-35.0); MCHC 31.8 g/dL (31.0-37.0); Macrocytosis Marked; Platelet Count 182 k/uL (150-450); RBC 3.71 m/uL (3.80-5.40); RDW 14.2 % (11.5-15.5); WBC 7.2 k/uL (3.8-10.6)
--- NOTE | 2020-01-10 23:22 | CT ---
EXAMINATION TYPE: CT brain cspine wo con DATE OF EXAM: 01/10/2020 COMPARISON: CT brain 07/28/2019 HISTORY: AMS CT DLP: 1283.3 mGycm Automated exposure control for dose reduction was used. There is some cerebral cortical atrophy. There is no mass effect nor midline shift. There is no sign of intracranial hemorrhage. The calvarium is intact. The skull base is intact. There is some mild straightening of the cervical spine. The posterior elements are intact. Disc space s are fairly normal. Facet joints are intact. There is mild hypertrophic cervical facet arthropathy. Temporal bones appear normal. Mastoid sinuses appear normal. IMPRESSION: There is moderate cerebral atrophy for the patient's relatively young age. No acute intracranial abno rmality. No change compared to old exam. Minor degenerative changes in the cervical spine. No fracture.
[2020-01-11 00:27] LABS: Band Neutrophils % 3 %; Eosinophils # (M) 0.14 k/uL (0-0.7); Large Platelets Present; Lymphocytes # (M) 1.94 k/uL (1.0-4.8); Monocytes # (M) 0.36 k/uL (0-1.0); Neutrophils % (M) 63 %; Nucleated Red Blood Cells 0 /100 WBC (0-0); Total Cells Counted 100
[2020-01-11 00:28] LABS: Anisocytosis (M) Present
[2020-01-11] MEDS ORDERED: ONDANSETRON 4 MG TAB PO PRN (06:00)
[2020-01-11] MEDS ORDERED: NALOXONE HCL 4 MG NASAL PRN (06:00)
[2020-01-11] MEDS ORDERED: DIPHENOX-ATROP 2.5-0.025 MG 1 EACH TAB PO PRN (06:00)
[2020-01-11] MEDS ORDERED: HYDROcodone/APAP 5-325MG 1 EACH TAB PO PRN (06:00)
[2020-01-11] MEDS: PANTOPRAZOLE 40 MG TABLET PO SCH (11:09)
[2020-01-11] MEDS: THIAMINE 100 MG TAB PO SCH ×2 (11:32→21:32)
[2020-01-11] MEDS: DIVALPROEX 500 MG TABLET.DR PO SCH ×2 (11:33→21:32)
[2020-01-11] MEDS: amLODIPine 5 MG TAB PO SCH (11:33)
[2020-01-11] MEDS: 1: MVI, ADULT NO.4 WITH VIT K 10 ML, THIAMINE 100 MG, FOLIC ACID 1 MG in SODIUM CHLORIDE IV SCH ×12 (11:34→22:03)
--- NOTE | 2020-01-11 17:36 | PN ---
PROGRESS NOTE CHIEF COMPLAINT: Acute alcohol intoxication and impending DTs. HISTORY OF PRESENT ILLNESS: This lady seems to be stable and she has not had a seizure and she is not tremulous. She seems fairly well oriented and alert. PHYSICAL EXAM: Head, ears, eyes, nose, mouth, and throat are normal. Chest is clear. Cardiac exam is normal sinus rhythm. Abdomen is soft, nontender. She was not tremulous. IMPRESSION: 1. Acute alcohol intoxication. 2. Chronic alcoholism. 3. Impending DTs. 4. History of seizure disorder. PLAN: Continue with [facility] protocol. She states that she is going to sign herself out again against medical advice tomorrow. MMODL / IJN: [id number] /
--- NOTE | 2020-01-11 17:36 | HP ---
HISTORY AND PHYSICAL CHIEF COMPLAINT: Acute alcoholic intoxication. HISTORY OF PRESENT ILLNESS: This is another recent admission for this 44-year-old white female chronic alcoholic. She was just in [facility] last week with a seizure, DTs and acute alcohol intoxication and signed herself out the next morning. She came in the office after that and seemed to be fairly stable. Her medications were refilled. She came into this emergency room after she apparently was intoxicated, fell and her boyfriend brought her in. She has no history of seizure. She has no history of any neurologic problems, arrhythmias, fever, chills, etc. REVIEW OF SYSTEMS: She denies any headaches, seizures, focal neurologic problems, chest pain, shortness of breath, abdominal pain, vomiting, melena, hematochezia, renal failure, hematuria, dysuria, incontinence, etc. Past medical history, family history, personal and social histories are otherwise unremarkable and noncontributory. She drinks heavily every day and continues to smoke. PHYSICAL EXAMINATION: Blood pressure is 148/100 with a pulse of 97, respirations of 36, and she is afebrile. In general, she appeared to be intoxicated. Face was flushed. Head, ears, eyes, nose, mouth, and throat were normal. Pupils were equal, round. Sclerae were slightly icteric. Neck veins not distended. Chest is clear. Cardiac exam demonstrated normal sinus rhythm and no murmurs or extra sounds. The abdomen was soft and nontender. Liver was enlarged about 1 inch below the costal margin. Bowel sounds present. Extremities: Normal. Neurologically she seemed to be intact. She was not tremulous at this time. IMPRESSION: She is admitted to the hospital with diagnoses: 1. Acute alcohol intoxication. 2. Chronic alcoholism. 3. History of hypertension. 4. History of seizure disorder. 5. Ascites. 6. Alcoholic hepatitis. PLAN: 1. Bed rest. 2. IV fluids. 3. CIWA protocol. 4. Watch for DTs. MMODL / IJN: [id number] /
[2020-01-12] MEDS: DIVALPROEX 500 MG TABLET.DR PO SCH ×2 (07:17→20:37)
[2020-01-12] MEDS: THIAMINE 100 MG TAB PO SCH ×2 (07:17→20:37)
[2020-01-12] MEDS: amLODIPine 5 MG TAB PO SCH (07:17)
[2020-01-12] MEDS: PANTOPRAZOLE 40 MG TABLET PO SCH (07:17)
[2020-01-12 15:46] LABS: Basophils % (A) 1 %; Eosinophils # (A) 0.2 k/uL (0-0.7); Eosinophils % (A) 3 %; HCT 39.2 % (34.0-46.0); HGB 13.2 gm/dL (11.4-16.0); Lymphocytes # (A) 1.2 k/uL (1.0-4.8); Lymphocytes % (A) 15 %; MCH 37.5 pg (25.0-35.0); MCHC 33.7 g/dL (31.0-37.0); MCV 111.1 fL (80.0-100.0); Macrocytosis Marked; Mean Platelet Volume 10.4; Monocytes # (A) 0.6 k/uL (0-1.0); Monocytes % (A) 7 %; Neutrophils # (A) 5.7 k/uL (1.3-7.7); Neutrophils % (A) 73 %; Platelet Count 151 k/uL (150-450); RBC 3.53 m/uL (3.80-5.40); RDW 13.4 % (11.5-15.5); WBC 7.8 k/uL (3.8-10.6)
[2020-01-12 15:48] LABS: ALT 57 U/L (4-34); AST 126 U/L (14-36); African American GFR (CKD) >90 (>60 ml/min/1.73 sqM); Albumin 3.7 g/dL (3.5-5.0); Alkaline Phosphatase 119 U/L (38-126); Anion Gap 7 mmol/L; Blood Urea Nitrogen 4 mg/dL (7-17); Calcium 8.9 mg/dL (8.4-10.2); Carbon Dioxide 21 mmol/L (22-30); Chloride 109 mmol/L (98-107); Glucose 122 mg/dL (74-99); Non-African American GFR(CKD) >90 (>60 ml/min/1.73 sqM); Sodium 137 mmol/L (137-145); Total Bilirubin 0.9 mg/dL (0.2-1.3); Total Protein 6.7 g/dL (6.3-8.2)
[2020-01-12] MEDS: 1: MVI, ADULT NO.4 WITH VIT K 10 ML, THIAMINE 100 MG, FOLIC ACID 1 MG in SODIUM CHLORIDE IV SCH ×4 (17:35)
--- NOTE | 2020-01-12 19:03 | PN ---
PROGRESS NOTE CHIEF COMPLAINT: Alcohol intoxication and DTs. HISTORY OF PRESENT ILLNESS: This lady seems to be fairly stable but she has not gone into florid DTs yet. She has no complaints. PHYSICAL EXAMINATION: Chest is clear. Cardiac exam is normal. Abdomen is soft and nontender. IMPRESSION: 1. Acute alcohol intoxication. 2. Alcoholism. 3. Chronic obstructive pulmonary disease. 4. Impending DTs. PLAN: Progress activity and diet and probably home in the next day or 2. Yesterday, she said that she was going to sign out AGAINST MEDICAL ADVICE today. Physical exam is unchanged. Await to see if she leaves today or not. MMODL / IJN: [id number] /
[2020-01-13] MEDS: 1: MVI, ADULT NO.4 WITH VIT K 10 ML, THIAMINE 100 MG, FOLIC ACID 1 MG in SODIUM CHLORIDE IV SCH ×8 (01:29→11:41)
[2020-01-13 08:06] VITALS: BP 150/74; PULSE 82; RESP 18; TEMP 98.5
[2020-01-13] MEDS: DIVALPROEX 500 MG TABLET.DR PO SCH (08:10)
[2020-01-13] MEDS: amLODIPine 5 MG TAB PO SCH (08:10)
[2020-01-13] MEDS: THIAMINE 100 MG TAB PO SCH (08:10)
[2020-01-13] MEDS: PANTOPRAZOLE 40 MG TABLET PO SCH (08:10)
--- NOTE | 2020-01-13 18:22 | DS ---
DISCHARGE SUMMARY CHIEF COMPLAINT: Acute alcohol intoxication. HISTORY OF PRESENT ILLNESS AND PHYSICAL EXAMINATION: Details of this lady's history and physical can be found in the initial workup. LABORATORY STUDIES: While she was in the hospital she had laboratory studies, details of which can be found in the laboratory section of her chart. COURSE IN THE HOSPITAL: After admission she was placed on bedrest and started on intravenous fluids and CIWA protocol along with a sitter. She had no seizure activity and she remained somewhat tremulous for the first 24 to 48 hours, but by the date of her discharge she is doing well. It was felt she could go home and resume her usual activity, diet and medication, and we will follow follow her up in the office. FINAL DIAGNOSES: 1. Acute alcohol intoxication. 2. Chronic alcoholism. 3. Chronic obstructive pulmonary disease. 4. Seizure disorder. OPERATIONS: None. CONSULTATIONS: None. She is improved. MMTARIK / BA: [id number] /
== END 2020-01-13 13:30 | disposition home or self-care (01) | DRG 897 ==
LOC: EC 18:58 → 4SSUR 22:37 → OBSVTOIN 01-12 15:14
PROVIDERS: ADMIT Family Medicine; ATTEND Family Medicine
DX: F10.231 Alcohol dependence with withdrawal delirium (principal); I10 Essential (primary) hypertension; K21.9 Gastro-esophageal reflux disease without esophagitis; G40.909 Epilepsy, unspecified, not intractable, without status epilepticus; F32.9 Major depressive disorder, single episode, unspecified; F41.9 Anxiety disorder, unspecified; F17.200 Nicotine dependence, unspecified, uncomplicated; K70.11 Alcoholic hepatitis with ascites; Y90.8 Blood alcohol level of 240 mg/100 ml or more; J44.9 Chronic obstructive pulmonary disease, unspecified; Z11.59 Encounter for screening for other viral diseases; Z79.899 Other long term (current) drug therapy; Z88.8 Allergy status to other drugs, medicaments and biological substances; Z82.49 Family history of ischemic heart disease and other diseases of the circulatory system; Z80.9 Family history of malignant neoplasm, unspecified; Z81.8 Family history of other mental and behavioral disorders
CPT/HCPCS: 36415; 70450; 72125; 80053; 80306; 80320; 80329; 81025; 82075; 83520; 85025; 93005; 96361; 96365; 96366; 99285

== ENCOUNTER 2020-01-15 15:04 | Emergency (ER) | payer OTHER ==
[2020-01-15 15:16] VITALS: RESP 18
--- NOTE | 2020-01-15 15:23 | ED ---
Alcohol HPI - General Chief Complaint: Alcohol Stated Complaint: ETOH Time Seen by Provider: 01/15/20 15:06 Source: EMS Mode of arrival: EMS Limitations: no limitations - History of Present Illness Initial Comments: Patient is a 44-year-old female with history of alcohol abuse presenting to emergency Department with chief complaint of a alcohol intoxication. Patient brought to the ED via EMS. This was contacted by the neighbors who found the patient intoxicated and could not take care of herself. Patient states she does not want to stay here anymore. Patient would like to leave. Denies any suicidal or homicidal thoughts or ideations. States her boyfriend is waiting come in to pick her up. Patient is denying any treatment. - Related Data Home Medications Medication Instructions Recorded Confirmed Divalproex Sodium [Depakote] 500 mg PO BID 10/13/19 01/10/20 Thiamine [Vitamin B-1] 100 mg PO BID 10/13/19 01/10/20 amLODIPine [Norvasc] 5 mg PO DAILY 10/13/19 01/10/20 Diphenoxylate HCl/Atropine 1 - 2 tab PO QID PRN 01/10/20 01/10/20 [Lomotil 2.5-0.025 mg Tablet] Omeprazole 20 mg PO DAILY 01/10/20 01/10/20 Ondansetron [Zofran] 4 mg PO Q6H PRN 01/10/20 01/10/20 Allergies Allergy/AdvReac Type Severity Reaction Status Date / Time duloxetine [From Cymbalta] Allergy Rash/Hives Verified 01/10/20 21:26 Review of Systems ROS Statement: Those systems with pertinent positive or pertinent negative responses have been documented in the HPI. ROS Other: All systems not noted in ROS Statement are negative. Past Medical History Past Medical History: GERD/Reflux, Hypertension, Seizure Disorder Additional Past Medical History / Comment(s): Alcohol abuse; last major seizure was 07/24/19 and was transferred to [facility]. Pt states she had a seizure about 2 weeks ago from 01-11-20. History of Any Multi-Drug Resistant Organisms: None Reported Past Surgical History: No Surgical Hx Reported Past Anesthesia/Blood Transfusion Reactions: No Reported Reaction Past Psychological History: Anxiety, Depression Past Drug Use History: None Reported - Past Family History Mother Family Medical History: Coronary Artery Disease (CAD) Father Family Medical History: Cancer Sister(s) Additional Family Medical History / Comment(s): bipolar Son(s) Additional Family Medical History / Comment(s): pt states "failure to thrive, delayed" General Exam Limitations: no limitations General appearance: alert, appears intoxicated Head exam: Present: atraumatic, normocephalic, normal inspection Eye exam: Present: normal appearance, PERRL, EOMI Pupils: Present: normal accommodation ENT exam: Present: normal exam, normal oropharynx, mucous membranes moist Neck exam: Present: normal inspection, full ROM Respiratory exam: Present: normal lung sounds bilaterally. Absent: respiratory distress, wheezes Cardiovascular Exam: Present: regular rate, normal rhythm, normal heart sounds Extremities exam: Present: normal inspection, full ROM. Absent: tenderness Back exam: Present: normal inspection, full ROM Neurological exam: Present: alert, oriented X3, normal gait Psychiatric exam: Present: normal affect, agitated, other (Intoxicated) Skin exam: Present: warm, dry, intact, normal color Course Vital Signs 01/15/20 01/15/20 15:13 15:57 Temperature 99.0 F 97.8 F Pulse Rate 102 H 92 Respiratory 18 18 Rate Blood Pressure 119/81 110/72 O2 Sat by Pulse 93 L 98 Oximetry Medical Decision Making - Medical Decision Making Patient is a 44-year-old female with history of alcohol abuse presenting to the emergency department with a chief complaint of alcohol intoxication. Patient brought to the ED via EMS. Patient intoxicated during evaluation. Patient is declining any treatment. I spoke to her boyfriend who came to pick the patient up. I advised him about outpatient rehab facilities to help with alcohol abuse. Breath alcohol level of 0.280. Her boyfriend signed the patient off. Return parameters thoroughly discussed the patient was understanding and agreeable. C ase discussed with physician. Disposition Clinical Impression: Alcohol intoxication Disposition: HOME SELF-CARE Condition: Fair Instructions (If sedation given, give patient instructions): Alcohol Withdrawal (ED) Additional Instructions: Follow-up with her rehab facility. Return to emergency department if symptoms worsen. Is patient prescribed a controlled substance at d/c from ED?: No Referrals: Britton Castillo MD [Primary Care Provider] - 1-2 days Time of Disposition: 16:13
[2020-01-15 16:01] VITALS: BP 110/72; PULSE 92; TEMP 97.8
== END 2020-01-15 16:19 | disposition home or self-care (01) ==
LOC: EC 15:04
DX: F10.129 Alcohol abuse with intoxication, unspecified (principal); K21.9 Gastro-esophageal reflux disease without esophagitis; I10 Essential (primary) hypertension; G40.909 Epilepsy, unspecified, not intractable, without status epilepticus; Z79.899 Other long term (current) drug therapy; Z88.8 Allergy status to other drugs, medicaments and biological substances
CPT/HCPCS: 82075; 99284

== ENCOUNTER 2022-06-02 23:44 | Emergency (ER) | payer OTHER ==
[2022-06-02] MEDS ORDERED: SODIUM CHLORIDE 0.9% 1,000 ML IV STA (23:47)
--- NOTE | 2022-06-02 23:57 | ED ---
Alcohol HPI - General Stated Complaint: ETOH Time Seen by Provider: 06/02/22 23:45 Source: RN notes reviewed, old records reviewed Mode of arrival: EMS Limitations: no limitations - History of Present Illness Initial Comments: This is a poor historian secondary to alcohol intoxication and 46 years old status post fall fall with right shoulder pain. History of alcoholism history of multiple falls patient complaining of severe right shoulder pain. 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 -: minute(s) Previous Visits for Alcohol Intoxication?: Yes Recent Trauma: Yes Associated Symptoms: denies other symptoms Treatments Prior to Arrival: none Chronic Alcohol Use: Yes - Related Data Home Medications Medication Instructions Recorded Confirmed Divalproex Sodium [Depakote] 500 mg PO BID 10/13/19 01/10/20 Thiamine [Vitamin B-1] 100 mg PO BID 10/13/19 01/10/20 amLODIPine [Norvasc] 5 mg PO DAILY 10/13/19 01/10/20 Diphenoxylate HCl/Atropine 1 - 2 tab PO QID PRN 01/10/20 01/10/20 [Lomotil 2.5-0.025 mg Tablet] Omeprazole 20 mg PO DAILY 01/10/20 01/10/20 Ondansetron [Zofran] 4 mg PO Q6H PRN 01/10/20 01/10/20 Allergies Allergy/AdvReac Type Severity Reaction Status Date / Time duloxetine [From Cymbalta] Allergy Rash/Hives Verified 01/10/20 21:26 Review of Systems ROS Statement: Those systems with pertinent positive or pertinent negative responses have been documented in the HPI. ROS Other: All systems not noted in ROS Statement are negative. Past Medical History Past Medical History: GERD/Reflux, Hypertension, Seizure Disorder Additional Past Medical History / Comment(s): Alcohol abuse; last major seizure was 07/24/19 and was transferred to [facility]. Pt states she had a seizure about 2 weeks ago from 01-11-20. History of Any Multi-Drug Resistant Organisms: None Reported Past Surgical History: No Surgical Hx Reported Past Anesthesia/Blood Transfusion Reactions: No Reported Reaction Past Psychological History: Anxiety, Depression Past Drug Use History: None Reported - Past Family History Mother Family Medical History: Coronary Artery Disease (CAD) Father Family Medical History: Cancer Sister(s) Additional Family Medical History / Comment(s): bipolar Son(s) Additional Family Medical History / Comment(s): pt states "failure to thrive, delayed" General Exam General appearance: alert, appears intoxicated, in distress Head exam: Present: atraumatic, normocephalic, normal inspection Eye exam: Present: normal appearance, PERRL, EOMI. Absent: scleral icterus, conjunctival injection, periorbital swelling ENT exam: Present: normal exam, mucous membranes moist Neck exam: Present: normal inspection. Absent: tenderness, meningismus, lymphadenopathy Respiratory exam: Present: normal lung sounds bilaterally. Absent: respiratory distress, wheezes, rales, rhonchi, stridor Cardiovascular Exam: Present: regular rate, normal rhythm, normal heart sounds. Absent: systolic murmur, diastolic murmur, rubs, gallop, clicks GI/Abdominal exam: Present: soft, normal bowel sounds. Absent: distended, te nderness, guarding, rebound, rigid Extremities exam: Present: normal inspection, tenderness (Right shoulder), normal capillary refill. Absent: full ROM, pedal edema, joint swelling, calf tenderness Back exam: Present: normal inspection Neurological exam: Present: alert, oriented X3, CN II-XII intact Psychiatric exam: Present: normal affect, normal mood Skin exam: Present: warm, dry, intact, normal color. Absent: rash Course Vital Signs 06/03/22 00:02 Temperature 97.2 F L Pulse Rate 96 Respiratory 18 Rate Blood Pressure 106/52 O2 Sat by Pulse 99 Oximetry - Reevaluation(s) Reevaluation #1: 06/03/22 Medical record is reviewed Reevaluation #2: 06/03/22 Patient informed results and questions answered Reevaluation #3: 06/03/22 Throughout ER stay patient has significantly improved in her sobriety level, feels able to ambulate and is able to amply without difficulty Medical Decision Making - Lab Data Result diagrams: 06/03/22 01:26 Lab Results 06/03/22 06/03/22 Range/Units 01:26 01:36 WBC 8.1 (3.8-10.6) k/uL RBC 3.10 L (3.80-5.40) m/uL Hgb 11.6 (11.4-16.0) gm/dL Hct 33.9 L (34.0-46.0) % MCV 109.1 H (80.0-100.0) fL MCH 37.4 H (25.0-35.0) pg MCHC 34.3 (31.0-37.0) g/dL RDW 14.0 (11.5-15.5) % Plt Count 172 (150-450) k/uL MPV 7.7 Neutrophils % 49 % Lymphocytes % 42 % Monocytes % 4 % Eosinophils % 2 % Basophils % 1 % Neutrophils # 4.0 (1.3-7.7) k/uL Lymphocytes # 3.4 (1.0-4.8) k/uL Monocytes # 0.4 (0-1.0) k/uL Eosinophils # 0.2 (0-0.7) k/uL Basophils # 0.1 (0-0.2) k/uL Macrocytosis Marked A Serum Alcohol 365 H* mg/dL Disposition Clinical Impression: Fall, Alcoholic intoxication, Right humeral fracture, Proximal humerus fracture Disposition: HOME SELF-CARE Condition: Fair Instructions (If sedation given, give patient instructions): Alcohol Intoxication (ED), Arm Fracture in Adults (ED) Is patient prescribed a controlled substance at d/c from ED?: No Referrals: Britton Castillo MD [Primary Care Provider] - 1-2 days Farrah Rivas DO [Doctor of Osteopathic Medicine] - 1-2 days Time of Disposition: 06:30
[2022-06-03 00:09] VITALS: BP 106/52; PULSE 96; RESP 18; TEMP 97.2
[2022-06-03] MEDS ORDERED: KETOROLAC 15 MG/ML 1 ML VIAL IVP STA (01:36)
[2022-06-03] MEDS ORDERED: LORazepam 2 MG/ML INJ IV STA (01:36)
--- NOTE | 2022-06-03 12:37 | XR ---
EXAM: XR Chest, 1 View CLINICAL HISTORY: FALL TECHNIQUE: Frontal view of the chest. COMPARISON: No relevant prior studies available. FINDINGS: Lungs: Unremarkable. No consolidation. Pleural space: Unremarkable. No pneumothorax. Heart: Unremarkable. No cardiomegaly. Mediastinum: Unremarkable. Bones/joints: Displaced fracture at the right head and neck junction. Subluxation of the humeral head with widening of the glenohumeral and acromiohumeral IMPRESSION: Right humeral fracture.
--- NOTE | 2022-06-03 12:44 | XR ---
EXAM: XR Right Shoulder Complete, 2 or More Views CLINICAL HISTORY: fall TECHNIQUE: Two or more views of the right shoulder. COMPARISON: No relevant prior studies available. FINDINGS: Bones/joints: Acute displaced fracture at the humeral head and neck junction. Distal fragment is displaced medially. The proximal humeral head fragment appears rotated and partially subluxed. Widening of the acromiohumeral joint space. Mild degenerative changes of the AC joint. Soft tissues: Unremarkable. IMPRESSION: Proximal humeral fracture with subluxation as described.
[2022-06-03 15:20] LABS: Basophils # (A) 0.1 k/uL (0-0.2); Basophils % (A) 1 %; Eosinophils # (A) 0.2 k/uL (0-0.7); Eosinophils % (A) 2 %; HCT 33.9 % (34.0-46.0); HGB 11.6 gm/dL (11.4-16.0); Lymphocytes # (A) 3.4 k/uL (1.0-4.8); Lymphocytes % (A) 42 %; MCH 37.4 pg (25.0-35.0); MCHC 34.3 g/dL (31.0-37.0); MCV 109.1 fL (80.0-100.0); Macrocytosis Marked; Mean Platelet Volume 7.7; Monocytes # (A) 0.4 k/uL (0-1.0); Monocytes % (A) 4 %; Neutrophils % (A) 49 %; Platelet Count 172 k/uL (150-450); WBC 8.1 k/uL (3.8-10.6)
== END 2022-06-03 12:27 | disposition home or self-care (01) ==
LOC: EC 23:44
DX: S42.201A Unspecified fracture of upper end of right humerus, initial encounter for closed fracture (principal); S42.301A Unspecified fracture of shaft of humerus, right arm, initial encounter for closed fracture; F10.929 Alcohol use, unspecified with intoxication, unspecified; K21.9 Gastro-esophageal reflux disease without esophagitis; I10 Essential (primary) hypertension; Z88.8 Allergy status to other drugs, medicaments and biological substances; Z79.83 Long term (current) use of bisphosphonates; W19.XXXA Unspecified fall, initial encounter
CPT/HCPCS: 36415; 85025; 73020; 71045; 99285; 96374; 96375; 96361; G0480; J2060; J1885; 80320

== ENCOUNTER 2023-12-23 20:53 | Emergency (ER) | payer OTHER ==
[2023-12-23 21:56] VITALS: TEMP 97.8
--- NOTE | 2023-12-23 22:15 | ED ---
General Adult HPI - General Chief complaint: Alcohol Stated complaint: ETOH Time Seen by Provider: 12/23/23 21:20 Source: patient, EMS, RN notes reviewed, old records reviewed Mode of arrival: EMS - History of Present Illness Initial comments: Patient is a 48-year-old female who presents emergency department over concern for alcohol intoxication. [place] and EMS was called. She was sleeping there. Apparently patient was kicking EMS upon arrival. She is calm down at this time and does endorse drinking alcohol this evening. I explained to her that she needs to be observed until she is more clinically sober at this time. She did consent to obtaining a patch as well as vital signs. Is asking for some food. Has no other acute complaints at this time. Denies chest pain or shortness of breath. Denies any fevers, chills, cough. Pr esents for further evaluation. - Related Data Home Medications Medication Instructions Recorded Confirmed Divalproex Sodium [Depakote] 500 mg PO BID 10/13/19 01/10/20 Thiamine [Vitamin B-1] 100 mg PO BID 10/13/19 01/10/20 amLODIPine [Norvasc] 5 mg PO DAILY 10/13/19 01/10/20 Diphenoxylate HCl/Atropine 1 - 2 tab PO QID PRN 01/10/20 01/10/20 [Lomotil 2.5-0.025 mg Tablet] Omeprazole 20 mg PO DAILY 01/10/20 01/10/20 Ondansetron [Zofran] 4 mg PO Q6H PRN 01/10/20 01/10/20 Allergies Allergy/AdvReac Type Severity Reaction Status Date / Time duloxetine [From Cymbalta] Allergy Rash/Hives Verified 12/23/23 21:12 Review of Systems ROS Statement: Those systems with pertinent positive or pertinent negative responses have been documented in the HPI. Review of Systems: CONST: Denies fever EYES: Denies blurry vision ENT: Denies nasal congestion C/V: Denies Chest pain RESP: Denies shortness of breath GI: Denies abdominal pain : Denies dysuria SKIN: Denies rash. MSK: Denies joint pain. NEURO: Denies headache ROS Other: All systems not noted in ROS Statement are negative. Past Medical History Past Medical History: GERD/Reflux, Hypertension, Seizure Disorder Additional Past Medical History / Comment(s): Alcohol abuse; last major seizure was 07/24/19 and was transferred to [facility]. Pt states she had a seizure about 2 weeks ago from 01-11-20. History of Any Multi-Drug Resistant Organisms: None Reported Past Surgical History: No Surgical Hx Reported Past Anesthesia/Blood Transfusion Reactions: No Reported Reaction Past Psychological History: Anxiety, Depression Past Drug Use History: None Reported - Past Family History Mother Family Medical History: Coronary Artery Disease (CAD) Father Family Medical History: Cancer Sister(s) Additional Family Medical History / Comment(s): bipolar Son(s) Additional Family Medical History / Comment(s): pt states "failure to thrive, delayed" General Exam - General Exam Comments Initial Comments: General: Appears acutely intoxicated with alcohol. HEAD: Normal with no signs of head trauma. EYES: PERRLA, EOMI, conjunctiva normal, no discharge. Pulls are 3 mm and equal bilaterally. ENT: Hearing grossly intact, normal oropharynx. RESPIRATORY: Clear breath sounds bilaterally. No wheezes, rales, or rhonchi. C/V: Regular rate and rhythm. S1 and S2 auscultated, peripheral pulses 2+ and intact throughout ABD: Abd is soft, nontender, nondistended EXT: Normal range of motion, no obvious deformity SKIN: No rashes or lesions observed on exposed skin. NEURO: Alert and oriented x 4 with no obvious focal deficits. Patient is acutely intoxicated with alcohol. Course Vital Signs 12/23/23 12/24/23 12/24/23 21:39 01:36 04:20 Temperature 97.8 F Pulse Rate 92 80 80 Respiratory 17 18 18 Rate Blood Pressure 132/89 103/61 120/89 O2 Sat by Pulse 99 97 99 Oximetry Procedures - Laceration Laceration #1 Consent Obtained: verbal consent Indication: laceration Site: face Size (cm): 3 Description: linear Depth: simple, single layer Patient Tolerated Procedure: well Additional Comments: Closed with Dermabond. Medical Decision Making - Medical Decision Making Was pt. sent in by a medical professional or institution (, PA, BOTTOM STAINER, urgent care, hospital, or [place] health care facility...) When possible be specific @ -No Did you speak to anyone other than the patient for history (EMS, parent, family, police, friend...)? What history was obtained from this source @ -No Did you review nursing and triage notes (agree or disagree)? Why? @ -I reviewed and agree with nursing and triage notes Were old charts reviewed (outside hosp., previous admission, EMS record, old EKG, old radiological studies, urgent care reports/EKG's, [place] health care facility records)? Report findings @ -No old charts were reviewed Differential Diagnosis (chest pain, altered mental status, abdominal pain women, abdominal pain men, vaginal bleeding, weakness, fever, dyspnea, syncope, headache, dizziness, GI bleed, back pain, seizure, CVA, palpatations, mental health, musculoskeletal)? @ -Alcohol intoxication, alcohol abuse, this list is not all inclusive. EKG interpreted by me (3pts min.). @ -None done X-rays interpreted by me (1pt min.). @ -Knee x-rays negative for any obvious injury CT interpreted by me (1pt min.). @ -CT brain, C-spine, facial bones negative for any obvious traumatic injury to the bones. Soft tissue swelling of the chin secondary to recent fall. U/S interpreted by me (1pt. min.). @ -None done What testing was considered but not performed or refused? (CT, X-rays, U/S, labs)? Why? @ -None What meds were considered but not given or refused? Why? @ -None Did you discuss the management of the patient with other professionals (professionals i.e. , PA, BOTTOM STAINER, lab, RT, psych nurse, social media designer, can maker, teacher, chief technical officer, field nurse case manager)? Give summary @ -No Was smoking cessation discussed for >3mins.? @ -No Was critical care preformed (if so, how long)? @ -No Were there social determinants of health that impacted care today? How? (Ho melessness, low income, unemployed, alcoholism, drug addiction, transportation, low edu. Level, literacy, decrease access to med. care, [facility], rehab)? @ -No Was there de-escalation of care discussed even if they declined (Discuss DNR or withdrawal of care, Hospice)? DNR status @ -No What co-morbidities impacted this encounter? (DM, HTN, Smoking, COPD, CAD, Cancer, CVA, ARF, Chemo, Hep., AIDS, mental health diagnosis, sleep apnea, morbid obesity)? @ -None Was patient admitted / discharged? Hospital course, mention meds given and route, prescriptions, significant lab abnormalities, going to OR and other pertinent info. @ -Based on patient's presentation and physical exam, presents acutely i ntoxicated with alcohol. I did offer basic labs however patient declines. Patient is alert and oriented x 4 at this time however very intoxicated. Will observe the patient until clinically sober at least. Patient was in agreement this plan. Vital signs are within acceptable limits. Patient's BAT is elevated at 0.271. Patient attempted to ambulate out of bed when she slipped and fell. She struck her chin on the ground. Is complaining of bilateral knee pain as well as chin pain. Has a small linear chin laceration with minimal bleeding. Did not lose consciousness. Is not on blood thinners. Does not meet trauma activation criteria. We will obtain CT brain, C-spine, facial bones as well as x-rays of the knees. Will obtain basic labs at this time which she did consent to. She will be given IV pain meds and fluids. Patient was in agreement this plan. Patient removed her cervical collar. Imaging was unremarkable. Labs are unremarkable. Patient did become agitated prior to imaging as we did find that she had bedbugs. Patient was decontaminated but was attempting to fight staff and was uncooperative. As she was a threat to others she did receive Haldol and Ativan for agitation. She responded well to this. On reevaluation, patient is resting comfortably. We discussed her workup. She expressed understanding. I did close her chin laceration with Dermabond. She w as observed until clinically sober. She was discharged home at this time. She was in agreement this plan. I instructed the patient to follow up with their PCP in the next 1-3 days. I explained that the patient should return to the emergency department if they experience any worsening symptoms. Strict return precautions were discussed with the patient. The patient expressed understanding of these instructions. I answered all questions that the patient had. The patient was discharged home in good condition with their prescriptions and follow up information. Undiagnosed new problem with uncertain prognosis? @ -No Drug Therapy requiring intensive monitoring for toxicity (Heparin, Nitro, Ins ulin, Cardizem)? @ -No Were any procedures done? @ -Laceration closure with Dermabond. Diagnosis/symptom? @ -Alcohol intoxication, fall, chin laceration Acute, or Chronic, or Acute on Chronic? @ -Acute Uncomplicated (without systemic symptoms) or Complicated (systemic symptoms)? @ -Complicated Side effects of treatment? @ -None Exacerbation, Progression, or Severe Exacerbation] @ -No Poses a threat to life or bodily function? @ -Unlikely - Lab Data Result diagrams: 12/23/23 21:56 12/23/23 21:57 Lab Results 12/23/23 12/23/23 12/23/23 Range/Units 21:56 21:57 21:57 WBC 11.1 H (3.8-10.6) k/uL RBC 4.61 (3.80-5.40) m/uL Hgb 13.3 (11.4-16.0) gm/dL Hct 42.0 (34.0-46.0) % MCV 91.3 (80.0-100.0) fL MCH 28.8 (25.0-35.0) pg MCHC 31.6 (31.0-37.0) g/dL RDW 17.4 H (11.5-15.5) % Plt Count 386 (150-450) k/uL MPV 7.5 Neutrophils % 55 % Lymphocytes % 33 % Monocytes % 5 % Eosinophils % 3 % Basophils % 1 % Neutrophils # 6.1 (1.3-7.7) k/uL Lymphocytes # 3.7 (1.0-4.8) k/uL Monocytes # 0.5 (0-1.0) k/uL Eosinophils # 0.3 (0-0.7) k/uL Basophils # 0.1 (0-0.2) k/uL Anisocytosis Slight PT 10.5 (10.0-12.5) sec INR 0.9 (<1.2) APTT 25.9 (22.0-30.0) sec Sodium 133 L (137-145) mmol/L Potassium 4.1 (3.5-5.1) mmol/L Chloride 104 (98-107) mmol/L Carbon Dioxide 15 L (22-30) mmol/L Anion Gap 14 mmol/L BUN 3 L (7-17) mg/dL Creatinine 0.35 L (0.52-1.04) mg/dL Est GFR (CKD-EPI)AfAm >90 (>60 ml/min/1.73 sqM) Est GFR (CKD-EPI)NonAf >90 (>60 ml/min/1.73 sqM) Glucose 91 (74-99) mg/dL Calcium 9.2 (8.4-10.2) mg/dL Total Bilirubin 0.4 (0.2-1.3) mg/dL AST 47 H (14-36) U/L ALT 22 (4-34) U/L Alkaline Phosphatase 74 (38-126) U/L Total Protein 7.6 (6.3-8.2) g/dL Albumin 4.7 (3.5-5.0) g/dL Disposition Clinical Impression: Alcohol intoxication, Fall, Chin laceration Disposition: HOME SELF-CARE Condition: Good Instructions (If sedation given, give patient instructions): Alcohol Intoxication (ED) Is patient prescribed a controlled substance at d/c from ED?: No Referrals: Britton Castillo MD [Primary Care Provider] - 1-2 days Time of Disposition: 06:30
[2023-12-23] MEDS: MORPHINE SULFATE 2 MG/ML SYRINGE IVP STA (22:40)
[2023-12-23] MEDS: SODIUM CHLORIDE 0.9% 1,000 ML IV STA (22:40)
[2023-12-23] MEDS: DIPH,PERTUS(ACELL)TETVAC-LF 0.5 ML VIAL IM ONE (22:40)
[2023-12-23 23:07] LABS: Anisocytosis Slight; Basophils # (A) 0.1 k/uL (0-0.2); Basophils % (A) 1 %; Eosinophils # (A) 0.3 k/uL (0-0.7); Eosinophils % (A) 3 %; HGB 13.3 gm/dL (11.4-16.0); Lymphocytes # (A) 3.7 k/uL (1.0-4.8); Lymphocytes % (A) 33 %; MCH 28.8 pg (25.0-35.0); MCHC 31.6 g/dL (31.0-37.0); MCV 91.3 fL (80.0-100.0); Mean Platelet Volume 7.5; Monocytes # (A) 0.5 k/uL (0-1.0); Monocytes % (A) 5 %; Neutrophils # (A) 6.1 k/uL (1.3-7.7); Neutrophils % (A) 55 %; Platelet Count 386 k/uL (150-450); RBC 4.61 m/uL (3.80-5.40); RDW 17.4 % (11.5-15.5); WBC 11.1 k/uL (3.8-10.6)
[2023-12-23 23:20] LABS: ALT 22 U/L (4-34); AST 47 U/L (14-36); African American GFR (CKD) >90 (>60 ml/min/1.73 sqM); Albumin 4.7 g/dL (3.5-5.0); Alkaline Phosphatase 74 U/L (38-126); Anion Gap 14 mmol/L; Blood Urea Nitrogen 3 mg/dL (7-17); Calcium 9.2 mg/dL (8.4-10.2); Carbon Dioxide 15 mmol/L (22-30); Chloride 104 mmol/L (98-107); Glucose 91 mg/dL (74-99); Non-African American GFR(CKD) >90 (>60 ml/min/1.73 sqM); Sodium 133 mmol/L (137-145); Total Bilirubin 0.4 mg/dL (0.2-1.3); Total Protein 7.6 g/dL (6.3-8.2)
[2023-12-23 23:23] LABS: Potassium 4.1 mmol/L (3.5-5.1)
[2023-12-23 23:25] LABS: INR 0.9 (<1.2); Partial Thromboplastin Time 25.9 sec (22.0-30.0); Prothrombin Time 10.5 sec (10.0-12.5)
[2023-12-24] MEDS: HALOPERIDOL LACTATE 5 MG/ML 1 ML VIAL IVP STA (00:09)
[2023-12-24] MEDS: LORazepam 2 MG/ML INJ IV STA (00:09)
--- NOTE | 2023-12-24 01:13 | XR ---
EXAM: XR Bilateral Knees, 3 Views CLINICAL HISTORY: ITS.REASON XR Reason: fall, chin lac TECHNIQUE: Three views of the bilateral knees. COMPARISON: No relevant prior studies available. FINDINGS: Bones/joints: Unremarkable. No acute fracture. No dislocation. Soft tissues: Unremarkable. IMPRESSION: No acute osseous abnormality.
--- NOTE | 2023-12-24 01:23 | CT ---
EXAM: CT Head Without Intravenous Contrast CLINICAL HISTORY: ITS.REASON CT Reason: fall, chin lac TECHNIQUE: Axial computed tomography images of the head/brain without intravenous contrast. CTDI is 12.9 mGy and DLP is 381.1 mGy-cm. This CT exam was performed using one or more of the following dose reduction techniques: automated exposure control, adjustment of the mA and/or kV according to patient size, and/or use of iterative reconstruction technique. COMPARISON: 01/10/2020 FINDINGS: Brain: Mild chronic low-attenuation cerebral white matter. Mild cerebral volume loss. No hemorrhage. Ventricles: No acute findings. No ventriculomegaly. Bones/joints: Unremarkable. No acute fracture. Soft tissues: Unremarkable. Sinuses: Unremarkable as visualized. No acute sinusitis. Mastoid air cells: Unremarkable as visualized. No mastoid effusion. IMPRESSION: No acute findings in the head/brain. EXAM: CT Cervical Spine Without Intravenous Contrast CLINICAL HISTORY: ITS.REASON CT Reason: fall, chin lac TECHNIQUE: Axial computed tomography images of the cervical spine without intravenous contrast. CTDI is 12.9 mGy and DLP is 381.1 mGy-cm. This CT exam was performed using one or more of the following dose reduction techniques: automated exposure control, adjustment of the mA and/or kV according to patient size, and/or use of iterative reconstruction technique. COMPARISON: 01/10/2020 FINDINGS: Vertebrae: Cervical degenerative disc disease and facet arthropathy. Unchanged mild grade 1 anterolisthesis C4 on C5. No acute fracture. Discs/spinal canal/neural foramina: See above. No significant stenosis. Soft tissues: No acute findings. IMPRESSION: No acute findings in the cervical spine.
--- NOTE | 2023-12-24 01:25 | CT ---
EXAM: CT Maxillofacial Without Intravenous Contrast CLINICAL HISTORY: ITS.REASON CT Reason: fall, chin lac TECHNIQUE: Axial computed tomography images of the face without intravenous contrast. CTDI is 7.3 mGy and DLP is 203.1 mGy-cm. This CT exam was performed using one or more of the following dose reduction techniques: automated exposure control, adjustment of the mA and/or kV according to patient size, and/or use of iterative reconstruction technique. COMPARISON: No relevant prior studies available. FINDINGS: Bones/joints: No acute fracture. Soft tissues: Contusions in the subcutaneous tissues of the right face and chin. Orbits: Unremarkable. Sinuses: Unremarkable. No air-fluid levels. Dental: Dental caries. Periodontal disease. Nasal cavity/septum: Deviation of the anterior nasal septum to the right impressing nasal septum to left. IMPRESSION: 1. No facial bone fracture. 2. Contusions in the subcutaneous tissues of the right face and chin.
[2023-12-24 01:56] VITALS: RESP 18
[2023-12-24] MEDS: TOPICAL SKIN ADHESIVE 1 EACH AMP TOPICAL ONE (06:03)
[2023-12-24 07:54] VITALS: BP 113/72; PULSE 96
== END 2023-12-24 07:05 | disposition home or self-care (01) ==
LOC: EC 20:53
DX: F10.129 Alcohol abuse with intoxication, unspecified (principal); S01.81XA Laceration without foreign body of other part of head, initial encounter; M25.561 Pain in right knee; M25.562 Pain in left knee; Z88.8 Allergy status to other drugs, medicaments and biological substances; Z23 Encounter for immunization; W19.XXXA Unspecified fall, initial encounter
CPT/HCPCS: 82075; 36415; 80053; 85025; 85610; 85730; 73560; 72125; 70486; 70450; 90715; 99285; 96374; 96375 ×2; 96361 ×5; 12013; 90471; J2060; J1630; J2270